=== PATIENT | female | born 1970 | race African-American/Black ===

== ENCOUNTER 2020-06-03 13:46 | Inpatient (IN) | payer OTHER, SELFPAY ==
[2020-06-03] VITALS (7 sets, daily range): BP systolic 132–179; BP diastolic 76–85; PULSE 86–100; RESP 18–24; TEMP 36.9–37.2; O2SAT 97–100; BMI 49.7
--- NOTE | 2020-06-03 14:51 | PC.NURSE ---
PT REPORTING 4 PISODES OF VOMITING JACINTO RED BLOOD YESTERDAY EVENING, WITH 1 EPISODE OF BLACK LOOSE STOOL THIS AM. EXPERIENCED BRIEF CHEST TIGHTNESS HEART WAS RACING WITH SOB AND DIZZINESS THIS AM. CURRENTLY DENIES CHEST PAIN, DIZZINESS, SOB, NAUSEA. DID EAT TOGURT AND CHEERIOS THIS AM WITH NO ISSUE. HX ACID REFLUX. DENIES ETOH, VARICES. HX HTN. 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 TO BE SEEN BY ED PROVIDER.
--- NOTE | 2020-06-03 15:25 | ED.NAVMDI ---
HPI - Nausea/Vomiting/Diarrhea General Chief complaint: Nausea/Vomiting/Diarrhea <Ian Ley MD - Last Filed: 06/03/20 16:17> Stated complaint: MULTIPLE COMPLAINTS <Ian Ley MD - Last Filed: 06/03/20 16:17> Time Seen by Provider: 06/03/20 15:15 <Ian Ley MD - Last Filed: 06/03/20 16:17> Source: patient <Ian Ley MD - Last Filed: 06/03/20 16:17> Mode of arrival: ambulatory <Ian Ley MD - Last Filed: 06/03/20 16:17> Limitations: no limitations <Ian Ley MD - Last Filed: 06/03/20 16:17> History of Present Illness HPI Narrative: 49 YEARS OLD FEMALE PRESENTED TO THE EMERGENCY DEPARTMENT WITH A CHIEF COMPLAINTS OF NAUSEA VOMITING AND DIARRHEA SINCE YESTERDAY. SHE STATES THAT SHE IS SAW BLOOD IN THE VOMITED YESTERDAY, SHE DENIES ANY FEVER WILLIAM <Ian Ley MD - Last Filed: 06/03/20 16:17> MD elicited complaint: nausea and vomiting <Ian Ley MD - Last Filed: 06/03/20 16:17> Onset (ago): day(s) (1) <Ian Ley MD - Last Filed: 06/03/20 16:17> Description of vomiting: blood-streaked <Ian Ley MD - Last Filed: 06/03/20 16:17> Description of diarrhea: watery <Ian Ley MD - Last Filed: 06/03/20 16:17> Associated nausea: Yes <Ian Ley MD - Last Filed: 06/03/20 16:17> Associated abdominal pain: No <Ian Ley MD - Last Filed: 06/03/20 16:17> Location of pain: none <Ian Ley MD - Last Filed: 06/03/20 16:17> Quality: cramping <Ian Ley MD - Last Filed: 06/03/20 16:17> Exacerbating factors: none <Ian Ley MD - Last Filed: 06/03/20 16:17> Relieving factors: none <Ian Ley MD - Last Filed: 06/03/20 16:17> Related Data Allergies/Adverse reactions: Allergies Allergy/AdvReac Type Severity Reaction Status Date / Time No Known Allergies Allergy Verified 06/03/20 13:49 <Ian Ley MD - Last Filed: 06/03/20 16:17> Review of Systems Review of Systems: Yes all other systems are reviewed and are negative <Ian Ley MD - Last Filed: 06/03/20 16:17> Respiratory: Respiratory: Reports no additional respiratory complaints <Ian Ley MD - Last Filed: 06/03/20 16:17> Gastrointestinal: Gastrointestinal: Reports nausea <Ian Ley MD - Last Filed: 06/03/20 16:17> Neurologic: Reports system reviewed and no additional complaints, except as documented <Ian Ley MD - Last Filed: 06/03/20 16:17> PMFSH Past Medical History Medical History: Medical History Cholecystectomy planned GERD (gastroesophageal reflux disease) HTN (hypertension) <Ian eLy MD - Last Filed: 06/03/20 16:17> Surgical History: Surgical History History of hysterectomy Hx of breast reduction, elective <Ian Ley MD - Last Filed: 06/03/20 16:17> Social History Social History: Social History Alcohol intake: never Smoking Status: Never smoker Use of substances other than those prescribed or required for medical reasons: No Advance Directives: No Advance Directives Information Provided: Yes <Ian Ley MD - Last Filed: 06/03/20 16:17> Physical Exam Vital Signs: Vital Signs: Vital Signs Temp Pulse Resp BP Pulse Ox 06/03/20 16:31 98.9 F 95 22 H 143/85 H 97 06/03/20 14:48 99 06/03/20 14:38 95 133/83 98 06/03/20 13:50 98.4 F 97 18 179/76 H 100 Body Mass Index 49.7 <Ian Ley MD - Last Filed: 06/03/20 16:17> Vital Signs: Vital Signs Temp Pulse Resp BP Pulse Ox 06/03/20 16:31 98.9 F 95 22 H 143/85 H 97 06/03/20 14:48 99 06/03/20 14:38 95 133/83 98 06/03/20 13:50 98.4 F 97 18 179/76 H 100 Body Mass Index 49.7 <Mecca Washington MD - Last Filed: 06/03/20 17:34> Const: Other: SHE APPEARED IN NOT ACUTE DISTRESS COMFORTABLE IN THE STRETCHER <Ian Ley MD - Last Filed: 06/03/20 16:17> Orientation/consciousness: oriented to person, oriented to place, oriented to time and patient oriented x3 <Ian Ley MD - Last Filed: 06/03/20 16:17> HENMT: Head: Yes normal to inspection <Ian Ley MD - Last Filed: 06/03/20 16:17> Ears: external ears normal <Ian Ley MD - Last Filed: 06/03/20 16:17> Mouth: Normal oral and palatal mucosa present <Ian Ley MD - Last Filed: 06/03/20 16:17> Eyes: General: appearance normal, both eyes and all related structures <Ian Ley MD - Last Filed: 06/03/20 16:17> Conjunctivae: conjunctivae normal <Ian Ley MD - Last Filed: 06/03/20 16:17> Neck: Neck: Yes normal visual inspection, Yes full ROM and Yes no lymphadenopathy <Ian Ley MD - Last Filed: 06/03/20 16:17> Chest: Chest palpation & inspection: normal inspection of the chest and normal palpation of entire chest wall <Ian Ley MD - Last Filed: 06/03/20 16:17> Resp: Effort & Inspection: normal respiratory effort and able to speak in complete sentences <Ian Ley MD - Last Filed: 06/03/20 16:17> Cardio: Jugular venous distension: no JVD <Ian Ley MD - Last Filed: 06/03/20 16:17> Palpation: normal PMI <Ian Ley MD - Last Filed: 06/03/20 16:17> Rate: regular rate <Ian Ley MD - Last Filed: 06/03/20 16:17> GI: Inspection: Yes normal to inspection <Ian Ley MD - Last Filed: 06/03/20 16:17> Percussion: Yes normal to percussion <Ian Ley MD - Last Filed: 06/03/20 16:17> Auscultation: normal bowel sounds <Ian Ley MD - Last Filed: 06/03/20 16:17> Rectal Exam - Female: Abnormal stool present (BROWN HEME POSITIVE STOOLS) and heme positive stool <Ian Ley MD - Last Filed: 06/03/20 16:17> Skin: General skin exam: no rashes or lesions noted, elasticity normal and no erythema <Ian Ley MD - Last Filed: 06/03/20 16:17> Neuro: General: oriented to person, oriented to place, oriented to time and patient oriented x3 <Ian Ley MD - Last Filed: 06/03/20 16:17> Course Course Course Narrative: PATIENT WILL BE SIGNED OUT TO THE INCOMING PROVIDER dR Hilton , LABS ARE PENDING AT THIS TIME <Ian Ley MD - Last Filed: 06/03/20 16:17> MDM - Nausea/Vomiting/Diarrhea MDM Narrative Medical decision making narrative: Patient's hemoglobin is 8.5. No old labs available. Patient's abdominal exam is soft nontender. heme-positive brown stool. Will admit patient for serial Hematocrit and monitoring. In no distress. Case discussed with hospitalist service for admission. <Mecca Washington MD - Last Filed: 06/03/20 17:34> Lab Data Result diagrams: : 06/03/20 15:58 06/03/20 15:58 <Ian Ley MD - Last Filed: 06/03/20 16:17> Labs: Lab Results 06/03/20 06/03/20 06/03/20 Range/Units 15:58 15:58 16:25 WBC 20.8 H (4.8-10.8) X10*3/uL RBC 4.37 (4.20-5.50) X10*6/uL Hgb 8.5 L (12.0-16.0) g/dl Hct 30.1 L (37-47) % MCV 68.9 L (80-98) fL MCH 19.5 L (27.0-33.0) pg MCHC 28.2 L (31.0-35.0) g/dl RDW 17.9 H (11.0-16.0) % Plt Count 415 H (160-400) X10*3/uL MPV 9.8 (9.4-12.3) fL Immature Gran % (Auto) 0.6 H (0.0-0.4) % Neut % (Auto) 85.3 H (45-73) % Lymph % (Auto) 8.6 L (20-40) % [place] % (Auto) 5.3 (2-11) % Eos % (Auto) 0.1 (0-4) % Baso % (Auto) 0.1 (0-2) % Lymph # (Auto) 1.8 (1.2-4.9) X10*3/uL [place] # (Auto) 1.1 (0.1-1.2) X10*3/uL Eos # (Auto) 0.0 (0.0-0.4) X10*3/uL Baso # (Auto) 0.0 (0.0-0.2) X10*3/uL Abs Immat Gran (auto) 0.13 H (0.00-0.03) X10*3/uL Absolute Neuts (auto) 17.7 H (2.0-8.3) X10*3/uL Absolute Nucleated RBC 0.000 (0.0-0.012) X10*3/uL Nucleated RBC % (auto) 0.0 (0.0-0.2) /100WBC Sodium 139 (135-145) mmol/L Potassium 3.7 (3.3-5.1) mmol/l Chloride 102 (96-108) mmol/L Carbon Dioxide 27 (22-29) mmol/L Anion Gap 14 (12-20) BUN 27 H (9-16) mg/dL Creatinine 0.78 (0.5-1.4) mg/dL Estim Creat Clear Calc 136.0 Estimated GFR > 60 Random Glucose 101 (60-115) mg/dL Calcium 8.8 (8.4-10.2) mg/dL Total Bilirubin 0.4 (0.0-1.0) mg/dL AST 15 (5-31) U/L ALT 19 (0-31) U/L Alkaline Phosphatase 122 H (39-117) U/L Total Protein 6.9 (6.5-8.0) g/dL Albumin 4.0 (3.5-5.0) g/dL Lipase 11 (8-78) U/L Beta HCG, Quant < 2 mIU/mL Urine Color Urine Appearance Urine pH (5.0-8.0) Ur Specific [place] (1.005-1.025) Urine Protein (NEG-TRACE) MG/DL Urine Glucose (UA) (NEG) MG/DL Urine Ketones (NEG) MG/DL Urine Blood (NEG) Urine Nitrite (NEG) Ur Leukocyte Esterase (NEG) Urine RBC (0) /HPF Urine WBC (0-4) /HPF Ur Squamous Epith Cells /LPF Urine Bacteria /LPF Stool Occult Blood POS (NEG) 06/03/20 Range/Units 16:25 WBC (4.8-10.8) X10*3/uL RBC (4.20-5.50) X10*6/uL Hgb (12.0-16.0) g/dl Hct (37-47) % MCV (80-98) fL MCH (27.0-33.0) pg MCHC (31.0-35.0) g/dl RDW (11.0-16.0) % Plt Count (160-400) X10*3/uL MPV (9.4-12.3) fL Immature Gran % (Auto) (0.0-0.4) % Neut % (Auto) (45-73) % Lymph % (Auto) (20-40) % [place] % (Auto) (2-11) % Eos % (Auto) (0-4) % Baso % (Auto) (0-2) % Lymph # (Auto) (1.2-4.9) X10*3/uL [place] # (Auto) (0.1-1.2) X10*3/uL Eos # (Auto) (0.0-0.4) X10*3/uL Baso # (Auto) (0.0-0.2) X10*3/uL Abs Immat Gran (auto) (0.00-0.03) X10*3/uL Absolute Neuts (auto) (2.0-8.3) X10*3/uL Absolute Nucleated RBC (0.0-0.012) X10*3/uL Nucleated RBC % (auto) (0.0-0.2) /100WBC Sodium (135-145) mmol/L Potassium (3.3-5.1) mmol/l Chloride (96-108) mmol/L Carbon Dioxide (22-29) mmol/L Anion Gap (12-20) BUN (9-16) mg/dL Creatinine (0.5-1.4) mg/dL Estim Creat Clear Calc Estimated GFR Random Glucose (60-115) mg/dL Calcium (8.4-10.2) mg/dL Total Bilirubin (0.0-1.0) mg/dL AST (5-31) U/L ALT (0-31) U/L Alkaline Phosphatase (39-117) U/L Total Protein (6.5-8.0) g/dL Albumin (3.5-5.0) g/dL Lipase (8-78) U/L Beta HCG, Quant mIU/mL Urine Color YELLOW Urine Appearance CLEAR Urine pH 6.0 (5.0-8.0) Ur Specific [place] 1.020 (1.005-1.025) Urine Protein NEG (NEG-TRACE) MG/DL Urine Glucose (UA) NEG (NEG) MG/DL Urine Ketones NEG (NEG) MG/DL Urine Blood 1+ H (NEG) Urine Nitrite NEG (NEG) Ur Leukocyte Esterase NEG (NEG) Urine RBC 0-2 (0) /HPF Urine WBC 0 (0-4) /HPF Ur Squamous Epith Cells TRACE /LPF Urine Bacteria TRACE /LPF Stool Occult Blood (NEG) <Ian Ley MD - Last Filed: 06/03/20 16:17> Lab Results 06/03/20 06/03/20 06/03/20 Range/Units 15:58 15:58 16:25 WBC 20.8 H (4.8-10.8) X10*3/uL RBC 4.37 (4.20-5.50) X10*6/uL Hgb 8.5 L (12.0-16.0) g/dl Hct 30.1 L (37-47) % MCV 68.9 L (80-98) fL MCH 19.5 L (27.0-33.0) pg MCHC 28.2 L (31.0-35.0) g/dl RDW 17.9 H (11.0-16.0) % Plt Count 415 H (160-400) X10*3/uL MPV 9.8 (9.4-12.3) fL Immature Gran % (Auto) 0.6 H (0.0-0.4) % Neut % (Auto) 85.3 H (45-73) % Lymph % (Auto) 8.6 L (20-40) % [place] % (Auto) 5.3 (2-11) % Eos % (Auto) 0.1 (0-4) % Baso % (Auto) 0.1 (0-2) % Lymph # (Auto) 1.8 (1.2-4.9) X10*3/uL [place] # (Auto) 1.1 (0.1-1.2) X10*3/uL Eos # (Auto) 0.0 (0.0-0.4) X10*3/uL Baso # (Auto) 0.0 (0.0-0.2) X10*3/uL Abs Immat Gran (auto) 0.13 H (0.00-0.03) X10*3/uL Absolute Neuts (auto) 17.7 H (2.0-8.3) X10*3/uL Absolute Nucleated RBC 0.000 (0.0-0.012) X10*3/uL Nucleated RBC % (auto) 0.0 (0.0-0.2) /100WBC Sodium 139 (135-145) mmol/L Potassium 3.7 (3.3-5.1) mmol/l Chloride 102 (96-108) mmol/L Carbon Dioxide 27 (22-29) mmol/L Anion Gap 14 (12-20) BUN 27 H (9-16) mg/dL Creatinine 0.78 (0.5-1.4) mg/dL Estim Creat Clear Calc 136.0 Estimated GFR > 60 Random Glucose 101 (60-115) mg/dL Calcium 8.8 (8.4-10.2) mg/dL Total Bilirubin 0.4 (0.0-1.0) mg/dL AST 15 (5-31) U/L ALT 19 (0-31) U/L Alkaline Phosphatase 122 H (39-117) U/L Total Protein 6.9 (6.5-8.0) g/dL Albumin 4.0 (3.5-5.0) g/dL Lipase 11 (8-78) U/L Beta HCG, Quant < 2 mIU/mL Urine Color Urine Appearance Urine pH (5.0-8.0) Ur Specific [place] (1.005-1.025) Urine Protein (NEG-TRACE) MG/DL Urine Glucose (UA) (NEG) MG/DL Urine Ketones (NEG) MG/DL Urine Blood (NEG) Urine Nitrite (NEG) Ur Leukocyte Esterase (NEG) Urine RBC (0) /HPF Urine WBC (0-4) /HPF Ur Squamous Epith Cells /LPF Urine Bacteria /LPF Stool Occult Blood POS (NEG) 06/03/20 Range/Units 16:25 WBC (4.8-10.8) X10*3/uL RBC (4.20-5.50) X10*6/uL Hgb (12.0-16.0) g/dl Hct (37-47) % MCV (80-98) fL MCH (27.0-33.0) pg MCHC (31.0-35.0) g/dl RDW (11.0-16.0) % Plt Count (160-400) X10*3/uL MPV (9.4-12.3) fL Immature Gran % (Auto) (0.0-0.4) % Neut % (Auto) (45-73) % Lymph % (Auto) (20-40) % [place] % (Auto) (2-11) % Eos % (Auto) (0-4) % Baso % (Auto) (0-2) % Lymph # (Auto) (1.2-4.9) X10*3/uL [place] # (Auto) (0.1-1.2) X10*3/uL Eos # (Auto) (0.0-0.4) X10*3/uL Baso # (Auto) (0.0-0.2) X10*3/uL Abs Immat Gran (auto) (0.00-0.03) X10*3/uL Absolute Neuts (auto) (2.0-8.3) X10*3/uL Absolute Nucleated RBC (0.0-0.012) X10*3/uL Nucleated RBC % (auto) (0.0-0.2) /100WBC Sodium (135-145) mmol/L Potassium (3.3-5.1) mmol/l Chloride (96-108) mmol/L Carbon Dioxide (22-29) mmol/L Anion Gap (12-20) BUN (9-16) mg/dL Creatinine (0.5-1.4) mg/dL Estim Creat Clear Calc Estimated GFR Random Glucose (60-115) mg/dL Calcium (8.4-10.2) mg/dL Total Bilirubin (0.0-1.0) mg/dL AST (5-31) U/L ALT (0-31) U/L Alkaline Phosphatase (39-117) U/L Total Protein (6.5-8.0) g/dL Albumin (3.5-5.0) g/dL Lipase (8-78) U/L Beta HCG, Quant mIU/mL Urine Color YELLOW Urine Appearance CLEAR Urine pH 6.0 (5.0-8.0) Ur Specific [place] 1.020 (1.005-1.025) Urine Protein NEG (NEG-TRACE) MG/DL Urine Glucose (UA) NEG (NEG) MG/DL Urine Ketones NEG (NEG) MG/DL Urine Blood 1+ H (NEG) Urine Nitrite NEG (NEG) Ur Leukocyte Esterase NEG (NEG) Urine RBC 0-2 (0) /HPF Urine WBC 0 (0-4) /HPF Ur Squamous Epith Cells TRACE /LPF Urine Bacteria TRACE /LPF Stool Occult Blood (NEG) <Mecca Washington MD - Last Filed: 06/03/20 17:34> Sign Out Sign Out Data: Patient Sign Out occurred on 06/03/20 at 17:02. After a detailed discussion of the patient's case, care was transferred from Ian Ley MD to Mecca Washington MD. Sign Out Comment: LABS PENDING/ GI CONSULT AFTER LABS RESULT Last updated by Ian Ley MD at 06/03/20 16:16 <Ian Ley MD - Last Filed: 06/03/20 16:17>
[2020-06-03 16:05] LABS: MANUAL DIFF FLAG NO
[2020-06-03 16:07] LABS: Basophils Percent Auto 0.1 % (0-2); Eosinophils Percent Auto 0.1 % (0-4); Hematocrit 30.1 % (37-47); Hemoglobin 8.5 g/dl (12.0-16.0); Imm Gran Abs Auto 0.13 X10*3/uL (0.00-0.03); Imm Gran Pct Auto 0.6 % (0.0-0.4); Lymphocytes Absolute Auto 1.8 X10*3/uL (1.2-4.9); Lymphocytes Percent Auto 8.6 % (20-40); Mean Corpuscular HGB Conc 28.2 g/dl (31.0-35.0); Mean Corpuscular Hemoglobin 19.5 pg (27.0-33.0); Mean Corpuscular Volume 68.9 fL (80-98); Mean Platelet Volume 9.8 fL (9.4-12.3); Monocytes Absolute Auto 1.1 X10*3/uL (0.1-1.2); Monocytes Percent Auto 5.3 % (2-11); Neutrophils Absolute Auto 17.7 X10*3/uL (2.0-8.3); Neutrophils Percent Auto 85.3 % (45-73); Platelet Count 415 X10*3/uL (160-400); Red Blood Count 4.37 X10*6/uL (4.20-5.50); Red Cell Distribution Width 17.9 % (11.0-16.0); White Blood Count 20.8 X10*3/uL (4.8-10.8)
--- NOTE | 2020-06-03 16:10 | PC.NURSE ---
RECTAL EXAM DONE WITH THIS RN PRESENT
[2020-06-03] MEDS: ondansetron HCL 4 MG/2 ML VIAL IVPUSH (16:20)
[2020-06-03] MEDS: Famotidine/PF 20 MG/2 ML VIAL IVPUSH (16:26)
[2020-06-03] MEDS: 0.9 % Sodium Chloride 1,000 ML 999 ML IVCONT (16:27)
[2020-06-03 16:35] LABS: Alanine Aminotransferase 19 U/L (0-31); Alkaline Phosphatase 122 U/L (39-117); Anion Gap 14 (12-20); Aspartate Amino Transferase 15 U/L (5-31); Bilirubin Total 0.4 mg/dL (0.0-1.0); Blood Urea Nitrogen 27 mg/dL (9-16); Calcium 8.8 mg/dL (8.4-10.2); Carbon Dioxide 27 mmol/L (22-29); Chloride 102 mmol/L (96-108); Estimated Glomerular Filt Rate > 60; Glucose Random 101 mg/dL (60-115); Lipase 11 U/L (8-78); Potassium 3.7 mmol/l (3.3-5.1); Sodium 139 mmol/L (135-145); Total Protein 6.9 g/dL (6.5-8.0)
[2020-06-03 16:36] LABS: Glucose Urine UA NEG (NEG); Leukocyte Esterase Urine NEG (NEG); Nitrite Urine NEG (NEG); Urine Blood 1+ (NEG); Urine Ketones NEG (NEG); Urine Protein NEG (NEG-TRACE)
[2020-06-03 16:38] LABS: OBS Int Ctl Valid YES; OBS1 POS (NEG)
[2020-06-03 16:40] LABS: Appearance Urine CLEAR; Color Urine YELLOW
[2020-06-03 16:41] LABS: HCG Quantitative < 2 mIU/mL
[2020-06-03 16:50] LABS: Bacteria Urine TRACE /LPF; RBC Urine 0-2 /HPF (0); Squamous Epithelial Cell Urine TRACE /LPF; WBC Urine 0 /HPF (0-4)
[2020-06-03] MEDS: Pantoprazole Sodium 40 MG/10 ML VIAL IVPUSH (17:57)
--- NOTE | 2020-06-03 19:14 | PC.NURSE ---
pt reports no pain. vs wnl. aware of plan for care. hospitalist currently at bedside.
--- NOTE | 2020-06-03 20:05 | P.HPIM_ITS ---
History of Present Illness Date of Service: 06/03/20 Chief Complaint: Hematemesis 49 year old women presenting after several episodes of bloody vomitus. She reported that yesterday she had four episodes of vomiting blood. She also had one episode of black stool. She has no history of alcohol abuse, regular NSAID u se and in fact reported that she used four baby aspirin for knee pain over the last 2 weeks. in the ER, vital signs stable, hemoglobin noted to be low at 8.5, hematocrit 30.1. She did not have any further vomiting since yesterday. She was given IV protonix and will be admitted for acute GI bleed. Review of Systems Review of Systems: Denies any recent fever chills or decrease in appetite respiratory denies any shortness of breath coverage production cardiovascular is adjustment of any PND or edema gastrointestinal denies any dysphagia abdominal pain nausea vomiting or diarrhea genitourinary denies any dysuria frequency or hematuria musculoskeletal denies any joint pain or swelling neuropsych denies any weakness or seizures all other systems reviewed are negative Neurologic: Reports system reviewed and no additional complaints, except as documented [facility] Medical History (Updated 06/04/20 @ 10:01 by Constance Roblero MD) Anemia Cholecystectomy planned GERD (gastroesophageal reflux disease) HTN (hypertension) Morbid obesity with BMI of 45.0-49.9, adult Family History (Updated 06/04/20 @ 09:51 by Constance Roblero MD) Father FH: colon polyps Pertinent family history: Diabetes Surgical History (Updated 06/04/20 @ 09:52 by Constance Roblero MD) History of cholecystectomy History of hysterectomy Hx of breast reduction, elective Social History (Updated 06/04/20 @ 09:54 by Constance Roblero MD) Household Members: Family and Children Household Members Other:: Legal guardian neice and nephew (ages18 & 16) Housing: Apartment Do you presently have visiting nurse or other home services: No Alcohol intake: never Smoking Status: Never smoker Use of substances other than those prescribed or required for medical reasons: No Currently Displaying Signs/Symptoms of Drug Intoxication Withdrawal: No Any prior treatment program specific to substance use: No Have you been hit, kicked, punched, or otherwise hurt by someone within the past year? If so, by whom?: No Do you feel safe in your current relationship?: No Current Relationship Is there a partner from a previous relationship who is making you feel unsafe now?: No Are you made to feel afraid or neglected: No Advance Directives: No Advance Directives Information Provided: Yes Do you have thoughts of harming others: None Do you have a plan to hurt others: No Plan Recently lost weight without trying: No Meds Allergies Allergy/AdvReac Type Severity Reaction Status Date / Time No Known Allergies Allergy Verified 06/03/20 13:49 Home Medications Medication Instructions Recorded Confirmed Type atenolol 25 mg PO QAM 06/03/20 06/03/20 History hydrochlorothiazide 25 mg PO QAM 06/03/20 06/03/20 History omeprazole 20 mg PO QAM 06/03/20 06/03/20 History Physical Exam Vital Signs and Narrative: Vital Signs: Last Vital Signs Temp 98.9 F 06/03/20 16:31 Pulse 86 06/03/20 19:14 Resp 21 H 06/03/20 19:14 BP 132/83 06/03/20 19:14 Pulse Ox 97 06/03/20 19:14 Body Mass Index 49.7 Appearing in no acute distress head is normocephalic atraumatic eyes pupils are PERRLA sclera is anicteric mouth throat mucous membranes are intact and moist neck is supple no lymphadenopathy, no JVD noted lung sounds are clear to auscultation heart regular rate rhythm, clear S1, S2 positive bowel sounds, abdomen is soft, nontender neuro patient is alert x3, no focal deficits Results Labs Labs: Laboratory Tests 06/03/20 06/03/20 06/03/20 15:58 15:58 16:25 WBC 20.8 H RBC 4.37 Hgb 8.5 L Hct 30.1 L MCV 68.9 L MCH 19.5 L MCHC 28.2 L RDW 17.9 H Plt Count 415 H MPV 9.8 Immature Gran % (Auto) 0.6 H Neut % (Auto) 85.3 H Lymph % (Auto) 8.6 L [place] % (Auto) 5.3 Eos % (Auto) 0.1 Baso % (Auto) 0.1 Lymph # (Auto) 1.8 [place] # (Auto) 1.1 Eos # (Auto) 0.0 Baso # (Auto) 0.0 Abs Immat Gran (auto) 0.13 H Absolute Neuts (auto) 17.7 H Absolute Nucleated RBC 0.000 Nucleated RBC % (auto) 0.0 Sodium 139 Potassium 3.7 Chloride 102 Carbon Dioxide 27 Anion Gap 14 BUN 27 H Creatinine 0.78 Estim Creat Clear Calc 136.0 Estimated GFR > 60 Random Glucose 101 Calcium 8.8 Total Bilirubin 0.4 AST 15 ALT 19 Alkaline Phosphatase 122 H Total Protein 6.9 Albumin 4.0 Lipase 11 Beta HCG, Quant < 2 Urine Color Urine Appearance Urine pH Ur Specific [place] Urine Protein Urine Glucose (UA) Urine Ketones Urine Blood Urine Nitrite Ur Leukocyte Esterase Urine RBC Urine WBC Ur Squamous Epith Cells Urine Bacteria Stool Occult Blood POS 06/03/20 16:25 WBC RBC Hgb Hct MCV MCH MCHC RDW Plt Count MPV Immature Gran % (Auto) Neut % (Auto) Lymph % (Auto) [place] % (Auto) Eos % (Auto) Baso % (Auto) Lymph # (Auto) [place] # (Auto) Eos # (Auto) Baso # (Auto) Abs Immat Gran (auto) Absolute Neuts (auto) Absolute Nucleated RBC Nucleated RBC % (auto) Sodium Potassium Chloride Carbon Dioxide Anion Gap BUN Creatinine Estim Creat Clear Calc Estimated GFR Random Glucose Calcium Total Bilirubin AST ALT Alkaline Phosphatase Total Protein Albumin Lipase Beta HCG, Quant Urine Color YELLOW Urine Appearance CLEAR Urine pH 6.0 Ur Specific [place] 1.020 Urine Protein NEG Urine Glucose (UA) NEG Urine Ketones NEG Urine Blood 1+ H Urine Nitrite NEG Ur Leukocyte Esterase NEG Urine RBC 0-2 Urine WBC 0 Ur Squamous Epith Cells TRACE Urine Bacteria TRACE Stool Occult Blood Assessment and Plan (1) Hematemesis: Problem details: Patient denies any previous hx of vomiting blood. Has had egd in the past with no specific findings. She has been chronically on PPI therapy which she takes in the morning. Status: Acute (2) Gastritis: Status: Acute (3) HTN (hypertension): Problem details: Patient has been on treatment for this Status: Acute 49 year old women admitted after several episodes of hematemesis. May be related to gastritis. Gastritis. May be cause of hematemesis. IV Protonix, likely will need EGD tomorrow, GI to follow. NPO after midnight. Hypertension. Hold antihypertensives due to anemia. Avoid hypotension. Anemia. Seems related to blood loss from hematemesis. Will recheck H&H this evening. If there seems to be a significant drop, consider blood transfusion. Type and screen. DVT prophylaxis with mechanical compression boots due to GI bleed. Discussed with Dr. Frazier.
--- NOTE | 2020-06-03 21:14 | PC.NURSE ---
CALL MADE UP TO [facility] [place] FOR REPORT
--- NOTE | 2020-06-03 22:46 | PC.NURSE ---
report given to avila meadows
[2020-06-03 23:53] LABS: Hematocrit 28.4 % (37-47); Hemoglobin 8.1 g/dl (12.0-16.0); Mean Corpuscular HGB Conc 28.5 g/dl (31.0-35.0); Mean Corpuscular Hemoglobin 19.6 pg (27.0-33.0); Mean Corpuscular Volume 68.8 fL (80-98); Mean Platelet Volume 9.8 fL (9.4-12.3); Platelet Count 381 X10*3/uL (160-400); Red Blood Count 4.13 X10*6/uL (4.20-5.50); Red Cell Distribution Width 18.1 % (11.0-16.0); White Blood Count 19.3 X10*3/uL (4.8-10.8)
[2020-06-04] VITALS (10 sets, daily range): BP systolic 111–166; BP diastolic 49–88; PULSE 68–98; RESP 16–19; TEMP 36.6–37.1; O2SAT 96–99
--- NOTE | 2020-06-04 | ECG_ITS ---
Test Reason : Preop, ANEMIA Blood Pressure : / mmHG Vent. Rate : 091 BPM Atrial Rate : 091 BPM P-R Int : 182 ms QRS Dur : 090 ms QT Int : 362 ms P-R-T Axes : 038 037 020 degrees QTc Int : 445 ms Normal sinus rhythm Nonspecific T wave abnormality Abnormal ECG No previous ECGs available Referred By: Constance Roblero Electronically Signed By:JACINTO PRESSLEY MD
[2020-06-04] MEDS: Pantoprazole Sodium 40 MG/10 ML VIAL IVPUSH ×2 (05:44→15:31)
--- NOTE | 2020-06-04 07:59 | P.CNGI_ITS ---
History of Present Illness Data of Consult Service Date: 06/04/20 Requesting physician: Delmy Phoenix Primary Care Provider: Sahil Mota MD HPI Reason for consult: Hematemesis, Anemia, Heme + stool 49 yo morbidly obese female who presented to the ER after 4 episodes of Vomiting blood and clots. She has never experienced this problem before. She does have hx of GERD. She is on Omeprazole once daily in the AM. She does not routinely use ASA or NSAIAs. She tells me that she had eaten Fried Fish and [place]. Shortly after going to be she vomited. (Denies any significant force to this. Subsequent episodes of vomiting were with blood as described.) She had had EGD in past and does not recall any hx ulcer disease, or esophagitis. She had not had any GI symptoms the days preceding. Moves bowels daily, Denies abdominal pain, fever, etc. Review of Systems Constitutional: Constitutional: Denies anorexia, Denies difficulty sleeping, Denies fatigue, Denies lethargy, Denies poor appetite and Denies stops breathing during sleep Comments: Has never been evaluated for JUAN Cardiovascular: Cardiovascular: Denies chest pain at rest, Denies Epigastric Pain, Denies palpitations, Denies dyspnea, Reports dyspnea on exertion (mild) and Reports other (History of Hypertension) Comments: known hx hypertension Respiratory: Respiratory: Denies cough, Denies dyspnea and Reports dyspnea on exertion (mild) Gastrointestinal: Gastrointestinal: Reports as per HPI, Denies abdominal pain, Denies change in bowel habits, Reports heartburn and Reports hematemesis (4 episodes prior to admission) Genitourinary: Comments: Had Hysterectomy for Fibroids and DUB Integumentary/Breasts: Comments: Breast reduction about 10 years ago Endocrine: Endocrine: Denies fatigue and Denies palpitations PMF Past Medical History Medical History (Updated 06/04/20 @ 18:21 by Constance Roblero MD) Anemia Cholecystectomy planned GERD (gastroesophageal reflux disease) HTN (hypertension) Morbid obesity with BMI of 45.0-49.9, adult Cognitive capacity: Normal Patient : No Family History Family History (Updated 06/04/20 @ 09:51 by Constance Roblero MD) Father FH: colon polyps Surgical History Surgical History (Updated 06/04/20 @ 09:52 by Constance Roblero MD) History of cholecystectomy History of hysterectomy Hx of breast reduction, elective Social History Social History (Updated 06/04/20 @ 09:54 by Constance Roblero MD) Household Members: Family and Children Household Members Other:: Legal guardian neice and nephew (ages18 & 16) Housing: Apartment Do you presently have visiting nurse or other home services: No Alcohol intake: never Smoking Status: Never smoker Use of substances other than those prescribed or required for medical reasons: No Currently Displaying Signs/Symptoms of Drug Intoxication Withdrawal: No Any prior treatment program specific to substance use: No Have you been hit, kicked, punched, or otherwise hurt by someone within the past year? If so, by whom?: No Do you feel safe in your current relationship?: No Current Relationship Is there a partner from a previous relationship who is making you feel unsafe now?: No Are you made to feel afraid or neglected: No Advance Directives: No Advance Directives Information Provided: Yes Do you have thoughts of harming others: None Do you have a plan to hurt others: No Plan Recently lost weight without trying: No Meds Allergies Allergy/AdvReac Type Severity Reaction Status Date / Time No Known Allergies Allergy Verified 06/03/20 13:49 Home Medications Medication Instructions Recorded Confirmed Type atenolol 25 mg PO QAM 06/03/20 06/03/20 History hydrochlorothiazide 25 mg PO QAM 06/03/20 06/03/20 History omeprazole 20 mg PO QAM 06/03/20 06/03/20 History Physical Exam Vital Signs: Vital Signs: Vital Signs Temp Pulse Resp BP Pulse Ox 06/04/20 07:36 98.6 F 89 18 111/64 97 06/04/20 06:00 98.7 F 68 18 127/72 98 06/04/20 03:44 98.6 F 96 18 127/82 99 06/03/20 23:41 98.4 F 100 18 164/84 H 99 06/03/20 22:49 94 24 H 155/83 H 99 06/03/20 19:14 86 21 H 132/83 97 06/03/20 16:31 98.9 F 95 22 H 143/85 H 97 06/03/20 14:48 99 06/03/20 14:38 95 133/83 98 06/03/20 13:50 98.4 F 97 18 179/76 H 100 Body Mass Index 49.7 Const: General: cooperative, comfortable and awake Nutritional Appearance: overweight (Morbid Obesity) Orientation/consciousness: patient oriented x3 Limitations: no limitations Neck: Neck: Yes normal visual inspection Thyroid: diffusely enlarged Lymphatic: no lymphadenopathy noted Resp: Effort & Inspection: normal respiratory effort, no cough, no pursed lip breathing and no respiratory distress Auscultation: clear to auscultation bilaterally and diminished lung sounds Percussion: percussion normal Cardio: Palpation: normal PMI Rate: regular rate Rhythm: regular rhythm Heart sounds: Murmur heart sound present (2/6 systolic murmur across precordium) GI: Inspection: Yes normal to inspection, Yes Abdominal panniculus present and Yes obesity Palpation (GI): Soft to palpation Percussion: Yes normal to percussion Rectal Exam - Female: deferred Skin: General skin exam: no rashes or lesions noted Neuro: General: patient oriented x3 Extrem: General: Yes normal to inspection, Yes no calf tenderness and No edema Results Labs CBC & Chem 7: 06/03/20 23:42 06/03/20 15:58 Labs: Short CBC 06/03/20 06/03/20 06/03/20 Range/Units 15:58 16:25 23:42 WBC 20.8 H 19.3 H (4.8-10.8) X10*3/uL Hgb 8.5 L 8.1 L (12.0-16.0) g/dl Hct 30.1 L 28.4 L (37-47) % Plt Count 415 H 381 (160-400) X10*3/uL Urine Color YELLOW Urine Appearance CLEAR Urine pH 6.0 (5.0-8.0) Ur Specific [place] 1.020 (1.005-1.025) Urine Protein NEG (NEG-TRACE) MG/DL Urine Glucose (UA) NEG (NEG) MG/DL Urine Ketones NEG (NEG) MG/DL Urine Blood 1+ H (NEG) Urine Nitrite NEG (NEG) Ur Leukocyte Esterase NEG (NEG) Urine RBC 0-2 (0) /HPF Urine WBC 0 (0-4) /HPF Ur Squamous Epith Cells TRACE /LPF Urine Bacteria TRACE /LPF BMP 06/03/20 15:58 Sodium 139 Potassium 3.7 Chloride 102 Carbon Dioxide 27 BUN 27 H Creatinine 0.78 Calcium 8.8 Liver Function 06/03/20 Range/Units 15:58 Total Bilirubin 0.4 (0.0-1.0) mg/dL AST 15 (5-31) U/L ALT 19 (0-31) U/L Alkaline Phosphatase 122 H (39-117) U/L Albumin 4.0 (3.5-5.0) g/dL Urine 06/03/20 Range/Units 16:25 Urine Color YELLOW Urine Appearance CLEAR Urine pH 6.0 (5.0-8.0) Ur Specific [place] 1.020 (1.005-1.025) Urine Protein NEG (NEG-TRACE) MG/DL Urine Glucose (UA) NEG (NEG) MG/DL Assessment and Plan (1) Hematemesis: Problem details: Patient denies any previous hx of vomiting blood. Has had egd in the past with no specific findings. She has been chronically on PPI therapy which she takes in the morning. Status: Acute Urgent EGD. (2) GERD (gastroesophageal reflux disease): Problem details: see HPI Status: Acute EGD to be done; Continue IV PPI q 12hr (3) Anemia: Problem details: Patient says she is aware of a borderline anemia. She was last seen by PCP in October. Not aware of sickle trait or Thalassemia Status: Acute Consider furth eval of her anemia--copy of other records. (4) Morbid obesity with BMI of 45.0-49.9, adult: Problem details: Present jail Status: Acute Further discussion may be warranted. (5) HTN (hypertension): Problem details: Patient has been on treatment for this Status: Acute PCP to manage this
--- NOTE | 2020-06-04 10:21 | MHC.CM.PN ---
Call placed to Yesenia Jewell, patient's daughter in attempt at interview. Message left requesting call in return. CM to follow.
--- NOTE | 2020-06-04 10:30 | P.CONAN_ITS ---
FORMERLY [facility], [facility] Past Medical History Medical History (Updated 06/04/20 @ 10:01 by Constance Roblero MD) Anemia Cholecystectomy planned GERD (gastroesophageal reflux disease) HTN (hypertension) Morbid obesity with BMI of 45.0-49.9, adult Family History Family History (Updated 06/04/20 @ 09:51 by Constance Roblero MD) Father FH: colon polyps Surgical History Surgical History (Updated 06/04/20 @ 09:52 by Constance Roblero MD) History of cholecystectomy History of hysterectomy Hx of breast reduction, elective Social History Social History (Updated 06/04/20 @ 09:54 by Constance Roblero MD) Household Members: Family and Children Household Members Other:: Legal guardian neice and nephew (ages18 & 16) Housing: Apartment Do you presently have visiting nurse or other home services: No Alcohol intake: never Smoking Status: Never smoker Use of substances other than those prescribed or required for medical reasons: No Currently Displaying Signs/Symptoms of Drug Intoxication Withdrawal: No Any prior treatment program specific to substance use: No Have you been hit, kicked, punched, or otherwise hurt by someone within the past year? If so, by whom?: No Do you feel safe in your current relationship?: No Current Relationship Is there a partner from a previous relationship who is making you feel unsafe now?: No Are you made to feel afraid or neglected: No Advance Directives: No Advance Directives Information Provided: Yes Do you have thoughts of harming others: None Recently lost weight without trying: No Meds Allergies Allergy/AdvReac Type Severity Reaction Status Date / Time No Known Allergies Allergy Verified 06/03/20 13:49 Home Medications Medication Instructions Recorded Confirmed Type atenolol 25 mg PO QAM 06/03/20 06/03/20 History hydrochlorothiazide 25 mg PO QAM 06/03/20 06/03/20 History omeprazole 20 mg PO QAM 06/03/20 06/03/20 History Exam Exam Date and Time: June 04, 2020 1030 Height,Weight and Vital Signs: Height 5 ft 8 in Weight 148.325 kg Last Vital Signs Temp 98.6 F 06/04/20 07:36 Pulse 89 06/04/20 07:36 Resp 18 06/04/20 07:36 BP 111/64 06/04/20 07:36 Pulse Ox 97 06/04/20 07:36 Pertinent Lab Results Pertinent Lab Results: Laboratory Tests 06/03/20 06/03/20 06/03/20 15:58 15:58 16:25 WBC 20.8 H RBC 4.37 Hgb 8.5 L Hct 30.1 L MCV 68.9 L MCH 19.5 L MCHC 28.2 L RDW 17.9 H Plt Count 415 H MPV 9.8 Immature Gran % (Auto) 0.6 H Neut % (Auto) 85.3 H Lymph % (Auto) 8.6 L [place] % (Auto) 5.3 Eos % (Auto) 0.1 Baso % (Auto) 0.1 Lymph # (Auto) 1.8 [place] # (Auto) 1.1 Eos # (Auto) 0.0 Baso # (Auto) 0.0 Abs Immat Gran (auto) 0.13 H Absolute Neuts (auto) 17.7 H Absolute Nucleated RBC 0.000 Nucleated RBC % (auto) 0.0 Sodium 139 Potassium 3.7 Chloride 102 Carbon Dioxide 27 Anion Gap 14 BUN 27 H Creatinine 0.78 Estim Creat Clear Calc 136.0 Estimated GFR > 60 Random Glucose 101 Calcium 8.8 Total Bilirubin 0.4 AST 15 ALT 19 Alkaline Phosphatase 122 H Total Protein 6.9 Albumin 4.0 Lipase 11 Beta HCG, Quant < 2 Urine Color Urine Appearance Urine pH Ur Specific [place] Urine Protein Urine Glucose (UA) Urine Ketones Urine Blood Urine Nitrite Ur Leukocyte Esterase Urine RBC Urine WBC Ur Squamous Epith Cells Urine Bacteria Stool Occult Blood POS Blood Type Antibody Screen 06/03/20 06/03/20 06/03/20 16:25 23:42 23:42 WBC 19.3 H RBC 4.13 L Hgb 8.1 L Hct 28.4 L MCV 68.8 L MCH 19.6 L MCHC 28.5 L RDW 18.1 H Plt Count 381 MPV 9.8 Immature Gran % (Auto) Neut % (Auto) Lymph % (Auto) [place] % (Auto) Eos % (Auto) Baso % (Auto) Lymph # (Auto) [place] # (Auto) Eos # (Auto) Baso # (Auto) Abs Immat Gran (auto) Absolute Neuts (auto) Absolute Nucleated RBC 0.000 Nucleated RBC % (auto) 0.0 Sodium Potassium Chloride Carbon Dioxide Anion Gap BUN Creatinine Estim Creat Clear Calc Estimated GFR Random Glucose Calcium Total Bilirubin AST ALT Alkaline Phosphatase Total Protein Albumin Lipase Beta HCG, Quant Urine Color YELLOW Urine Appearance CLEAR Urine pH 6.0 Ur Specific [place] 1.020 Urine Protein NEG Urine Glucose (UA) NEG Urine Ketones NEG Urine Blood 1+ H Urine Nitrite NEG Ur Leukocyte Esterase NEG Urine RBC 0-2 Urine WBC 0 Ur Squamous Epith Cells TRACE Urine Bacteria TRACE Stool Occult Blood Blood Type O Positive Antibody Screen NEGATIVE Airway Mallampati Class: II TM Dist: >3cm Neck ROM: Full Loose/Missing/Broken Teeth: No Heart: RRR Lungs: CTA Assessment and Plan Assessment Anesthesia Assessment: Anesthesia Plan Discussed and Chart Reviewed Final Anesthetic Review NPO: Yes ASA Class: II Final Preanesthetic Review: No Changes in Pt Med Stat, Meds/Allgs Chart Reviewed, Consent Obtained/Reviewed and Anes Risks/Benef Reviewed Patient Risk: Intermediate Procedure Risk: Low Anesthetic Plan Anesthetic Plan: MAC: Disposition: Standard PACU
--- NOTE | 2020-06-04 10:48 | P.HPSUR_ITS ---
Pre-Procedural Eval Section B Chief Complaint: MULTIPLE COMPLAINTS GI BLEED Allergies: Allergies Allergy/AdvReac Type Severity Reaction Status Date / Time No Known Allergies Allergy Verified 06/03/20 13:49 Plan Patient has been examined and remains a candidate for the planned procedure; see my consult for today.
--- NOTE | 2020-06-04 12:30 | P.PCN_ITS ---
Brief Operative Note Date of procedure: 06/04/20 Pre-op diagnosis: HEMATEMESIS Post-op diagnosis: other (LARGE FUNDIC GLAND POLYPS, 1 POLYP WITH EROSION OR FLAT VV EQUIVALENT; HIATAL HERNIA) Procedure: EGD WITH EPI INJECTION 6 CC; RESOLUTION CLIPPING X2 complex proc edure, change to double channel scope--start time: 10:59AM--end time:11:59 AM Anesthesia: MAC (MD LETICIA) Surgeon: Constance Roblero Estimated blood loss (mL): 10 Pathology: none sent Condition: stable Disposition: PACU (BACK TO THE FLOOR. TRIAL LIQUID DIET FIRST; AVOID VOMITING, CONTINUE PPI FOR 24 HOURS. MONITOR H&H. IF REBLEEDS MAY NEED CT ANGIO--WITH INTERVENTION.)
--- NOTE | 2020-06-04 17:21 | PC.NURSE ---
P-patient questioning BP meds not being reordered,outdated discharge order is in place for this patient I- notified of the above E-awaiting new orders
--- NOTE | 2020-06-04 18:25 | PC.NURSE ---
P-meds time due not showing uop on status board I-command center notified E-IT staff will look into this
--- NOTE | 2020-06-04 18:55 | P.PNIM_ITS ---
Subjective Subjective Date of Service: 06/04/20 Interval History: no new episode , going for egd Review of Systems denies any chest pain or sob. Physical Exam Vital Signs: Vital Signs: Vital Signs Temp Pulse Resp BP Pulse Ox 06/04/20 15:45 98.0 F 86 18 127/66 99 06/04/20 13:18 18 06/04/20 12:53 97.8 F 80 18 166/88 H 98 06/04/20 12:25 97.8 F 93 16 134/69 99 06/04/20 12:10 97.8 F 98 18 132/49 L 99 06/04/20 07:36 98.6 F 89 18 111/64 97 06/04/20 06:00 98.7 F 68 18 127/72 98 06/04/20 03:44 98.6 F 96 18 127/82 99 06/03/20 23:41 98.4 F 100 18 164/84 H 99 06/03/20 22:49 94 24 H 155/83 H 99 06/03/20 19:14 86 21 H 132/83 97 Body Mass Index 49.7 physical exam: eyes pupils are PERRLA, sclera anicteric neck is supple no lymphadenopathy, no JVD noted lung sounds are clear to auscultation heart regular rate rhythm, clear S1, S2 positive bowel sounds, abdomen is soft, nontender neuro patient is alert x3, no focal deficits Objective Data Current Medications Generic Name Dose Route Start Last Admin Trade Name Freq PRN Reason Stop Dose Admin Lactated Ringer's 1,000 mls @ 50 mls/hr 06/04/20 10:45 06/04/20 12:56 Lr IVCONT Not Given .Q20H [facility] Promethazine HCl 12.5 mg/ 50.5 mls @ 202 mls/hr 06/04/20 10:34 06/04/20 14:32 Sodium Chloride IV Infused ONCE PRN Infusion Nausea and Vomiting Pantoprazole Sodium 40 mg 06/04/20 16:30 06/04/20 15:31 Pantoprazole Sodium 40 Mg/10 Ml Vial IVPUSH 40 mg BID@0630,1630 [facility] Administration Pharmacy Consult 1 each 06/03/20 23:18 Consult Rx Perform Med Rec MISCELLANE ONCE PRN Consult order Labs CBC & Chem 7: 06/05/20 05:37 06/03/20 15:58 Assessment and Plan (1) Anemia: Problem details: Patient says she is aware of a borderline anemia. She was last seen by PCP in October. Not aware of sickle trait or Thalassemia Status: Acute (2) Gastritis: Status: Acute (3) Hematemesis: Problem details: Patient denies any previous hx of vomiting blood. Has had egd in the past with no specific findings. She has been chronically on PPI therapy which she takes in the morning. Status: Acute (4) HTN (hypertension): Problem details: Patient has been on treatment for this Status: Acute Assessment and Plan: 49 year old women admitted after several episodes of hematemesis. May be related to gastritis. please disregard the labs above because they are from Gastritis. May be cause of hematemesis. IV Protonix egd shows -?polyps moniter h/h Hypertension. Hold antihypertensives due to anemia. Avoid hypotension. Anemia. Seems related to blood loss from hematemesis. Will recheck H&H this evening. If there seems to be a significant drop, consider blood transfusion. Type and screen. DVT prophylaxis with mechanical compression boots due to GI bleed.
--- NOTE | 2020-06-04 21:55 | OP_ITS ---
SURGEON: Constance Roblero MD PROCEDURE PERFORMED: EGD with a change of scope to the double-channel scope for the last 3rd of the procedure, epinephrine injection total 6 mL, resolution clip being deployed in position, x two, 1 spent without apposition, one end of the clip was not deployed due to inability to maintain position. ESTIMATED BLOOD LOSS: Less than 10 mL. COMPLICATIONS: No complications. ANESTHESIA: Monitored. ANESTHESIOLOGIST: Dr. Anderson. ASSISTANTS: No anesthesiologist assistant certified. SPECIMENS: Specimens removed; none. PREOPERATIVE DIAGNOSES: 49-year-old female, who is morbidly obese, was admitted to the hospital earlier today due to significant hematemesis and anemia. POSTOPERATIVE DIAGNOSES: Multiple large fundic gland polyps, largest polyp just below GE junction appeared to have a visible vessel equivalent versus [place] type lesion, Moderate-sized hiatal hernia. COMPUTER AIDE: Dr. Roblero. COMMENT: Start time was 10:59 a.m., end time 11:59 a.m. FINDINGS: Video endoscope was introduced without difficulty, it was navigated through a lot of soft tissue in the posterior pharynx and easily into the esophagus. Esophageal mucosa itself was normal. GE junction was clear and distinct. There did appear to be a variable-sized hiatal hernia distal to the GE junction. On entering the stomach, there was no active GI bleeding at the time of scope insertion. Multiple Large Fundic gland polyps were noted, several of which were hyperemic. The scope was slowly passed through this area into what appeared to be normal body and normal antrum. Duodenal bulb and duodenum appeared endoscopically normal. Visualization of the periampullary area was normal as well. Scope was repositioned into the body and fundus of the stomach. There was 1 particular polyp that was 1 to 2 cm in size on a partial stalk that was high in the cardia and just below the GE junction. In the region of the stalk, there was a slightly eroded area with a dark spot central to this, which could be consistent with a visible vessel/Emiliano LaFoie type lesion. This particular region was injected with ultimately a total of 6 mL of epinephrine injection submucosally with good blanching. 2 clips were applied, although neither totally straddled the area of concern, there was no active bleeding from this region at the time of the procedure. Due to some altered visibility at this time, it was about the time that we changed from the slim adult scope to the double-channel scope for better visualization; however, due to respiratory excursions and the patient coughing, no additional positioning could be held. The area was injected with last of the 2 mL of epi that had previously been documented. There were several other 1 to 2 cm fundic gland polyps, one of which was significantly friable with just the usual amount of suctioning. There was a little bit of heme ooze. Scope was withdrawn. The patient tolerated the procedure well. PLAN: Findings were discussed with hospitalist service. Would maintain IV PPI for at least 24 hours. Monitor H and H closely. If the patient rebleeds, consider CT angiography with possibility of IR intervention if appropriate, these polyps are difficult to remove acutely. The attempts should be made to minimize any vomiting by this patient. Would try clear to full liquids for the rest of the day and try to advance if tolerated. She will need to be maintained on b.i.d. PPI therapy. Further discussion about evaluation and management of these fundic gland polyps can be discussed either as inpatient or outpatient depending on how stable the patient remains. Patient was counselled on the findings once she was fully awake. GRAFT OR IMPLANTS: No grafts or implants. All the resolution clips [address]. CONDITION: Postprocedure, stable. MD SHIRLEY Carrillo/ELODIA / [id number] MTDD
[2020-06-05] VITALS (15 sets, daily range): BP systolic 132–182; BP diastolic 62–94; PULSE 81–111; RESP 16–18; TEMP 36.1–37.1; O2SAT 94–99; BMI 49.7
[2020-06-05] MEDS: Pantoprazole Sodium 40 MG/10 ML VIAL IVPUSH ×2 (06:43→20:17)
[2020-06-05 07:08] LABS: Hematocrit 22.8 % (37-47); Mean Corpuscular HGB Conc 28.5 g/dl (31.0-35.0); Mean Corpuscular Hemoglobin 19.9 pg (27.0-33.0); Mean Corpuscular Volume 69.7 fL (80-98); Mean Platelet Volume 10.3 fL (9.4-12.3); Platelet Count 283 X10*3/uL (160-400); Red Blood Count 3.27 X10*6/uL (4.20-5.50); Red Cell Distribution Width 18.1 % (11.0-16.0); White Blood Count 12.8 X10*3/uL (4.8-10.8)
[2020-06-05 07:22] LABS: Hemoglobin 6.5 g/dl (12.0-16.0)
--- NOTE | 2020-06-05 07:43 | PC.NURSE ---
PT WITH CRITICAL HGB OF 6.5 DOWN FROM 8.1. PT REPORTED HAVING BLOODY STOOL ON DAY SHIFT 06/04. MD SAAVEDRA NOTIFIED. ORDER FOR TWO UNITS INITIATED. T&S COMPLETE. PT IS ASYMPTOMATIC. RESTING IN BED. SAFETY MEASURES IN PLACE.
--- NOTE | 2020-06-05 11:27 | HO.POSTANES ---
Post Anesthesia Evaluation Post Anesthesia Evaluation Vital Signs: Vital Signs Temp Pulse Resp BP Pulse Ox 06/05/20 11:17 88 18 140/75 H 06/05/20 11:02 98.1 F 88 18 132/71 06/05/20 07:33 98.5 F 97 18 160/84 H 96 06/05/20 03:43 98.7 F 96 18 133/62 95 Anesthesia: Monitored Mental Status: Awake Pain Control: Satisfactory Nausea/Vomiting: None Hydration: Adequate Anesthesia-Related Issues: No Anes. Related Issues
--- NOTE | 2020-06-05 11:28 | HO.POSTANES ---
Post Anesthesia Evaluation Post Anesthesia Evaluation Vital Signs: Vital Signs Temp Pulse Resp BP Pulse Ox 06/05/20 11:17 88 18 140/75 H 06/05/20 11:02 98.1 F 88 18 132/71 06/05/20 07:33 98.5 F 97 18 160/84 H 96 06/05/20 03:43 98.7 F 96 18 133/62 95 Anesthesia: Monitored and General Mental Status: Awake Pain Control: Satisfactory Nausea/Vomiting: None Hydration: Adequate Anesthesia-Related Issues: No Anes. Related Issues
--- NOTE | 2020-06-05 11:31 | MHC.CM.PN ---
[employer] completed with pt who reports she lives at home and is the legal guardian of her niece and nephew who are 16 and 18 years old. She reports the mother of the children also spends a significant amount of time at her home. Pt denies the use of any DME or community/home services and is independent with all care and mobility. Pt completed a HCP today naming Constance Soria ([phone]) as her agent. Current DC plan is home with no services pt will self arrange transport
[2020-06-05] MEDS: Acetaminophen 325 MG TABLET 650 MG PO ×2 (12:05→20:18)
--- NOTE | 2020-06-05 14:16 | PM.GIPN ---
Subjective Subjective Date of Service: 06/05/20 Interval History: Patient sitting up. She has had no vomiting. She is hungry. She denies any new symptoms. Physical Exam Vital Signs: Vital Signs: Vital Signs Temp Pulse Resp BP Pulse Ox 06/05/20 13:15 98.2 F 88 18 154/78 H 06/05/20 11:44 98.8 F 81 18 132/74 97 06/05/20 11:17 88 18 140/75 H 06/05/20 11:02 98.1 F 88 18 132/71 06/05/20 07:33 98.5 F 97 18 160/84 H 96 06/05/20 03:43 98.7 F 96 18 133/62 95 06/04/20 23:23 98.4 F 94 18 115/58 L 96 06/04/20 19:06 98.5 F 90 19 122/80 99 06/04/20 15:45 98.0 F 86 18 127/66 99 Body Mass Index 49.7 Const: General: cooperative Nutritional Appearance: obese Orientation/consciousness: patient oriented x3 Limitations: no limitations Resp: Effort & Inspection: normal respiratory effort, able to speak in complete sentences, no respiratory distress and no use of accessory muscles Auscultation: clear to auscultation bilaterally Cardio: Rate: regular rate Rhythm: regular rhythm GI: Palpation (GI): Soft to palpation and no masses Auscultation: normal bowel sounds Neuro: General: patient oriented x3 Psych: Mental Status: mental status grossly normal Speech and movement: Normal speech and movement present Attitude: cooperative Thought process: Normal thought process present Objective Data Labs CBC & Chem 7: 06/06/20 09:15 06/03/20 15:58 Labs: Laboratory Results - last 24 hr 06/03/20 06/05/20 23:42 05:37 WBC 12.8 H RBC 3.27 L D Hgb 6.5 L* Hct 22.8 L MCV 69.7 L MCH 19.9 L MCHC 28.5 L RDW 18.1 H Plt Count 283 D MPV 10.3 Absolute Nucleated RBC 0.000 Nucleated RBC % (auto) 0.0 Blood Type O Positive Antibody Screen NEGATIVE Crossmatch See Detail Progress Note: A&P Assessment and plan (1) Anemia: Problem details: Hgb low this AM--stool melanotic, Vitals Stable, first unit infused when I saw her. She is not vomiting, tolerated liquid to Full diet. No vomiting. (This may be reflection of her rehydration.) Patient counselled on labs, findings, etc. Status: Acute Assessment and Plan: Reevaluate H&H after 2nd unit in. Continue IV PPI for additional 24 hours. (2) Fundic gland polyps of stomach, benign: Problem details: Counselled patient on the presence of 4-5 larger polyps. These tend to be hypervascular and near fundus cardia of Stomach--There is tendency for them to bleed even chronically. Believe largest polyp as per note had a vis vessel equivalent. Endoscopic removal can be complex. Approach with Acid blockade and reevaluation of her [place] records when available. Patient's mother was present for the visit. Status: Acute Assessment and Plan: Continue PPI. Advance Diet to Low fat. If vomiting occurs stop. (3) GERD (gastroesophageal reflux disease): Problem details: see HPI Status: Acute Assessment and Plan: Continue IV PPI for 24 more hours. When patient discharged she will be followed up by our office: Labs to include CBC, iron studies, ferritin. Copy of records from [place] to include labs for last couple years and any procedure notes or CT studies done. Fall Risk Details Current Medications: Current Medications Generic Name Dose Route Start Last Admin Trade Name Freq PRN Reason Stop Dose Admin Lactated Ringer's 1,000 mls @ 50 mls/hr 06/04/20 10:45 06/05/20 06:43 Lr IVCONT Not Given .Q20H [facility] Promethazine HCl 12.5 mg/ 50.5 mls @ 202 mls/hr 06/04/20 10:34 06/04/20 14:32 Sodium Chloride IV Infused ONCE PRN Infusion Nausea and Vomiting Pantoprazole Sodium 40 mg 06/04/20 16:30 06/05/20 06:43 Pantoprazole Sodium 40 Mg/10 Ml Vial IVPUSH 40 mg BID@0630,1630 [facility] Administration Pharmacy Consult 1 each 06/03/20 23:18 Consult Rx Perform Med Rec MISCELLANE ONCE PRN Consult order Time Spent With Patient Time: Total time spent is greater than 50% in coordination of care (as documented) at patient's floor/unit and/or counseling patient: 30minutes Time with patient: 15 - 24 minutes
--- NOTE | 2020-06-05 15:36 | HO.PM.IMPN ---
Subjective Subjective Date of Service: 06/05/20 Interval History: GI bleed Review of Systems patient had mild blood in stool as per staff, did not vomit any blood today. Denies any chest pain or shortness breath. Physical Exam Vital Signs: Vital Signs: Vital Signs Temp Pulse Resp BP Pulse Ox 06/05/20 13:15 98.2 F 88 18 154/78 H 06/05/20 11:44 98.8 F 81 18 132/74 97 06/05/20 11:17 88 18 140/75 H 06/05/20 11:02 98.1 F 88 18 132/71 06/05/20 07:33 98.5 F 97 18 160/84 H 96 06/05/20 03:43 98.7 F 96 18 133/62 95 06/04/20 23:23 98.4 F 94 18 115/58 L 96 06/04/20 19:06 98.5 F 90 19 122/80 99 06/04/20 15:45 98.0 F 86 18 127/66 99 Body Mass Index 49.7 Physical exam: Cvs: rrr, [id number]. res: clear to auscultation ,no rhonchii or wheezing abd: no rebound or guarding ,nt, bs present. ext pulses present , no cyanosis neuro: axo3 , nonfocal. Objective Data Current Medications Generic Name Dose Route Start Last Admin Trade Name Freq PRN Reason Stop Dose Admin Lactated Ringer's 1,000 mls @ 50 mls/hr 06/04/20 10:45 06/05/20 06:43 Lr IVCONT Not Given .Q20H [facility] Promethazine HCl 12.5 mg/ 50.5 mls @ 202 mls/hr 06/04/20 10:34 06/04/20 14:32 Sodium Chloride IV Infused ONCE PRN Infusion Nausea and Vomiting Pantoprazole Sodium 40 mg 06/04/20 16:30 06/05/20 06:43 Pantoprazole Sodium 40 Mg/10 Ml Vial IVPUSH 40 mg BID@0630,1630 [facility] Administration Pharmacy Consult 1 each 06/03/20 23:18 Consult Rx Perform Med Rec MISCELLANE ONCE PRN Consult order Labs CBC & Chem 7: 06/05/20 05:37 06/03/20 15:58 Assessment and Plan (1) Anemia: Problem details: Hgb low this AM--stool melanotic, Vitals Stable, first unit infused when I saw her. She is not vomiting, tolerated liquid to Full diet. No vomiting. (This may be reflection of her rehydration.) Patient counselled on labs, findings, etc. Status: Acute (2) Gastritis: Status: Acute (3) Hematemesis: Problem details: Patient denies any previous hx of vomiting blood. Has had egd in the past with no specific findings. She has been chronically on PPI therapy which she takes in the morning. Status: Acute (4) HTN (hypertension): Problem details: Patient has been on treatment for this Status: Acute Assessment and Plan: 49 year old women admitted after several episodes of hematemesis. May be related to gastritis. 1.upper GI bleed: egd shows - As per GI:4-5 larger polyps. These tend to be hypervascular and near fundus cardia of Stomach--There is tendency for them to bleed even chronically. Believe largest polyp as per note had a vis vessel equivale. IV Protonix Will give 2 PRBC Monitor H&H post dialysis, otherwise vitals of patient is stable no episode of hematemesis for today. Even though patient is having melanotic stools. 2.Hypertension.Hold antihypertensives due to anemia. Avoid hypotension. we will hold hypertensives meds for now due to low hemoglobin question bleeding monitor blood pressure closely if we need to then will add her atenolol back. 3.Anemia. Seems related to blood loss from hematemesis. Will recheck H&H this evening. If there seems to be a significant drop, consider blood transfusion. Type and screen. DVT prophylaxis with mechanical compression boots due to GI bleed.
[2020-06-05 22:16] LABS: Hematocrit 27.7 % (37-47); Hemoglobin 8.1 g/dl (12.0-16.0)
[2020-06-05] MEDS: Lactated Ringers 1,000 ML 50 ML IVCONT (23:37)
[2020-06-06 03:44] VITALS: BP 160/80; PULSE 80; RESP 16; TEMP 36.9; O2SAT 96
[2020-06-06] MEDS: Pantoprazole Sodium 40 MG/10 ML VIAL IVPUSH (05:41)
[2020-06-06 07:55] VITALS: BP 162/90; PULSE 85; RESP 20; TEMP 36.6; O2SAT 98
[2020-06-06 09:19] VITALS: BP 162/90
[2020-06-06] MEDS: atenoloL 50 MG TABLET PO (09:19)
[2020-06-06 09:45] LABS: Hematocrit 31.3 % (37-47); Hemoglobin 9.1 g/dl (12.0-16.0)
[2020-06-06 12:00] VITALS: BP 147/79; PULSE 78; RESP 20; TEMP 36.1; O2SAT 98
--- NOTE | 2020-06-06 13:06 | MHC.CM.PN ---
pt dcd home no sercv eis
--- NOTE | 2020-06-26 15:51 | P.DS_ITS ---
DS: Providers Provider Date of admission: 06/03/20 20:27 Primary care physician: Sahil Mota MD Consults: 06/03/20 23:18 Consult to Gastroenterology Routine Consulting Provider: [facility] [place] [facility] Reason for consultation: GI BLEED, 4 EPISODES OF HEMATEMESIS, BLACK STOOL Has provider been notified: No DS: Diagnosis Discharge Diagnosis (1) Anemia: Status: Acute (2) Fundic gland polyps of stomach, benign: Status: Acute (3) GERD (gastroesophageal reflux disease): Status: Inactive Problem details: see HPI DS: Summary Hospital Course Hospital Course: date of discharge 06/06/20: 49 year old women presenting after several episodes of bloody vomitus. She reported that yesterday she had four episodes of vomiting blood. She also had one episode of black stool. She has no history of alcohol abuse, regular NSAID use and in fact reported that she used four baby aspirin for knee pain over the last 2 weeks. in the ER, vital signs stable, hemoglobin noted to be low at 8.5, hematocrit 30.1. She did not have any further vomiting since yesterday. She was given IV protonix and will be admitted for acute GI bleed. Pmhx: Anemia Cholecystectomy planned GERD (gastroesophageal reflux disease) HTN (hypertension) Morbid obesity with BMI of 45.0-49.9, adult Hospital Course problem [place] [facility] : 49 year old women admitted after several episodes of hematemesis. May be related to gastritis. 1.upper GI bleed: Patient came with GI bleed - initially started on IV PPI, H&H monitored, and subsequently seen by GI: H&H was monitored and patient has EGD(please see below): found to have gastric polyps question of bleed, received 2 PRBC subsequently H&H seems to improved to 9, discussed with GI and patient is going home with PPI, patient is to follow up with GI and need to get CBC , ferritin repeated in 1 week. Avoid aspirin or NSAIDs. egd shows - As per GI:4-5 larger polyps. These tend to be hypervascular and near fundus cardia of Stomach--There is tendency for them to bleed even chronically. Believe largest polyp as per note had a vis vessel equivale. Patient is to follow up with GI doctor Osbaldo outpatient. Above management discussed with the patient in detail length she understand and in agreement with the above plan, time spent 50 minutes and 50% time spent on counseling. Significant findings: As above. Procedures performed: None. Treatment and response: As above. Complications: None. Time Spent with Patient Time attestation: Total time spent providing and/or coordinating discharge services: Physical Exam Vital Signs: Vital Signs: Body Mass Index 49.7 DS: Data Data Completed and Pending Completed studies during hospitalization [Text1]: Procedures Introduction of Other Therapeutic Substance into Upper GI, Via Natural or Artificial Opening Endoscopic (06/03/20) Discharge Plan Discharge Patient Disposition: Home, Self-Care Referrals: Sahil Mota MD [Primary Care Provider] - Discharge Medications: New omeprazole 40 mg capsule,delayed release(DR/EC) 40 mg PO BID Qty: 60 RF: 0 Continued atenolol 25 mg PO QAM RF: 0 hydrochlorothiazide 25 mg PO QAM RF: 0 Discontinued omeprazole 20 mg 20 mg PO QAM RF: 0 Discharge Orders: Discharge Order (Routine); Ordered 06/06/20 Ordered By: James Paez Diet: advance to your usual diet Activity on Discharge: As tolerated Discharge Date/Time: 06/06/20 14:44 Visit Report Forms: Patient Portal Discharge page Care Plan Goals: Patient came with GI bleed - seen by GI: H&H was monitored and patient has EGD: found to have gastric polyps question of bleed, received 2 PRBC subsequently H&H seems to improved to 9, discussed with GI and patient is going home with PPI, patient is to follow up with GI and need to get CBC , ferritin r epeated in 1 week. Avoid aspirin or NSAIDs. Health Concerns: as above. Plan of Treatment: As above.
== END 2020-06-06 14:44 | disposition home or self-care (01) | DRG 378 ==
LOC: HO.ED 17:17 → HO.IMC 20:55
PROVIDERS: Emergency Medicine; Internal Medicine Gastroenterology; Nurse Practitioner Acute Care; Admitting Provider Internal Medicine; Emergency Provider Emergency Medicine Emergency Medical Services; PCP Internal Medicine; Visit Provider Internal Medicine
PROC: 0DJ08ZZ Inspection of Upper Intestinal Tract, Via Natural or Artificial Opening Endoscopic (ICD-10-PCS; CPT 43235; principal; 2020-06-04 10:30)
DX: K92.2 Gastrointestinal hemorrhage, unspecified (principal); Z68.42 Body mass index [BMI] 45.0-49.9, adult; K31.7 Polyp of stomach and duodenum; E66.01 Morbid (severe) obesity due to excess calories; K21.9 Gastro-esophageal reflux disease without esophagitis; I10 Essential (primary) hypertension; D64.9 Anemia, unspecified; Z79.899 Other long term (current) drug therapy
CPT/HCPCS: 36415; 80053; 81001; 82272; 83690; 84702; 85014; 85018; 85025; 85027; 85060; 86850; 86900; 86901; 86920; 86923; 93005; 96361; 96374; 96375; 99284; 99285; J0171; J2405; J3010; P9016

== ENCOUNTER 2020-06-08 06:44 | Outpatient (REF) | payer OTHER, SELFPAY ==
[2020-06-08 07:53] LABS: Hemoglobin 9.2 g/dl (12.0-16.0); Mean Corpuscular HGB Conc 28.8 g/dl (31.0-35.0); Mean Corpuscular Hemoglobin 20.8 pg (27.0-33.0); Mean Corpuscular Volume 72.4 fL (80-98); Platelet Count 350 X10*3/uL (160-400); Red Blood Count 4.42 X10*6/uL (4.20-5.50); Red Cell Distribution Width 20.3 % (11.0-16.0); White Blood Count 12.8 X10*3/uL (4.8-10.8)
[2020-06-08 10:22] LABS: Ferritin 7 ng/mL (10-250)
== END 2020-06-08 06:45 | disposition home or self-care (01) ==
LOC: HO.LAB 06:44
PROVIDERS: PCP Internal Medicine; Visit Provider Internal Medicine
DX: D64.9 Anemia, unspecified (principal); D63.8 Anemia in other chronic diseases classified elsewhere
CPT/HCPCS: 36415; 82728; 85027

== ENCOUNTER 2020-06-12 06:17 | Outpatient (REF) | payer OTHER, SELFPAY ==
[2020-06-12 07:40] LABS: Hematocrit 33.2 % (37-47); Hemoglobin 9.4 g/dl (12.0-16.0); Mean Corpuscular HGB Conc 28.3 g/dl (31.0-35.0); Mean Corpuscular Hemoglobin 20.8 pg (27.0-33.0); Mean Corpuscular Volume 73.3 fL (80-98); Platelet Count 392 X10*3/uL (160-400); Red Blood Count 4.53 X10*6/uL (4.20-5.50); Red Cell Distribution Width 20.5 % (11.0-16.0)
== END 2020-06-12 06:18 | disposition home or self-care (01) ==
LOC: HO.LAB 06:17
PROVIDERS: PCP Internal Medicine; Visit Provider Internal Medicine
DX: D64.9 Anemia, unspecified (principal)
CPT/HCPCS: 36415; 85027

== ENCOUNTER → 2020-06-26 14:55 | Outpatient (BNVA) | payer OTHER, SELFPAY | PROVIDERS: PCP Internal Medicine; Referring Provider Internal Medicine; Visit Provider Internal Medicine Gastroenterology | DX: Z76.89 Persons encountering health services in other specified circumstances (principal) ==

== ENCOUNTER 2020-07-06 06:12 | Outpatient (REF) | payer OTHER, SELFPAY ==
[2020-07-06 07:55] LABS: MANUAL DIFF FLAG NO
[2020-07-06 07:58] LABS: Basophils Percent Auto 0.2 % (0-2); Eosinophils Absolute Auto 0.1 X10*3/uL (0.0-0.4); Eosinophils Percent Auto 0.5 % (0-4); Hematocrit 33.8 % (37-47); Hemoglobin 9.4 g/dl (12.0-16.0); Imm Gran Abs Auto 0.06 X10*3/uL (0.00-0.03); Imm Gran Pct Auto 0.5 % (0.0-0.4); Lymphocytes Absolute Auto 1.8 X10*3/uL (1.2-4.9); Lymphocytes Percent Auto 14.1 % (20-40); Mean Corpuscular HGB Conc 27.8 g/dl (31.0-35.0); Mean Corpuscular Hemoglobin 19.4 pg (27.0-33.0); Mean Corpuscular Volume 69.8 fL (80-98); Mean Platelet Volume 10.2 fL (9.4-12.3); Monocytes Absolute Auto 0.8 X10*3/uL (0.1-1.2); Monocytes Percent Auto 6.4 % (2-11); Neutrophils Absolute Auto 9.8 X10*3/uL (2.0-8.3); Neutrophils Percent Auto 78.3 % (45-73); Platelet Count 440 X10*3/uL (160-400); Red Blood Count 4.84 X10*6/uL (4.20-5.50); Red Cell Distribution Width 19.7 % (11.0-16.0); White Blood Count 12.5 X10*3/uL (4.8-10.8)
[2020-07-06 08:32] LABS: Alanine Aminotransferase 19 U/L (0-31); Albumin Level 4.3 g/dL (3.5-5.0); Alkaline Phosphatase 139 U/L (39-117); Anion Gap 12 (12-20); Aspartate Amino Transferase 15 U/L (5-31); Bilirubin Total 0.5 mg/dL (0.0-1.0); Blood Urea Nitrogen 15 mg/dL (9-16); Carbon Dioxide 29 mmol/L (22-29); Chloride 104 mmol/L (96-108); Estimated Glomerular Filt Rate > 60; Glucose Random 112 mg/dL (60-115); Potassium 4.3 mmol/l (3.3-5.1); Sodium 141 mmol/L (135-145); Total Protein 7.5 g/dL (6.5-8.0)
[2020-07-06 08:41] LABS: Ferritin 11 ng/mL (10-250)
== END 2020-07-06 06:13 | disposition home or self-care (01) ==
LOC: HO.LAB 06:12
PROVIDERS: PCP Internal Medicine; Visit Provider Internal Medicine Gastroenterology
DX: D64.9 Anemia, unspecified (principal)
CPT/HCPCS: 36415; 80053; 82728; 85025

== ENCOUNTER 2020-08-11 12:36 | Outpatient (REF) | payer OTHER, SELFPAY ==
[2020-08-11 14:15] LABS: MANUAL DIFF FLAG NO
[2020-08-11 14:24] LABS: Basophils Percent Auto 0.3 % (0-2); Eosinophils Absolute Auto 0.1 X10*3/uL (0.0-0.4); Eosinophils Percent Auto 0.5 % (0-4); Hematocrit 34.6 % (37-47); Hemoglobin 9.7 g/dl (12.0-16.0); Imm Gran Abs Auto 0.05 X10*3/uL (0.00-0.03); Imm Gran Pct Auto 0.5 % (0.0-0.4); Lymphocytes Absolute Auto 1.8 X10*3/uL (1.2-4.9); Lymphocytes Percent Auto 16.9 % (20-40); Mean Corpuscular Hemoglobin 18.6 pg (27.0-33.0); Mean Corpuscular Volume 66.3 fL (80-98); Mean Platelet Volume 9.8 fL (9.4-12.3); Monocytes Absolute Auto 0.9 X10*3/uL (0.1-1.2); Neutrophils Percent Auto 73.8 % (45-73); Platelet Count 424 X10*3/uL (160-400); Red Blood Count 5.22 X10*6/uL (4.20-5.50); Red Cell Distribution Width 19.5 % (11.0-16.0); White Blood Count 10.8 X10*3/uL (4.8-10.8)
[2020-08-11 14:43] LABS: Alanine Aminotransferase 19 U/L (0-31); Albumin Level 4.2 g/dL (3.5-5.0); Alkaline Phosphatase 138 U/L (39-117); Anion Gap 13 (12-20); Aspartate Amino Transferase 18 U/L (5-31); Bilirubin Total 0.6 mg/dL (0.0-1.0); Blood Urea Nitrogen 14 mg/dL (9-16); Calcium 9.3 mg/dL (8.4-10.2); Carbon Dioxide 30 mmol/L (22-29); Chloride 103 mmol/L (96-108); Cholesterol 144 mg/dL; Estimated Glomerular Filt Rate > 60; Glucose Fasting 91 mg/dL (60-99); HDL Cholesterol 48 mg/dL; Iron 19 mcg/dL (30-160); LDL Cholesterol Calculated 79 mg/dl; Percent Iron Saturation 4 % (15-50); Potassium 4.1 mmol/l (3.3-5.1); Sodium 142 mmol/L (135-145); Total Iron Binding Capacity 443 mcg/dL (228-428); Total Protein 7.6 g/dL (6.5-8.0); Triglycerides 89 mg/dL; Unsaturated Iron Binding 424 ug/dL
[2020-08-11 15:05] LABS: Free T4 (Free Thyroxine) 1.08 ng/dL (0.71-1.85); Thyroid Stimulating Hormone 0.59 uIU/mL (0.32-4.0)
== END 2020-08-11 12:37 | disposition home or self-care (01) ==
LOC: HO.LAB 12:36
PROVIDERS: PCP Internal Medicine; Visit Provider Internal Medicine
DX: D64.9 Anemia, unspecified (principal); Z00.00 Encounter for general adult medical examination without abnormal findings; K29.71 Gastritis, unspecified, with bleeding; I10 Essential (primary) hypertension; E04.9 Nontoxic goiter, unspecified; E66.01 Morbid (severe) obesity due to excess calories; Z68.42 Body mass index [BMI] 45.0-49.9, adult
CPT/HCPCS: 36415; 80053; 80061; 83540; 84439; 84443; 85025

== ENCOUNTER 2020-08-30 16:15 | Outpatient (REF) | payer OTHER, SELFPAY ==
--- NOTE | 2020-08-30 16:18 | US_ITS ---
EXAMINATION: US THYROID CLINICAL INFORMATION: Nontoxic goiter, unspecified. COMPARISON: None TECHNIQUE: Linear transducer staley-scale and color Doppler examination with attention to the region of the thyroid. FINDINGS: SIZE: Measurements of the thyroid lobes and nodules are given in sagittal, anteroposterior and transverse dimensions respectively. Right Thyroid Lobe: 5.8 x 2.5 x 2.7 cm, volume 20.3 mL. Parenchyma: The gland echotexture is heterogeneous. Thyroid vascularity is normal. Left Thyroid Lobe: 6.5 x 2.4 x 2.5 cm, volume 20.0 mL. Parenchyma: The gland echotexture is heterogeneous. Thyroid vascularity is normal. Isthmus: 2.9 cm in maximum AP dimension. RIGHT THYROID LOBE: There is 1 nodule seen. 1. Location: Mid pole. Size: 3.2 x 2.1 x 1.7 cm. Nodule characteristics: Heterogeneous, hypoechoic rind with intranodular flow. ISTHMUS: There is 1 nodule seen. 1. Location: Mid. Size: 4.5 x 2.6 x 3.9 cm. Nodule characteristics: Heterogeneous, hypoechoic rind with intranodular flow. LEFT THYROID LOBE: There is 1 nodule seen. 1. Location: Mid pole. Size: 4.7 x 2.4 x 2.2 cm. Nodule characteristics: Heterogeneous, irregular with echogenic calcifications and intranodular flow. NODES: No lymphadenopathy is seen in the tissue surrounding the thyroid gland. US/US thyroid IMPRESSION: Enlarged thyroid gland, heterogenous with large bilateral thyroid nodules. By ACR TI-RADS, these nodules are all very suspicious.
== END 2020-08-30 16:16 | disposition home or self-care (01) ==
LOC: HO.US 16:15
PROVIDERS: PCP Internal Medicine; Visit Provider Internal Medicine
DX: E04.9 Nontoxic goiter, unspecified (principal)
CPT/HCPCS: 76536

== ENCOUNTER → 2020-09-25 10:15 | Outpatient (BNVA) | payer OTHER, SELFPAY | PROVIDERS: PCP Internal Medicine; Visit Provider Internal Medicine Gastroenterology ==

== ENCOUNTER 2020-11-23 15:20 | Outpatient (REF) | payer OTHER, SELFPAY ==
[2020-11-23 16:30] LABS: Estimated Average Glucose 108 mg/dL; Hemoglobin A1c % 5.4 %
[2020-11-23 16:55] LABS: Alanine Aminotransferase 26 U/L (0-31); Albumin Level 4.2 g/dL (3.5-5.0); Alkaline Phosphatase 152 U/L (39-117); Anion Gap 11 (12-20); Aspartate Amino Transferase 20 U/L (5-31); Bilirubin Total 0.4 mg/dL (0.0-1.0); Blood Urea Nitrogen 17 mg/dL (9-16); Calcium 9.2 mg/dL (8.4-10.2); Carbon Dioxide 32 mmol/L (22-29); Chloride 103 mmol/L (96-108); Estimated Glomerular Filt Rate > 60; Glucose Random 93 mg/dL (60-115); Phosphorus 3.8 mg/dL (2.7-4.5); Potassium 3.9 mmol/L (3.3-5.1); Sodium 142 mmol/L (135-145); Total Protein 7.6 g/dL (6.5-8.0)
[2020-11-23 17:17] LABS: Free T4 (Free Thyroxine) 1.08 ng/dL (0.71-1.85); Thyroid Stimulating Hormone 0.96 uIU/mL (0.32-4.0); Vitamin D 25-OH Total 10.7 ng/mL (>30)
[2020-11-24 07:02] LABS: Triiodothyronine T3 Total 87 ng/dL (76-181)
[2020-11-24 18:21] LABS: Calcium (PTHI) 9.3 mg/dL (8.6-10.2); PTHI 92 pg/mL (14-64)
== END 2020-11-23 15:21 | disposition home or self-care (01) ==
LOC: HO.LAB 15:20
PROVIDERS: PCP Internal Medicine; Referring Provider Internal Medicine; Visit Provider Internal Medicine
DX: E04.2 Nontoxic multinodular goiter (principal); E55.9 Vitamin D deficiency, unspecified
CPT/HCPCS: 36415; 80053; 82306; 83036; 83970; 84100; 84439; 84443; 84480

== ENCOUNTER 2020-12-07 16:07 | Outpatient (REF) | payer OTHER, SELFPAY ==
--- NOTE | ~2020-12-07 | CT_ITS ---
EXAMINATION: CT SOFT TISSUE NECK WITHOUT CONTRAST CLINICAL INFORMATION: Nontoxic multinodular goiter. COMPARISON: Thyroid ultrasound 08/30/2020. TECHNIQUE: Noncontrast helical imaging was performed in the axial plane with generation of coronal and sagittal reformatted images. This CT examination was performed using dose optimization techniques as appropriate, variously including the following: *Automated exposure control *Adjustment of mA and/or kV according to patient size (this includes techniques or standardized protocols for targeted exams where dose is matched to indication/reason for exam; i.e. extremities or head) *Use of iterative reconstruction technique DLP: 490 mGy-cm FINDINGS: Imaging of the lower cervical and upper mediastinal regions is suboptimal due to beam hardening artifact from the patient's body habitus. There is no cervical lymphadenopathy. There are small lymph nodes at multiple levels in the neck bilaterally. The parotid glands are homogeneous in attenuation. The submandibular glands are normal. No contour abnormality or pathologic enhancement is seen within the oral cavity or pharyngeal mucosal space. The laryngeal structures are normal. The parapharyngeal fat is preserved. There is no significant atheromatous calcification of the great vessels of the neck or cervical vascular structures. No extra mucosal soft tissue mass or fluid collection is seen. No retropharyngeal fluid collection is seen. The thyroid gland is enlarged, particularly on the left, with a prominent isthmus. It has heterogenous attenuation multiple areas There are a few foci of calcification toward the lower pole in the left lobe. Overall, the thyroid gland is better evaluated on the prior thyroid ultrasound. The superior mediastinum is unremarkable. The lung apices are clear. The mastoid air cells are well-aerated. There are retention cysts in the maxillary sinuses bilaterally. The temporomandibular joints are normal. No periapical disease is identified. There are mild degenerative changes in the cervical spine. The imaged portions of the brain parenchyma are unremarkable. CT/CT soft tissue neck wo con IMPRESSION: 1. The thyroid gland is enlarged with heterogenous attenuation; the nodules are better evaluated on the prior ultrasound. 2. There is no cervical lymphadenopathy. No other masses are demonstrated in the neck.
== END 2020-12-07 16:08 | disposition home or self-care (01) ==
LOC: HO.CT 16:07
PROVIDERS: Visit Provider Internal Medicine
DX: E04.2 Nontoxic multinodular goiter (principal)
CPT/HCPCS: 70490

== ENCOUNTER 2021-01-04 07:54 | Outpatient (REF) | payer OTHER, SELFPAY ==
--- NOTE | 2021-01-04 08:56 | P.BOP_ITS ---
Brief Operative Note Date of Service: 01/04/21 Surgeon: Li Hartley, DO This is doctor Li Hartley. This is an ultrasound-guided fine-needle aspiration report. Date of Examination: 01/04/2021 Indication: Multinodular Thyroid Porcedure: Procedure was explained to the patient. Alternatives, the risk and benefits were discussed. Written consent was obtained. A time-out was also obtained. After sterile preparation, fine-needle aspiration of a left mid pole 4.7 cm thyroid nodule was performed using direct ultrasound guidance to confirm accurate needle placement. Five aspirations were made using 27 gauge needles. Samples were submitted for cytology. One pass was dedicated for [employer] sequencing shortage worker testing. Our attention was then turned to the isthmus. After sterile preparation, fine- needle aspiration of a 4.5 cm isthmus nodule was performed using direct ultraso und guidance to confirm accurate needle placement. Four aspirations were made using 27 gauge needles. Samples were submitted for cytology. One pass was dedicated for [employer] sequencing shortage worker testing. Our attention was then turned to the right mid pole. After sterile preparation, fine-needle aspiration of a right mid pole 3.2 cm thyroid nodule was performed using direct ultrasound guidance to confirm accurate needle placement. Four aspirations were made using 27 gauge needles. Samples were submitted for cytology. One pass was dedicated for [employer] sequencing shortage worker testing. The patient tolerated the procedure well. Aftercare instructions were provided. Impression: Uncomplicated fine needle aspiration biopsy of a left mid pole 4.7 cm, isthmus 4.5 cm and right mid pole 3.2 cm thyroid nodule under ultrasound guidance. Was an Slackline Operator used for this Procedure?: No Estimated blood loss (mL): 0
[2021-01-04] MEDS: Lidocaine HCl 1 % MPF 5 ML VIAL SUBCUT (09:42)
== END 2021-01-04 07:55 | disposition home or self-care (01) ==
LOC: HO.US 07:54
PROVIDERS: Visit Provider Internal Medicine
DX: E04.2 Nontoxic multinodular goiter (principal)
CPT/HCPCS: 10005; 10006; 88172; 88173; 88177; 88305

== ENCOUNTER 2021-01-18 14:14 | Outpatient (REF) | payer OTHER, SELFPAY ==
[2021-01-18 15:09] LABS: MANUAL DIFF FLAG NO
[2021-01-18 15:15] LABS: Basophils Percent Auto 0.2 % (0-2); Eosinophils Absolute Auto 0.1 X10*3/uL (0.0-0.4); Eosinophils Percent Auto 0.7 % (0-4); Hematocrit 38.4 % (37-47); Imm Gran Abs Auto 0.09 X10*3/uL (0.00-0.03); Imm Gran Pct Auto 0.7 % (0.0-0.4); Lymphocytes Absolute Auto 2.3 X10*3/uL (1.2-4.9); Lymphocytes Percent Auto 17.6 % (20-40); Mean Corpuscular HGB Conc 28.6 g/dl (31.0-35.0); Mean Corpuscular Hemoglobin 20.6 pg (27.0-33.0); Mean Corpuscular Volume 71.8 fL (80-98); Monocytes Absolute Auto 0.8 X10*3/uL (0.1-1.2); Monocytes Percent Auto 6.4 % (2-11); Neutrophils Absolute Auto 9.8 X10*3/uL (2.0-8.3); Neutrophils Percent Auto 74.4 % (45-73); Platelet Count 354 X10*3/uL (160-400); Red Blood Count 5.35 X10*6/uL (4.20-5.50); Red Cell Distribution Width 18.7 % (11.0-16.0); White Blood Count 13.1 X10*3/uL (4.8-10.8)
[2021-01-18 15:36] LABS: Albumin Level 4.2 g/dL (3.5-5.0); Calcium 9.6 mg/dL (8.4-10.2)
[2021-01-18 15:44] LABS: Iron 27 mcg/dL (30-160); Percent Iron Saturation 7 % (15-50); Phosphorus 3.5 mg/dL (2.7-4.5); Total Iron Binding Capacity 389 mcg/dL (228-428); Unsaturated Iron Binding 362 ug/dL
[2021-01-18 16:05] LABS: Free T4 (Free Thyroxine) 1.04 ng/dL (0.71-1.85); Thyroid Stimulating Hormone 0.46 uIU/mL (0.32-4.0); Vitamin D 25-OH Total 44.4 ng/mL (>30)
[2021-01-20 10:11] LABS: Calcium (PTHI) 9.5 mg/dL (8.6-10.2); PTHI 59 pg/mL (14-64)
== END 2021-01-18 14:15 | disposition home or self-care (01) ==
LOC: HO.LAB 14:14
PROVIDERS: Absent Provider Internal Medicine; PCP Internal Medicine; Visit Provider Internal Medicine
DX: E04.2 Nontoxic multinodular goiter (principal); E55.9 Vitamin D deficiency, unspecified; E21.3 Hyperparathyroidism, unspecified
CPT/HCPCS: 36415; 82040; 82306; 82310; 83540; 83970; 84100; 84439; 84443; 85025

== ENCOUNTER 2021-04-05 16:08 | Outpatient (REF) | payer OTHER, SELFPAY ==
--- NOTE | ~2021-04-05 | US_ITS ---
EXAMINATION: US EXTREMITY NONVASCULAR CLINICAL INFORMATION: Localized swelling, mass, lump right posterior lower back. COMPARISON: None. TECHNIQUE: Grayscale, Doppler, and cine images were obtained in the region of the patient's palpable findings. FINDINGS: Within the region of the patient's palpable findings, there is a subcutaneous, somewhat ovoid lesion measuring 1.7 x 0.9 x 1.7 cm with internal Doppler detectable vascular flow. Mild adjacent increased echogenicity of the subcutaneous fat. US/US extremity nonvascular IMPRESSION: Heterogeneous soft tissue focus within the subcutaneous tissues of the right lower back measuring up to 1.7 cm. Findings are nonspecific. Possible infectious or inflammatory change in the adjacent subcutaneous fat. Dedicated cross-sectional imaging without and with contrast is recommended to help further evaluate.
== END 2021-04-05 16:09 | disposition home or self-care (01) ==
LOC: HO.US 16:08
PROVIDERS: Visit Provider Nurse Practitioner Family
DX: R22.2 Localized swelling, mass and lump, trunk (principal)
CPT/HCPCS: 76882

== ENCOUNTER → 2021-04-09 09:37 | Outpatient (BNVA) | payer OTHER, SELFPAY | PROVIDERS: PCP Internal Medicine; Referring Provider Internal Medicine; Visit Provider Internal Medicine Gastroenterology ==

== ENCOUNTER 2021-04-14 07:30 | Outpatient (REF) | payer OTHER, SELFPAY ==
[2021-04-14 08:52] LABS: Anion Gap 13 (12-20); Blood Urea Nitrogen 16 mg/dL (9-16); Calcium 9.7 mg/dL (8.4-10.2); Carbon Dioxide 30 mmol/L (22-29); Chloride 103 mmol/L (96-108); Estimated Glomerular Filt Rate > 60; Glucose Random 115 mg/dL (60-115); Potassium 3.7 mmol/L (3.3-5.1); Sodium 142 mmol/L (135-145)
== END 2021-04-14 07:31 | disposition home or self-care (01) ==
LOC: HO.LAB 07:30
PROVIDERS: PCP Internal Medicine; Visit Provider Nurse Practitioner Family
DX: R22.2 Localized swelling, mass and lump, trunk (principal)
CPT/HCPCS: 36415; 80048

== ENCOUNTER 2021-05-07 15:23 | Outpatient (REF) | payer OTHER, SELFPAY ==
--- NOTE | ~2021-05-07 | CT_ITS ---
EXAMINATION: CT LUMBAR SPINE CLINICAL INFORMATION: Localized swelling, mass and lump. COMPARISON: None TECHNIQUE: 2 mm thin axial and reformatted 2 mm thin sagittal and coronal images of the lumbar spine were obtained without contrast. This CT examination was performed using dose optimization techniques as appropriate, variously including the following: *Automated exposure control *Adjustment of mA and/or kV according to patient size (this includes techniques or standardized protocols for targeted exams where dose is matched to indication/reason for exam; i.e. extremities or head) *Use of iterative reconstruction technique DLP: 1428 mGy-cm FINDINGS: On sagittal reconstructed images, there is normal lumbar lordosis. The vertebral heights and alignment are normal. There is loss of L5-S1 disc height with moderate ventral and mild posterior spondylosis. The rest of the disc heights are normal. There is no evidence of disc bulge, herniation or spinal stenosis at any of the disc levels. The neural foramina are patent at all disc levels. There is a moderate bridging osteophyte extending from the left posterior endplate to the left facet joint on axial image 91/4 causing no spinal canal compromise on axial image 90/4. No lytic or sclerotic process is seen. The prevertebral soft tissues are normal. The visualized retroperitoneum, bilateral kidneys and bilateral perinephric spaces are normal. There is a 1.7 cm left adrenal nodule measuring 25 HU. There is no abnormal posterior abdominal wall soft tissue mass or mass effect. CT/CT lumbar spine w con IMPRESSION: Severe degenerative changes at the L5-S1 disc level with moderate ventral and moderate posterior spondylosis. No soft tissue mass seen along the posterior abdomen/back. There is a moderate osteophyte extending from the left posterior margin to the facet joint at the L5-S1 disc level.
[2021-05-07] MEDS: iohexoL 350 MG/ML 100 ML INFUS..BTL IV (16:55)
== END 2021-05-07 15:24 | disposition home or self-care (01) ==
LOC: HO.CT 15:23
PROVIDERS: PCP Internal Medicine; Visit Provider Nurse Practitioner Family
DX: R22.2 Localized swelling, mass and lump, trunk (principal)
CPT/HCPCS: 72132; Q9967

== ENCOUNTER → 2021-05-21 11:20 | Day surgery (SDC) | payer OTHER, SELFPAY ==
--- NOTE | 2021-05-18 12:09 | P.CONAN_ITS ---
Documented by User: Sada Hernandez NP 05/18/21 12:11 HPI - Anesthesia Eval Consult details Narrative: 50yo F for Upper Endoscopy and Colonoscopy last EGD 05/2020 with MAC [facility] Active Problems Active Problems: All Active Problems (Updated 05/10/21 @ 17:10 by MITUL Vizcaino) Adrenal nodule (Acute) Colon cancer screening (Acute) Lump of skin of back (Acute) Hyperparathyroidism (Acute) History of hysterectomy (Acute) Hx of breast reduction, elective (Acute) Hematemesis (Acute) Gastritis (Acute) Anemia (Acute) Morbid obesity with BMI of 45.0-49.9, adult (Acute) History of cholecystectomy (Acute) Fundic gland polyps of stomach, benign (Acute) Goiter (Acute) Benign essential hypertension (Acute) Multinodular thyroid (Acute) Vitamin D deficiency (Acute) Iron deficiency anemia (Acute) Past Medical History Medical History (Updated 05/10/21 @ 17:10 by MITUL Vizcaino) Anemia Benign essential hypertension Fundic gland polyps of stomach, benign GERD (gastroesophageal reflux disease) Goiter HTN (hypertension) Hyperparathyroidism Iron deficiency anemia Lump of skin of back Morbid obesity with BMI of 45.0-49.9, adult Multinodular thyroid Vitamin D deficiency Family History Family History Father FH: colon polyps Family hx of prostate cancer Mother Hx of diabetes insipidus Family history of high blood pressure Surgical History Surgical History History of cholecystectomy History of colonoscopy History of hysterectomy Hx of breast reduction, elective Hx of endoscopy Social History Social History Household Members: Family and Children Household Members Other:: Legal guardian neice and nephew (ages18 & 16) Housing: Apartment Do you presently have visiting nurse or other home services: No Alcohol intake: never Patient Tobacco Use Status: Never used Tobacco e-Cigarette/Vaping Use: Never Used Second Hand Smoke Exposure: No Use of substances other than those prescribed or required for medical reasons: No Have you been hit, kicked, punched, or otherwise hurt by someone within the past year? 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 Rate : 091 BPM ? ? Atrial Rate : 091 BPM ?? P-R Int : 182 ms? QRS Dur : 090 ms ? ? QT Int : 362 ms ? ? ? P-R-T Axes : 038 037 020 degrees ?? QTc Int : 445 ms ? Normal sinus rhythm Nonspecific T wave abnormality Abnormal ECG No previous ECGs available ? Narrative Narrative: Laboratory Tests 01/18/21 04/14/21 15:01 07:36 WBC 13.1 H Hgb 11.0 L Hct 38.4 Plt Count 354 Sodium 142 Potassium 3.7 Chloride 103 Carbon Dioxide 30 H BUN 16 Creatinine 0.83 Assessment and Plan Assessment Anesthesia Assessment: Chart Reviewed Documented by User: Luna Cabezas MD 05/21/21 15:10 [facility] Active Problems Active Problems: All Active Problems (Updated 05/10/21 @ 17:10 by MITUL Vizcaino) Adrenal nodule (Acute) Colon cancer screening (Acute) Lump of skin of back (Acute) Hyperparathyroidism (Acute) History of hysterectomy (Acute) Hx of breast reduction, elective (Acute) Hematemesis (Acute) Gastritis (Acute) Anemia (Acute) Morbid obesity with BMI of 52. Denies h/o JUAN History of cholecystectomy (Acute) Fundic gland polyps of stomach, benign (Acute) Goiter (Acute) Benign essential hypertension (Acute) Multinodular thyroid (Acute) Vitamin D deficiency (Acute) Iron deficiency anemia (Acute) Past Medical History Medical History (Updated 05/10/21 @ 17:10 by MITUL Vizcaino) Anemia Benign essential hypertension Fundic gland polyps of stomach, benign GERD (gastroesophageal reflux disease) Goiter HTN (hypertension) Hyperparathyroidism Iron deficiency anemia Lump of skin of back Morbid obesity with BMI of 45.0-49.9, adult Multinodular thyroid Vitamin D deficiency Family History Family History Father FH: colon polyps Family hx of prostate cancer Mother Hx of diabetes insipidus Family history of high blood pressure Family history of problems with anesthesia: No Surgical History Surgical History History of cholecystectomy History of colonoscopy History of hysterectomy Hx of breast reduction, elective Hx of endoscopy History of Problems with Anesthesia: No Social History Social History Household Members: Family and Children Household Members Other:: Legal guardian neice and nephew (ages18 & 16) Housing: Apartment Do you presently have visiting nurse or other home services: No Alcohol intake: never Patient Tobacco Use Status: Never used Tobacco e-Cigarette/Vaping Use: Never Used Second Hand Smoke Exposure: No Use of substances other than those prescribed or required for medical reasons: No Have you been hit, kicked, punched, or otherwise hurt by someone within the past year? 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 Rate : 091 BPM ? ? Atrial Rate : 091 BPM ?? P-R Int : 182 ms? QRS Dur : 090 ms ? ? QT Int : 362 ms ? ? ? P-R-T Axes : 038 037 020 degrees ?? QTc Int : 445 ms ? Normal sinus rhythm Nonspecific T wave abnormality Abnormal ECG No previous ECGs available ? Airway Mallampati Class: II TM Dist: >3cm Neck ROM: Full Loose/Missing/Broken Teeth: No Heart: RRR Lungs: CTAB Assessment and Plan Assessment Anesthesia Assessment: Anesthesia Plan Discussed Final Anesthetic Review Family History of Problems with Anesthesia: No History of Problems with Anesthesia: No NPO: Yes ASA Class: III Final Preanesthetic Review: No Changes in Pt Med Stat, Meds/Allgs Chart Reviewed, Consent Obtained/Reviewed and Anes Risks/Benef Reviewed Patient Risk: Intermediate Procedure Risk: Low Assessment/Block/Sedation in SS: Assess/Block/Sedation-SS Anesthetic Plan Anesthetic Plan: GA and MAC: Disposition: Standard PACU
[2021-05-21] VITALS (7 sets, daily range): BP systolic 123–187; BP diastolic 58–84; PULSE 67–86; RESP 18; TEMP 36.3–36.4; O2SAT 95–99; BMI 64.8
[2021-05-21] MEDS: Lactated Ringers 1,000 ML 100 ML IVCONT (12:08)
--- NOTE | 2021-05-21 12:16 | MHC.SHP ---
Pre-Procedural Eval Section A Date of Service: 05/21/21 The patient is an INPATIENT: No The History & Physical has been completed within 30 days and I have reviewed it.: No Section B Chief Complaint: Screening, Iron Deficiency Anemia, Details of Present Illness: Colon cancer screening, EMILIA, FU of gastric polyps Relevant Family History (Specify if Yes): Yes Relevant Social History: None Present Medications: see Short Stay Collaborative assessment Medical History: Significant History (Anemia Benign essential hypertension Fundic gland polyps of stomach, benign GERD (gastroesophageal reflux disease) Goiter HTN (hypertension) Hyperparathyroidism Iron deficiency anemia Lump of skin of back Morbid obesity with BMI of 45.0-49.9, adult Multinodular thyroid Vitamin D deficiency) History of Previous Operations: Relevant previous surgery/procedure and date(s) (History of cholecystectomy History of colonoscopy History of hysterectomy Hx of breast reduction, elective Hx of endoscopy) Allergies: Allergies Allergy/AdvReac Type Severity Reaction Status Date / Time No Known Allergies Allergy Verified 05/16/21 11:55 Review of Systems Sugical H&P ROS: Negative: Constitution, Cardiovascular, Respiratory and Gastrointestinal Exam Surgical H&P Exam: Normal: Heart, Normal: Lungs, Normal: Extremities and Normal: Abdomen Plan Diagnosis/Plan: Unchanged I have reviewed the history and physical and performed a pertinent physical examination on my patient. No changes have occurred unless specified.
--- NOTE | 2021-05-21 12:30 | P.BOP_ITS ---
Brief Operative Note Date of Service: 05/21/21 Pre-op diagnosis: Colon cancer screening, iron deficiency anemia, follow-up of gastric polyps Post-op diagnosis: other (multiple gastric polyps,) Procedure: FLEXIBLE TRANSORAL UPPER GASTROINTESTINAL ENDOSCOPY WITH SNARE POLYPECTOMY OF GASTRIC POLYPS AND COLONOSCOPY TILL CECUM WITH SNARE POLYPECTOMY AND CONTROL OF BLEEDING WITH A HEMOCLIP UPPER ENDOSCOPY Consent: Indications for the procedure and potential complications of bleeding, perforation, reaction to medications and missed diagnosis were discussed with the patient and informed consent was obtained. Instrument: Olympus GIF H 190 mid size upper endoscope Monitoring: Vital signs and clinical assessment, continuous EKG monitoring, Pulse oximetry, Carbon Dioxide monitoring and blood pressure monitoring were done throughout the procedure. Procedure: The patient was placed in the left lateral decubitis position and pre-procedure medications were administered and a bite block was placed. The endoscope was inserted into the mouth and advanced under direct vision to the third part of duodenum. A careful inspection was made as the upper endoscope was withdrawn including a retroflexed examination of the proximal stomach; Unable to perform polypectomy since patient was coughing repeatedly. Endoscope was removed. Pt was intubated by anesthesia and procedure was perfomed under GA. Findings and interventions are described below. Findings: Larynx: Normal Esophagus: GE junction at 33 cms. No esophagitis or Garcia's. Stomach: Multiple 1 to 3 cms gastric polyps. Larger polyps with ulcerations. Six large polyps were removed with a hot snare and retrieved with a Jamison net. Some bleeding noted from polypectomy site - treated with cautery using the snare tip. Grade 2 flap valve on retroflexed examination of the cardia. Duodenum: Normal bulb and descending duodenum Intervention: Biopsies as noted above COLONOSCOPY PROCEDURE NOTE Consent: Indications for the procedure and potential complications of bleeding, perforation, reaction to medications and missed diagnosis were discussed with the patient and informed consent was obtained. Instrument: Olympus PCF H 190 L variable stiffness pediatric colonoscope Monitoring: Vital signs and clinical assessment, intermittent blood pressure monitoring, continuous EKG monitoring, Pulse oximetry and Carbon Dioxide monitoring were done throughout the procedure. Colon withdrawl time was 20 minutes. Procedure: The patient was placed in the left lateral decubitis position and pre-procedure medications were administered. After a digital rectal examination of the ano-rectum, the video colonoscope was inserted into the rectum and advanced through the colon to the cecum. The colonoscope was slowly withdrawn in a retrograde panoramic fashion and the colon mucosa was carefully examined including a retroflexed view of the rectum. Findings and interventions are described below. Procedure Difficulty: : Without difficulty Findings: Terminal Ileum: Not evaluated Cecum: Normal Ascending Colon: A 12-15 mm sessile polyp in the proximal AC inadvertantly removed with a cold snare. There was some bleeding from the polypectomy site which was treated with cautery using the snare tip followed by a hemoclip. A 2nd 10 -12 mm sessile polyp in the distal AC removed with a hot snare. Transverse Colon: Normal Descending Colon: Moderate diverticulosis. Sigmoid Colon: Severe diverticulosis Rectum: Normal Ano-rectum: Small internal hemorrhoids Colon preparation: Good Impression and Post Procedure Diagnosis: Endoscopy Findings: STOMACH: Multiple 1 to 3 cms gastric polyps. Larger polyps with ulcerations. Six large polyps were removed with a hot snare and retrieved with a Jamison net. Some bleeding noted from polypectomy site - treated with cautery using the snare tip. Colonoscopy Findings: Two medium sized polyps removed Moderate diverticulosis seen in the left colon Small hemorrhoids on retroflexed exam. Plan: Await pathology results Patient has an appointment on 06/28/21 in the GI Clinic with Aaron Flowers M.D.. Repeat Colonoscopy interval based on path results - in 3 years if polyps are adenomatous and 10 years if polyps are hyperplastic. Above findings were reviewed with the patient and Gastric polyps, colon polyps and diverticulosis handouts were given in the discharge area Surgeon: Aaron Flowers MD Anesthesia: MAC (Dr Cabezas & Jacinda Lunsford, DIRECTOR TITLE) Was an Catering Attendant used for this Procedure?: Yes Catering Attendant: Sherly Curz Estimated blood loss (mL): 3 Pathology: other (gastric polyps, colon polyps, diverticulosis, hemorrhoids) Condition: stable Disposition: PACU
--- NOTE | 2021-05-21 12:31 | P.OP_ITS ---
Operative Note Operative Note Date of Service: 05/21/21 Narrative: Pre-op diagnosis:?Colon cancer screening, iron deficiency anemia, follow-up of gastric polyps Post-op diagnosis:?other (multiple gastric polyps,) Procedure:? FLEXIBLE TRANSORAL UPPER GASTROINTESTINAL ENDOSCOPY WITH SNARE POLYPECTOMY OF GASTRIC POLYPS AND COLONOSCOPY TILL CECUM WITH SNARE POLYPECTOMY AND CONTROL OF BLEEDING WITH A HEMOCLIP UPPER ENDOSCOPY Consent:?Indications for the procedure and potential complications of bleeding, perforation, reaction to medications and missed diagnosis were discussed with the patient and informed consent was obtained. Instrument:?Olympus GIF H 190 mid size upper endoscope Monitoring: Vital signs and clinical assessment, continuous EKG monitoring, Pulse oximetry, Carbon Dioxide monitoring and blood pressure monitoring were done throughout the procedure. Procedure:?The patient was placed in the left lateral decubitis position and pre-procedure medications were administered and a bite block was placed. The endoscope was inserted into the mouth and advanced under direct vision to the third part of duodenum. A careful inspection was made as the upper endoscope was withdrawn including a retroflexed examination of the proximal stomach; Unable to perform polypectomy since patient was coughing repeatedly.? Endoscope was removed.? Pt was intubated by anesthesia and procedure was perfomed under GA. Findings and interventions are described below. Findings: Larynx:??Normal Esophagus:?GE junction at 33 cms. ? No esophagitis or Garcia's. Stomach:?Multiple 1 to 3 cms gastric polyps.? Larger polyps with ulcerations. Six large polyps were removed with a hot snare and retrieved with a Jamison net. Some bleeding noted from polypectomy site - treated with cautery using the snare tip. ?Grade 2 flap valve on retroflexed examination of the cardia. Duodenum:?Normal bulb and descending duodenum Intervention:?Biopsies as noted above COLONOSCOPY PROCEDURE NOTE Consent:?Indications for the procedure and potential complications of bleeding, perforation, reaction to medications and missed diagnosis were discussed with the patient and informed consent was obtained. Instrument:?Olympus PCF H 190 L variable stiffness pediatric colonoscope Monitoring:?Vital signs and clinical assessment, intermittent blood pressure monitoring, continuous EKG monitoring, Pulse oximetry and Carbon Dioxide monitoring were done throughout the procedure. Colon withdrawl time was 20? minutes. Procedure:?The patient was placed in the left lateral decubitis position and pre-procedure medications were administered. After a digital rectal examination of the ano-rectum, the video colonoscope was inserted into the rectum and advanced through the colon to the cecum. The colonoscope was slowly withdrawn in a retrograde panoramic fashion and the colon mucosa was carefully examined including a retroflexed view of the rectum. Findings and interventions are described below. Procedure Difficulty:?: Without difficulty Findings: Terminal Ileum: Not evaluated Cecum:? Normal Ascending Colon:??A 12-15 mm sessile polyp in the proximal AC inadvertantly removed with a cold snare.? There was some bleeding from the polypectomy site which was treated with cautery using the snare tip followed by a hemoclip.? A 2nd 10 -12 mm sessile polyp in the distal AC removed with a hot snare. Transverse Colon:??Normal Descending Colon:? Moderate diverticulosis. Sigmoid Colon:??Severe diverticulosis Rectum:??Normal Ano-rectum:??Small internal hemorrhoids Colon preparation:? Good? Impression and Post Procedure Diagnosis: Endoscopy Findings: STOMACH: Multiple 1 to 3 cms gastric polyps.? Larger polyps with ulcerations. Six large polyps were removed with a hot snare and retrieved with a Jamison net. Some bleeding noted from polypectomy site - treated with cautery using the snare tip. Colonoscopy Findings: Two medium sized polyps removed Moderate diverticulosis seen in the left colon Small hemorrhoids on retroflexed exam. Plan: Await pathology results Patient has an appointment on 06/28/21 in the GI Clinic with Aaron Flowers M.D. Repeat EGD in 6 months. Repeat Colonoscopy interval based on path results - in 3 years if polyps are adenomatous and 10 years if polyps are hyperplastic. Above findings were reviewed with the patient and Gastric polyps, colon polyps and diverticulosis handouts were given in the discharge area Surgeon:?Aaron Flowers MD Anesthesia:?MAC (Dr Cabezas & Jacinda Lunsford, KELLY) Was an Corporate Legal Assistant used for this Procedure?:?Yes Corporate Legal Assistant:?Sherly Cruz Estimated blood loss (mL):?3 Pathology:?other (gastric polyps, colon polyps, diverticulosis, hemorrhoids) Condition:?stable Disposition:?PACU
[2021-05-21] MEDS: Scopolamine 1.5 MG PATCH.TD.3 TRANSDERMA (12:45)
== END ==
PROVIDERS: PCP Internal Medicine; Visit Provider Internal Medicine Gastroenterology
PROC: (CPT 45385; principal; 2021-05-21 12:40)
DX: Z12.11 Encounter for screening for malignant neoplasm of colon (principal); D50.9 Iron deficiency anemia, unspecified; D12.2 Benign neoplasm of ascending colon; K57.30 Diverticulosis of large intestine without perforation or abscess without bleeding; K64.8 Other hemorrhoids; K21.9 Gastro-esophageal reflux disease without esophagitis; K31.7 Polyp of stomach and duodenum; I10 Essential (primary) hypertension; Z79.899 Other long term (current) drug therapy
CPT/HCPCS: 45385; 43251; 88305; 88342; J2370; J2405; J2765; J3010

== ENCOUNTER → 2021-05-23 08:57 | Outpatient (BNVA) | payer OTHER, SELFPAY | PROVIDERS: PCP Internal Medicine; Visit Provider Internal Medicine ==

== ENCOUNTER 2021-05-24 06:32 | Outpatient (REF) | payer OTHER, SELFPAY ==
[2021-05-24 07:34] LABS: Alanine Aminotransferase 22 U/L (0-31); Alkaline Phosphatase 122 U/L (39-117); Anion Gap 14 (12-20); Aspartate Amino Transferase 21 U/L (5-31); Bilirubin Total 0.7 mg/dL (0.0-1.0); Blood Urea Nitrogen 13 mg/dL (9-16); Carbon Dioxide 29 mmol/L (22-29); Chloride 103 mmol/L (96-108); Estimated Glomerular Filt Rate > 60; Glucose Random 123 mg/dL (60-115); Potassium 3.5 mmol/L (3.3-5.1); Sodium 142 mmol/L (135-145); Total Protein 7.2 g/dL (6.5-8.0)
[2021-05-25 22:47] LABS: Adrenocorticotropic Hormone 41 pg/mL (6-50)
[2021-05-26 05:11] LABS: DHEA Sulfate 39 mcg/dL (19-231)
[2021-05-30 10:02] LABS: Dexamethasone <20 ng/dL
[2021-05-30 13:50] LABS: Renin 0.16 ng/mL/h (0.25-5.82)
[2021-06-01 13:27] LABS: Metanephrine, Free <25 pg/mL (<=57); Normetanephrines, Free 108 pg/mL (<=148); Total Metanephrine, Free 108 pg/mL (<=205)
[2021-06-01 16:17] LABS: Cortisol, Free 0.81 mcg/dL
[2021-06-01 23:12] LABS: 11-Deoxycortisol, LC/MS 24 ng/dL
[2021-06-04 16:51] LABS: Catecholamine Frac, Total 558 pg/mL
== END 2021-05-24 06:33 | disposition home or self-care (01) ==
LOC: HO.LAB 06:32
PROVIDERS: PCP Internal Medicine; Visit Provider Internal Medicine
DX: D35.02 Benign neoplasm of left adrenal gland (principal)
CPT/HCPCS: 36415; 80053; 80299; 82024; 82088; 82384; 82530; 82627; 82634; 83835; 84244

== ENCOUNTER 2021-05-26 11:26 | Outpatient (REF) | payer OTHER, SELFPAY ==
[2021-05-26 12:01] LABS: Creatinine, mg/dL 71.58
[2021-05-26 13:04] LABS: Creatinine, 24Hr Urine 1.8 G/Day (1.0-2.0); Total Volume 24 Hour Urine 2500 mL
[2021-05-31 15:53] LABS: Metanephrine, Free 24U 139 mcg/24 h (58-203); Normetanephrine, Free 24U 660 mcg/24 h (88-649); Total Metanephrine, Free 24U 799 mcg/24 h (182-739); Total Volume 24U 2500 mL
[2021-05-31 16:01] LABS: Cortisol Free, 24 Hr Urine 24.1 mcg/24 h (4.0-50.0); Creatinine, 24 Hr Urine 1.77 g/24 h (0.50-2.15); Total Volume, 24 Hr Urine 2500 mL
[2021-06-01 06:21] LABS: CATF, 24 Ur Volume 2500 mL; CATF-24Ur Creatinine 1.79 g/24 h (0.50-2.15); Catecholamines,Tot. (E+NE) 24U 76 mcg/24 h (26-121); Dopamine, 24 Ur 643 mcg/24 h (52-480); Epinephrine, 24 Ur 11 mcg/24 h (2-24); Norepinephrine, 24 Ur 65 mcg/24 h (15-100)
[2021-06-02 01:41] LABS: Aldosterone, 24Hr Urine 8.2 mcg/24 h; Creatinine 24Hr Urine 1.79 g/24 h (0.50-2.15); Total Volume 2500 mL
== END 2021-05-26 11:27 | disposition home or self-care (01) ==
LOC: HO.LNP 11:26
PROVIDERS: Visit Provider Internal Medicine
DX: D35.02 Benign neoplasm of left adrenal gland (principal)
CPT/HCPCS: 82088; 82384; 82530; 82570; 83835

== ENCOUNTER 2021-05-28 06:51 | Outpatient (REF) | payer OTHER, SELFPAY ==
[2021-05-29 21:06] LABS: Adrenocorticotropic Hormone 29 pg/mL (6-50)
[2021-06-04 11:57] LABS: Cortisol, Free <0.03 mcg/dL
== END 2021-05-28 06:52 | disposition home or self-care (01) ==
LOC: HO.LAB 06:51
PROVIDERS: PCP Internal Medicine; Visit Provider Internal Medicine
DX: D35.02 Benign neoplasm of left adrenal gland (principal)
CPT/HCPCS: 36415; 82024; 82530

== ENCOUNTER 2021-06-11 14:56 | Outpatient (REF) | payer OTHER, SELFPAY ==
--- NOTE | ~2021-06-11 | CT_ITS ---
EXAMINATION: CT ABDOMEN WITHOUT AND WITH CONTRAST CLINICAL INFORMATION: Benign neoplasm of left adrenal gland. COMPARISON: None TECHNIQUE: Contiguous axial thin section helical images of the abdomen were performed before and after the administration of oral contrast and 85 mL of Omnipaque 350 intravenous contrast. The data set was reformatted in the coronal and sagittal planes and reviewed on an independent workstation. This CT examination was performed using dose optimization techniques as appropriate, variously including the following: *Automated exposure control *Adjustment of mA and/or kV according to patient size (this includes techniques or standardized protocols for targeted exams where dose is matched to indication/reason for exam; i.e. extremities or head) *Use of iterative reconstruction technique DLP: 1890 mGy-cm FINDINGS: LUNG BASES: There is left basilar atelectasis. There is a small hiatal hernia. Heart size is normal. LIVER, GALLBLADDER, AND BILIARY TREE: The liver is homogeneous in density, enlarged size measuring 22 cm, normal shape and position. There is no intrahepatic ductal dilatation. PANCREAS: The pancreas is homogeneous in density and normal size. No focal lesion or intrahepatic ductal dilatation seen. SPLEEN: The spleen is normal. ADRENAL GLANDS AND KIDNEYS: The right adrenal gland is normal. There is a left adrenal nodule measuring 1.6 x 1.6 cm. On precontrast exam -10.71 HU. Postcontrast it measures 23 Hounsfield units and on delayed 10-minute images it measures 11 Hounsfield units. Slow washout less than 60%. Relative washout of 40% or higher. The relative washout scan and the precontrast attenuation values are most suggestive of a benign adenoma. BOWEL LOOPS: There is scattered stool and gas seen throughout the colon without significant distention. The small bowel loops are normal caliber. LYMPH NODES: Normal. VASCULAR: Unremarkable. BONES: No lytic or sclerotic process seen. There are mild degenerative changes L5-S1 disc level. CT/CT abdomen wo/w con IMPRESSION: Left adrenal 1.6 cm adenoma. Mild degenerative disc changes L5-S1 disc level. Mild constipation. Moderate-sized hiatal hernia.
[2021-06-11] MEDS: iohexoL 350 MG/ML 100 ML INFUS..BTL 85 ML IV (15:59)
== END 2021-06-11 14:57 | disposition home or self-care (01) ==
LOC: HO.CT 14:56
PROVIDERS: PCP Internal Medicine; Visit Provider Internal Medicine
DX: D35.02 Benign neoplasm of left adrenal gland (principal)
CPT/HCPCS: 74170; Q9967

== ENCOUNTER → 2021-06-28 14:17 | Outpatient (BNVA) | payer OTHER, SELFPAY | PROVIDERS: PCP Internal Medicine; Referring Provider Internal Medicine; Visit Provider Internal Medicine Gastroenterology ==

== ENCOUNTER → 2021-07-02 07:23 | Outpatient (BNVA) | payer OTHER, SELFPAY | PROVIDERS: PCP Internal Medicine; Visit Provider Internal Medicine ==

== ENCOUNTER 2021-07-04 08:26 | Outpatient (REF) | payer OTHER, SELFPAY ==
[2021-07-04 09:04] LABS: Total Volume 24 Hour Urine 2150 mL
[2021-07-04 09:18] LABS: Creatinine, 24Hr Urine 2.2 G/Day (1.0-2.0); Creatinine, mg/dL 102.48
[2021-07-04 12:20] LABS: Anion Gap 12 (12-20); Blood Urea Nitrogen 13 mg/dL (9-16); Calcium 9.5 mg/dL (8.4-10.2); Carbon Dioxide 29 mmol/L (22-29); Chloride 103 mmol/L (96-108); Estimated Glomerular Filt Rate > 60; Glucose Random 116 mg/dL (60-115); Potassium 4.1 mmol/L (3.3-5.1); Sodium 140 mmol/L (135-145)
[2021-07-09 01:26] LABS: Metanephrine, Free 24U 148 mcg/24 h (58-203); Normetanephrine, Free 24U 656 mcg/24 h (88-649); Total Metanephrine, Free 24U 804 mcg/24 h (182-739); Total Volume 24U 2150 mL
[2021-07-09 10:37] LABS: CATF, 24 Ur Volume 2150 mL; CATF-24Ur Creatinine 2.15 g/24 h (0.50-2.15); Catecholamines,Tot. (E+NE) 24U 70 mcg/24 h (26-121); Dopamine, 24 Ur 536 mcg/24 h (52-480); Epinephrine, 24 Ur 5 mcg/24 h (2-24); Norepinephrine, 24 Ur 65 mcg/24 h (15-100)
[2021-07-11 05:35] LABS: Renin 0.45 ng/mL/h (0.25-5.82)
== END 2021-07-04 08:27 | disposition home or self-care (01) ==
LOC: HO.LNP 08:26
PROVIDERS: PCP Internal Medicine; Visit Provider Internal Medicine
DX: D35.02 Benign neoplasm of left adrenal gland (principal)
CPT/HCPCS: 80048; 82088; 82384; 82570; 83835; 84244

== ENCOUNTER 2021-07-05 07:47 | Outpatient (REF) | payer OTHER, SELFPAY ==
[2021-07-05 09:40] LABS: Cortisol Random 12.7 ug/dL
[2021-07-06 17:26] LABS: Adrenocorticotropic Hormone 31 pg/mL (6-50)
[2021-07-13 10:21] LABS: Corticosteroid Bind Globulin 3.6 mg/dL (1.9-4.5)
== END 2021-07-05 07:48 | disposition home or self-care (01) ==
LOC: HO.10HDL 07:47
PROVIDERS: Visit Provider Internal Medicine
DX: D35.02 Benign neoplasm of left adrenal gland (principal)
CPT/HCPCS: 36415; 82024; 82533; 84449

== ENCOUNTER 2021-08-23 07:19 | Outpatient (REF) | payer OTHER, SELFPAY ==
[2021-08-23 07:44] LABS: MANUAL DIFF FLAG NO
[2021-08-23 07:47] LABS: Basophils Percent Auto 0.2 % (0-2); Eosinophils Absolute Auto 0.1 X10*3/uL (0.0-0.4); Hematocrit 41.5 % (37.0-47.0); Hemoglobin 12.1 g/dl (12.0-16.0); Imm Gran Abs Auto 0.07 X10*3/uL (0.00-0.03); Imm Gran Pct Auto 0.6 % (0.0-0.4); Lymphocytes Absolute Auto 1.8 X10*3/uL (1.2-4.9); Lymphocytes Percent Auto 16.5 % (20-40); Mean Corpuscular HGB Conc 29.2 g/dl (31.0-35.0); Mean Corpuscular Hemoglobin 22.1 pg (27.0-33.0); Mean Corpuscular Volume 75.9 fL (80.0-98.0); Mean Platelet Volume 10.3 fL (9.4-12.3); Monocytes Absolute Auto 0.7 X10*3/uL (0.1-1.2); Monocytes Percent Auto 6.9 % (2-11); Neutrophils Absolute Auto 8.1 x10*3/uL (2.0-8.3); Neutrophils Percent Auto 74.8 % (45-73); Platelet Count 350 X10*3/uL (160-400); Red Blood Count 5.47 X10*6/uL (4.20-5.50); Red Cell Distribution Width 16.5 % (11.0-16.0); White Blood Count 10.8 X10*3/uL (4.8-10.8)
[2021-08-23 08:23] LABS: Alanine Aminotransferase 24 U/L (0-31); Albumin Level 4.2 g/dL (3.5-5.0); Alkaline Phosphatase 134 U/L (39-117); Anion Gap 13 (12-20); Aspartate Amino Transferase 16 U/L (5-31); Bilirubin Total 0.6 mg/dL (0.0-1.0); Blood Urea Nitrogen 13 mg/dL (9-16); Calcium 9.5 mg/dL (8.4-10.2); Carbon Dioxide 29 mmol/L (22-29); Chloride 104 mmol/L (96-108); Cholesterol 167 mg/dL; Estimated Glomerular Filt Rate > 60; Glucose Fasting 117 mg/dL (60-99); HDL Cholesterol 50 mg/dL; Iron 33 mcg/dL (30-160); LDL Cholesterol Calculated 96 mg/dl; Percent Iron Saturation 9 % (15-50); Phosphorus 2.9 mg/dL (2.7-4.5); Potassium 3.7 mmol/L (3.3-5.1); Sodium 142 mmol/L (135-145); Total Iron Binding Capacity 349 mcg/dL (228-428); Total Protein 7.4 g/dL (6.5-8.0); Triglycerides 107 mg/dL; Unsaturated Iron Binding 316 ug/dL
[2021-08-23 08:34] LABS: Appearance Urine CLEAR; Color Urine YELLOW; Glucose Urine UA NEG (NEG); Leukocyte Esterase Urine NEG (NEG); Nitrite Urine NEG (NEG); PH 6.5 (5.0-8.0); Specific Gravity - Urine 1.015 (1.005-1.025); UACC Culture Trigger NO; Urine Blood 2+ (NEG); Urine Ketones NEG (NEG); Urine Protein NEG (NEG-TRACE)
[2021-08-23 08:43] LABS: Free T4 (Free Thyroxine) 1.41 ng/dL (0.71-1.85); Vitamin D 25-OH Total 26.1 ng/mL (>30)
[2021-08-23 08:48] LABS: Squamous Epithelial Cell Urine 1+ /LPF
[2021-08-23 08:51] LABS: WBC Urine 0-2 /HPF (0-4)
[2021-08-23 09:32] LABS: Cortisol Random 14.6 ug/dL
[2021-08-27 13:31] LABS: Calcium (PTHI) 9.7 mg/dL (8.6-10.2); PTHI 61 pg/mL (14-64)
[2021-08-27 22:16] LABS: Adrenocorticotropic Hormone 31 pg/mL (6-50)
[2021-08-29 09:46] LABS: Renin 0.29 ng/mL/h (0.25-5.82)
== END 2021-08-23 07:20 | disposition home or self-care (01) ==
LOC: HO.LAB 07:19
PROVIDERS: PCP Internal Medicine; Visit Provider Internal Medicine
DX: Z00.00 Encounter for general adult medical examination without abnormal findings (principal); E04.2 Nontoxic multinodular goiter; D35.02 Benign neoplasm of left adrenal gland; E55.9 Vitamin D deficiency, unspecified; D50.9 Iron deficiency anemia, unspecified; E78.00 Pure hypercholesterolemia, unspecified
CPT/HCPCS: 36415; 80048; 80053; 80061; 81001; 82024; 82088; 82306; 82533; 83540; 83970; 84100; 84244; 84439; 84443; 85025

== ENCOUNTER → 2021-09-10 08:32 | Outpatient (BNVA) | payer OTHER, SELFPAY | PROVIDERS: PCP Internal Medicine; Visit Provider Internal Medicine ==

== ENCOUNTER 2021-12-11 12:21 | Outpatient (REF) | payer OTHER, SELFPAY ==
[2021-12-11 13:49] LABS: Anion Gap 11 (12-20); Blood Urea Nitrogen 12 mg/dL (9-16); Calcium 9.8 mg/dL (8.4-10.2); Carbon Dioxide 31 mmol/L (22-29); Chloride 104 mmol/L (96-108); Estimated Glomerular Filt Rate > 60; Glucose Random 117 mg/dL (60-115); Potassium 4.4 mmol/L (3.3-5.1); Sodium 142 mmol/L (135-145)
[2021-12-11 13:59] LABS: Free T4 (Free Thyroxine) 1.39 ng/dL (0.71-1.85); Thyroid Stimulating Hormone 1.04 uIU/mL (0.32-4.0)
[2021-12-18 06:06] LABS: Renin 0.11 ng/mL/h (0.25-5.82)
== END 2021-12-11 12:22 | disposition home or self-care (01) ==
LOC: HO.LAB 12:21
PROVIDERS: PCP Internal Medicine; Visit Provider Internal Medicine
DX: D35.02 Benign neoplasm of left adrenal gland (principal); E89.0 Postprocedural hypothyroidism; E04.2 Nontoxic multinodular goiter
CPT/HCPCS: 36415; 80048; 82040; 82088; 84244; 84439; 84443

== ENCOUNTER → 2021-12-27 13:21 | Outpatient (BNVA) | payer OTHER, SELFPAY | PROVIDERS: PCP Internal Medicine; Referring Provider Internal Medicine; Visit Provider Internal Medicine Gastroenterology | DX: Z13.89 Encounter for screening for other disorder (principal) ==

== ENCOUNTER → 2022-01-07 08:19 | Outpatient (BNVA) | payer OTHER, SELFPAY | PROVIDERS: PCP Internal Medicine; Visit Provider Internal Medicine | DX: E89.0 Postprocedural hypothyroidism (principal) ==

== ENCOUNTER 2022-03-02 10:32 | Outpatient (REF) | payer OTHER, SELFPAY ==
[2022-03-02 11:43] LABS: Free T4 (Free Thyroxine) 1.24 ng/dL (0.71-1.85); Thyroid Stimulating Hormone 2.64 uIU/mL (0.32-4.0)
[2022-03-02 12:19] LABS: Vitamin D 25-OH Total 29.5 ng/mL (>30)
== END 2022-03-02 10:33 | disposition home or self-care (01) ==
LOC: HO.LAB 10:32
PROVIDERS: PCP Internal Medicine; Visit Provider Internal Medicine
DX: E89.0 Postprocedural hypothyroidism (principal); E55.9 Vitamin D deficiency, unspecified
CPT/HCPCS: 36415; 82306; 84439; 84443

== ENCOUNTER 2022-03-25 13:19 | Day surgery (SDC) | payer OTHER, SELFPAY ==
[2022-03-19 13:28] VITALS: BMI 51.2
--- NOTE | 2022-03-22 09:10 | P.CONAN_ITS ---
Documented by User: Sada Hernandez NP 03/22/22 09:11 HPI - Anesthesia Eval Consult details Narrative: 51yo F for Upper Endoscopy s/p EGD and [place] 04/2021 with [facility] PMFSH Active Problems Active Problems: All Active Problems (Updated 02/11/22 @ 17:07 by Dae Simpson MD) Morbid obesity with BMI of 50.0-59.9, adult (Acute) Stasis edema of both lower extremities (Acute) GERD (gastroesophageal reflux disease) (Acute) Postsurgical hypothyroidism (Acute) Annual physical exam (Acute) History of colon polyps (Acute) Adrenal cortical adenoma of left adrenal gland (Acute) Adrenal nodule (Acute) Colon cancer screening (Acute) Lump of skin of back (Acute) Hyperparathyroidism (Acute) History of hysterectomy (Acute ~2008) Hx of breast reduction, elective (Acute) Hematemesis (Acute) Gastritis (Acute) Anemia (Acute) Morbid obesity with BMI of 45.0-49.9, adult (Acute) History of cholecystectomy (Acute) Fundic gland polyps of stomach, benign (Acute) Goiter (Acute) Benign essential hypertension (Acute) Multinodular thyroid (Acute) Vitamin D deficiency (Acute) Iron deficiency anemia (Acute) Past Medical History Medical History Adrenal cortical adenoma of left adrenal gland Anemia Benign essential hypertension Fundic gland polyps of stomach, benign GERD (gastroesophageal reflux disease) Goiter HTN (hypertension) Hyperparathyroidism Iron deficiency anemia Lump of skin of back Morbid obesity with BMI of 45.0-49.9, adult Multinodular thyroid Postsurgical hypothyroidism Vitamin D deficiency Family History Family History Father FH: colon polyps Family hx of prostate cancer Mother Hx of diabetes insipidus Family history of high blood pressure Family history of problems with anesthesia: No Surgical History Surgical History History of cholecystectomy History of colonoscopy History of hysterectomy (~2008) History of thyroidectomy (~07/11/21) Hx of breast reduction, elective Hx of endoscopy History of Problems with Anesthesia: No Social History Social History (Updated 03/19/22 @ 13:28 by Marlyn Lira RN) Household Members: Family and Children Household Members Other:: Legal guardian niece and nephew (ages18 & 16) Housing: Apartment Do you presently have visiting nurse or other home services: No Alcohol intake: never Patient Tobacco Use Status: Never used Tobacco e-Cigarette/Vaping Use: Never Used Second Hand Smoke Exposure: No Use of substances other than those prescribed or required for medical reasons: No Are you DNR?: No Advance Directives: No Advance Directives Information Provided: Yes Recently lost weight without trying: No Nutrition Risks: No Nutritional Risk service: No Current occupational status: employed Current occupation: [employer] Cognitive needs: No Hearing needs: No Vision needs: Yes Meds Allergies Allergy/AdvReac Type Severity Reaction Status Date / Time No Known Allergies Allergy Verified 03/08/22 09:00 Exam Exam Date and Time: March 22, 2022 0910 Height,Weight and Vital Signs: Height 5 ft 7 in Weight 148.325 kg Pertinent Lab Results Pertinent Lab Results: Laboratory Tests 08/23/21 12/11/21 07:43 12:40 WBC 10.8 Hgb 12.1 Hct 41.5 Plt Count 350 Sodium 142 Potassium 4.4 Chloride 104 Carbon Dioxide 31 H BUN 12 Creatinine 0.79 Assessment and Plan Assessment Anesthesia Assessment: Chart Reviewed Final Anesthetic Review Family History of Problems with Anesthesia: No History of Problems with Anesthesia: No Documented by User: Laya Pastor MD 03/25/22 13:54 [facility] Past Medical History Medical History Adrenal cortical adenoma of left adrenal gland Anemia Benign essential hypertension Fundic gland polyps of stomach, benign GERD (gastroesophageal reflux disease) Goiter HTN (hypertension) Hyperparathyroidism Iron deficiency anemia Lump of skin of back Morbid obesity with BMI of 45.0-49.9, adult Multinodular thyroid Postsurgical hypothyroidism Vitamin D deficiency Family History Family History Father FH: colon polyps Family hx of prostate cancer Mother Hx of diabetes insipidus Family history of high blood pressure Surgical History Surgical History History of cholecystectomy History of colonoscopy History of hysterectomy (~2008) History of thyroidectomy (~07/11/21) Hx of breast reduction, elective Hx of endoscopy Social History Social History (Updated 03/19/22 @ 13:28 by Marlyn Lira RN) Household Members: Family and Children Household Members Other:: Legal guardian niece and nephew (ages18 & 16) Housing: Apartment Do you presently have visiting nurse or other home services: No Alcohol intake: never Patient Tobacco Use Status: Never used Tobacco e-Cigarette/Vaping Use: Never Used Second Hand Smoke Exposure: No Use of substances other than those prescribed or required for medical reasons: No Are you DNR?: No Advance Directives: No Advance Directives Information Provided: Yes Recently lost weight without trying: No Nutrition Risks: No Nutritional Risk service: No Current occupational status: employed Current occupation: [employer] Cognitive needs: No Hearing needs: No Vision needs: Yes Meds Allergies Allergy/AdvReac Type Severity Reaction Status Date / Time No Known Allergies Allergy Verified 03/08/22 09:00 Exam Airway Mallampati Class: II TM Dist: >3cm Neck ROM: Full Heart: rrr Lungs: cta Assessment and Plan Assessment Anesthesia Assessment: Anesthesia Plan Discussed and Chart Reviewed Final Anesthetic Review NPO: Yes ASA Class: III Final Preanesthetic Review: No Changes in Pt Med Stat, Meds/Allgs Chart Reviewed and Consent Obtained/Reviewed Patient Risk: Intermediate Procedure Risk: Intermediate Anesthetic Plan Anesthetic Plan: MAC: Disposition: Standard PACU
[2022-03-25 13:39] VITALS: BMI 35.6
[2022-03-25 13:53] VITALS: BP 155/87; PULSE 82; RESP 16; TEMP 36.8; O2SAT 98
[2022-03-25] MEDS: Lactated Ringers 1,000 ML 100 ML IVCONT (14:07)
--- NOTE | 2022-03-25 14:35 | MHC.SHP ---
Pre-Procedural Eval Section A Date of Service: 03/25/22 The patient is an INPATIENT: No The History & Physical has been completed within 30 days and I have reviewed it.: No Section B Chief Complaint: reflux,anemia,neoplasm of stomach Details of Present Illness: Fu of gastric polyps Relevant Family History (Specify if Yes): Yes Relevant Social History: None Present Medications: see Short Stay Collaborative assessment Medical History: Significant History (Adrenal cortical adenoma of left adrenal gland Anemia Benign essential hypertension Fundic gland polyps of stomach, benign GERD (gastroesophageal reflux disease) Goiter HTN (hypertension) Hyperparathyroidism Iron deficiency anemia Lump of skin of back Morbid obesity with BMI of 45.0-49.9, adult Mult) History of Previous Operations: Relevant previous surgery/procedure and date(s) (History of cholecystectomy History of colonoscopy History of hysterectomy (~2008) History of thyroidectomy (~07/11/21) Hx of breast reduction, elective Hx of endoscopy) Allergies: Allergies Allergy/AdvReac Type Severity Reaction Status Date / Time No Known Allergies Allergy Verified 03/08/22 09:00 Review of Systems Sugical H&P ROS: Negative: Constitution, Cardiovascular, Respiratory and Gastrointestinal Exam Surgical H&P Exam: Normal: Heart, Normal: Lungs, Normal: Extremities and Normal: Abdomen Plan Diagnosis/Plan: Unchanged I have reviewed the history and physical and performed a pertinent physical examination on my patient. No changes have occurred unless specified.
--- NOTE | 2022-03-25 15:12 | PM.OP ---
Brief Operative Note Date of Service: 03/25/22 Pre-op diagnosis: Follow-up of multiple gastric polyps Post-op diagnosis: other (Esophagitis, gastritis, multiple gastric polyps) Procedure: FLEXIBLE TRANSORAL UPPER GASTROINTESTINAL ENDOSCOPY WITH BIOPSIES Consent: Indications for the procedure and potential complications of bleeding, perforation, reaction to medications and missed diagnosis were discussed with the patient and informed consent was obtained. Instrument: Olympus GIF H 190 mid size upper endoscope Monitoring: Vital signs and clinical assessment, continuous EKG monitoring, Pulse oximetry, Carbon Dioxide monitoring and blood pressure monitoring were done throughout the procedure. Procedure: The patient was placed in the left lateral decubitis position and pre-procedure medications were administered and a bite block was placed. The endoscope was inserted into the mouth and advanced under direct vision to the third part of duodenum. A careful inspection was made as the upper endoscope was withdrawn including a retroflexed examination of the proximal stomach; Findings and interventions are described below. Findings: Larynx: Normal Esophagus: GE junction at 33 cms. ? Esophagitis with multiple 2-3 cms long linear erosions from 30 to 33 cms. Stomach:?Multiple 1 to 3 cms gastric polyps.? Two larger polyps were removed with a hot snare and retrieved with a Jamison net. ?Grade 2 flap valve on retroflexed examination of the cardia. Duodenum: Normal bulb and descending duodenum Intervention: Biopsies as noted above Impression and Post Procedure Diagnosis: Endoscopy Findings: ESOPHAGUS: GE junction at 33 cms. ? Esophagitis with multiple 2-3 cms long linear erosions from 30 to 33 cms. STOMACH: Multiple 1 to 3 cms gastric polyps.? Two larger polyps were removed with a hot snare and retrieved with a Jamison net. Plan: Await pathology results Patient has an appointment on 08/01/22 in the GI Clinic with Aaron Flowers M.D. Repeat EGD in 6 months with [place] Above findings were reviewed with the patient and Gastric Polyps handout was given in the discharge area Surgeon: Aaron Flowers MD Anesthesia: MAC (Dr Hernandez) Was an Emergency Detail Driver used for this Procedure?: Yes Emergency Detail Driver: Bobby Walters Estimated blood loss (mL): 0 Pathology: other (A. Gastric antrum, B. Gastric polyps) Condition: stable Disposition: PACU
[2022-03-25 15:18] VITALS: BP 114/72; PULSE 84; RESP 16; TEMP 36.1; O2SAT 90
[2022-03-25 15:33] VITALS: BP 111/59; PULSE 82; RESP 18; O2SAT 98
[2022-03-25 15:48] VITALS: BP 109/64; PULSE 78; RESP 18; O2SAT 95
[2022-03-25 16:03] VITALS: BP 122/64; PULSE 69; RESP 18; O2SAT 96
[2022-03-25 16:33] VITALS: BP 134/64; PULSE 75; RESP 18; TEMP 36.2; O2SAT 96
--- NOTE | 2022-03-25 17:40 | W.PM.OPN ---
Operative Note Operative Note Date of Service: 03/25/22 Narrative: Pre-op diagnosis: Follow-up of multiple gastric polyps Post-op diagnosis:?other (Esophagitis, gastritis, multiple gastric polyps) Procedure: FLEXIBLE TRANSORAL UPPER GASTROINTESTINAL ENDOSCOPY WITH BIOPSIES Consent:?Indications for the procedure and potential complications of bleeding, perforation, reaction to medications and missed diagnosis were discussed with the patient and informed consent was obtained. Instrument:?Olympus GIF H 190 mid size upper endoscope Monitoring: Vital signs and clinical assessment, continuous EKG monitoring, Pulse oximetry, Carbon Dioxide monitoring and blood pressure monitoring were done throughout the procedure. Procedure:?The patient was placed in the left lateral decubitis position and pre-procedure medications were administered and a bite block was placed. The endoscope was inserted into the mouth and advanced under direct vision to the third part of duodenum. A careful inspection was made as the upper endoscope was withdrawn including a retroflexed examination of the proximal stomach; Findings and interventions are described below. Findings: Larynx:? Normal Esophagus: GE junction at 33 cms. ? Esophagitis with multiple 2-3 cms long linear erosions from 30 to 33 cms. Stomach:?Multiple 1 to 3 cms gastric polyps.? Two larger polyps were removed with a hot snare and retrieved with a Jamison net. ?Grade 2 flap valve on retroflexed examination of the cardia. Duodenum: Normal bulb and descending duodenum Intervention: Biopsies as noted above Impression and Post Procedure Diagnosis: Endoscopy Findings: ESOPHAGUS: GE junction at 33 cms. ? Esophagitis with multiple 2-3 cms long linear erosions from 30 to 33 cms. STOMACH: Multiple 1 to 3 cms gastric polyps.? Two larger polyps were removed with a hot snare and retrieved with a Jamison net. Plan: Await pathology results Patient has an appointment on 08/01/22 in the GI Clinic with Aaron Flowers M.D. Repeat EGD in 6 months with [place] Above findings were reviewed with the patient and Gastric Polyps handout was given in the discharge area Surgeon: Aaron Flowers MD Anesthesia:?MAC (Dr Hernandez) Was an Job Putter Up And Ticket Preparer used for this Procedure?:?Yes Job Putter Up And Ticket Preparer:?Bobby Walters Estimated blood loss (mL):?0 Pathology:?other (A.? Gastric antrum, B.? Gastric polyps) Condition:?stable Disposition:?PACU
== END 2022-03-25 16:43 | disposition home or self-care (01) ==
PROVIDERS: PCP Internal Medicine; Visit Provider Internal Medicine Gastroenterology
PROC: 0DJ08ZZ Inspection of Upper Intestinal Tract, Via Natural or Artificial Opening Endoscopic (ICD-10-PCS; CPT 43235; principal; 2022-03-25 14:20)
DX: K31.7 Polyp of stomach and duodenum (principal); D35.02 Benign neoplasm of left adrenal gland; K29.50 Unspecified chronic gastritis without bleeding; K21.9 Gastro-esophageal reflux disease without esophagitis; K20.80 Other esophagitis without bleeding; K44.9 Diaphragmatic hernia without obstruction or gangrene; D50.9 Iron deficiency anemia, unspecified; I10 Essential (primary) hypertension; E89.0 Postprocedural hypothyroidism; E21.3 Hyperparathyroidism, unspecified; E66.01 Morbid (severe) obesity due to excess calories; Z68.42 Body mass index [BMI] 45.0-49.9, adult; Z90.49 Acquired absence of other specified parts of digestive tract
CPT/HCPCS: 43239; 88305; 88342; J2405; J2550

== ENCOUNTER 2022-06-11 10:40 | Outpatient (REF) | payer OTHER, SELFPAY ==
--- NOTE | ~2022-06-11 | XR_ITS ---
EXAMINATION: XR CHEST CLINICAL INFORMATION: Cough COMPARISON: None TECHNIQUE: 2 views of the chest were obtained. FINDINGS: No significant abnormality is noted involving the heart, lungs, mediastinum, bony thorax or soft tissues. XR/XR chest 2V IMPRESSION: No acute disease.
== END 2022-06-11 10:41 | disposition home or self-care (01) ==
LOC: HO.XRAY 10:40
PROVIDERS: PCP Internal Medicine; Visit Provider Internal Medicine
DX: R05.9 Cough, unspecified (principal); U07.1 COVID-19
CPT/HCPCS: 71046

== ENCOUNTER 2022-06-20 15:46 | Outpatient (REF) | payer OTHER, SELFPAY | END 2022-06-20 15:47 | disposition home or self-care (01) | LOC: HO.LAB 15:46 | PROVIDERS: PCP Internal Medicine; Visit Provider Internal Medicine | DX: Z13.89 Encounter for screening for other disorder (principal) ==

== ENCOUNTER 2022-06-22 09:30 | Outpatient (REF) | payer OTHER, SELFPAY ==
[2022-06-22 11:27] LABS: Thyroid Stimulating Hormone 1.47 uIU/mL (0.32-4.0)
[2022-06-24 13:37] LABS: DHEA Sulfate 52 mcg/dL (15-205)
[2022-06-25 20:06] LABS: Adrenocorticotropic Hormone 47 pg/mL (6-50)
[2022-06-28 13:22] LABS: Metanephrine, Free 28 pg/mL (<=57); Normetanephrines, Free 126 pg/mL (<=148); Total Metanephrine, Free 154 pg/mL (<=205)
[2022-06-29 05:17] LABS: Renin 0.13 ng/mL/h (0.25-5.82)
[2022-07-03 15:56] LABS: Catecholamine Frac, Total 399 pg/mL
== END 2022-06-22 09:31 | disposition home or self-care (01) ==
LOC: HO.LAB 09:30
PROVIDERS: PCP Internal Medicine; Visit Provider Internal Medicine
DX: D35.02 Benign neoplasm of left adrenal gland (principal); E55.9 Vitamin D deficiency, unspecified; E89.0 Postprocedural hypothyroidism
CPT/HCPCS: 36415; 82024; 82088; 82306; 82384; 82627; 83498; 83835; 84244; 84439; 84443

== ENCOUNTER 2022-06-25 07:49 | Outpatient (REF) | payer OTHER, SELFPAY ==
[2022-06-25 09:18] LABS: Creatinine, mg/dL 92.52
[2022-06-25 09:51] LABS: Creatinine, 24Hr Urine 1.8 G/Day (1.0-2.0); Total Volume 24 Hour Urine 1925 mL
[2022-06-29 15:02] LABS: CATF, 24 Ur Volume 1925 mL; CATF-24Ur Creatinine 1.64 g/24 h (0.50-2.15); Catecholamines,Tot. (E+NE) 24U 59 mcg/24 h (26-121); Dopamine, 24 Ur 898 mcg/24 h (52-480); Norepinephrine, 24 Ur 59 mcg/24 h (15-100)
[2022-06-30 12:51] LABS: Metanephrine, Free 24U 129 mcg/24 h (90-315); Normetanephrine, Free 24U 716 mcg/24 h (122-676); Total Metanephrine, Free 24U 845 mcg/24 h (224-832); Total Volume 24U 1925 mL
[2022-07-03 14:06] LABS: Cortisol Free, 24 Hr Urine 12.4 mcg/24 h (4.0-50.0); Total Volume, 24 Hr Urine 1925 mL
[2022-07-07 02:17] LABS: Aldosterone, 24Hr Urine 4.7 mcg/24 h; Creatinine 24Hr Urine 1.66 g/24 h (0.50-2.15); Total Volume 1925 mL
== END 2022-06-25 07:50 | disposition home or self-care (01) ==
LOC: HO.LNP 07:49
PROVIDERS: Visit Provider Internal Medicine
DX: D35.02 Benign neoplasm of left adrenal gland (principal)
CPT/HCPCS: 82088; 82384; 82530; 82570; 83835

== ENCOUNTER 2022-07-01 15:45 | Outpatient (REF) | payer OTHER, SELFPAY ==
--- NOTE | ~2022-07-01 | CT_ITS ---
EXAMINATION: CT ABDOMEN WITHOUT AND WITH CONTRAST CLINICAL INFORMATION: Benign neoplasm of left adrenal gland. COMPARISON: CT abdomen without and with contrast 06/11/2021 TECHNIQUE: Contiguous axial thin section helical images of the abdomen were performed before and after the administration of oral contrast and 85 mL of Omnipaque 350 intravenous contrast. The data set was reformatted in the coronal and sagittal planes and reviewed on an independent workstation. This CT examination was performed using dose optimization techniques as appropriate, variously including the following: *Automated exposure control *Adjustment of mA and/or kV according to patient size (this includes techniques or standardized protocols for targeted exams where dose is matched to indication/reason for exam; i.e. extremities or head) *Use of iterative reconstruction technique DLP: 1129 mGy-cm FINDINGS: LUNG BASES: The lung bases are clear. Heart size is normal. There is a [id number] size hiatal hernia with perihernial fat herniation. LIVER, GALLBLADDER, AND BILIARY TREE: The liver is diffusely attenuated but normal size and contour. No focal lesion or intrahepatic ductal dilatation is seen. The gallbladder has been removed. PANCREAS: The pancreas appears unremarkable. SPLEEN: The spleen is unremarkable. There is a small accessory splenule. ADRENAL GLANDS AND KIDNEYS: The right adrenal gland is normal. There is a left adrenal lesion measuring 1.5 x 1.3 cm. On precontrast exam it measures 3.3 Hounsfield units. Postcontrast it measures 39 Hounsfield units. Delayed imaging measures 23 Hounsfield units. Absolute washout measures 44.8 percent and the relative washout is 41 percent, consistent with an adenoma. Both kidneys are normal size, shape and position. There is contrast opacifying bilateral kidney pelvises without distention. BOWEL LOOPS: Bowel gas pattern is nonspecific. LYMPH NODES: Normal. VASCULAR: Unremarkable. CT/CT abdomen wo/w IV con IMPRESSION: Left adrenal benign adenoma. It measures 1.6 cm approximately same size as seen on previous study 06/14/2021. The rest of the abdominal ultrasound is unremarkable. Fleischner guidelines were followed.
[2022-07-01] MEDS: iohexoL 350 MG/ML 100 ML INFUS..BTL IV (16:29)
[2022-07-02 09:31] LABS: Creatinine POC 0.7 mg/dL (0.5-1.4); GFR POC > 60
== END 2022-07-01 15:46 | disposition home or self-care (01) ==
LOC: HO.CT 15:45
PROVIDERS: PCP Internal Medicine; Visit Provider Internal Medicine
DX: D35.02 Benign neoplasm of left adrenal gland (principal)
CPT/HCPCS: 74170; 82565; Q9967

== ENCOUNTER 2022-07-06 08:42 | Outpatient (REF) | payer OTHER, SELFPAY ==
[2022-07-06 09:37] LABS: Alanine Aminotransferase 17 U/L (0-31); Albumin Level 4.3 g/dL (3.5-5.0); Alkaline Phosphatase 134 U/L (39-117); Anion Gap 15 (12-20); Aspartate Amino Transferase 16 U/L (5-31); Bilirubin Total 0.7 mg/dL (0.0-1.0); Blood Urea Nitrogen 11 mg/dL (9-16); Calcium 9.4 mg/dL (8.4-10.2); Carbon Dioxide 29 mmol/L (22-29); Chloride 102 mmol/L (96-108); Estimated Glomerular Filt Rate > 60; Glucose Random 111 mg/dL (60-115); Potassium 3.7 mmol/L (3.3-5.1); Sodium 142 mmol/L (135-145); Total Protein 7.7 g/dL (6.5-8.0)
== END 2022-07-06 08:43 | disposition home or self-care (01) ==
LOC: HO.LAB 08:42
PROVIDERS: PCP Internal Medicine; Visit Provider Internal Medicine
DX: E27.8 Other specified disorders of adrenal gland (principal); D35.02 Benign neoplasm of left adrenal gland
CPT/HCPCS: 36415; 80053; 82533

== ENCOUNTER 2022-08-08 13:32 | Outpatient (REF) | payer OTHER, SELFPAY ==
[2022-08-08 13:58] LABS: MANUAL DIFF FLAG NO
[2022-08-08 14:32] LABS: Basophils Percent Auto 0.4 % (0-2); Eosinophils Absolute Auto 0.1 X10*3/uL (0.0-0.4); Eosinophils Percent Auto 0.9 % (0-4); Hemoglobin 11.9 g/dl (12.0-16.0); Imm Gran Abs Auto 0.08 X10*3/uL (0.00-0.03); Imm Gran Pct Auto 0.7 % (0.0-0.4); Lymphocytes Percent Auto 17.3 % (20-40); Mean Corpuscular Hemoglobin 22.5 pg (27.0-33.0); Mean Corpuscular Volume 77.7 fL (80.0-98.0); Monocytes Absolute Auto 0.8 X10*3/uL (0.1-1.2); Monocytes Percent Auto 7.3 % (2-11); Neutrophils Absolute Auto 8.3 x10*3/uL (2.0-8.3); Neutrophils Percent Auto 73.4 % (45-73); Platelet Count 312 X10*3/uL (160-400); Red Blood Count 5.28 X10*6/uL (4.20-5.50); Red Cell Distribution Width 16.4 % (11.0-16.0); White Blood Count 11.3 X10*3/uL (4.8-10.8)
[2022-08-08 15:19] LABS: B Type Natriuretic Peptide 47 pg/mL (<100)
[2022-08-08 15:22] LABS: Appearance Urine Clear; Color Urine Yellow; Glucose Urine UA Negative (Negative); Leukocyte Esterase Urine Negative (Negative); Nitrite Urine Negative (Negative); UMIC TRIGGER UACC YES; Urine Blood Moderate (2+) (Negative); Urine Ketones Negative (Negative); Urine Protein Negative (Neg-Trace)
[2022-08-08 15:39] LABS: Bacteria Urine None Seen (None Seen); Hyaline Casts Urine 0-2 /LPF (0-2); WBC Urine 0-5 /HPF (0-5)
[2022-08-08 15:43] LABS: Ferritin 78 ng/mL (10-250)
[2022-08-08 15:47] LABS: Alanine Aminotransferase 29 U/L (0-31); Albumin Level 4.1 g/dL (3.5-5.0); Alkaline Phosphatase 135 U/L (39-117); Anion Gap 13 (12-20); Aspartate Amino Transferase 25 U/L (5-31); Bilirubin Total 0.5 mg/dL (0.0-1.0); Blood Urea Nitrogen 12 mg/dL (9-16); Calcium 9.5 mg/dL (8.4-10.2); Carbon Dioxide 30 mmol/L (22-29); Chloride 101 mmol/L (96-108); Cholesterol 167 mg/dL; Estimated Glomerular Filt Rate > 60; Free T4 (Free Thyroxine) 1.22 ng/dL (0.71-1.85); Glucose Fasting 108 mg/dL (60-99); HDL Cholesterol 48 mg/dL; LDL Cholesterol Calculated 92 mg/dl; Potassium 3.5 mmol/L (3.3-5.1); Sodium 140 mmol/L (135-145); Thyroid Stimulating Hormone 2.35 uIU/mL (0.32-4.0); Total Protein 7.3 g/dL (6.5-8.0); Triglycerides 138 mg/dL; Vitamin D 25-OH Total 29.9 ng/mL (>30)
[2022-08-08 15:57] LABS: Folate 9.5 ng/mL (> or = 4.0); Vitamin B12 513 pg/mL (200-900)
== END 2022-08-08 13:33 | disposition home or self-care (01) ==
LOC: HO.LAB 13:32
PROVIDERS: Absent Provider Internal Medicine Gastroenterology; PCP Internal Medicine; Visit Provider Internal Medicine
DX: Z00.00 Encounter for general adult medical examination without abnormal findings (principal); E03.9 Hypothyroidism, unspecified; I87.303 Chronic venous hypertension (idiopathic) without complications of bilateral lower extremity; R60.9 Edema, unspecified; E78.00 Pure hypercholesterolemia, unspecified; E55.9 Vitamin D deficiency, unspecified; D50.9 Iron deficiency anemia, unspecified
CPT/HCPCS: 36415; 80053; 80061; 81001; 82306; 82607; 82728; 82746; 83880; 84439; 84443; 85025

== ENCOUNTER → 2022-08-28 14:38 | Outpatient (BNVA) | payer OTHER, SELFPAY | PROVIDERS: Visit Provider Advanced Practice Midwife | DX: Z13.89 Encounter for screening for other disorder (principal) ==

== ENCOUNTER 2022-09-03 15:45 | Outpatient (REF) | payer OTHER, SELFPAY ==
--- NOTE | ~2022-09-03 | MM_ITS ---
EXAMINATION: MM SCREENING DIGITAL BREAST TOMOSYNTHESIS, BILATERAL CLINICAL INFORMATION: Screening. Asymptomatic. Prior history reduction mammoplasty. The lifetime risk of breast cancer based on the Tyrer-Cuzick Model is 18%. COMPARISON: None. TECHNIQUE: Digital breast tomosynthesis is performed in both the craniocaudal and mediolateral oblique views along with computer-aided detection (CAD). Synthesized 2D images are generated from the tomosynthesis. Additional left CC view is provided. FINDINGS: The breasts are almost entirely fatty (ACR BI-RADS breast composition Category a). Background stromal markings are normal. There is no architectural abnormality. No abnormal calcifications. There are scattered small benign-appearing smooth circumscribed nodularity. Probable intramammary node mid central left breast. The axilla and skin contours are unremarkable. Radiology department search for local outside mammography reveals no available outside exams at this time. If previous outside mammography is made available, we will be able to make comparison in an addendum report. MM/MM tomosynthesis screening BI IMPRESSION: No mammographic evidence of malignancy. ASSESSMENT: BI-RADS 2: Benign RECOMMENDATION: Routine annual mammography screening. This patient's information was entered into a reminder system with a target due date for their next mammogram.
== END 2022-09-03 15:46 | disposition home or self-care (01) ==
LOC: HO.MAMMO 15:45
PROVIDERS: PCP Internal Medicine; Visit Provider Internal Medicine
DX: Z12.31 Encounter for screening mammogram for malignant neoplasm of breast (principal)
CPT/HCPCS: 77063; 77067

== ENCOUNTER → 2022-09-04 08:05 | Outpatient (BNVA) | payer OTHER, SELFPAY | PROVIDERS: PCP Internal Medicine; Visit Provider Internal Medicine | DX: Z13.89 Encounter for screening for other disorder (principal) ==

== ENCOUNTER 2022-09-14 10:10 | Outpatient (REF) | payer OTHER, SELFPAY ==
[2022-09-14 11:46] LABS: Anion Gap 15 (12-20); Blood Urea Nitrogen 11 mg/dL (9-16); Calcium 9.4 mg/dL (8.4-10.2); Carbon Dioxide 27 mmol/L (22-29); Chloride 105 mmol/L (96-108); Estimated Glomerular Filt Rate > 60; Glucose Random 106 mg/dL (60-115); Potassium 4.4 mmol/L (3.3-5.1); Sodium 143 mmol/L (135-145)
[2022-09-20 18:54] LABS: Renin 0.28 ng/mL/h (0.25-5.82)
== END 2022-09-14 10:11 | disposition home or self-care (01) ==
LOC: HO.LAB 10:10
PROVIDERS: PCP Internal Medicine; Visit Provider Internal Medicine
DX: D35.02 Benign neoplasm of left adrenal gland (principal)
CPT/HCPCS: 36415; 80048; 82088; 84244

== ENCOUNTER → 2022-10-16 07:23 | Outpatient (BNVA) | payer OTHER, SELFPAY | PROVIDERS: PCP Internal Medicine; Visit Provider Internal Medicine | DX: Z13.89 Encounter for screening for other disorder (principal) ==

== ENCOUNTER 2022-10-26 08:14 | Outpatient (REF) | payer OTHER, SELFPAY ==
[2022-10-26 09:04] LABS: Anion Gap 13 (12-20); Blood Urea Nitrogen 10 mg/dL (9-16); Calcium 9.1 mg/dL (8.4-10.2); Carbon Dioxide 27 mmol/L (22-29); Chloride 107 mmol/L (96-108); Estimated Glomerular Filt Rate > 60; Glucose Random 130 mg/dL (60-115); Potassium 4.4 mmol/L (3.3-5.1); Sodium 143 mmol/L (135-145)
[2022-10-26 09:20] LABS: Cortisol Random 14.9 ug/dL; Free T4 (Free Thyroxine) 2.21 ng/dL (0.71-1.85); Vitamin D 25-OH Total 27.5 ng/mL (>30)
[2022-10-26 10:22] LABS: Creatinine, mg/dL 50.52
[2022-10-26 12:10] LABS: Creatinine, mg/dL 50.88
[2022-10-26 12:11] LABS: Creatinine, 24Hr Urine 1.5 G/Day (1.0-2.0); Total Volume 24 Hour Urine 3000 mL
[2022-10-29 01:44] LABS: DHEA Sulfate 48 mcg/dL (5-167)
[2022-11-01 12:19] LABS: Renin 0.14 ng/mL/h (0.25-5.82)
[2022-11-01 19:33] LABS: CATF, 24 Ur Volume 3000 mL; CATF-24Ur Creatinine 1.51 g/24 h (0.50-2.15); Catecholamines,Tot. (E+NE) 24U 61 mcg/24 h (26-121); Dopamine, 24 Ur 556 mcg/24 h (52-480); Norepinephrine, 24 Ur 61 mcg/24 h (15-100)
[2022-11-05 06:18] LABS: Metanephrine, Free 24U 67 mcg/24 h (90-315); Normetanephrine, Free 24U 727 mcg/24 h (122-676); Total Metanephrine, Free 24U 794 mcg/24 h (224-832); Total Volume 24U 3000 mL
[2022-11-06 08:49] LABS: Cortisol Free, 24 Hr Urine 22.4 mcg/24 h (4.0-50.0); Creatinine, 24 Hr Urine 1.55 g/24 h (0.50-2.15); Total Volume, 24 Hr Urine 3000 mL
[2022-11-08 23:59] LABS: Aldosterone, 24Hr Urine 5.1 mcg/24 h; Creatinine 24Hr Urine 1.54 g/24 h (0.50-2.15); Total Volume 3000 mL
== END 2022-10-26 08:15 | disposition home or self-care (01) ==
LOC: HO.LAB 08:14
PROVIDERS: PCP Internal Medicine; Visit Provider Internal Medicine
DX: D35.02 Benign neoplasm of left adrenal gland (principal); E89.0 Postprocedural hypothyroidism; E55.9 Vitamin D deficiency, unspecified
CPT/HCPCS: 36415; 80048; 82024; 82088; 82306; 82384; 82530; 82533; 82570; 82627; 83835; 84244; 84300; 84439; 84443

== ENCOUNTER 2022-11-02 07:44 | Outpatient (REF) | payer OTHER, SELFPAY ==
[2022-11-02 09:43] LABS: Cortisol Random < 1.0 ug/dL
[2022-11-08 05:13] LABS: Adrenocorticotropic Hormone <5 pg/mL (6-50)
[2022-11-13 15:33] LABS: Dexamethasone 476 ng/dL
== END 2022-11-02 07:45 | disposition home or self-care (01) ==
LOC: HO.LAB 07:44
PROVIDERS: PCP Internal Medicine; Visit Provider Internal Medicine
DX: E27.8 Other specified disorders of adrenal gland (principal)
CPT/HCPCS: 36415; 80299; 82024; 82533

== ENCOUNTER → 2023-02-06 07:51 | Outpatient (BNVA) | payer OTHER, SELFPAY | PROVIDERS: Visit Provider Internal Medicine Gastroenterology ==

== ENCOUNTER 2023-02-08 10:40 | Outpatient (REF) | payer OTHER, SELFPAY ==
[2023-02-08 10:59] LABS: MANUAL DIFF FLAG NO
[2023-02-08 11:10] LABS: Basophils Percent Auto 0.3 % (0-2); Eosinophils Absolute Auto 0.1 X10*3/uL (0.0-0.4); Eosinophils Percent Auto 0.7 % (0-4); Hematocrit 42.6 % (37.0-47.0); Hemoglobin 12.9 g/dl (12.0-16.0); Imm Gran Abs Auto 0.06 X10*3/uL (0.00-0.03); Imm Gran Pct Auto 0.6 % (0.0-0.4); Lymphocytes Percent Auto 18.7 % (20-40); Mean Corpuscular HGB Conc 30.3 g/dl (31.0-35.0); Mean Corpuscular Hemoglobin 23.4 pg (27.0-33.0); Mean Corpuscular Volume 77.2 fL (80.0-98.0); Mean Platelet Volume 10.5 fL (9.4-12.3); Monocytes Absolute Auto 0.8 X10*3/uL (0.1-1.2); Monocytes Percent Auto 7.3 % (2-11); Neutrophils Absolute Auto 7.7 x10*3/uL (2.0-8.3); Neutrophils Percent Auto 72.4 % (45-73); Platelet Count 317 X10*3/uL (160-400); Red Blood Count 5.52 X10*6/uL (4.20-5.50); Red Cell Distribution Width 15.3 % (11.0-16.0); White Blood Count 10.6 X10*3/uL (4.8-10.8)
[2023-02-08 11:17] LABS: Estimated Average Glucose 114 mg/dL; Hemoglobin A1c % 5.6 %
[2023-02-08 11:47] LABS: Alanine Aminotransferase 17 U/L (0-31); Albumin Level 4.2 g/dL (3.5-5.0); Alkaline Phosphatase 122 U/L (39-117); Anion Gap 14 (12-20); Aspartate Amino Transferase 17 U/L (5-31); Bilirubin Total 0.8 mg/dL (0.0-1.0); Blood Urea Nitrogen 11 mg/dL (9-16); Calcium 9.6 mg/dL (8.4-10.2); Carbon Dioxide 26 mmol/L (22-29); Chloride 106 mmol/L (96-108); Cholesterol 158 mg/dL; Estimated Glomerular Filt Rate > 60; Glucose Fasting 101 mg/dL (60-99); HDL Cholesterol 51 mg/dL; LDL Cholesterol Calculated 89 mg/dl; Potassium 3.8 mmol/L (3.3-5.1); Sodium 142 mmol/L (135-145); Triglycerides 91 mg/dL
[2023-02-08 12:09] LABS: Free T4 (Free Thyroxine) 1.14 ng/dL (0.71-1.85); Thyroid Stimulating Hormone 1.82 uIU/mL (0.32-4.0)
== END 2023-02-08 10:41 | disposition home or self-care (01) ==
LOC: HO.LAB 10:40
PROVIDERS: PCP Internal Medicine; Visit Provider Internal Medicine
DX: E78.00 Pure hypercholesterolemia, unspecified (principal); E03.9 Hypothyroidism, unspecified; R73.01 Impaired fasting glucose
CPT/HCPCS: 36415; 80053; 80061; 83036; 84439; 84443; 85025

== ENCOUNTER 2023-02-22 09:59 | Outpatient (REF) | payer OTHER, SELFPAY ==
[2023-03-04 17:03] LABS: Renin 0.08 ng/mL/h (0.25-5.82)
[2023-03-16 18:43] LABS: Catecholamine Frac, Total 482 pg/mL
== END 2023-02-22 10:00 | disposition home or self-care (01) ==
LOC: HO.LAB 09:59
PROVIDERS: PCP Internal Medicine; Visit Provider Internal Medicine
DX: D35.02 Benign neoplasm of left adrenal gland (principal)
CPT/HCPCS: 36415; 80048; 82088; 82384; 84244

== ENCOUNTER 2023-02-22 11:26 | Outpatient (REF) | payer OTHER, SELFPAY | END 2023-02-22 11:27 | disposition home or self-care (01) | LOC: HO.LNP 11:26 | PROVIDERS: Visit Provider Internal Medicine | DX: D35.02 Benign neoplasm of left adrenal gland (principal) | CPT/HCPCS: 84300 ==

== ENCOUNTER 2023-02-22 11:36 | Outpatient (REF) | payer OTHER, SELFPAY | END 2023-02-22 11:37 | disposition home or self-care (01) | LOC: HO.LNP 11:36 | PROVIDERS: Visit Provider Internal Medicine | DX: D35.02 Benign neoplasm of left adrenal gland (principal) | CPT/HCPCS: 82570 ==

== ENCOUNTER → 2023-03-03 07:59 | Outpatient (BNVA) | payer OTHER, SELFPAY | PROVIDERS: PCP Internal Medicine; Visit Provider Internal Medicine ==

== ENCOUNTER → 2023-03-07 08:38 | Outpatient (BNVA) | payer OTHER, SELFPAY | PROVIDERS: PCP Internal Medicine; Visit Provider Internal Medicine ==

== ENCOUNTER 2023-03-22 08:37 | Outpatient (REF) | payer OTHER, SELFPAY ==
[2023-03-22 08:49] LABS: MANUAL DIFF FLAG NO
[2023-03-22 09:40] LABS: Estimated Average Glucose 114 mg/dL; Hemoglobin A1c % 5.6 %
[2023-03-22 09:48] LABS: Basophils Percent Auto 0.3 % (0-2); Eosinophils Absolute Auto 0.1 X10*3/uL (0.0-0.4); Hematocrit 42.2 % (37.0-47.0); Hemoglobin 12.6 g/dl (12.0-16.0); Imm Gran Abs Auto 0.05 X10*3/uL (0.00-0.03); Imm Gran Pct Auto 0.5 % (0.0-0.4); Lymphocytes Absolute Auto 1.6 X10*3/uL (1.2-4.9); Mean Corpuscular HGB Conc 29.9 g/dl (31.0-35.0); Mean Corpuscular Hemoglobin 23.8 pg (27.0-33.0); Mean Corpuscular Volume 79.8 fL (80.0-98.0); Monocytes Absolute Auto 0.9 X10*3/uL (0.1-1.2); Monocytes Percent Auto 8.3 % (2-11); Neutrophils Absolute Auto 7.5 x10*3/uL (2.0-8.3); Neutrophils Percent Auto 73.9 % (45-73); Platelet Count 276 X10*3/uL (160-400); Red Blood Count 5.29 X10*6/uL (4.20-5.50); Red Cell Distribution Width 15.3 % (11.0-16.0); White Blood Count 10.2 X10*3/uL (4.8-10.8)
[2023-03-22 10:31] LABS: Alanine Aminotransferase 14 U/L (0-31); Albumin Level 4.1 g/dL (3.5-5.0); Alkaline Phosphatase 129 U/L (39-117); Anion Gap 18 (12-20); Aspartate Amino Transferase 14 U/L (5-31); Bilirubin Total 0.6 mg/dL (0.0-1.0); Blood Urea Nitrogen 15 mg/dL (9-16); Calcium 9.7 mg/dL (8.4-10.2); Carbon Dioxide 23 mmol/L (22-29); Chloride 105 mmol/L (96-108); Cholesterol 148 mg/dL; Estimated Glomerular Filt Rate > 60; Glucose Fasting 102 mg/dL (60-99); Glucose Random 101 mg/dL (60-115); HDL Cholesterol 46 mg/dL; Iron 35 mcg/dL (30-160); LDL Cholesterol Calculated 83 mg/dl; Percent Iron Saturation 12 % (15-50); Potassium 4.1 mmol/L (3.3-5.1); Sodium 142 mmol/L (135-145); Total Iron Binding Capacity 291 mcg/dL (228-428); Total Protein 7.9 g/dL (6.5-8.0); Triglycerides 95 mg/dL; Unsaturated Iron Binding 256 ug/dL
[2023-03-22 10:36] LABS: Appearance Urine Clear; Color Urine Yellow; Glucose Urine UA Negative (Negative); Leukocyte Esterase Urine Small (1+) (Negative); Nitrite Urine Negative (Negative); Specific Gravity - Urine 1.025 (1.005-1.025); UMIC TRIGGER UACC YES; Urine Blood Moderate (2+) (Negative); Urine Ketones Trace mg/dL (Negative); Urine Protein Negative (Neg-Trace)
[2023-03-22 10:48] LABS: Free T4 (Free Thyroxine) 1.06 ng/dL (0.71-1.85); Vitamin D 25-OH Total 32.6 ng/mL (>30)
[2023-03-22 10:57] LABS: Bacteria Urine Trace (None Seen); Hyaline Casts Urine 0-2 /LPF (0-2); UACC Culture Trigger YES; WBC Urine 0-5 /HPF (0-5)
== END 2023-03-22 08:38 | disposition home or self-care (01) ==
LOC: HO.LAB 08:37
PROVIDERS: PCP Internal Medicine; Visit Provider Internal Medicine
DX: Z00.00 Encounter for general adult medical examination without abnormal findings (principal); R30.0 Dysuria; D35.02 Benign neoplasm of left adrenal gland; E55.9 Vitamin D deficiency, unspecified; E03.9 Hypothyroidism, unspecified; E78.00 Pure hypercholesterolemia, unspecified; D50.9 Iron deficiency anemia, unspecified; R73.9 Hyperglycemia, unspecified; I10 Essential (primary) hypertension
CPT/HCPCS: 36415; 80048; 80053; 80061; 81001; 82306; 83036; 83540; 84439; 84443; 85025; 87086

== ENCOUNTER 2023-04-18 09:41 | Day surgery (SDC) | payer OTHER, SELFPAY ==
[2023-04-16 11:55] VITALS: BMI 49.5
--- NOTE | 2023-04-17 09:18 | P.CONAN_ITS ---
Documented by User: Sada Hernandez NP 04/17/23 09:18 HPI - Anesthesia Eval Consult details Narrative: 52yo F for Upper Endoscopy PMFSH Active Problems Active Problems: All Active Problems (Updated 08/14/22 @ 17:59 by Dae Simpson MD) Breast cancer screening by mammogram (Acute) Impaired fasting glucose (Acute) Cutaneous abscess of left axilla (Acute) Bronchitis (Acute) COVID-19 (Acute) Cough (Acute) Morbid obesity with BMI of 50.0-59.9, adult (Acute) Stasis edema of both lower extremities (Acute) GERD (gastroesophageal reflux disease) (Acute) Postsurgical hypothyroidism (Acute) Annual physical exam (Acute) History of colon polyps (Acute) Adrenal cortical adenoma of left adrenal gland (Acute) Adrenal nodule (Acute) Colon cancer screening (Acute) Lump of skin of back (Acute) Hyperparathyroidism (Acute) History of hysterectomy (Acute ~2008) Hx of breast reduction, elective (Acute) Hematemesis (Acute) Gastritis (Acute) Anemia (Acute) Morbid obesity with BMI of 45.0-49.9, adult (Acute) History of cholecystectomy (Acute) Fundic gland polyps of stomach, benign (Acute) Goiter (Acute) Benign essential hypertension (Acute) Multinodular thyroid (Acute) Vitamin D deficiency (Acute) Iron deficiency anemia (Acute) Past Medical History Medical History Adrenal cortical adenoma of left adrenal gland Anemia Benign essential hypertension Fundic gland polyps of stomach, benign GERD (gastroesophageal reflux disease) Goiter HTN (hypertension) Hyperparathyroidism Iron deficiency anemia Lump of skin of back Morbid obesity with BMI of 45.0-49.9, adult Multinodular thyroid Postsurgical hypothyroidism Vitamin D deficiency Family History Family History Father FH: colon polyps Family hx of prostate cancer Mother Hx of diabetes insipidus Family history of high blood pressure Maternal Grandmother Breast cancer Family/Other Breast cancer Family history of problems with anesthesia: No Surgical History Surgical History History of cholecystectomy History of colonoscopy History of hysterectomy (~2008) History of thyroidectomy (~07/11/21) Hx of breast reduction, elective Hx of endoscopy History of Problems with Anesthesia: No Social History Social History Household Members: Family and Children Household Members Other:: Legal guardian niece and nephew (ages18 & 16) Housing: Apartment Do you presently have visiting nurse or other home services: No Alcohol intake: never Patient Tobacco Use Status: Never used Tobacco e-Cigarette/Vaping Use: Never Used Second Hand Smoke Exposure: No Are you DNR?: No Advance Directives: No Advance Directives Information Provided: Yes service: No Current occupational status: employed Current occupation: [employer] Cognitive needs: No Hearing needs: No Vision needs: Yes Meds Allergies Allergy/AdvReac Type Severity Reaction Status Date / Time potassium Allergy Severe Anaphylaxis Verified 03/03/23 08:13 Home Medications Medication Instructions Recorded Confirmed Last Taken Type ferrous sulfate 325 mg (65 mg 325 mg PO DAILY 08/01/22 04/16/23 Unknown History iron) tablet (FeroSul) Exam Exam Date and Time: April 17, 2023 0918 Height,Weight and Vital Signs: Height 5 ft 7 in Weight 143.335 kg Assessment and Plan Assessment Anesthesia Assessment: Chart Reviewed Final Anesthetic Review Family History of Problems with Anesthesia: No History of Problems with Anesthesia: No Documented by User: Laya Pastor MD 04/18/23 11:15 [facility] Past Medical History Medical History Adrenal cortical adenoma of left adrenal gland Anemia Benign essential hypertension Fundic gland polyps of stomach, benign GERD (gastroesophageal reflux disease) Goiter HTN (hypertension) Hyperparathyroidism Iron deficiency anemia Lump of skin of back Morbid obesity with BMI of 45.0-49.9, adult Multinodular thyroid Postsurgical hypothyroidism Vitamin D deficiency Family History Family History Father FH: colon polyps Family hx of prostate cancer Mother Hx of diabetes insipidus Family history of high blood pressure Maternal Grandmother Breast cancer Family/Other Breast cancer Surgical History Surgical History History of cholecystectomy History of colonoscopy History of hysterectomy (~2008) History of thyroidectomy (~07/11/21) Hx of breast reduction, elective Hx of endoscopy Social History Social History Household Members: Family and Children Household Members Other:: Legal guardian niece and nephew (ages18 & 16) Housing: Apartment Do you presently have visiting nurse or other home services: No Alcohol intake: never Patient Tobacco Use Status: Never used Tobacco e-Cigarette/Vaping Use: Never Used Second Hand Smoke Exposure: No Are you DNR?: No Advance Directives: No Advance Directives Information Provided: Yes service: No Current occupational status: employed 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 Cognitive needs: No Hearing needs: No Vision needs: Yes Meds Allergies Allergy/AdvReac Type Severity Reaction Status Date / Time potassium Allergy Severe Anaphylaxis Verified 03/03/23 08:13 Home Medications Medication Instructions Recorded Confirmed Last Taken Type ferrous sulfate 325 mg (65 mg 325 mg PO DAILY 08/01/22 04/16/23 Unknown History iron) tablet (FeroSul) Exam Airway Mallampati Class: III TM Dist: >3cm Neck ROM: Full Heart: rrr Lungs: cta Assessment and Plan Assessment Anesthesia Assessment: Anesthesia Plan Discussed Final Anesthetic Review NPO: Yes ASA Class: III Final Preanesthetic Review: No Changes in Pt Med Stat, Meds/Allgs Chart Reviewed and Consent Obtained/Reviewed Patient Risk: Intermediate Procedure Risk: Intermediate Anesthetic Plan Anesthetic Plan: GA Disposition: Standard PACU
[2023-04-18 10:30] VITALS: BMI 49.5
--- NOTE | 2023-04-18 10:33 | P.HPSUR_ITS ---
Pre-Procedural Eval Section A Date of Service: 04/18/23 The patient is an INPATIENT: No The History & Physical has been completed within 30 days and I have reviewed it.: No Section B Chief Complaint: Follow-up of multiple large gastric polyps, GERD Relevant Family History (Specify if Yes): No Relevant Social History: None Present Medications: see Short Stay Collaborative assessment Medical History: Significant History (Adrenal cortical adenoma of left adrenal gland Anemia Benign essential hypertension Fundic gland polyps of stomach, benign GERD (gastroesophageal reflux disease) Goiter HTN (hypertension) Hyperparathyroidism Iron deficiency anemia Lump of skin of back Morbid obesity with BMI of 45.0-49.9, adult Mult) History of Previous Operations: Relevant previous surgery/procedure and date(s) (History of cholecystectomy History of colonoscopy History of hysterectomy (~2008) History of thyroidectomy (~07/11/21) Hx of breast reduction, elective Hx of endoscopy) Allergies: Allergies Allergy/AdvReac Type Severity Reaction Status Date / Time potassium Allergy Severe Anaphylaxis Verified 03/03/23 08:13 Review of Systems Sugical H&P ROS: Negative: Constitution, Cardiovascular, Respiratory and Gastroi ntestinal Exam Surgical H&P Exam: Normal: Heart, Normal: Lungs, Normal: Extremities and Normal: Abdomen Plan Diagnosis/Plan: Unchanged I have reviewed the history and physical and performed a pertinent physical examination on my patient. No changes have occurred unless specified. Time Spent With Patient Time: Total time managing care of this patient today ____ minutes.
[2023-04-18] MEDS: Lactated Ringers 1,000 ML 100 ML IVCONT (11:15)
--- NOTE | 2023-04-18 11:25 | W.PM.OPN ---
Operative Note Operative Note Date of Service: 04/18/23 Narrative: FLEXIBLE TRANSORAL UPPER GASTROINTESTINAL ENDOSCOPY WITH SNARE POLYPECTOMY Pre-op diagnosis: FU of multiple gastric polyps associated with iron deficiency anemia Post-op diagnosis: Multiple gastric polyps Endoscopist:? Aaron Flowers MD Anesthesia:?MAC Consent: Indications for the procedure and potential complications of bleeding, perforation, reaction to medications and missed diagnosis were discussed with the patient and informed consent was obtained. Instrument: Olympus GIF H 190 mid size upper endoscope Monitoring: Vital signs and clinical assessment, continuous EKG monitoring, Pulse oximetry, Carbon Dioxide monitoring and blood pressure monitoring were done throughout the procedure. Procedure: The patient was placed in the left lateral decubitis position and pre-procedure medications were administered and a bite block was placed. The endoscope was inserted into the mouth and advanced under direct vision to the third part of duodenum. A careful inspection was made as the upper endoscope was withdrawn including a retroflexed examination of the proximal stomach; Findings and interventions are described below. Findings: Larynx: Normal Esophagus: GE junction at 35 cms. ? Hiatal hernia from 35 to 38 cms. Esophagitis seen on past EGD appears to have healed completely. Stomach:?Multiple 8 to 15 mm gastric polyps seen in the gastric body.? Four larger (10 to 15 mm) polyps were removed with a hot snare - 1 polyp was not retrieved.. Grade 3 flap valve on retroflexed examination of the cardia. Duodenum: Normal bulb and descending duodenum Intervention: Biopsies as noted above Impression and Post Procedure Diagnosis: Endoscopy Findings: STOMACH: Multiple gastric polyps - 4 larger polyps removed with a hot snare Plan: Await pathology results Patient has an appointment on 05/22/23 in the GI Clinic with Aaron Flowers M.D. Above findings were reviewed with the patient and gastric polyps handouts were given in the discharge area
[2023-04-18 12:35] VITALS: BP 147/77; PULSE 83; RESP 17; TEMP 36.6; O2SAT 98
[2023-04-18 12:40] VITALS: BP 118/58; PULSE 79; RESP 16; O2SAT 96
[2023-04-18 12:45] VITALS: BP 117/52; PULSE 72; RESP 16; O2SAT 97
[2023-04-18 12:50] VITALS: BP 145/79; PULSE 74; RESP 16; O2SAT 98
[2023-04-18 13:05] VITALS: BP 119/60; PULSE 75; RESP 16; TEMP 36.6; O2SAT 98
== END 2023-04-18 13:40 | disposition home or self-care (01) ==
PROVIDERS: PCP Internal Medicine; Visit Provider Internal Medicine Gastroenterology
PROC: 0DJ08ZZ Inspection of Upper Intestinal Tract, Via Natural or Artificial Opening Endoscopic (ICD-10-PCS; CPT 43235; principal; 2023-04-18 11:10)
DX: K31.7 Polyp of stomach and duodenum (principal); D50.9 Iron deficiency anemia, unspecified; K21.9 Gastro-esophageal reflux disease without esophagitis; D35.02 Benign neoplasm of left adrenal gland; I10 Essential (primary) hypertension; E89.0 Postprocedural hypothyroidism; K44.9 Diaphragmatic hernia without obstruction or gangrene; E55.9 Vitamin D deficiency, unspecified; E66.01 Morbid (severe) obesity due to excess calories; Z68.42 Body mass index [BMI] 45.0-49.9, adult; Z79.899 Other long term (current) drug therapy; Z88.9 Allergy status to unspecified drugs, medicaments and biological substances; Z90.49 Acquired absence of other specified parts of digestive tract
CPT/HCPCS: 43251; 43239; 88305; 88342; J0330; J1100; J2250; J2405; J3010

== ENCOUNTER → 2023-04-18 09:41 | Outpatient (BNV) | payer OTHER, SELFPAY | PROVIDERS: PCP Internal Medicine; Visit Provider Internal Medicine Gastroenterology | DX: D50.9 Iron deficiency anemia, unspecified (principal); K31.7 Polyp of stomach and duodenum | CPT/HCPCS: 43239 ==

== ENCOUNTER 2023-05-22 08:13 | Outpatient (AMB) | payer OTHER, SELFPAY ==
--- NOTE | 2023-05-22 08:34 | MHC.OFFVIS ---
Intake Vital Signs 05/22/23 08:37 Height 5 ft 7 in Weight 314 lb 6 oz BMI 49.2 BP 131/68 Blood Pressure Location Lt brachial Position Sitting Pulse 67 Intake Visit Reasons: S/P EGD; Dr. Flowers Intake Note: Patient follow up for EGD results. 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 Flowers HPI Details GI clinic visit for this 52-year-old female for fu of multiple gastric polyps. Pt was seen by Dr Roblero in 05/2020 during hospitalization at [facility] [place]. ENDOSCOPIC STUDIES:?04/18/23 EGD SHOWED: Endoscopy Findings: STOMACH: Multiple gastric polyps - 4 larger polyps removed with a hot snare Plan: Patient has an appointment on 05/22/23 in the GI Clinic with Aaron Flowers M.D. BIOPSIES SHOWED: Stomach, polyps: Fundic gland and hyperplastic mucosal polyps with background mild chronic inactive inflammation; no Helicobacter organisms seen 03/25/22 EGD SHOWED: ESOPHAGUS: GE junction at 33 cms. ? Esophagitis with multiple 2-3 cms long linear erosions from 30 to 33 cms. STOMACH: Multiple 1 to 3 cms gastric polyps.? Two larger polyps were removed with a hot snare and retrieved with a Jamison net. Plan:? Repeat EGD in 6 months with [facility] BIOPSIES SHOWED: A.? Gastric antrum, biopsy:? Gastric antral mucosa with mild reactive changes and minimal chronic inactive gastritis; negative for H pylori, intestinal metaplasia and dysplasia.? B.? Gastric polyps:? Fundic gland polyps with focal reactive changes, and active inflammation with erosion; negative for H pylori, intestinal metaplasia and dysplasia. 05/21/21 EGD AND COLON SHOWED: STOMACH: Multiple 1 to 3 cms gastric polyps.? Larger polyps with ulcerations. Six large polyps were removed with a hot snare and retrieved with a Jamison net. Some bleeding noted from polypectomy site - treated with cautery using the snare tip. Colonoscopy Findings:? Two medium sized polyps removed Moderate diverticulosis seen in the left colon Small hemorrhoids on retroflexed exam. Plan:? Repeat Colonoscopy interval based on path results - in 3 years if polyps are adenomatous and 10 years if polyps are hyperplastic. TODAY'S VISIT: EGD results reviewed with the patient. Taking Omeprazole 20 mg once daily and denies GERD symptoms Taking chewable iron with Vitamin C. Started on spironolactone and notes some fatigue. Has been doing intermittent fasting and has lost 20 lbs. Start eating at 11 am and stop eating at 7 pm. Patient denies symptoms of heartburn, dysphagia, nausea, vomiting, change in appetite or weight.? Denies recent change in bowel habits, constipation, diarrhea, black stools or rectal bleeding. PAST VISITS: EGD findngs and bx results reviewed with the patient She lost 10 lbs on higher dose of thyroid medications, regained 10 lbs when thyroid medication dose was reduced. Patient denies major cardiac or pulmonary problems, loud snoring or sleep apnea Has motion sickness and gets a lot of vomiting after anesthesia - Denies problems after EGD with propofol anesthesia at [facility] [place]. Denies being on chronic anticoagulation. Has been taking chewable iron once daily since 10/2020 Patient denies known family history of colon cancer or other GI malignancies. Dad has had colon polyps in his 50's. PAST EGD/COLONOSCOPY:? Last EGD and colonoscopy in 2011 at [facility] - normal per patient [facility] Medical History Postsurgical hypothyroidism Adrenal cortical adenoma of left adrenal gland Lump of skin of back Hyperparathyroidism Iron deficiency anemia Vitamin D deficiency Multinodular thyroid Benign essential hypertension Goiter Fundic gland polyps of stomach, benign Morbid obesity with BMI of 45.0-49.9, adult Anemia GERD (gastroesophageal reflux disease) HTN (hypertension) Surgical History History of esophagogastroduodenoscopy (EGD) History of thyroidectomy (~07/11/21) Hx of endoscopy History of colonoscopy History of cholecystectomy Hx of breast reduction, elective History of hysterectomy (~2008) Family History Father FH: colon polyps Family hx of prostate cancer Mother Hx of diabetes insipidus Family history of high blood pressure Maternal Grandmother Breast cancer Family/Other Breast cancer Social History Household Members: Family and Children Household Members Other:: Legal guardian niece and nephew (ages18 & 16) Housing: Apartment Do you presently have visiting nurse or other home services: No Alcohol intake: never Patient Tobacco Use Status: Never used Tobacco e-Cigarette/Vaping Use: Never Used Second Hand Smoke Exposure: No service: No Current occupational status: employed Current occupation: [employer] Cognitive needs: No Hearing needs: No Vision needs: Yes Female Reproductive History Menstrual Age of Menarche: 14 Review of Systems Const All systems reviewed & are unremarkable except as noted in HPI and below Physical Exam Const General: healthy appearing and no acute distress Nutritional Appearance: obese Orientation/consciousness: patient oriented x3 Limitations: no limitations HEENT Head: Yes normal to inspection Ears: hearing grossly normal bilaterally Eyes Sclerae: sclerae normal Pupils: Equal, round and reactive pupils present Neck Neck: Yes normal visual inspection Chest Chest palpation & inspection: normal inspection of the chest Resp Effort & Inspection: normal respiratory effort Auscultation: clear to auscultation bilaterally Cardio Palpation: normal PMI Rate: regular rate Rhythm: regular rhythm Heart sounds: S1 normal heart sound present, S2 normal heart sound present and no murmurs GI Palpation (GI): Soft to palpation, nontender and No hepatosplenomegaly present Auscultation: normal bowel sounds Rectal Exam - Female: deferred Skin General skin exam: no rashes or lesions noted Neuro General: patient oriented x3, gait normal and moves all extremities Cranial nerves: Yes Equal, round and reactive pupils present Psych Appearance: grossly normal Mental Status: mental status grossly normal Assessment & Plan Assessment & Plan (1) GERD (gastroesophageal reflux disease): Code(s): K21.9 - Gastro-esophageal reflux disease without esophagitis (2) History of colon polyps: Code(s): Z86.010 - Personal history of colonic polyps (3) Colon cancer screening: Comment: 04/2021 Two medium sized polyps removed during colonoscopy Moderate diverticulosis seen in the left colon Small hemorrhoids on retroflexed exam. Plan:? Repeat Colonoscopy interval based on path results - in 3 years (due 04/2024) Code(s): Z12.11 - Encounter for screening for malignant neoplasm of colon (4) Fundic gland polyps of stomach, benign: Comment: Polyps were Hyperplastic by histology. Code(s): D13.1 - Benign neoplasm of stomach (5) Iron deficiency anemia: Code(s): D50.9 - Iron deficiency anemia, unspecified Qualifiers: Iron deficiency anemia type: unspecified iron deficiency Qualified Code(s): D50.9 - Iron deficiency anemia, unspecified Plan 52 year old female with hypertension, thyroid disease (MNG) followed in GI for multiple large hyperplastic gastric polyps. Pt is status post cholecystectomy and thyroid surgery for enlarged thyroid with nodules. She was seen in the ED on 06/03/2020 for upper GI bleed. EGD by DR Roblero showed several large polyps and some were actively bleeding. She had a repeat endoscopy on 08/15/[address] Jarquin and 6 large gastric polyps were removed with no complications. 05/21/21 Repeat EGD was performed and?multiple 1 to 3 cms gastric polyps.? Larger polyps with ulcerations. Six large polyps were removed with a hot snare and retrieved with a Jamison net. Pt will be scheduled for a FU EGD with [facility] in spring/summer of 2022 for removal of additional gastric polyps. Pt was advised to decrease Omeprazole to 20 mg at bedtime and to take a 2nd dose prn during the day. If GERD symptoms remain well controlled, can consider switching to famotidine twice daily in the future 03/2023 repeat EGD was performed and results as noted above EMILIA has resolved. FU in 8 months - due for repeat colon in 04/2024 due to hx of adenomatous colon polyps Coding Level of Care Code Est Pt Level 4 (37597) Diagnoses GERD (gastroesophageal reflux disease) K21.9 History of colon polyps Z86.010 Colon cancer screening Z12.11 Fundic gland polyps of stomach, benign D13.1 Iron deficiency anemia, unspecified iron deficiency anemia type D50.9 Iron deficiency anemia type: unspecified iron deficiency Time Spent (min) 19
[2023-05-22 08:37] VITALS: BP 131/68; PULSE 67; BMI 49.2
== END 2023-05-22 09:01 | disposition home or self-care (01) ==
PROVIDERS: PCP Internal Medicine; Visit Provider Internal Medicine Gastroenterology
DX: K21.9 Gastro-esophageal reflux disease without esophagitis (principal); Z86.010 Personal history of colon polyps; Z12.11 Encounter for screening for malignant neoplasm of colon; D13.1 Benign neoplasm of stomach; D50.9 Iron deficiency anemia, unspecified
CPT/HCPCS: 99214

== ENCOUNTER → 2023-05-22 08:13 | Outpatient (BNVA) | payer OTHER, SELFPAY | PROVIDERS: PCP Internal Medicine; Visit Provider Internal Medicine Gastroenterology ==

== ENCOUNTER 2023-08-09 09:39 | Outpatient (REF) | payer OTHER, SELFPAY ==
[2023-08-09 11:20] LABS: Anion Gap 15 (12-20); Blood Urea Nitrogen 14 mg/dL (9-16); Calcium 9.4 mg/dL (8.4-10.2); Carbon Dioxide 29 mmol/L (22-29); Chloride 104 mmol/L (96-108); Estimated Glomerular Filt Rate > 60; Glucose Random 104 mg/dL (60-115); Potassium 3.4 mmol/L (3.3-5.1); Sodium 145 mmol/L (135-145)
[2023-08-09 11:45] LABS: Appearance Urine Clear; Color Urine Yellow; Glucose Urine UA Negative (Negative); Leukocyte Esterase Urine Small (1+) (Negative); Nitrite Urine Negative (Negative); Specific Gravity - Urine 1.025 (1.005-1.025); UMIC TRIGGER UACC YES; Urine Blood Moderate (2+) (Negative); Urine Ketones Negative (Negative); Urine Protein Negative (Neg-Trace)
[2023-08-09 11:58] LABS: Bacteria Urine None Seen (None Seen); Hyaline Casts Urine 0-2 /LPF (0-2); RBC Urine >20 /HPF (0-2); Squamous Epithelial Cell Urine 0-2 /HPF (0-2); UACC Culture Trigger YES; WBC Urine 0-5 /HPF (0-5)
== END 2023-08-09 09:40 | disposition home or self-care (01) ==
LOC: HO.LAB 09:39
PROVIDERS: Internal Medicine; PCP Internal Medicine; Visit Provider Internal Medicine
DX: Z00.00 Encounter for general adult medical examination without abnormal findings (principal); D35.02 Benign neoplasm of left adrenal gland; R30.0 Dysuria
CPT/HCPCS: 36415; 80048; 81001; 87086

== ENCOUNTER 2023-08-19 14:42 | Outpatient (AMB) | payer OTHER, SELFPAY ==
[2023-08-19 14:47] VITALS: BP 124/82; PULSE 78; O2SAT 96; BMI 51.8
--- NOTE | 2023-08-19 14:47 | A.OFFPC_ITS ---
Vital Signs 08/19/23 14:47 Height 5 ft 7 in Weight 331 lb BMI 51.8 BP 124/82 Blood Pressure Location Lt brachial Position Sitting Pulse 78 Pulse Source Pulse Oximeter Pulse Oximetry (%) 96 Oxygen Delivery Method Room Air Intake Visit Reasons: PE/ f/u Virtualization Consultant Required: No Accompanied by: Self / Same As Patient Allergies potassium Allergy (Severe, Verified 09/30/23 15:34) Anaphylaxis Medication List - Last Reconciled 08/19/23 by Dae Simpson MD atenolol 25 mg PO DAILY cholecalciferol (vitamin D3) (Vitamin D3) 25 mcg PO DAILY ferrous sulfate (FeroSul) 325 mg PO DAILY hydrochlorothiazide 25 mg PO QAM levothyroxine 175 mcg PO DAILY omeprazole 20 mg PO DAILY 90 days spironolactone 50 mg PO DAILY Tobacco use date assessed: 08/19/23 Dental Screening Dental Screen Date: 08/19/23 Did you have a dental visit in the last 12 months?: Yes Did you have a dental problem in the last 6 months where you did not have access to dental care?: No Was dental information given to patient?: Patient has dentist HPI PE/ f/u HPI Details Patient comes in today for her annual physical examination States that she feels well She denies any headaches or dizziness Denies any chest pains, no SOB No nausea/vomiting, no abdominal pain No change in bowel habits noted Denies any acute urinary symptoms She has not had any follow up labs done recently She had her screening colonoscopy last done a couple of years ago on 05/21/2021 - was recommended to get a repeat colonoscopy in 3 years (2023) due to (+) tubular adenoma [facility] Medical History Postsurgical hypothyroidism Adrenal cortical adenoma of left adrenal gland Lump of skin of back Hyperparathyroidism Iron deficiency anemia Vitamin D deficiency Multinodular thyroid Benign essential hypertension Goiter Fundic gland polyps of stomach, benign Morbid obesity with BMI of 45.0-49.9, adult Anemia GERD (gastroesophageal reflux disease) HTN (hypertension) Surgical History History of esophagogastroduodenoscopy (EGD) History of thyroidectomy (~07/11/21) Hx of endoscopy History of colonoscopy History of cholecystectomy Hx of breast reduction, elective History of hysterectomy (~2008) Family History Father FH: colon polyps Family hx of prostate cancer Mother Hx of diabetes insipidus Family history of high blood pressure Maternal Grandmother Breast cancer Family/Other Breast cancer Social History Household Members: Family and Children Household Members Other:: Legal guardian niece and nephew (ages18 & 16) Housing: Apartment Do you presently have visiting nurse or other home services: No Alcohol intake: never Patient Tobacco Use Status: Never used Tobacco e-Cigarette/Vaping Use: Never Used Second Hand Smoke Exposure: No service: No Current occupational status: employed Current occupation: [employer] Cognitive needs: No Hearing needs: No Vision needs: Yes Female Reproductive History Menstrual Age of Menarche: 14 Questionnaire PHQ-9 Over the last 2 weeks, how often have you been bothered by any of the following problems? 1. Little interest or pleasure in doing things: not at all 2. Feeling down, depressed, or hopeless: not at all 3. Trouble falling or staying asleep, or sleeping too much: not at all 4. Feeling tired or having little energy: not at all 5. Poor appetite or overeating: not at all 6. Feeling bad about yourself - or that you are a failure or have let yourself or your family down: not at all 7. Trouble concentrating on things, such as reading the newspaper or watching television: not at all 8. Moving or speaking so slowly that other people could have noticed. Or the opposite - being so fidgety or restless that you have been moving around a lot more than usual: not at all 9. Thoughts that you would be better off or of hurting yourself in some way: not at all Total score: 0 Depression Screening Interpretation: Negative Depression Screening Done: Yes 05852 - PHQ-9 Billing: Yes Source: Developed by Drs. Bobby Barahona, Roxann Boyle, Tyler Romero and colleagues, with an educational terrell from [employer]. Thrive Questionnaire Date Thrive assessed: 08/19/23 I am a: Patient What is your living situation today?: I have a steady place to live Within the past 12 months, did the food you bought not last and you didn't have the money to get more?: Never true Within the past 12 months, did you worry whether your food would run out before you got money to buy more?: Never true Do you have trouble paying for medicines?: No Do you have trouble getting transportation to medical appointments?: No Do you have trouble paying your heating and electricity bill?: No Do you have trouble taking care of your child, family member or friend?: No Do you have trouble with day-to-day activities such as bathing, preparing meals, shopping, managing finances, etc.?: No Are you currently unemployed and looking for a job?: No Are you interested in more education?: No Please select the resources that you would like help with: None Currently or been in a relationship where the following occur: no concerns reported AUDIT C Alcohol Use Questionnaire (AUDIT-C) 1. How often do you have a drink containing alcohol?: Never 3. How often do you have six or more drinks on one occasion?: Never Total Score: 0 Score Reviewed/Action Taken: Yes JUDAH-7 AMB Questionnaire JUDAH-7 Date JUDAH - 7 assessed: 08/19/23 Feeling nervous, anxious, or on edge: 0 = Not at all Not being able to stop or control worryin = Not at all Worrying too much about different things: 0 = Not at all Trouble relaxin = Not at all Being so restless that it is hard to sit still: 0 = Not at all Becoming easily annoyed or irritable: 0 = Not at all Feeling afraid as if something awful might happen: 0 = Not at all Total JUDAH-7 score (0-4 normal; 5-9 mild; 10-14 moderate; 15-21 severe): 0 Source: Developed by Drs. Bobby Barahona, Roxann Boyle, Tyler Romero and colleagues, with an educational terrell from [employer]. Review of Systems Const Denies chills, Denies fatigue, Denies fever(s), Denies headache(s) and Denies malaise Eyes Denies blurry vision, Denies change in vision, Denies irritation and Denies itchy eyes ENT Denies dysphagia, Denies dizziness, Denies otalgia, Denies headache(s), Denies nasal congestion, Denies neck pain, Denies odynophagia, Denies sinus pain and Denies sore throat Card Denies chest pain, Denies rapid heart rate, Denies irregular heart rhythm, Denies palpitations and Denies dyspnea Resp Denies chest congestion, Denies cough, Denies dyspnea and Denies wheezing GI Denies abdominal pain, Denies bloating, Denies constipation, Denies dysphagia, Denies heartburn, Denies diarrhea, Denies nausea, Denies odynophagia and Denies vomiting Denies hematuria, Denies urinary frequency, Denies dysuria, Denies urinary incontinence and Denies urinary urgency Musc Denies back pain, Denies arthralgias, Denies joint swelling, Denies muscle weakness and Denies neck pain Skin/Breast Denies breast pain, Denies breast mass, Denies change in pigmentation, Denies lesions, Denies rash and Denies unusual bruising Neuro Denies dizziness, Denies headache(s) and Denies paresthesias Psych Denies anxiety and Denies depression Endo Denies fatigue and Denies palpitations Joao/Lymph Denies easy bruising Aller/Immun Denies itchy eyes and Denies wheezing Physical exam (Primary Care) Vital Signs: Last Vital Signs Pulse 78 08/19/23 14:47 BP 124/82 08/19/23 14:47 Pulse Ox 96 08/19/23 14:47 Oxygen Delivery Method Room Air 08/19/23 14:47 BMI result Body Mass Index 51.8 Tobacco/Smoking Status: Tobacco use Status Tobacco use date assessed 08/19/23 08/19/23 14:48 Patient Tobacco Use Status Never used Tobacco 08/19/23 14:48 e-Cigarette/Vaping Use Never Used 08/19/23 14:48 PHQ-9: PHQ-9 Score PHQ-9: Total score 0 08/19/23 17:13 Depression Screening Interpretation: Negative Thrive Assessment: Date of Thrive Assessment Date Thrive assessed 08/19/23 08/19/23 14:48 Currently or been in a relationship where the following occur: no concerns reported Const General: no acute distress, alert and awake Orientation/consciousness: patient oriented x3 HENMT Head: Yes normocephalic and Yes atraumatic Ears: external ears normal, TM's normal bilaterally and EAC's normal General nose exam: No nasal discharge present Face and sinus: Yes normal facial exam and Yes sinuses nontender Teeth and gingiva: dentition normal Throat: Yes posterior oropharynx normal and Yes tonsils normal (no TP congestion) Eyes Eyelids: Yes eyelids normal Conjunctivae: conjunctivae normal Pupils: Equal, round and reactive pupils present EOM: EOMs intact bilaterally Neck Neck: Yes no lymphadenopathy and Yes supple Thyroid: Thyroid normal Resp Auscultation: clear to auscultation bilaterally, no rales and no wheezes Cardio Rate: regular rate Rhythm: regular rhythm Heart sounds: no murmurs GI Palpation (GI): Soft to palpation, nontender and No hepatosplenomegaly present Auscultation: normal bowel sounds General: Yes no CVA tenderness Back/Spine/Pelvis Back: no CVA tenderness Thoracic/Lumbar Spine: thoracic and lumbar spine normal to inspection Skin Lesions: no lesions Rashes: no rashes Neuro General: patient oriented x3, moves all extremities, no focal motor deficits and CN's II-XI intact bilaterally Cranial nerves: Yes Equal, round and reactive pupils present Cognition (Neuro): normal cognition Gait exam (Neuro): Normal gait present Extrem General: Yes no clubbing, cyanosis or edema Assessment and Plan Assessment & Plan (1) Annual physical exam: Code(s): Z00.00 - Encounter for general adult medical examination without abnormal findings Plan: Check labs She is up-to-date with her colon cancer screen - will be due for repeat colonoscopy late next year (2023) She is scheduled for her annual mammogram in September 2023 and will be seeing gynecology for her annual pap smear and gynecology exam in January 2024 (2) Benign essential hypertension: Code(s): I10 - Essential (primary) hypertension Plan: Reinforced low sodium diet - goal is systolic BP of at least 120 to 130 mm or less Continue Atenolol 25 mg QD and HCTZ 25 mg Q AM Patient is reminded to continue monitoring her blood pressure regularly (3) Multinodular thyroid: Comment: S/P total thyroidectomy by Dr. Dukes on 07/11/2021 due to compressive neck symptoms Code(s): E04.2 - Nontoxic multinodular goiter Plan: S/P total thyroidectomy in 06/2021; pathology came out benign Will require lifelong thyroid hormone replacement therapy (4) Postsurgical hypothyroidism: Code(s): E89.0 - Postprocedural hypothyroidism Plan: Continue Levothyroxine 175 mcg QD Will recheck her TFTs for follow up Follow up with endocrinology as scheduled (5) Impaired fasting glucose: Code(s): R73.01 - Impaired fasting glucose Plan: Her HgbA1c was normal at 5.6% when last checked a few months ago Reinforced low calorie/low carb diet/exercise as tolerated Will recheck her FBS and HgbA1c for follow up (6) Vitamin D deficiency: Code(s): E55.9 - Vitamin D deficiency, unspecified Plan: Continue Vitamin D3 1000 units QD (7) Iron deficiency anemia: Code(s): D50.9 - Iron deficiency anemia, unspecified Qualifiers: Iron deficiency anemia type: unspecified iron deficiency Qualified Code(s): D50.9 - Iron deficiency anemia, unspecified Plan: Her H/H were normal at 12.6/42.2 when last checked in February 2023 Continue Ferrous Sulfate 325 mg QD Will continue to monitor her CBC regularly (8) Gastritis: Code(s): K29.70 - Gastritis, unspecified, without bleeding Qualifiers: Gastritis type: unspecified gastritis Chronicity: unspecified Gastritis bleeding: with bleeding Qualified Code(s): K29.71 - Gastritis, unspecified, with bleeding Plan: S/P EGD with Dr. Flowers last year on 03/25/2022 - (+) multiple gastric polyps (benign on pathology) with findings consistent with esophagitis and gastritis Dietary restrictions reinforced Continue Omeprazole 40 mg QD Follow-up with GI as scheduled (9) Adrenal cortical adenoma of left adrenal gland: Comment: 1.6 cm left adrenal nodule Code(s): D35.02 - Benign neoplasm of left adrenal gland Plan: Repeat abdominal CT done in June 2022 revealed (+) left adrenal benign adenoma, measuring 1.6 cm, which is approximately the same size as seen on previous study on 06/14/2021. The rest of the abdominal findings are unremarkab le Patient has been worked up and evaluated by endocrinology and was advised that her adrenal adenoma is most likely benign although she is currently still undergoing continuing evaluation for possible hyperaldosteronism Follow up with endocrinology as scheduled (10) Hyperparathyroidism: Code(s): E21.3 - Hyperparathyroidism, unspecified Plan: Resolved - was most likely secondary hyperparathyroidism brought about by Vitamin D deficiency and this has resolved with correction of her Vitamin D level (11) Stasis edema of both lower extremities: Code(s): I87.303 - Chronic venous hypertension (idiopathic) without complications of bila teral lower extremity Plan: Is most likely due to venous stasis Patient is reminded again to keep her legs elevated as often as she can througho ut the day to help minimize her swelling and that wearing compressions stockings and losing weight can also help (12) Morbid obesity with BMI of 50.0-59.9, adult: Code(s): E66.01 - Morbid (severe) obesity due to excess calories; Z68.43 - Body mass index [BMI] 50.0-59.9, adult Plan: Reinforced diet/exercise as tolerated/lose weight - patient has gained some weight since her last visit Plan Follow up in 6 months Orders: Orders Complete Blood Count Auto Diff 08/19/23 I10 - Essential (primary) hypertension, Z00.00 - Encounter for general adult medical examination without abnormal findings UA CC w/rflx Micro + Cult 08/19/23 R30.0 - Dysuria, Z00.00 - Encounter for general adult medical examination without abnormal findings MM tomosynthesis screening BI 08/19/23 Z12.31 - Encounter for screening mammogram for malignant neoplasm of breast Lipid Panel 08/19/23 E78.00 - Pure hypercholesterolemia, unspecified, Z00.00 - Encounter for general adult medical examination without abnormal findings Comprehensive [place]. Panel Fast 08/19/23 E78.00 - Pure hypercholesterolemia, unspecified, Z00.00 - Encounter for general adult medical examination without abnormal findings Thyroid Stimulating Hormone 08/19/23 E03.9 - Hypothyroidism, unspecified, Z00.00 - Encounter for general adult medical examination without abnormal findings Free T4 (Free Thyroxine) 08/19/23 E03.9 - Hypothyroidism, unspecified, Z00.00 - Encounter for general adult medical examination without abnormal findings Vitamin D 25-OH Total 08/19/23 E55.9 - Vitamin D deficiency, unspecified, Z00.00 - Encounter for general adult medical examination without abnormal findings Vitamin B12 and Folate 08/19/23 E53.8 - Deficiency of other specified B group vitamins, Z00.00 - Encounter for general adult medical examination without abnormal findings Hemoglobin A1c 08/19/23 Z00.00 - Encounter for general adult medical examination without abnormal findings, R73.01 - Impaired fasting glucose Coding Level of Care Code Est Pt Prev Care 40-64y(88186) Diagnoses Annual physical exam Z00.00 Benign essential hypertension I10 Multinodular thyroid E04.2 Postsurgical hypothyroidism E89.0 Impaired fasting glucose R73.01 Vitamin D deficiency E55.9 Iron deficiency anemia, unspecified iron deficiency anemia type D50.9 Iron deficiency anemia type: unspecified iron deficiency Gastritis with hemorrhage, unspecified chronicity, unspecified gastritis type K29.71 Gastritis type: unspecified gastritis Chronicity: unspecified Gastritis bleeding: with bleeding Adrenal cortical adenoma of left adrenal gland D35.02 Hyperparathyroidism E21.3 Stasis edema of both lower extremities I87.303 Morbid obesity with BMI of 50.0-59.9, adult E66.01; Z68.43
== END 2023-08-19 16:05 | disposition home or self-care (01) ==
PROVIDERS: PCP Internal Medicine; Visit Provider Internal Medicine
DX: Z00.00 Encounter for general adult medical examination without abnormal findings (principal); E21.3 Hyperparathyroidism, unspecified; E66.01 Morbid (severe) obesity due to excess calories; Z68.43 Body mass index [BMI] 50.0-59.9, adult; I10 Essential (primary) hypertension; E04.2 Nontoxic multinodular goiter; E89.0 Postprocedural hypothyroidism; E55.9 Vitamin D deficiency, unspecified; R73.01 Impaired fasting glucose; D50.9 Iron deficiency anemia, unspecified; K29.71 Gastritis, unspecified, with bleeding; D35.02 Benign neoplasm of left adrenal gland
CPT/HCPCS: 99396

== ENCOUNTER 2023-09-25 15:02 | Outpatient (REF) | payer OTHER, SELFPAY ==
--- NOTE | ~2023-09-25 | MM_ITS ---
EXAMINATION: MM SCREENING DIGITAL BREAST TOMOSYNTHESIS, BILATERAL CLINICAL INFORMATION: Screening. Asymptomatic. The patient is status post breast reduction. COMPARISON: Mammography: This study is compared with prior exams dating back to TECHNIQUE: Digital breast tomosynthesis is performed in both the craniocaudal and mediolateral oblique views along with computer-aided detection (CAD). Synthesized 2D images are generated from the tomosynthesis. FINDINGS: The breasts are almost entirely fatty (ACR BI-RADS breast composition Category a). There are no significant masses, abnormal calcifications, or other abnormalities. MM/MM tomosynthesis screening BI IMPRESSION: No mammographic evidence of malignancy. ASSESSMENT: BI-RADS BI-RADS 1 - Negative RECOMMENDATION: Routine annual mammography screening. 1 year F/U This examination should not preclude the clinical evaluation of a suspicious palpable abnormality. This patient's information was entered into a reminder system with a target due date for their next mammogram.
== END 2023-09-25 15:03 | disposition home or self-care (01) ==
LOC: HO.MAMMO 15:02
PROVIDERS: PCP Internal Medicine; Visit Provider Internal Medicine
DX: Z12.31 Encounter for screening mammogram for malignant neoplasm of breast (principal)
CPT/HCPCS: 77063; 77067

== ENCOUNTER → 2023-09-25 15:15 | Outpatient (BNV) | payer OTHER, SELFPAY | PROVIDERS: PCP Internal Medicine; Visit Provider Radiology Diagnostic Radiology | DX: Z12.31 Encounter for screening mammogram for malignant neoplasm of breast (principal) | CPT/HCPCS: 77063; 77067 ==

== ENCOUNTER 2023-09-27 10:14 | Outpatient (REF) | payer OTHER, SELFPAY ==
[2023-09-27 12:15] LABS: Anion Gap 14 (12-20); Blood Urea Nitrogen 10 mg/dL (9-16); Calcium 9.4 mg/dL (8.4-10.2); Carbon Dioxide 29 mmol/L (22-29); Chloride 102 mmol/L (96-108); Estimated Glomerular Filt Rate > 60; Glucose Random 101 mg/dL (60-115); Potassium 3.8 mmol/L (3.3-5.1); Sodium 141 mmol/L (135-145)
[2023-09-27 12:23] LABS: Free T4 (Free Thyroxine) 1.22 ng/dL (0.71-1.85); Thyroid Stimulating Hormone 2.32 uIU/mL (0.32-4.0)
== END 2023-09-27 10:15 | disposition home or self-care (01) ==
LOC: HO.LAB 10:14
PROVIDERS: PCP Internal Medicine; Referring Provider Internal Medicine Endocrinology, Diabetes & Metabolism; Visit Provider Internal Medicine
DX: E04.2 Nontoxic multinodular goiter (principal); E27.8 Other specified disorders of adrenal gland
CPT/HCPCS: 36415; 80048; 84439; 84443

== ENCOUNTER 2023-09-30 15:27 | Outpatient (AMB) | payer OTHER, SELFPAY ==
[2023-09-30 15:29] VITALS: BP 140/80; PULSE 79; BMI 53.3
--- NOTE | 2023-09-30 15:29 | MHC.OFFVIS ---
Intake Vital Signs 09/30/23 15:29 Height 5 ft 7 in Weight 340 lb 9.827 oz BMI 53.3 BP 140/80 H Blood Pressure Location Lt brachial Position Sitting Pulse 79 Pulse Source Pulse Oximeter Intake Visit Reasons: F/U Hyperaldosteronsim adrenal adenoma-lvm Intake Note: Patient presents today for Hyperaldosteronism Adrenal Adenoma follow up visit, last seen by Dr. Salazar on 03/03/23. 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 Accompanied by: Self / Same As Patient Allergies potassium Allergy (Severe, Verified 09/30/23 15:34) Anaphylaxis Medication List - Last Reconciled 09/30/23 by Bobby Hoover MD atenolol 25 mg PO DAILY cholecalciferol (vitamin D3) (Vitamin D3) 25 mcg PO DAILY ferrous sulfate (FeroSul) 325 mg PO DAILY hydrochlorothiazide 25 mg PO QAM levothyroxine 175 mcg PO DAILY omeprazole 20 mg PO DAILY 90 days HPI HPI Comments History of Present Illness Details 52 YO F with PMHx NTMNG now S/P a total thyroidectomy who is seen in F/U for a postoperative hypothyroidism as well as an incidentally noted 1.7 cm L adrenal nodule with hyperaldosteronism.. The patient last saw Dr. Salazar on 03/03/2023 1. NTMNG: Was initially diagnosed with a multinodular thyroid in 2014 with thyroid US revealing multiple bilateral large thyroid nodules. On 01/04/2021 she underwent FNA biopsy of her LMP 4.7 cm, Isthmus 4.5 and RMP 3.2 cm thyroid nodules. All with benign cytology. She was referred to Dr. Dukes and underwent a total thyroidectomy 07/01/2021 with official surgical path benign. Currently she remains on levothyroxine 175 mcg PO daily, and TSH is at goal. She was also noted to have elevated PTH, with normal calcium and very low Vitamin D. She was started on high dose Vitamin D supplementation, and completed an 8 week course. She remains on Vitamin D 2000 IU daily at this time. PTH is now WNL. She reports feeling well today. 2. Adrenal Nodule: She had a CT of the lumbar spine which incidentally noted a 1.7 cm L adrenal nodule measuring 25 HU post-contrast. She underwent an adrenal protocol CT of the abdomen 06/11/2021. This revealed a 1.6 cm L adrenal nodule, measuring -10.7 HU precontrast. Washout characteristics were <60% absolue, and 40% relative. She denies any episodes of spells with flushing, diaphoresis and headache. She does report hypertension that is suboptimally controlled on 2 agents (atenolol and HCTZ). She underwent a full biochemical evaluation which revealed mild elevation of 24 hour urine normetanephrine and catecholamines. She also was found to have a suppressed renin with an armando of 5, but her potassium was only 3.5 at the time. She underwent a 1 mg overnight DSST which was WNL, and ruled out audelia's disease. Potassium was repleted and repeat workup with Potassium >4 revealed no evidence of hyperaldosteronism. Renin was low, but armando was only 2. She had an adverse reaction to the potassium supplements with flushing, severe hypertension and headaches. This was attempted with potassium supplementation on 2 occasions with similar results. We then discontinued potassium supplements and advised she get potassium to goal through diet with bananas instead. She continued with poor control of HTN on 3 agents, with high suspicion for hyperaldosteronism given suppressed PRA so workup was repeated after eating 4 bananas per day. Repeat labs 09/14/2022 with Potassium 4.4, PRA 0.28 and Aldosterone 7. She then underwent an oral sodium loading test. Results confirmed adequate sodium intake with her 24 hour urine sodium >200. Aldosterone did not suppress and remained at 6, which confirms hyperaldosteronism. She also underwent a 1 mg overnight DSST which was WNL ruling out hypercortisolism. She presents today to review these results. Of note, she had a anaphylactic type reaction to oral potassium replacement on [address] Abdomen and Pelvis: 07/01/2022 FINDINGS: LUNG BASES: The lung bases are clear. Heart size is normal. There is a sblvv-ve-adbjlpfy size hiatal hernia with perihernial fat herniation.? LIVER, GALLBLADDER, AND BILIARY TREE: The liver is diffusely attenuated but normal size and contour. No focal lesion or intrahepatic ductal dilatation is seen. The gallbladder has been removed. PANCREAS: The pancreas appears unremarkable.? SPLEEN: The spleen is unremarkable. There is a small accessory splenule.? ADRENAL GLANDS AND KIDNEYS: The right adrenal gland is normal. There is a left adrenal lesion measuring 1.5 x 1.3 cm. On precontrast exam it measures 3.3 Hounsfield units. Postcontrast it measures 39 Hounsfield units. Delayed imaging measures 23 Hounsfield units. Absolute washout measures 44.8 percent and the relative washout is 41 percent, consistent with an adenoma. Both kidneys are normal size, shape and position. There is contrast opacifying bilateral kidney pelvises without distention. BOWEL LOOPS: Bowel gas pattern is nonspecific.? LYMPH NODES: Normal. VASCULAR: Unremarkable. Labs: Laboratory Tests 02/22/23 02/22/23 02/22/23 07:15 10:13 10:13 Sodium 142 Potassium 3.9 Creatinine 0.77 Estimated GFR > 60 Aldosterone 6 Ur 24 Hour Volume 2700 Ur Creatinine 24 H our 1.8 Ur Sodium 24 Hour 351.0 H Stopped sprinolacone cecause of side effects of fatigue and muscle aches PFSH Medical History Postsurgical hypothyroidism Adrenal cortical adenoma of left adrenal gland Lump of skin of back Hyperparathyroidism Iron deficiency anemia Vitamin D deficiency Multinodular thyroid Benign essential hypertension Goiter Fundic gland polyps of stomach, benign Morbid obesity with BMI of 45.0-49.9, adult Anemia GERD (gastroesophageal reflux disease) HTN (hypertension) Surgical History History of esophagogastroduodenoscopy (EGD) History of thyroidectomy (~07/11/21) Hx of endoscopy History of colonoscopy History of cholecystectomy Hx of breast reduction, elective History of hysterectomy (~2008) Family History Father FH: colon polyps Family hx of prostate cancer Mother Hx of diabetes insipidus Family history of high blood pressure Maternal Grandmother Breast cancer Family/Other Breast cancer Social History Household Members: Family and Children Household Members Other:: Legal guardian niece and nephew (ages18 & 16) Housing: Apartment Do you presently have visiting nurse or other home services: No Alcohol intake: never Patient Tobacco Use Status: Never used Tobacco e-Cigarette/Vaping Use: Never Used Second Hand Smoke Exposure: No service: No Current occupational status: employed Current occupation: [employer] Cognitive needs: No Hearing needs: No Vision needs: Yes Female Reproductive History Menstrual Age of Menarche: 14 Physical Exam Vital Signs: Last Vital Signs Pulse 79 09/30/23 15:29 BP 140/80 H 09/30/23 15:29 BMI result Body Mass Index 53.3 Const Other: Healed scar status post thyroidectomy Assessment & Plan Assessment & Plan (1) Multinodular thyroid: Comment: S/P total thyroidectomy by Dr. Dukes on 07/11/2021 due to compressive neck symptoms Code(s): E04.2 - Nontoxic multinodular goiter Plan: Clinically and biochemically euthyroid on 175 mcg levothyroxine. Plan is to continue the current management. Terms of the thyroid and hypothyroidism patient referred back to her primary care provider for management of this and returned back to endocrinology as needed (2) Adrenal nodule: Code(s): E27.8 - Other specified disorders of adrenal gland Plan: This is a 52-year-old female with a history of left adrenal adenoma with benign characteristics found to be aldosterone producing. Patient was treated with spironolactone. Plan is to discuss potential treatments including medical treatment with spironolactone or eplerenone versus further workup for localization which would be performed at adrenal Center at [facility] After long conversation with the patient she did request to be sent for a 2nd opinion to Dr. Orozco and I will make that referral Orders: Referrals Endocrinology Referral E27.8 - Other specified disorders of adrenal gland Coding Level of Care Code Est Pt Level 3 (61677) Diagnoses Multinodular thyroid E04.2 Adrenal nodule E27.8
== END 2023-09-30 16:19 | disposition home or self-care (01) ==
PROVIDERS: PCP Internal Medicine; Visit Provider Internal Medicine Endocrinology, Diabetes & Metabolism
DX: E04.2 Nontoxic multinodular goiter (principal); E27.8 Other specified disorders of adrenal gland
CPT/HCPCS: 99213

== ENCOUNTER → 2023-09-30 15:27 | Outpatient (BNVA) | payer OTHER, SELFPAY | PROVIDERS: PCP Internal Medicine; Visit Provider Internal Medicine Endocrinology, Diabetes & Metabolism ==

== ENCOUNTER 2023-12-11 07:22 | Outpatient (AMB) | payer OTHER, SELFPAY ==
--- NOTE | 2023-12-11 07:31 | MHC.OFFVIS ---
Intake Vital Signs 12/11/23 07:44 Height 5 ft 7 in Weight 326 lb 7 oz BMI 51.1 BP 130/74 Blood Pressure Location Lt brachial Position Sitting Intake Visit Reasons: 10 month fu Intake Note: Patient follow up for colonoscopy screening. 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 Pt was seen by Dr Roblero in 05/2020 during [place] [facility] [place] ENDOSCOPIC STUDIES:?04/18/23 EGD SHOWED: Endoscopy Findings: STOMACH: Multiple gastric polyps - 4 larger polyps removed with a hot snare Plan: Patient has an appointment on 05/22/23 in the GI Clinic with Aaron Flowers M.D. BIOPSIES SHOWED: Stomach, polyps: Fundic gland and hyperplastic mucosal polyps with background mild chronic inactive inflammation; no Helicobacter organisms seen 03/25/22 EGD SHOWED: ESOPHAGUS: GE junction at 33 cms. ? Esophagitis with multiple 2-3 cms long linear erosions from 30 to 33 cms. STOMACH: Multiple 1 to 3 cms gastric polyps.? Two larger polyps were removed with a hot snare and retrieved with a Jamison net. Plan:? Repeat EGD in 6 months with [facility] BIOPSIES SHOWED: A.? Gastric antrum, biopsy:? Gastric antral mucosa with mild reactive changes and minimal chronic inactive gastritis; negative for H pylori, intestinal metaplasia and dysplasia.? B.? Gastric polyps:? Fundic gland polyps with focal reactive changes, and active inflammation with erosion; negative for H pylori, intestinal metaplasia and dysplasia. 05/21/21 EGD AND COLON SHOWED: STOMACH: Multiple 1 to 3 cms gastric polyps.? Larger polyps with ulcerations. Six large polyps were removed with a hot snare and retrieved with a Jamison net. Some bleeding noted from polypectomy site - treated with cautery using the snare tip. Colonoscopy Findings:? Two medium sized polyps removed Moderate diverticulosis seen in the left colon Small hemorrhoids on retroflexed exam. Plan:? Repeat Colonoscopy interval based on path results - in 3 years if polyps are adenomatous and 10 years if polyps are hyperplastic. TODAY'S VISIT: Patient denies any GI issues. Trying to loose weight PAST VISITS: EGD results reviewed with the patient. Taking Omeprazole 20 mg once daily and denies GERD symptoms Taking chewable iron with Vitamin C. Started on spironolactone and notes some fatigue. Has been doing intermittent fasting and has lost 20 lbs. Start eating at 11 am and stop eating at 7 pm. Patient denies symptoms of heartburn, dysphagia, nausea, vomiting, change in appetite or weight.? Denies recent change in bowel habits, constipation, diarrhea, black stools or rectal bleeding. EGD findngs and bx results reviewed with the patient She lost 10 lbs on higher dose of thyroid medications, regained 10 lbs when thyroid medication dose was reduced. Patient denies major cardiac or pulmonary problems, loud snoring or sleep apnea Has motion sickness and gets a lot of vomiting after anesthesia - Denies problems after EGD with propofol [place] [facility] [place] Denies being on chronic anticoagulation. Has been taking chewable iron once daily since 10/2020 Patient denies known family history of colon cancer or other GI malignancies. Dad has had colon polyps in his 50's. PAST EGD/COLONOSCOPY:? Last EGD and colonoscopy in 2011 at [facility] - normal per patient [facility] Medical History Postsurgical hypothyroidism Adrenal cortical adenoma of left adrenal gland Lump of skin of back Hyperparathyroidism Iron deficiency anemia Vitamin D deficiency Multinodular thyroid Benign essential hypertension Goiter Fundic gland polyps of stomach, benign Morbid obesity with BMI of 45.0-49.9, adult Anemia GERD (gastroesophageal reflux disease) HTN (hypertension) Surgical History History of esophagogastroduodenoscopy (EGD) History of thyroidectomy (~07/11/21) Hx of endoscopy History of colonoscopy History of cholecystectomy Hx of breast reduction, elective History of hysterectomy (~2008) Family History Father FH: colon polyps Family hx of prostate cancer Mother Hx of diabetes insipidus Family history of high blood pressure Maternal Grandmother Breast cancer Family/Other Breast cancer Social History Household Members: Family and Children Household Members Other:: Legal guardian niece and nephew (ages18 & 16) Housing: Apartment Do you presently have visiting nurse or other home services: No Alcohol intake: never Patient Tobacco Use Status: Never used Tobacco e-Cigarette/Vaping Use: Never Used Second Hand Smoke Exposure: No service: No Current occupational status: employed Current occupation: [employer] Cognitive needs: No Hearing needs: No Vision needs: Yes Female Reproductive History Menstrual Age of Menarche: 14 Review of Systems Const All systems reviewed & are unremarkable except as noted in HPI and below Physical Exam Vital Signs: Last Vital Signs BP 130/74 12/11/23 07:44 BMI result Body Mass Index 51.1 Const General: healthy appearing and no acute distress Nutritional Appearance: obese Orientation/consciousness: patient oriented x3 Limitations: no limitations HEENT Head: Yes normal to inspection Ears: hearing grossly normal bilaterally Mouth: Normal oral and palatal mucosa present Eyes Sclerae: sclerae normal Pupils: Equal, round and reactive pupils present Neck Neck: Yes normal visual inspection Chest Chest palpation & inspection: normal inspection of the chest Resp Effort & Inspection: normal respiratory effort Auscultation: clear to auscultation bilaterally Cardio Palpation: normal PMI Rate: regular rate Rhythm: regular rhythm Heart sounds: S1 normal heart sound present, S2 normal heart sound present and no murmurs GI Inspection: Yes obesity Palpation (GI): Soft to palpation, nontender and No hepatosplenomegaly present Auscultation: normal bowel sounds Rectal Exam - Female: deferred Skin General skin exam: no rashes or lesions noted Neuro General: patient oriented x3, gait normal and moves all extremities Cranial nerves: Yes Equal, round and reactive pupils present Psych Appearance: grossly normal Mental Status: mental status grossly normal Assessment & Plan Assessment & Plan (1) Fundic gland polyps of stomach, benign: Comment: Polyps were Hyperplastic by histology. Code(s): D13.1 - Benign neoplasm of stomach (2) Iron deficiency anemia: Code(s): D50.9 - Iron deficiency anemia, unspecified Qualifiers: Iron deficiency anemia type: unspecified iron deficiency Qualified Code(s): D50.9 - Iron deficiency anemia, unspecified (3) Colon cancer screening: Comment: 04/2021 Two medium sized polyps removed during colonoscopy Moderate diverticulosis seen in the left colon Small hemorrhoids on retroflexed exam. Plan:? Repeat Colonoscopy interval based on path results - in 3 years (due 04/2024) Code(s): Z12.11 - Encounter for screening for malignant neoplasm of colon (4) History of colon polyps: Code(s): Z86.010 - Personal history of colonic polyps (5) GERD (gastroesophageal reflux disease): Code(s): K21.9 - Gastro-esophageal reflux disease without esophagitis Plan 53 year old female with hypertension, thyroid disease (MNG) followed in GI for multiple large hyperplastic gastric polyps. Pt is status post cholecystectomy and thyroid surgery for enlarged thyroid with nodules. She was seen in the ED on 06/03/2020 for upper GI bleed. EGD by DR Roblero showed several large polyps and some were actively bleeding. She had a repeat endoscopy on 08/15/[address] Jarquin and 6 large gastric polyps were removed with no complications. 05/21/21 Repeat EGD was performed and?multiple 1 to 3 cms gastric polyps.? Larger polyps with ulcerations. Six large polyps were removed with a hot snare and retrieved with a Jamison net. Pt will be scheduled for a FU EGD with [facility] in spring/summer of 2022 for removal of additional gastric polyps. Pt was advised to decrease Omeprazole to 20 mg at bedtime and to take a 2nd dose prn during the day. If GERD symptoms remain well controlled, can consider switching to famotidine twice daily in the future 03/2023 repeat EGD was performed and results as noted above EMILIA has resolved. 12/11/23 Pt advised to schedule an EGD (FU of gastric polyps) and repeat colon (FU of adenomatous colon polyps) in Apr, 2024 Medications: New bisacodyl (Dulcolax (bisacodyl)) Take 2 tablets at 12 pm daily starting 2 days before colonoscopy appointment 10 mg (2 x 5 mg) PO ONCE 2 days 4 tabs 0RF colon prep polyethylene glycol 3350 (Miralax) Mix Miralax with 64 oz(8 cups) of Crystal light. Take 2 tablets of Dulcolax qt 12 pm. Wait to have your 1st bowel movement, then begin drinking Miralax. Drink a glass of Miralax every 10-15 minutes until you are finished. You will drink at least another 4 cups of clear liquid of your choice over the next 2 hours. Please drink as many clear liquids as possible You may have clear liquids up to four hours before your procedure 17 grams PO DAILY 1 day PRN 238 grams 0RF colon prep Coding Level of Care Code Est Pt Level 3 (31874) Diagnoses Fundic gland polyps of stomach, benign D13.1 Iron deficiency anemia, unspecified iron deficiency anemia type D50.9 Iron deficiency anemia type: unspecified iron deficiency Colon cancer screening Z12.11 History of colon polyps Z86.010 GERD (gastroesophageal reflux disease) K21.9 Time Spent (min) 18
[2023-12-11 07:44] VITALS: BP 130/74; BMI 51.1
== END 2023-12-11 07:59 | disposition home or self-care (01) ==
PROVIDERS: PCP Internal Medicine; Visit Provider Internal Medicine Gastroenterology
DX: D13.1 Benign neoplasm of stomach (principal); D50.9 Iron deficiency anemia, unspecified; Z12.11 Encounter for screening for malignant neoplasm of colon; Z86.010 Personal history of colon polyps; K21.9 Gastro-esophageal reflux disease without esophagitis
CPT/HCPCS: 99213

== ENCOUNTER → 2023-12-11 07:22 | Outpatient (BNVA) | payer OTHER, SELFPAY | PROVIDERS: PCP Internal Medicine; Visit Provider Internal Medicine Gastroenterology ==

== ENCOUNTER 2024-01-14 15:07 | Outpatient (AMB) | payer OTHER, SELFPAY ==
--- NOTE | 2024-01-14 15:11 | MHC.OFFVIS ---
Vital Signs 01/14/24 15:12 Height 5 ft 7 in Weight 338 lb 13.608 oz BMI 53.1 BP 130/72 Blood Pressure Location Lt brachial Position Sitting Pulse 75 Pulse Source Pulse Oximeter Intake Visit Reasons: Other specified disorders of adrenal gland Intake Note: Patient is present today for adrenal gland disorder follow up visit. Case Resolution Specialist Required: No Accompanied by: Self / Same As Patient Allergies potassium Allergy (Severe, Verified 01/14/24 15:16) Anaphylaxis HPI Comments Details: 53 YO F with PMHx NTMNG now S/P a total thyroidectomy who is seen in F/U for a postoperative hypothyroidism as well as an incidentally noted 1.7 cm L adrenal nodule with hyperaldosteronism.. The patient last saw Dr. Salazar on 03/03/2023 1. NTMNG: Was initially diagnosed with a multinodular thyroid in 2014 with thyroid US revealing multiple bilateral large thyroid nodules. On 01/04/2021 she underwent FNA biopsy of her LMP 4.7 cm, Isthmus 4.5 and RMP 3.2 cm thyroid nodules. All with benign cytology. She was referred to Dr. Dukes and underwent a total thyroidectomy 07/01/2021 with official surgical path benign. Currently she remains on levothyroxine 175 mcg PO daily, and TSH is at goal. She was also noted to have elevated PTH, with normal calcium and very low Vitamin D. She was started on high dose Vitamin D supplementation, and completed an 8 week course. She remains on Vitamin D 2000 IU daily at this time. PTH is now WNL. She reports feeling well today. 2. Adrenal Nodule: She had a CT of the lumbar spine which incidentally noted a 1.7 cm L adrenal nodule measuring 25 HU post-contrast. She underwent an adrenal protocol CT of the abdomen 06/11/2021. This revealed a 1.6 cm L adrenal nodule, measuring -10.7 HU precontrast. Washout characteristics were <60% absolue, and 40% relative. She denies any episodes of spells with flushing, diaphoresis and headache. She does report hypertension that is suboptimally controlled on 2 agents (atenolol and HCTZ). She underwent a full biochemical evaluation which revealed mild elevation of 24 hour urine normetanephrine and catecholamines. She also was found to have a suppressed renin with an armando of 5, but her potassium was only 3.5 at the time. She underwent a 1 mg overnight DSST which was WNL, and ruled out audelia's disease. Potassium was repleted and repeat workup with Potassium >4 revealed no evidence of hyperaldosteronism. Renin was low, but armando was only 2. She had an adverse reaction to the potassium supplements with flushing, severe hypertension and headaches. This was attempted with potassium supplementation on 2 occasions with similar results. We then discontinued potassium supplements and advised she get potassium to goal through diet with bananas instead. She continued with poor control of HTN on 3 agents, with high suspicion for hyperaldosteronism given suppressed PRA so workup was repeated after eating 4 bananas per day. Repeat labs 09/14/2022 with Potassium 4.4, PRA 0.28 and Aldosterone 7. She then underwent an oral sodium loading test. Results confirmed adequate sodium intake with her 24 hour urine sodium >200. Aldosterone did not suppress and remained at 6, which confirms hyperaldosteronism. She also underwent a 1 mg overnight DSST which was WNL ruling out hypercortisolism. She presents today to review these results. Of note, she had a anaphylactic type reaction to oral potassium replacement on [address] Abdomen and Pelvis: 07/01/2022 FINDINGS: LUNG BASES: The lung bases are clear. Heart size is normal. There is a [id number] size hiatal hernia with perihernial fat herniation.? LIVER, GALLBLADDER, AND BILIARY TREE: The liver is diffusely attenuated but normal size and contour. No focal lesion or intrahepatic ductal dilatation is seen. The gallbladder has been removed. PANCREAS: The pancreas appears unremarkable.? SPLEEN: The spleen is unremarkable. There is a small accessory splenule.? ADRENAL GLANDS AND KIDNEYS: The right adrenal gland is normal. There is a left adrenal lesion measuring 1.5 x 1.3 cm. On precontrast exam it measures 3.3 Hounsfield units. Postcontrast it measures 39 Hounsfield units. Delayed imaging measures 23 Hounsfield units. Absolute washout measures 44.8 percent and the relative washout is 41 percent, consistent with an adenoma. Both kidneys are normal size, shape and position. There is contrast opacifying bilateral kidney pelvises without distention. BOWEL LOOPS: Bowel gas pattern is nonspecific.? LYMPH NODES: Normal. VASCULAR: Unremarkable. Labs: Laboratory Tests 02/22/23 02/22/23 02/22/23 07:15 10:13 10:13 Sodium 142 Potassium 3.9 Creatinine 0.77 Estimated GFR > 60 Aldosterone 6 Ur 24 Hour Volume 2700 Ur Creatinine 24 Hour 1.8 Ur Sodium 24 Hour 351.0 H Stopped sprinolacone cecause of side effects of fatigue and muscle aches PFSH Medical History Postsurgical hypothyroidism Adrenal cortical adenoma of left adrenal gland Lump of skin of back Hyperparathyroidism Iron deficiency anemia Vitamin D deficiency Multinodular thyroid Benign essential hypertension Goiter Fundic gland polyps of stomach, benign Morbid obesity with BMI of 45.0-49.9, adult Anemia GERD (gastroesophageal reflux disease) HTN (hypertension) Surgical History History of esophagogastroduodenoscopy (EGD) History of thyroidectomy (~07/11/21) Hx of endoscopy History of colonoscopy History of cholecystectomy Hx of breast reduction, elective History of hysterectomy (~2008) Family History Father FH: colon polyps Family hx of prostate cancer Mother Hx of diabetes insipidus Family history of high blood pressure Maternal Grandmother Breast cancer Family/Other Breast cancer Social History Household Members: Family and Children Household Members Other:: Legal guardian niece and nephew (ages18 & 16) Housing: Apartment Do you presently have visiting nurse or other home services: No Alcohol intake: never Patient Tobacco Use Status: Never used Tobacco e-Cigarette/Vaping Use: Never Used Second Hand Smoke Exposure: No service: No Current occupational status: employed Current occupation: [employer] Cognitive needs: No Hearing needs: No Vision needs: Yes Female Reproductive History Menstrual Age of Menarche: 14 Physical Exam Vital Signs: Last Vital Signs Pulse 75 01/14/24 15:12 BP 130/72 01/14/24 15:12 BMI result Body Mass Index 53.1 Assessment & Plan Assessment & Plan (1) Adrenal nodule: Code(s): E27.8 - Other specified disorders of adrenal gland Category: Medical Plan: This is a 53-year-old female with a history of left adrenal adenoma with benign characteristics found to be aldosterone producing. Patient was treated with spironolactone. Now off spironolactone Plan is to discuss potential treatments including medical treatment with spironolactone or eplerenone versus further workup for localization which would be performed at adrenal Center at [facility]. However, after conversation with the patient she tells me that blood pressure is very well controlled on 2 agents at home and she really does not want to go to [place] for further workup. I will see her back in a year but told her to notify me if her pressure becomes out of control and we can make the referral again Coding Level of Care Code Est Pt Level 3 (82667) Diagnoses Adrenal nodule E27.8
[2024-01-14 15:12] VITALS: BP 130/72; PULSE 75; BMI 53.1
== END 2024-01-14 15:35 | disposition home or self-care (01) ==
LOC: HO.ENCR 15:08
PROVIDERS: PCP Internal Medicine; Visit Provider Internal Medicine Endocrinology, Diabetes & Metabolism
DX: E27.8 Other specified disorders of adrenal gland (principal)
CPT/HCPCS: 99213

== ENCOUNTER → 2024-01-14 15:08 | Outpatient (BNVA) | payer OTHER, SELFPAY | PROVIDERS: PCP Internal Medicine; Visit Provider Internal Medicine Endocrinology, Diabetes & Metabolism ==

== ENCOUNTER 2024-02-16 15:19 | Outpatient (AMB) | payer OTHER, SELFPAY ==
[2024-02-16 15:21] VITALS: BP 146/92; PULSE 76; O2SAT 98; BMI 52.6
--- NOTE | 2024-02-16 15:21 | A.OFFPC_ITS ---
Vital Signs 02/16/24 15:21 Height 5 ft 7 in Weight 336 lb BMI 52.6 BP 146/92 H Blood Pressure Location Lt brachial Position Sitting Pulse 76 Pulse Source Pulse Oximeter Pulse Oximetry (%) 98 Oxygen Delivery Method Room Air Intake Visit Reasons: 6 Month F/U Intake Note: Patient is here to follow up Developmental Therapist Required: No Allergies potassium Allergy (Severe, Verified 02/16/24 15:53) Anaphylaxis Medication List - Last Reconciled 02/16/24 by Dae Simpson MD atenolol 25 mg PO DAILY bisacodyl (Dulcolax (bisacodyl)) 10 mg (2 x 5 mg) PO ONCE 2 days cholecalciferol (vitamin D3) (Vitamin D3) 25 mcg PO DAILY ferrous sulfate (FeroSul) 325 mg PO DAILY hydrochlorothiazide 25 mg PO QAM levothyroxine 175 mcg PO DAILY omeprazole 20 mg PO DAILY polyethylene glycol 3350 (Miralax) 17 grams PO DAILY PRN 1 day Tobacco use date assessed: 02/16/24 Dental Screening Dental Screen Date: 02/16/24 HPI 6 Month F/U HPI Details Patient comes in today for her follow up visit States that she feels okay except for a persistent pain over her left heel area that has been bothering her for a few months now Relates that the pain came on a few weeks after she went bowling earlier this year but as she does not recall any injury or trauma to her foot or heel then, is not even sure if her going bowling had anything to do with her foot pain She denies any headaches or dizziness Denies any chest pains, no SOB No nausea/vomiting, no abdominal pain No change in bowel habits noted She was also seen by Dr. Hoover last month for her adrenal nodule with hyperaldosteronism Was advised on potential medical Tx with Spironolactone or Eplerenone versus referral to the adrenal center at [facility] for further work up but patient declined as she feels that her blood pressure has been well-controlled so far She will see Dr. Hoover again in 1 year for reasssessment She also was not able to get her previously ordered labs in July 2023 done - states that she just completely forgot about them PFSH Medical History Postsurgical hypothyroidism Adrenal cortical adenoma of left adrenal gland Lump of skin of back Hyperparathyroidism Iron deficiency anemia Vitamin D deficiency Multinodular thyroid Benign essential hypertension Goiter Fundic gland polyps of stomach, benign Morbid obesity with BMI of 45.0-49.9, adult Anemia GERD (gastroesophageal reflux disease) HTN (hypertension) Surgical History History of esophagogastroduodenoscopy (EGD) History of thyroidectomy (~07/11/21) Hx of endoscopy History of colonoscopy History of cholecystectomy Hx of breast reduction, elective History of hysterectomy (~2008) Family History Father FH: colon polyps Family hx of prostate cancer Mother Hx of diabetes insipidus Family history of high blood pressure Maternal Grandmother Breast cancer Family/Other Breast cancer Social History Household Members: Family and Children Household Members Other:: Legal guardian niece and nephew (ages18 & 16) Housing: Apartment Do you presently have visiting nurse or other home services: No Alcohol intake: never Patient Tobacco Use Status: Never used Tobacco e-Cigarette/Vaping Use: Never Used Second Hand Smoke Exposure: No service: No Current occupational status: employed Current occupation: [employer] Cognitive needs: No Hearing needs: No Vision needs: Yes Female Reproductive History Menstrual Age of Menarche: 14 Questionnaire PHQ-9 Over the last 2 weeks, how often have you been bothered by any of the following problems? 1. Little interest or pleasure in doing things: not at all 2. Feeling down, depressed, or hopeless: not at all 3. Trouble falling or staying asleep, or sleeping too much: not at all 4. Feeling tired or having little energy: not at all 5. Poor appetite or overeating: not at all 6. Feeling bad about yourself - or that you are a failure or have let yourself or your family down: not at all 7. Trouble concentrating on things, such as reading the newspaper or watching television: not at all 8. Moving or speaking so slowly that other people could have noticed. Or the opposite - being so fidgety or restless that you have been moving around a lot more than usual: not at all 9. Thoughts that you would be better off or of hurting yourself in some way: not at all Total score: 0 Depression Screening Interpretation: Negative Depression Screening Done: Yes 19291 - PHQ-9 Billing: Yes Source: Developed by Drs. Bobby Barahona, Roxann Boyle, Tyler Romero and colleagues, with an educational terrell from [employer]. Thrive Questionnaire Date Thrive assessed: 02/16/24 I am a: Patient What is your living situation today?: I have a steady place to live Within the past 12 months, did the food you bought not last and you didn't have the money to get more?: Never true Within the past 12 months, did you worry whether your food would run out before you got money to buy more?: Never true Do you have trouble paying for medicines?: No Do you have trouble getting transportation to medical appointments?: No Do you have trouble paying your heating and electricity bill?: No Do you have trouble taking care of your child, family member or friend?: No Do you have trouble with day-to-day activities such as bathing, preparing meals, shopping, managing finances, etc.?: No Are you currently unemployed and looking for a job?: No Are you interested in more education?: No Please select the resources that you would like help with: None Currently or been in a relationship where the following occur: no concerns reported THRIVE Score: 0 AUDIT C Alcohol Use Questionnaire (AUDIT-C) 1. How often do you have a drink containing alcohol?: Never 3. How often do you have six or more drinks on one occasion?: Never Total Score: 0 Score Reviewed/Action Taken: Yes JUDAH-7 AMB Questionnaire JUDAH-7 Date JUDAH - 7 assessed: 02/16/24 Feeling nervous, anxious, or on edge: 0 = Not at all Not being able to stop or control worryin = Not at all Worrying too much about different things: 0 = Not at all Trouble relaxin = Not at all Being so restless that it is hard to sit still: 0 = Not at all Becoming easily annoyed or irritable: 0 = Not at all Feeling afraid as if something awful might happen: 0 = Not at all Total JUDAH-7 score (0-4 normal; 5-9 mild; 10-14 moderate; 15-21 severe): 0 Source: Developed by Drs. Bobby Barahona, Roxann Boyle, Tyler Romero and colleagues, with an educational terrell from [employer]. JUDAH-7 Assessment Billing JUDAH-7 Assessment Tool: JUDAH-7 Assessment 73122 Review of Systems Const Denies chills, Denies fatigue, Denies fever(s) and Denies headache(s) ENT Denies dysphagia, Denies dizziness, Denies otalgia, Denies headache(s), Denies neck pain, Denies odynophagia and Denies sore throat Card Denies chest pain, Denies palpitations and Denies dyspnea Resp Denies cough and Denies dyspnea GI Denies abdominal pain, Denies constipation, Denies dysphagia, Denies heartburn, Denies diarrhea, Denies nausea, Denies odynophagia and Denies vomiting Denies difficulty voiding, Denies nocturia, Denies dysuria and Denies urinary urgency Musc Details: (+) left heel pain - see HPI Denies back pain and Denies neck pain Skin/Breast Denies rash Neuro Denies dizziness and Denies headache(s) Endo Denies fatigue and Denies palpitations Physical exam (Primary Care) Vital Signs: Last Vital Signs Pulse 76 02/16/24 15:21 BP 146/92 H 02/16/24 15:21 Pulse Ox 98 02/16/24 15:21 Oxygen Delivery Method Room Air 02/16/24 15:21 BMI result Body Mass Index 52.6 Tobacco/Smoking Status: Tobacco use Status Tobacco use date assessed 02/16/24 02/16/24 15:22 Patient Tobacco Use Status Never used Tobacco 02/16/24 15:22 e-Cigarette/Vaping Use Never Used 02/16/24 15:22 Depression Screening Interpretation: Negative Thrive Assessment: Date of Thrive Assessment Date Thrive assessed 02/16/24 02/16/24 15:22 Currently or been in a relationship where the following occur: no concerns reported Const General: no acute distress and alert HENMT Ears: TM's normal bilaterally and EAC's normal Throat: Yes posterior oropharynx normal and Yes tonsils normal (no TP congestion) Neck Neck: Yes no lymphadenopathy and Yes supple Resp Auscultation: clear to auscultation bilaterally, no rales and no wheezes Cardio Rate: regular rate Rhythm: regular rhythm Heart sounds: no murmurs GI Palpation (GI): Soft to palpation and nontender Auscultation: normal bowel sounds General: Yes no CVA tenderness Back/Spine/Pelvis Back: no CVA tenderness Thoracic/Lumbar Spine: thoracic and lumbar spine normal to inspection Skin Rashes: no rashes Extrem General: Yes no clubbing, cyanosis or edema Left lower extremity: foot Details: tenderness Location: of the calcaneus and no edema Assessment and Plan Assessment & Plan (1) Benign essential hypertension: Code(s): I10 - Essential (primary) hypertension Plan: Reinforced low sodium diet - goal is systolic BP of at least 120 to 130 mm or less Continue Atenolol 25 mg QD and HCTZ 25 mg Q AM Patient is reminded to continue monitoring her blood pressure regularly (2) Multinodular thyroid: Comment: S/P total thyroidectomy by Dr. Dukes on 07/11/2021 due to compressive neck symptoms Code(s): E04.2 - Nontoxic multinodular goiter Plan: S/P total thyroidectomy in 06/2021; pathology came out benign She will require lifelong thyroid hormone replacement therapy (3) Postsurgical hypothyroidism: Code(s): E89.0 - Postprocedural hypothyroidism Plan: Continue Levothyroxine 175 mcg QD Will recheck her TFTs in 6 months for follow up Follow up with endocrinology as scheduled (4) Impaired fasting glucose: Code(s): R73.01 - Impaired fasting glucose Plan: Her HgbA1c was normal at 5.6% when last checked in February 2023 Reinforced low calorie/low carb diet/exercise as tolerated Will recheck her FBS and HgbA1c in 6 months for follow up (5) Vitamin D deficiency: Code(s): E55.9 - Vitamin D deficiency, unspecified Plan: Continue Vitamin D3 1000 units QD (6) Iron deficiency anemia: Code(s): D50.9 - Iron deficiency anemia, unspecified Qualifiers: Iron deficiency anemia type: unspecified iron deficiency Qualified Code(s): D50.9 - Iron deficiency anemia, unspecified Plan: Her H/H were normal at 12.6/42.2 when last checked in February 2023 Continue Ferrous Sulfate 325 mg QD Will continue to monitor her CBC regularly (7) Gastritis: Code(s): K29.70 - Gastritis, unspecified, without bleeding Qualifiers: Gastritis type: unspecified gastritis Chronicity: unspecified Gastritis bleeding: with bleeding Qualified Code(s): K29.71 - Gastritis, unspecified, with bleeding Plan: S/P EGD with Dr. Flowers on 03/25/2022 - (+) multiple gastric polyps (benign on pathology) with findings consistent with esophagitis and gastritis Dietary restrictions reinforced Continue Omeprazole 40 mg QD Follow-up with GI as scheduled (8) Adrenal cortical adenoma of left adrenal gland: Comment: 1.6 cm left adrenal nodule Code(s): D35.02 - Benign neoplasm of left adrenal gland Plan: Repeat abdominal CT done in June 2022 revealed (+) left adrenal benign adenoma, measuring 1.6 cm, which is approximately the same size as seen on previous study on 06/14/2021. The rest of the abdominal findings are unremarkable Patient has been worked up and evaluated by endocrinology and was advised that her adrenal adenoma is most likely benign although she was also evaluated for possible hyperaldosteronism She was advised on potential medical Tx with Spironolactone or Eplerenone versus referral to the adrenal center at [facility] for further work up but patient declined as she feels that her blood pressure has been well-controlled so far Follow up with endocrinology as scheduled (9) Hyperparathyroidism: Code(s): E21.3 - Hyperparathyroidism, unspecified Plan: Resolved - was most likely secondary hyperparathyroidism brought about by Vitamin D deficiency and this has resolved with correction of her Vitamin D level (10) Pain of left heel: Code(s): M79.672 - Pain in left foot Plan: Will send her for x-rays of the left foot/heel TRAN for further evaluation Suspect either plantar fasciitis or calcaneal spur - is advised that if her foot/heel pain persists, may need to see podiatry for further evaluation and management (11) Stasis edema of both lower extremities: Code(s): I87.303 - Chronic venous hypertension (idiopathic) without complications of bilateral lower extremity Plan: This is most likely due to venous stasis Patient is reminded again to keep her legs elevated as often as she can throughout the day to help minimize her swelling and that wearing compressions stockings and losing weight can also help (12) Morbid obesity with BMI of 50.0-59.9, adult: Code(s): E66.01 - Morbid (severe) obesity due to excess calories; Z68.43 - Body mass index [BMI] 50.0-59.9, adult Plan: Reinforced diet/exercise as tolerated/lose weight Plan To return in 6 months for her next annual physical examination Patient is again reminded to try getting her labs done BEFORE she comes in for her annual physical exam in 6 months Orders: Orders XR foot LT min 3V Today M79.672 - Pain in left foot UA CC w/rflx Micro + Cult 6 Months R30.0 - Dysuria, Z00.00 - Encounter for general adult medical examination without abnormal findings Vitamin B12 and Folate 6 Months E53.8 - Deficiency of other specified B group vitamins, Z00.00 - Encounter for general adult medical examination without abnormal findings Complete Blood Count Auto Diff 6 Months D64.9 - Anemia, unspecified, Z00.00 - Encounter for general adult medical examination without abnormal findings Comprehensive [place]. Panel Fast 6 Months E78.00 - Pure hypercholesterolemia, unspecified, Z00.00 - Encounter for general adult medical examination without abnormal findings Lipid Panel 6 Months E78.00 - Pure hypercholesterolemia, unspecified, Z00.00 - Encounter for general adult medical examination without abnormal findings Vitamin D 25-OH Total 6 Months E55.9 - Vitamin D deficiency, unspecified, Z00.00 - Encounter for general adult medical examination without abnormal findin gs Hemoglobin A1c 6 Months E11.9 - Type 2 diabetes mellitus without complications, Z00.00 - Encounter for general adult medical examination without abnormal findings Free T4 (Free Thyroxine) 6 Months E03.9 - Hypothyroidism, unspecified, Z00.00 - Encounter for general adult medical examination without abnormal findings Thyroid Stimulating Hormone 6 Months E03.9 - Hypothyroidism, unspecified, Z00.00 - Encounter for general adult medical examination without abnormal findings IRON PROFILE 6 Months D50.9 - Iron deficiency anemia, unspecified, Z00.00 - Encounter for general adult medical examination without abnormal findings Coding Level of Care Code Est Pt Level 4 (92499) Diagnoses Benign essential hypertension I10 Multinodular thyroid E04.2 Postsurgical hypothyroidism E89.0 Impaired fasting glucose R73.01 Vitamin D deficiency E55.9 Iron deficiency anemia, unspecified iron deficiency anemia type D50.9 Iron deficiency anemia type: unspecified iron deficiency Gastritis with hemorrhage, unspecified chronicity, unspecified gastritis type K29.71 Gastritis type: unspecified gastritis Chronicity: unspecified Gastritis bleeding: with bleeding Adrenal cortical adenoma of left adrenal gland D35.02 Hyperparathyroidism E21.3 Pain of left heel M79.672 Stasis edema of both lower extremities I87.303 Morbid obesity with BMI of 50.0-59.9, adult E66.01; Z68.43 Additional Codes JUDAH-7 Assessment Billing - JUDAH-7 Assessment Tool: JUDAH-7 Assessment 55955 ([id number])
== END 2024-02-16 16:16 | disposition home or self-care (01) ==
PROVIDERS: PCP Internal Medicine; Visit Provider Internal Medicine
DX: I10 Essential (primary) hypertension (principal); E21.3 Hyperparathyroidism, unspecified; E66.01 Morbid (severe) obesity due to excess calories; Z68.43 Body mass index [BMI] 50.0-59.9, adult; E04.2 Nontoxic multinodular goiter; E89.0 Postprocedural hypothyroidism; R73.01 Impaired fasting glucose; E55.9 Vitamin D deficiency, unspecified; D50.9 Iron deficiency anemia, unspecified; K29.71 Gastritis, unspecified, with bleeding; D35.02 Benign neoplasm of left adrenal gland; M79.672 Pain in left foot
CPT/HCPCS: 99214

== ENCOUNTER 2024-02-19 15:11 | Outpatient (AMB) | payer OTHER, SELFPAY ==
[2024-02-19 15:13] VITALS: BP 142/70; BMI 52.6
--- NOTE | 2024-02-19 15:13 | A.OFFVIS_ITS ---
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 She is doing well with no concerns. Attempting to eat a healthy diet with calcium and vitamin D and stays active with exercise-she walks. Currently not sexually active. Denies any vaginal dryness or irritation. History of hysterectomy due to fibroids and heavy menstrual bleeding. Last mammogram; 2023. Colonoscopy is UTD. Denies any family history of breast, ovarian or colon cancer. [facility] Medical History Postsurgical hypothyroidism Adrenal cortical adenoma of left adrenal gland Lump of skin of back Hyperparathyroidism Iron deficiency anemia Vitamin D deficiency Multinodular thyroid Benign essential hypertension Goiter Fundic gland polyps of stomach, benign Morbid obesity with BMI of 45.0-49.9, adult Anemia GERD (gastroesophageal reflux disease) HTN (hypertension) Surgical History History of esophagogastroduodenoscopy (EGD) History of thyroidectomy (~07/11/21) Hx of endoscopy History of colonoscopy History of cholecystectomy Hx of breast reduction, elective History of hysterectomy (~2008) Family History Father FH: colon polyps Family hx of prostate cancer Mother Hx of diabetes insipidus Family history of high blood pressure Maternal Grandmother Breast cancer Family/Other Breast cancer Social History Household Members: Family and Children Household Members Other:: Legal guardian niece and nephew (ages18 & 16) Housing: Apartment Do you presently have visiting nurse or other home services: No Alcohol intake: never Patient Tobacco Use Status: Never used Tobacco e-Cigarette/Vaping Use: Never Used Second Hand Smoke Exposure: No service: No Current occupational status: employed 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 Cognitive needs: No Hearing needs: No Vision needs: Yes Female Reproductive History Menstrual Age of Menarche: 14 control method: none Total pregnancies: 0 History of STI: No Date of Mammogram: 09/25/23 History of abnormal mammogram: No Review of Systems Const All systems reviewed & are unremarkable except as noted in HPI and below Reports as per HPI Eyes Reports no additional complaints ENT Reports no additional complaints Card Reports no additional complaints Resp Reports no additional complaints GI Reports as per HPI and Reports no additional complaints Reports as per HPI Musc Reports no additional complaints Skin/Breast Reports as per HPI Neuro Reports no additional complaints Psych Reports no additional complaints Endo Reports no additional complaints Joao/Lymph Reports no additional complaints Aller/Immun Reports no additional complaints Physical Exam Vital Signs: Last Vital Signs BP 142/70 H 02/19/24 15:13 BMI result Body Mass Index 52.6 Const General: cooperative, healthy appearing, no acute distress, well developed and alert Orientation/consciousness: patient oriented x3 HEENT Head: Yes normal to inspection Eyes General: appearance normal, both eyes and all related structures Neck Neck: Yes normal visual inspection Thyroid: Thyroid normal Chest Other: Large pendulous Chest palpation & inspection: normal inspection of the chest and other (no puckering, dimpling, peau de orange, retraction, discharge, masses) Breast/axilla inspection: normal inspection of the breasts Breast/axilla palpation: normal palpation of the breasts Resp Effort & Inspection: normal respiratory effort GI Inspection: Yes obesity Palpation (GI): Soft to palpation Rectal Exam - Female: deferred Other: Admits to shaving, several razor abrasions external labia General: Yes bladder normal to palpation External Female Exam: normal external appearance and normal appearance of the urethra Speculum Exam - Vagina: normal appearance of the vagina, normal palpation, normal vaginal discharge and vagina atrophic Speculum Exam - Cervix: Cervix absent (Vaginal cuff no lesions or nodules) Bimanual exam- vagina & uterus: normal bimanual exam, normal palpation, bladder normal to palpation and uterus absent Bimanual Exam- Adnexa, other: no masses Skin General skin exam: no rashes or lesions noted Rashes: no rashes Neuro General: patient oriented x3 Cognition (Neuro): normal cognition Extrem General: Yes normal to inspection Psych Attitude: cooperative Thought process: Normal thought process present Assessment & Plan Assessment & Plan (1) Encounter for well woman exam with routine gynecological exam: Code(s): Z01.419 - Encounter for gynecological examination (general) (routine) without abnormal findings Category: Medical Plan Discussed: Current recommendations for pap smears per ASCCP guidelines. Breast awareness, periodic self breast exams and yearly mammogram. Maintain a healthy lifestyle, well balanced diet including Calcium 1,200 mg and Vitamin D 600 IU daily, and routine exercise. Weight loss management speak with her primary care if wants to pursue medications or other avenues. Advised no shaving for the sole purpose upcoming in for an exam, and no indicati on for routine care and is a personal preference. Patient verbalizes understanding and agrees to the plan of care. She was given opportunity to ask questions and all questions were answered to the best of my ability. 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 This note is constructed using voice recognition software. While every effort has been made to ensure accuracy, spoilage worker errors may have been included. Coding Level of Care Code Est Pt Prev Care 40-64y(08010) Diagnoses Encounter for well woman exam with routine gynecological exam Z01.419
== END 2024-02-19 15:41 | disposition home or self-care (01) ==
LOC: HO.HWS 15:11
PROVIDERS: PCP Internal Medicine; Visit Provider Advanced Practice Midwife
DX: Z01.419 Encounter for gynecological examination (general) (routine) without abnormal findings (principal)
CPT/HCPCS: 99396

== ENCOUNTER → 2024-02-19 15:11 | Outpatient (BNVA) | payer OTHER, SELFPAY | PROVIDERS: PCP Internal Medicine; Visit Provider Advanced Practice Midwife ==

== ENCOUNTER 2024-02-19 15:45 | Outpatient (REF) | payer OTHER, SELFPAY ==
--- NOTE | ~2024-02-19 | XR_ITS ---
EXAMINATION: XR FOOT, LEFT CLINICAL INFORMATION: Pain in left foot, no injury. COMPARISON: None available. TECHNIQUE: AP, lateral, and oblique views of the left foot. FINDINGS: Radiopaque marker placed by technologist to indicate the area of concern as indicated by the patient along the posterior aspect of the heel. Moderate posterior and plantar calcaneal spurring. Mild degenerative changes at the dorsal aspect of the midfoot. Toes are flexed, limiting evaluation. Mild degenerative changes first metatarsophalangeal joint. XR/XR foot LT min 3V IMPRESSION: 1. Moderate posterior and plantar calcaneal spurring. 2. Mild degenerative changes at the dorsal aspect of the midfoot. 3. Mild degenerative changes first metatarsophalangeal joint.
== END 2024-02-19 15:46 | disposition home or self-care (01) ==
LOC: HO.XRAY 15:45
PROVIDERS: PCP Internal Medicine; Visit Provider Internal Medicine
DX: M79.672 Pain in left foot (principal)
CPT/HCPCS: 73630

== ENCOUNTER 2024-05-21 10:51 | Day surgery (SDC) | payer OTHER, SELFPAY ==
--- NOTE | 2024-05-20 11:51 | HO.ANESPROP2 ---
Documented by User: Sada Hernandez NP 05/20/24 11:52 HPI - Anesthesia Eval Consult details Narrative: 53yo F for Upper Endoscopy and Colonoscopy PMFSH Active Problems Active Problems: All Active Problems Encounter for well woman exam with routine gynecological exam (Acute) Pain of left heel (Acute) Breast cancer screening by mammogram (Acute) Impaired fasting glucose (Acute) Cutaneous abscess of left axilla (Acute) Bronchitis (Acute) COVID-19 (Acute) Cough (Acute) Morbid obesity with BMI of 50.0-59.9, adult (Acute) Stasis edema of both lower extremities (Acute) GERD (gastroesophageal reflux disease) (Acute) Postsurgical hypothyroidism (Acute) Annual physical exam (Acute) History of colon polyps (Acute) Adrenal cortical adenoma of left adrenal gland (Acute) Adrenal nodule (Acute) Colon cancer screening (Acute) Lump of skin of back (Acute) Hyperparathyroidism (Acute) History of hysterectomy (Acute ~2008) Hx of breast reduction, elective (Acute) Hematemesis (Acute) Gastritis (Acute) Anemia (Acute) Morbid obesity with BMI of 45.0-49.9, adult (Acute) History of cholecystectomy (Acute) Fundic gland polyps of stomach, benign (Acute) Goiter (Acute) Benign essential hypertension (Acute) Multinodular thyroid (Acute) Vitamin D deficiency (Acute) Iron deficiency anemia (Acute) Past Medical History Medical History Menopause Postsurgical hypothyroidism Adrenal cortical adenoma of left adrenal gland Lump of skin of back Hyperparathyroidism Iron deficiency anemia Vitamin D deficiency Multinodular thyroid Benign essential hypertension Goiter Fundic gland polyps of stomach, benign Morbid obesity with BMI of 45.0-49.9, adult Anemia GERD (gastroesophageal reflux disease) HTN (hypertension) Family History Family History Father FH: colon polyps Family hx of prostate cancer Mother Hx of diabetes insipidus Family history of high blood pressure Maternal Grandmother Breast cancer Family/Other Breast cancer Family history of problems with anesthesia: No Surgical History Surgical History History of esophagogastroduodenoscopy (EGD) History of thyroidectomy (~07/11/21) Hx of endoscopy History of colonoscopy History of cholecystectomy Hx of breast reduction, elective History of hysterectomy (~2008) History of Problems with Anesthesia: No Social History Social History Household Members: Family and Children Household Members Other:: lives with mom and nephew Housing: Apartment Are you a primary complex care nurse practitioner to a significant other at home: No Do you presently have visiting nurse or other home services: No Alcohol intake: never Patient Tobacco Use Status: Never used Tobacco e-Cigarette/Vaping Use: Never Used Second Hand Smoke Exposure: No service: No Current occupational status: employed Current occupation: [employer] Cognitive needs: No Hearing needs: No Vision needs: Yes Meds Allergies Allergy/AdvReac Type Severity Reaction Status Date / Time potassium Allergy Intermediate Palpitation Verified 05/21/24 12:54 s Home Medications ?Medication ?Instructions ?Recorded ?Confirmed ?Last Taken ?Type ferrous sulfate 325 mg (65 mg 325 mg PO DAILY 08/01/22 05/21/24 Unknown History iron) tablet (FeroSul) Assessment and Plan Assessment Anesthesia Assessment: Chart Reviewed Final Anesthetic Review Family History of Problems with Anesthesia: No History of Problems with Anesthesia: No Documented by User: Luna Cabezas MD 05/21/24 16:45 PMFSH Active Problems Active Problems: All Active Problems Encounter for well woman exam with routine gynecological exam (Acute) Pain of left heel (Acute) Breast cancer screening by mammogram (Acute) Impaired fasting glucose (Acute) Cutaneous abscess of left axilla (Acute) Bronchitis (Acute) COVID-19 (Acute) Cough (Acute) Morbid obesity with BMI of 53.3 Stasis edema of both lower extremities (Acute) GERD (gastroesophageal reflux disease) (Acute) Postsurgical hypothyroidism (Acute) Annual physical exam (Acute) History of colon polyps (Acute) Adrenal cortical adenoma of left adrenal gland (Acute) Adrenal nodule (Acute) Colon cancer screening (Acute) Lump of skin of back (Acute) Hyperparathyroidism (Acute) History of hysterectomy (Acute ~2008) Hx of breast reduction, elective (Acute) Hematemesis (Acute) Gastritis (Acute) Anemia (Acute) Morbid obesity with BMI of 45.0-49.9, adult (Acute) History of cholecystectomy (Acute) Fundic gland polyps of stomach, benign (Acute) Goiter (Acute) Benign essential hypertension (Acute) Multinodular thyroid (Acute) Vitamin D deficiency (Acute) Iron deficiency anemia (Acute) Past Medical History Medical History Menopause Postsurgical hypothyroidism Adrenal cortical adenoma of left adrenal gland Lump of skin of back Hyperparathyroidism Iron deficiency anemia Vitamin D deficiency Multinodular thyroid Benign essential hypertension Goiter Fundic gland polyps of stomach, benign Morbid obesity with BMI of 45.0-49.9, adult Anemia GERD (gastroesophageal reflux disease) HTN (hypertension) Family History Family History Father FH: colon polyps Family hx of prostate cancer Mother Hx of diabetes insipidus Family history of high blood pressure Maternal Grandmother Breast cancer Family/Other Breast cancer Family history of problems with anesthesia: No Surgical History Surgical History History of esophagogastroduodenoscopy (EGD) History of thyroidectomy (~07/11/21) Hx of endoscopy History of colonoscopy History of cholecystectomy Hx of breast reduction, elective History of hysterectomy (~2008) History of Problems with Anesthesia: No Social History Social History Household Members: Family and Children Household Members Other:: lives with mom and nephew Housing: Apartment Are you a primary complex care nurse practitioner to a significant other at home: No Do you presently have visiting nurse or other home services: No Alcohol intake: never Patient Tobacco Use Status: Never used Tobacco e-Cigarette/Vaping Use: Never Used Second Hand Smoke Exposure: No service: No Current occupational status: employed Current occupation: [employer] Cognitive needs: No Hearing needs: No Vision needs: Yes Meds Allergies Allergy/AdvReac Type Severity Reaction Status Date / Time potassium Allergy Intermediate Palpitation Verified 05/21/24 12:54 s Home Medications ?Medication ?Instructions ?Recorded ?Confirmed ?Last Taken ?Type ferrous sulfate 325 mg (65 mg 325 mg PO DAILY 08/01/22 05/21/24 Unknown History iron) tablet (FeroSul) Exam Height,Weight and Vital Signs: Height 5 ft 6 in Weight 149.685 kg Vital Signs Temp Pulse Resp BP Pulse Ox O2 Del Method 98.1 F 70 18 144/84 H 98 Room Air 05/21/24 12:05/21/24 12:05/21/24 12:05/21/24 12:05/21/24 12:05/21/24 12:26 Airway Mallampati Class: III TM Dist: >3cm Neck ROM: Full Loose/Missing/Broken Teeth: No Heart: RRR Lungs: CTAB Assessment and Plan Assessment Anesthesia Assessment: Anesthesia Plan Discussed and Chart Reviewed Final Anesthetic Review Family History of Problems with Anesthesia: No History of Problems with Anesthesia: No NPO: Yes ASA Class: III Final Preanesthetic Review: No Changes in Pt Med Stat, Meds/Allgs Chart Reviewed, Consent Obtained/Reviewed and Anes Risks/Benef Reviewed Patient Risk: Intermediate Procedure Risk: Low Assessment/Block/Sedation in SS: Assess/Block/Sedation-SS Anesthetic Plan Anesthetic Plan: GA Disposition: Standard PACU
[2024-05-21] VITALS (8 sets, daily range): BP systolic 134–154; BP diastolic 71–84; PULSE 70–86; RESP 12–18; TEMP 36.2–36.7; O2SAT 93–99; BMI 53.3
[2024-05-21] MEDS: Lactated Ringers 1,000 ML 100 ML IVCONT (12:10)
--- NOTE | 2024-05-21 12:34 | MHC.SHP ---
Pre-Procedural Eval Section A - 24 Hr Update-Section A only Date of Service: 05/21/24 The patient is an INPATIENT: No The patient has been examined within 24 hours of the surgical procedure. The History & Physical has been completed within 30 days and I have reviewed it.: No Section B - Complete if H&P > 30 days Chief Complaint: Surveillance for colon polyps, FU of gastric polyp Relevant Family History (Specify if Yes): No Relevant Social History: None Present Medications: see Short Stay Collaborative assessment Medical History: Significant History (Adrenal cortical adenoma of left adrenal gland Anemia Benign essential hypertension Fundic gland polyps of stomach, benign GERD (gastroesophageal reflux disease) Goiter HTN (hypertension) Hyperparathyroidism Iron deficiency anemia Lump of skin of back Morbid obesity with BMI of 45.0-49.9, adult Mult) History of Previous Operations: Relevant previous surgery/procedure and date(s) (History of cholecystectomy History of colonoscopy History of hysterectomy (~2008) History of thyroidectomy (~07/11/21) Hx of breast reduction, elective Hx of endoscopy) Allergies: Allergies Allergy/AdvReac Type Severity Reaction Status Date / Time potassium Allergy Severe Anaphylaxis Verified 05/21/24 12:02 Review of Systems Sugical H&P ROS: Negative: Constitution, Cardiovascular, Respiratory and Gastrointestinal Exam Surgical H&P Exam: Normal: Heart, Normal: Lungs, Normal: Extremities and Normal: Abdomen Plan Diagnosis/Plan: Unchanged I have reviewed the history and physical and performed a pertinent physical examination on my patient. No changes have occurred unless specified. Time Spent With Patient Time: Total time managing care of this patient today ____ minutes.
--- NOTE | 2024-05-21 12:53 | PC.NURSE ---
one IV attempt by author. attempt and insertion by taye san rn.
[2024-05-21] MEDS: Scopolamine 1.5 MG PATCH.TD.3 TRANSDERMA (13:06)
--- NOTE | 2024-05-21 14:36 | HO.OPN-COLON ---
Colonoscopy Operative Note Operative Note Date of Service: 05/21/24 Narrative: FLEXIBLE TRANSORAL UPPER GASTROINTESTINAL ENDOSCOPY WITH SNARE POLYPECTOMY OF MULTIPLE GASTRIC POLYPSAND COLONOSCOPY TILL CECUM WITH SNARE POLYPECTOMY Pre-op diagnosis: Surveillance for colon polyps, follow-up multiple hyperplastic gastric polyps Post-op diagnosis: Hiatal hernia, gastric polyps, Colon Polyps, Diverticulosis, hemorrhoids Endoscopist:? Aaron Flowers MD Anesthesia:?GA with ET tube COLONOSCOPY PROCEDURE NOTE Instrument: Olympus PCF H 190 L variable stiffness pediatric colonoscope Monitoring: Vital signs and clinical assessment, intermittent blood pressure monitoring, continuous EKG monitoring, Pulse oximetry and Carbon Dioxide monitoring were done throughout the procedure. Please see anesthesia flowsheet. Colon withdrawl time was 18 minutes. Procedure: The patient was placed in the left lateral decubitis position and pre-procedure medications were administered. After a digital rectal examination of the ano-rectum, the video colonoscope was inserted into the rectum and advanced through the colon to the cecum. The colonoscope was slowly withdrawn in a retrograde panoramic fashion and the colon mucosa was carefully examined including a retroflexed view of the rectum. Findings and interventions are described below. Procedure Difficulty: without difficulty Findings: Terminal Ileum: Not evaluated Cecum: Normal Ascending Colon: A 6-7 mm sessile polyp in the distal AC - removed with a cold snare and polyp was not retrieved Transverse Colon: Normal Descending Colon: Moderate diverticulosis Sigmoid Colon: Severe diverticulosis with luminal narrowing Rectum: Normal Ano-rectum: Small +- internal hemorrhoids Colon preparation: Goodafter some irrigation. Frostproof Bowel Preparation Scale Right colon; 2 Transverse colon: 2 Left colon; 2 (0 = Unprepared colon segment with mucosa not seen due to solid stool that cannot be cleared. 1 = Portion of mucosa of the colon segment seen, but other areas of the colon segment not well seen due to staining, residual stool and/or opaque liquid. 2 = Minor amount of residual staining, small fragments of stool and/or opaque liquid, but mucosa of colon segment seen well. 3 = Entire mucosa of colon segment seen well with no residual staining, small fragments of stool or opaque liquid) UPPER ENDOSCOPY Consent: Indications for the procedure and potential complications of bleeding, perforation, reaction to medications and missed diagnosis were discussed with the patient and informed consent was obtained. Instrument: Olympus GIF H 190 mid size upper endoscope Monitoring: Vital signs and clinical assessment, continuous EKG monitoring, Pulse oximetry, Carbon Dioxide monitoring and blood pressure monitoring were done throughout the procedure. Procedure: The patient was placed in the left lateral decubitis position and pre-procedure medications were administered and a bite block was placed. The endoscope was inserted into the mouth and advanced under direct vision to the third part of duodenum. A careful inspection was made as the upper endoscope was withdrawn including a retroflexed examination of the proximal stomach; Findings and interventions are described below. Findings: Larynx: Normal Esophagus: GE junction at 35 cms, hiatal hernia 35 to 38 cms. Mildly tortuous esophagus without stricture or ring. No esophagitis or Garcia's. Stomach: Three 8 to 10 mm benign appearing polyps in the gastric body - removed with a cold snare. Four 10 - 15mm benign appearing polyps in the gastric fundus and hiatal hernia sac - removed with a hot snare. Larger polyps were retrieved with a Jamison net. Grade 3 flap valve on retroflexed examination of the cardia. Duodenum: Normal bulb and descending duodenum Intervention: Biopsies as noted above Impression and Post Procedure Diagnosis: Colonoscopy Findings: One small polyp was removed Moderate to severe diverticulosis seen in the left colon Small hemorrhoids on retroflexed exam. Endoscopy Findings: ESOPHAGUS: Medium sized hiatal hernia. STOMACH: Seven polyps were removed from the stomach Plan: Pt has a FU appointment on 06/03/[address] Flowers Repeat EGD (FU of gastric polyps) in 3 years and Colonoscopy in 5 years due to a history of adenomatous colon polyps (Pt needs GA due to morbid obesity with obstructive sleep apnea) Above findings were reviewed with the patient and relevant handouts were given and the discharge area. BIOPSIES SHOWED: A. Stomach, body, polyps: Hyperplastic mucosal polyps with background moderate chronic inactive inflammation; no Helicobacter organisms seen. B. Stomach, fundus, polyps: Hyperplastic and fundic gland polyps with background moderate chronic active erosive inflammation; no Helicobacter organisms seen Letter sent to the patient with biopsy results and pt placed on EGD and colon recall list
[2024-05-21] MEDS: Haloperidol Lactate 5 MG/ML VIAL 1 MG IVPUSH (15:59)
== END 2024-05-21 16:21 | disposition home or self-care (01) ==
PROVIDERS: PCP Internal Medicine; Visit Provider Internal Medicine Gastroenterology
PROC: (CPT 43251; principal; 2024-05-21 12:40)
DX: K31.7 Polyp of stomach and duodenum (principal); K44.9 Diaphragmatic hernia without obstruction or gangrene; K22.2 Esophageal obstruction; K29.70 Gastritis, unspecified, without bleeding; K21.9 Gastro-esophageal reflux disease without esophagitis; D50.9 Iron deficiency anemia, unspecified; Z12.11 Encounter for screening for malignant neoplasm of colon; K57.30 Diverticulosis of large intestine without perforation or abscess without bleeding; K56.699 Other intestinal obstruction unspecified as to partial versus complete obstruction; K64.8 Other hemorrhoids; Z86.010 Personal history of colon polyps; I10 Essential (primary) hypertension; E21.3 Hyperparathyroidism, unspecified; E55.9 Vitamin D deficiency, unspecified; E66.01 Morbid (severe) obesity due to excess calories; Z68.43 Body mass index [BMI] 50.0-59.9, adult; Z90.710 Acquired absence of both cervix and uterus; Z90.49 Acquired absence of other specified parts of digestive tract; Z79.899 Other long term (current) drug therapy
CPT/HCPCS: 43251; 43239; 45385; 88305; 88313; 88342; J0330; J1100; J1630; J2405; J2704; J3010

== ENCOUNTER → 2024-05-21 10:51 | Outpatient (BNV) | payer OTHER, SELFPAY | PROVIDERS: PCP Internal Medicine; Visit Provider Internal Medicine Gastroenterology | DX: Z12.11 Encounter for screening for malignant neoplasm of colon (principal); Z86.010 Personal history of colon polyps; K63.5 Polyp of colon; K57.90 Diverticulosis of intestine, part unspecified, without perforation or abscess without bleeding; K64.8 Other hemorrhoids; K31.7 Polyp of stomach and duodenum | CPT/HCPCS: 43251; 45385 ==

== ENCOUNTER 2024-06-15 08:17 | Outpatient (AMB) | payer OTHER, SELFPAY ==
--- NOTE | 2024-06-15 08:20 | MHC.OFFVIS ---
Vital Signs 06/15/24 08:22 Height 5 ft 7 in Weight 332 lb BMI 52.0 BP 145/72 H Blood Pressure Location Lt brachial Position Sitting Pulse 68 Intake Visit Reasons: s/p egd/colon Intake Note: Patient follow up for EGD/Colonoscopy results. 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 Shingle Inspector Required: No Accompanied by: Self / Same As Patient Allergies potassium Allergy (Intermediate, Verified 06/15/24 08:20) Palpitations Medication List - Last Reconciled 06/15/24 by Aaron Flowers MD atenolol 25 mg PO DAILY cholecalciferol (vitamin D3) (Vitamin D3) 25 mcg PO DAILY ferrous sulfate (FeroSul) 325 mg PO DAILY hydrochlorothiazide 25 mg PO QAM levothyroxine 175 mcg PO DAILY omeprazole 20 mg PO DAILY HPI HPI s/p egd/colon : Details: GI clinic visit for this 53-year-old female for fu of multiple gastric polyps. Pt was seen by Dr Roblero in 05/2020 during hospitalization at [facility]. TODAY'S VISIT: Patient denies any GI issues. Trying to loose weight - plans to discuss medical wt loss with PCP on her next visit PAST VISITS: EGD results reviewed with the patient. Taking Omeprazole 20 mg once daily and denies GERD symptoms Taking chewable iron with Vitamin C. Started on spironolactone and notes some fatigue. Has been doing intermittent fasting and has lost 20 lbs. Start eating at 11 am and stop eating at 7 pm. Patient denies symptoms of heartburn, dysphagia, nausea, vomiting, change in appetite or weight.? Denies recent change in bowel habits, constipation, diarrhea, black stools or rectal bleeding. EGD findngs and bx results reviewed with the patient She lost 10 lbs on higher dose of thyroid medications, regained 10 lbs when thyroid medication dose was reduced. Patient denies major cardiac or pulmonary problems, loud snoring or sleep apnea Has motion sickness and gets a lot of vomiting after anesthesia - Denies problems after EGD with propofol anesthesia at [facility] [place]. Denies being on chronic anticoagulation. Has been taking chewable iron once daily since 10/2020 Patient denies known family history of colon cancer or other GI malignancies. Dad has had colon polyps in his 50's. PAST EGD/COLONOSCOPY:? Last EGD and colonoscopy in 2011 at [place] - normal per patient ENDOSCOPIC STUDIES:?04/18/23 EGD SHOWED: Endoscopy Findings: STOMACH: Multiple gastric polyps - 4 larger polyps removed with a hot snare Plan: Patient has an appointment on 05/22/23 in the GI Clinic with Aaron Flowers M.D. BIOPSIES SHOWED: Stomach, polyps: Fundic gland and hyperplastic mucosal polyps with background mild chronic inactive inflammation; no Helicobacter organisms seen 03/25/22 EGD SHOWED:ESOPHAGUS: GE junction at 33 cms. ? Esophagitis with multiple 2-3 cms long linear erosions from 30 to 33 cms. STOMACH: Multiple 1 to 3 cms gastric polyps.? Two larger polyps were removed with a hot snare and retrieved with a Jamison net. Plan:? Repeat EGD in 6 months with [facility] BIOPSIES SHOWED: A.? Gastric antrum, biopsy:? Gastric antral mucosa with mild reactive changes and minimal chronic inactive gastritis; negative for H pylori, intestinal metaplasia and dysplasia.? B.? Gastric polyps:? Fundic gland polyps with focal reactive changes, and active inflammation with erosion; negative for H pylori, intestinal metaplasia and dysplasia. 05/21/21 EGD AND COLON SHOWED:STOMACH: Multiple 1 to 3 cms gastric polyps.? Larger polyps with ulcerations. Six large polyps were removed with a hot snare and retrieved with a Jamison net. Some bleeding noted from polypectomy site - treated with cautery using the snare tip. Colonoscopy Findings:? Two medium sized polyps removed Moderate diverticulosis seen in the left colon Small hemorrhoids on retroflexed exam. Plan:? Repeat Colonoscopy interval based on path results - in 3 years if polyps are adenomatous and 10 years if polyps are hyperplastic. [facility] Medical History Menopause Postsurgical hypothyroidism Adrenal cortical adenoma of left adrenal gland Lump of skin of back Hyperparathyroidism Iron deficiency anemia Vitamin D deficiency Multinodular thyroid Benign essential hypertension Goiter Fundic gland polyps of stomach, benign Morbid obesity with BMI of 45.0-49.9, adult Anemia GERD (gastroesophageal reflux disease) HTN (hypertension) Surgical History (Updated 06/11/24 @ 13:47 by Cait Hawkins) History of esophagogastroduodenoscopy (EGD) History of thyroidectomy (~07/11/21) Hx of endoscopy History of colonoscopy History of cholecystectomy Hx of breast reduction, elective History of hysterectomy (~2008) Family History Father FH: colon polyps Family hx of prostate cancer Mother Hx of diabetes insipidus Family history of high blood pressure Maternal Grandmother Breast cancer Family/Other Breast cancer Social History Household Members: Family and Children Household Members Other:: lives with mom and nephew Housing: Apartment Are you a primary home care music therapist to a significant other at home: No Do you presently have visiting nurse or other home services: No Alcohol intake: never Patient Tobacco Use Status: Never used Tobacco e-Cigarette/Vaping Use: Never Used Second Hand Smoke Exposure: No service: No Current occupational status: employed Current occupation: [employer] Cognitive needs: No Hearing needs: No Vision needs: Yes Female Reproductive History Menstrual Age of Menarche: 14 Review of Systems Const All systems reviewed & are unremarkable except as noted in HPI and below Physical Exam Vital Signs: Last Vital Signs Pulse 68 06/15/24 08:22 BP 145/72 H 06/15/24 08:22 BMI result Body Mass Index 52.0 Const General: healthy appearing and no acute distress Nutritional Appearance: obese Orientation/consciousness: patient oriented x3 Limitations: no limitations HEENT Head: Yes normal to inspection Ears: hearing grossly normal bilaterally Eyes Sclerae: sclerae normal Pupils: Equal, round and reactive pupils present Neck Neck: Yes normal visual inspection Chest Chest palpation & inspection: normal inspection of the chest Resp Effort & Inspection: normal respiratory effort Auscultation: clear to auscultation bilaterally Cardio Palpation: normal PMI Rate: regular rate Rhythm: regular rhythm Heart sounds: S1 normal heart sound present, S2 normal heart sound present and no murmurs GI Palpation (GI): Soft to palpation, nontender and No hepatosplenomegaly present Auscultation: normal bowel sounds Rectal Exam - Female: deferred Skin General skin exam: no rashes or lesions noted Neuro General: patient oriented x3, gait normal and moves all extremities Cranial nerves: Yes Equal, round and reactive pupils present Psych Appearance: grossly normal Mental Status: mental status grossly normal Assessment & Plan Assessment & Plan (1) Gastritis: Code(s): K29.70 - Gastritis, unspecified, without bleeding Category: Medical Qualifiers: Gastritis type: unspecified gastritis Chronicity: unspecified Gastritis bleeding: with bleeding Qualified Code(s): K29.71 - Gastritis, unspecified, with bleeding (2) Fundic gland polyps of stomach, benign: Comment: Polyps were Hyperplastic by histology. Code(s): D13.1 - Benign neoplasm of stomach Category: Medical (3) Vitamin D deficiency: Code(s): E55.9 - Vitamin D deficiency, unspecified Category: Medical (4) Iron deficiency anemia: Code(s): D50.9 - Iron deficiency anemia, unspecified Category: Medical Qualifiers: Iron deficiency anemia type: unspecified iron deficiency Qualified Code(s): D50.9 - Iron deficiency anemia, unspecified (5) Colon cancer screening: Comment: 04/2021 Two medium sized polyps removed during colonoscopy Moderate diverticulosis seen in the left colon Small hemorrhoids on retroflexed exam. Plan:? Repeat Colonoscopy interval based on path results - in 3 years (due 04/2024) Code(s): Z12.11 - Encounter for screening for malignant neoplasm of colon Category: Medical (6) History of colon polyps: Code(s): Z86.010 - Personal history of colon polyps Category: Medical (7) GERD (gastroesophageal reflux disease): Code(s): K21.9 - Gastro-esophageal reflux disease without esophagitis Category: Medical Plan 53 year old female with hypertension, thyroid disease (MNG) followed in GI for multiple large hyperplastic gastric polyps. Pt is status post cholecystectomy and thyroid surgery for enlarged thyroid with nodules. She was seen in the ED on 06/03/2020 for upper GI bleed. EGD by DR Roblero showed several large polyps and some were actively bleeding. She had a repeat endoscopy on 08/15/[address] Jarquin and 6 large gastric polyps were removed with no complications. 05/21/21 Repeat EGD was performed and?multiple 1 to 3 cms gastric polyps.? Larger polyps with ulcerations. Six large polyps were removed with a hot snare and retrieved with a Jamison net. Pt will be scheduled for a FU EGD with GA in spring/summer of 2022 for removal of additional gastric polyps. Pt was advised to decrease Omeprazole to 20 mg at bedtime and to take a 2nd dose prn during the day. If GERD symptoms remain well controlled, can consider switching to famotidine twice daily in the future 03/2023 repeat EGD was performed and results as noted above EMILIA has resolved. 05/21/24 EGD (FU of gastric polyps) and colon (FU of adenomatous colon polyps) showed: Colonoscopy Findings: One small polyp was removed Moderate to severe diverticulosis seen in the left colon Small hemorrhoids on retroflexed exam. Endoscopy Findings: ESOPHAGUS: Medium sized hiatal hernia. STOMACH: Seven polyps were removed from the stomach Plan: Repeat EGD (FU of gastric polyps) in 3 years and Colonoscopy in 5 years due to a history of adenomatous colon polyps (Pt needs GA due to morbid obesity with obstructive sleep apnea) BIOPSIES SHOWED: A. Stomach, body, polyps: Hyperplastic mucosal polyps with background moderate chronic inactive inflammation; no Helicobacter organisms seen. B. Stomach, fundus, polyps: Hyperplastic and fundic gland polyps with background moderate chronic active erosive inflammation; no Helicobacter organisms seen Letter sent to the patient with biopsy results and pt placed on EGD and colon recall list FU in 6 months Coding Level of Care Code Est Pt Level 4 (03387) Diagnoses Gastritis with hemorrhage, unspecified chronicity, unspecified gastritis type K29.71 Gastritis type: unspecified gastritis Chronicity: unspecified Gastritis bleeding: with bleeding Fundic gland polyps of stomach, benign D13.1 Vitamin D deficiency E55.9 Iron deficiency anemia, unspecified iron deficiency anemia type D50.9 Iron deficiency anemia type: unspecified iron deficiency Colon cancer screening Z12.11 History of colon polyps Z86.010 GERD (gastroesophageal reflux disease) K21.9 Time Spent (min) 21
[2024-06-15 08:22] VITALS: BP 145/72; PULSE 68; BMI 52.0
== END 2024-06-15 08:47 | disposition home or self-care (01) ==
PROVIDERS: PCP Internal Medicine; Visit Provider Internal Medicine Gastroenterology
DX: K29.71 Gastritis, unspecified, with bleeding (principal); D13.1 Benign neoplasm of stomach; E55.9 Vitamin D deficiency, unspecified; D50.9 Iron deficiency anemia, unspecified; Z12.11 Encounter for screening for malignant neoplasm of colon; Z86.010 Personal history of colon polyps; K21.9 Gastro-esophageal reflux disease without esophagitis
CPT/HCPCS: 99214

== ENCOUNTER → 2024-06-15 08:17 | Outpatient (BNVA) | payer OTHER, SELFPAY | PROVIDERS: PCP Internal Medicine; Visit Provider Internal Medicine Gastroenterology ==

== ENCOUNTER 2024-08-14 10:40 | Outpatient (REF) | payer OTHER, SELFPAY ==
[2024-08-14 10:53] LABS: MANUAL DIFF FLAG NO
[2024-08-14 11:15] LABS: Basophils Percent Auto 0.4 % (0-2); Eosinophils Absolute Auto 0.1 X10*3/uL (0.0-0.4); Hematocrit 42.2 % (37.0-47.0); Hemoglobin 12.6 g/dl (12.0-16.0); Imm Gran Abs Auto 0.07 X10*3/uL (0.00-0.03); Imm Gran Pct Auto 0.7 % (0.0-0.4); Lymphocytes Absolute Auto 1.7 X10*3/uL (1.2-4.9); Lymphocytes Percent Auto 15.5 % (20-40); Mean Corpuscular HGB Conc 29.9 g/dl (31.0-35.0); Mean Corpuscular Hemoglobin 23.6 pg (27.0-33.0); Mean Corpuscular Volume 78.9 fL (80.0-98.0); Mean Platelet Volume 10.4 fL (9.4-12.3); Monocytes Absolute Auto 0.8 X10*3/uL (0.1-1.2); Neutrophils Absolute Auto 8.1 x10*3/uL (2.0-8.3); Neutrophils Percent Auto 75.4 % (45-73); Platelet Count 318 X10*3/uL (160-400); Red Blood Count 5.35 X10*6/uL (4.20-5.50); Red Cell Distribution Width 15.4 % (11.0-16.0); White Blood Count 10.7 X10*3/uL (4.8-10.8)
[2024-08-14 11:20] LABS: Appearance Urine Cloudy; Color Urine Yellow; Glucose Urine UA Negative (Negative); Leukocyte Esterase Urine Small (1+) (Negative); Nitrite Urine Negative (Negative); Specific Gravity - Urine 1.015 (1.005-1.025); UMIC TRIGGER UACC YES; Urine Blood Small (1+) (Negative); Urine Ketones Negative (Negative); Urine Protein Negative (Neg-Trace)
[2024-08-14 11:25] LABS: Bacteria Urine 1+ (None Seen); Hyaline Casts Urine 0-2 /LPF (0-2); UACC Culture Trigger YES
[2024-08-14 11:29] LABS: Estimated Average Glucose 123 mg/dL; Hemoglobin A1C 131.6772 umol/L; Hemoglobin A1c % 5.9 % (<6.0); Total Hemoglobin (HGBA1C) 3247.5081 umol/L
[2024-08-14 12:04] LABS: Alanine Aminotransferase 23 U/L (0-31); Albumin Level 4.2 g/dL (3.5-5.0); Alkaline Phosphatase 130 U/L (39-117); Anion Gap 12 (12-20); Aspartate Amino Transferase 22 U/L (5-31); Bilirubin Total 0.7 mg/dL (0.0-1.0); Blood Urea Nitrogen 9 mg/dL (9-16); Carbon Dioxide 30 mmol/L (22-29); Chloride 105 mmol/L (96-108); Cholesterol 153 mg/dL (<200); Estimated Glomerular Filt Rate > 60; Glucose Fasting 99 mg/dL (60-99); HDL Cholesterol 47 mg/dL (>40); Iron 36 mcg/dL (30-160); LDL Cholesterol Calculated 85 mg/dL (<100); Percent Iron Saturation 13 % (15-50); Potassium 3.8 mmol/L (3.3-5.1); Sodium 143 mmol/L (135-145); Total Iron Binding Capacity 270 mcg/dL (228-428); Total Protein 8.1 g/dL (6.5-8.0); Triglycerides 107 mg/dL (<150); Unsaturated Iron Binding 234 ug/dL
[2024-08-14 12:23] LABS: Free T4 (Free Thyroxine) 1.33 ng/dL (0.71-1.85); Thyroid Stimulating Hormone 1.51 uIU/mL (0.32-4.0); Vitamin D 25-OH Total 32.9 ng/mL (>30)
[2024-08-14 12:33] LABS: Folate 9.9 ng/mL (> or = 4.0); Vitamin B12 570 pg/mL (200-900)
== END 2024-08-14 10:41 | disposition home or self-care (01) ==
LOC: HO.LAB 10:40
PROVIDERS: PCP Internal Medicine; Visit Provider Internal Medicine
DX: Z00.00 Encounter for general adult medical examination without abnormal findings (principal); E78.00 Pure hypercholesterolemia, unspecified; E55.9 Vitamin D deficiency, unspecified; E03.9 Hypothyroidism, unspecified; D50.9 Iron deficiency anemia, unspecified; E53.8 Deficiency of other specified B group vitamins; D64.9 Anemia, unspecified; E11.9 Type 2 diabetes mellitus without complications; R30.0 Dysuria
CPT/HCPCS: 36415; 80053; 80061; 81001; 82306; 82607; 82746; 83036; 83540; 84439; 84443; 85025; 87086

== ENCOUNTER 2024-08-19 11:24 | Outpatient (AMB) | payer OTHER, SELFPAY ==
[2024-08-19 11:28] VITALS: BP 130/82; PULSE 71; BMI 52.5
--- NOTE | 2024-08-19 11:28 | A.OFFPC_ITS ---
Vital Signs 08/19/24 11:28 Height 5 ft 7 in Weight 335 lb 6 oz BMI 52.5 BP 130/82 Blood Pressure Location Lt brachial Position Sitting Pulse 71 Pulse Source Pulse Oximeter Oxygen Delivery Method Room Air Intake Visit Reasons: PE Tooling Specialist Required: No Accompanied by: Self / Same As Patient Allergies potassium Allergy (Intermediate, Verified 08/19/24 11:56) Palpitations Medication List - Last Reconciled 08/19/24 by Dae Simpson MD atenolol 25 mg PO DAILY cholecalciferol (vitamin D3) (Vitamin D3) 25 mcg PO DAILY ferrous sulfate (FeroSul) 325 mg PO DAILY hydrochlorothiazide 25 mg PO QAM levothyroxine 175 mcg PO DAILY omeprazole 20 mg PO DAILY Tobacco use date assessed: 08/19/24 Dental Screening Dental Screen Date: 08/19/24 Did you have a dental visit in the last 12 months?: Yes Did you have a dental problem in the last 6 months where you did not have access to dental care?: No Was dental information given to patient?: Patient has dentist HPI PE HPI Details Patient comes in today for her annual physical examination States that she feels okay She denies any headaches or dizziness Denies any chest pains, no shortness of breath No nausea/vomiting, no abdominal pain No change in bowel habits noted She denies any acute urinary symptoms Needs several of her Rx refilled She had her follow-up labs done a few days ago - to discuss her results Would also like to see if she can try some of the GLP-1s available to help her lose weight She is up-to-date with her annual gynecologic exam and Pap smear - was last seen in January 2024 and her next appointment is already scheduled for February in 2024 Patient is also up-to-date with her annual mammogram - she is scheduled for her next mammogram in September 2024 She had her repeat colonoscopy last done a few months ago in April 2024 and because of her history of tubular adenoma, was recommended to have a repeat colonoscopy in 5 years (2028) [facility] Medical History Menopause Postsurgical hypothyroidism Adrenal cortical adenoma of left adrenal gland Lump of skin of back Hyperparathyroidism Iron deficiency anemia Vitamin D deficiency Multinodular thyroid Benign essential hypertension Goiter Fundic gland polyps of stomach, benign Morbid obesity with BMI of 45.0-49.9, adult Anemia GERD (gastroesophageal reflux disease) HTN (hypertension) Surgical History History of esophagogastroduodenoscopy (EGD) History of thyroidectomy (~07/11/21) Hx of endoscopy History of colonoscopy History of cholecystectomy Hx of breast reduction, elective History of hysterectomy (~2008) Family History Father FH: colon polyps Family hx of prostate cancer Mother Hx of diabetes insipidus Family history of high blood pressure Maternal Grandmother Breast cancer Family/Other Breast cancer Social History Household Members: Family and Children Household Members Other:: lives with mom and nephew Housing: Apartment Are you a primary md do resident urgent care to a significant other at home: No Do you presently have visiting nurse or other home services: No Alcohol intake: never Patient Tobacco Use Status: Never used Tobacco e-Cigarette/Vaping Use: Never Used Second Hand Smoke Exposure: No service: No Current occupational status: employed Current occupation: [employer] Cognitive needs: No Hearing needs: No Vision needs: Yes Female Reproductive History Menstrual Age of Menarche: 14 Questionnaire PHQ-9 Over the last 2 weeks, how often have you been bothered by any of the following problems? 1. Little interest or pleasure in doing things: not at all 2. Feeling down, depressed, or hopeless: not at all 3. Trouble falling or staying asleep, or sleeping too much: not at all 4. Feeling tired or having little energy: not at all 5. Poor appetite or overeating: several days 6. Feeling bad about yourself - or that you are a failure or have let yourself or your family down: not at all 7. Trouble concentrating on things, such as reading the newspaper or watching television: not at all 8. Moving or speaking so slowly that other people could have noticed. Or the opposite - being so fidgety or restless that you have been moving around a lot more than usual: not at all 9. Thoughts that you would be better off or of hurting yourself in some way: not at all Total score: 1 Depression Screening Interpretation: Negative Depression Screening Done: Yes 24083 - PHQ-9 Billing: Yes Source: Developed by Drs. Bobby Barahona, Roxann Boyle, Tyler Romero and colleagues, with an educational terrell from [employer]. Thrive Questionnaire Date Thrive assessed: 08/19/24 I am a: Patient What is your living situation today?: I have a steady place to live Within the past 12 months, did the food you bought not last and you didn't have the money to get more?: Never true Within the past 12 months, did you worry whether your food would run out before you got money to buy more?: Never true Do you have trouble paying for medicines?: No Do you have trouble getting transportation to medical appointments?: No Do you have trouble paying your heating and electricity bill?: No Do you have trouble taking care of your child, family member or friend?: No Do you have trouble with day-to-day activities such as bathing, preparing meals, shopping, managing finances, etc.?: No Are you currently unemployed and looking for a job?: No Are you interested in more education?: No Please select the resources that you would like help with: None Currently or been in a relationship where the following occur: No concerns reported THRIVE Score: 0 AUDIT C Alcohol Use Questionnaire (AUDIT-C) 1. How often do you have a drink containing alcohol?: Monthly or less 2. How many drinks containing alcohol do you have on a typical day when you are drinking?: 1 or 2 3. How often do you have six or more drinks on one occasion?: Never Total Score: 1 Score Reviewed/Action Taken: Yes JUDAH-7 AMB Questionnaire JUDAH-7 Date JUDAH - 7 assessed: 08/19/24 Feeling nervous, anxious, or on edge: 0 = Not at all Not being able to stop or control worryin = Not at all Worrying too much about different things: 0 = Not at all Trouble relaxin = Not at all Being so restless that it is hard to sit still: 0 = Not at all Becoming easily annoyed or irritable: 0 = Not at all Feeling afraid as if something awful might happen: 0 = Not at all Total JUDAH-7 score (0-4 normal; 5-9 mild; 10-14 moderate; 15-21 severe): 0 Source: Developed by Drs. Bobby Barahona, Roxann Boyle, Tyler Romero and colleagues, with an educational terrell from [employer]. Review of Systems Const Denies chills, Denies fatigue, Denies fever(s), Denies headache(s) and Denies malaise Eyes Denies blurry vision, Denies change in vision, Denies irritation and Denies itchy eyes ENT Denies dysphagia, Denies dizziness, Denies otalgia, Denies headache(s), Denies nasal congestion, Denies neck pain, Denies odynophagia, Denies sinus pain and Denies sore throat Card Denies chest pain, Denies rapid heart rate, Denies irregular heart rhythm, Denies palpitations and Denies dyspnea Resp Denies chest congestion, Denies cough, Denies dyspnea and Denies wheezing GI Denies abdominal pain, Denies bloating, Denies constipation, Denies dysphagia, Denies heartburn, Denies diarrhea, Denies nausea, Denies odynophagia and Denies vomiting Denies hematuria, Denies urinary frequency, Denies dysuria, Denies urinary incontinence and Denies urinary urgency Musc Denies back pain, Denies arthralgias, Denies joint swelling, Denies muscle weakness and Denies neck pain Skin/Breast Denies breast pain, Denies breast mass, Denies change in pigmentation, Denies lesions, Denies rash and Denies unusual bruising Neuro Denies dizziness, Denies headache(s) and Denies paresthesias Psych Denies anxiety and Denies depression Endo Denies fatigue and Denies palpitations Joao/Lymph Denies easy bruising Aller/Immun Denies itchy eyes and Denies wheezing Physical exam (Primary Care) Vital Signs: Last Vital Signs Pulse 71 08/19/24 11:28 BP 130/82 08/19/24 11:28 Oxygen Delivery Method Room Air 08/19/24 11:28 BMI result Body Mass Index 52.5 Tobacco/Smoking Status: Tobacco use Status Tobacco use date assessed 08/19/24 08/19/24 11:33 Patient Tobacco Use Status Never used Tobacco 08/19/24 11:33 e-Cigarette/Vaping Use Never Used 08/19/24 11:33 PHQ-9: PHQ-9 Score PHQ-9: Total score 1 08/19/24 12:06 Depression Screening Interpretation: Negative Thrive Assessment: Date of Thrive Assessment Date Thrive assessed 08/19/24 08/19/24 11:33 Currently or been in a relationship where the following occur: No concerns reported Const General: no acute distress, alert and awake Orientation/consciousness: patient oriented x3 [facility] Head: Yes normocephalic and Yes atraumatic Ears: external ears normal, TM's normal bilaterally and EAC's normal General nose exam: No nasal discharge present Face and sinus: Yes normal facial exam and Yes sinuses nontender Teeth and gingiva: dentition normal Throat: Yes posterior oropharynx normal and Yes tonsils normal (no TP congestion) Eyes Eyelids: Yes eyelids normal Conjunctivae: conjunctivae normal Pupils: Equal, round and reactive pupils present EOM: EOMs intact bilaterally Neck Neck: Yes supple and No lymphadenopathy Thyroid: Thyroid normal Resp Auscultation: clear to auscultation bilaterally, no rales and no wheezes Cardio Rate: regular rate Rhythm: regular rhythm Heart sounds: no murmurs GI Palpation (GI): Soft to palpation, nontender and No hepatosplenomegaly present Auscultation: normal bowel sounds General: Yes no CVA tenderness Back/Spine/Pelvis Back: no CVA tenderness Thoracic/Lumbar Spine: thoracic and lumbar spine normal to inspection Skin Lesions: no lesions Rashes: no rashes Neuro General: patient oriented x3, moves all extremities, no focal motor deficits and CN's II-XI intact bilaterally Cranial nerves: Yes Equal, round and reactive pupils present Cognition (Neuro): normal cognition Gait exam (Neuro): Normal gait present Extrem General: Yes no clubbing, cyanosis or edema Results Reviewed Results Reviewed: Laboratory Tests 08/09/23 08/09/23 08/14/24 09:55 09:56 10:50 WBC Hgb Hct Plt Count Sodium 145 Potassium 3.4 Creatinine 0.83 Estimated GFR > 60 Random Glucose 104 Fasting Glucose Hemoglobin A1c % Calcium 9.4 Iron TIBC % Saturation AST ALT Triglycerides Cholesterol LDL Cholesterol, Calc HDL Cholesterol Vitamin B12 25-OH Vitamin D Total TSH Free T4 Ur Specific [place] 1.025 1.015 Urine Protein Negative Negative Urine Glucose (UA) Negative Negative Urine Blood Moderate (2+) H Small (1+) H Urine Nitrite Negative Negative Ur Leukocyte Esterase Small (1+) H Small (1+) H 08/14/24 10:52 WBC 10.7 Hgb 12.6 Hct 42.2 Plt Count 318 Sodium 143 Potassium 3.8 Creatinine 0.75 Estimated GFR > 60 Random Glucose Fasting Glucose 99 Hemoglobin A1c % 5.9 Calcium 9.0 Iron 36 TIBC 270 % Saturation 13 L AST 22 ALT 23 Triglycerides 107 Cholesterol 153 LDL Cholesterol, Calc 85 HDL Cholesterol 47 Vitamin B12 570 25-OH Vitamin D Total 32.9 TSH 1.51 Free T4 1.33 Ur Specific [place] Urine Protein Urine Glucose (UA) Urine Blood Urine Nitrite Ur Leukocyte Esterase Coding Level of Care Code Est Pt Prev Care 40-64y([id number]) Diagnoses Annual physical exam Z00.00 Benign essential hypertension I10 Multinodular thyroid E04.2 Postsurgical hypothyroidism E89.0 Iron deficiency anemia, unspecified iron deficiency anemia type D50.9 Iron deficiency anemia type: unspecified iron deficiency Vitamin D deficiency E55.9 Impaired fasting glucose R73.01 Gastritis with hemorrhage, unspecified chronicity, unspecified gastritis type K29.71 Gastritis type: unspecified gastritis Chronicity: unspecified Gastritis bleeding: with bleeding Adrenal cortical adenoma of left adrenal gland D35.02 Stasis edema of both lower extremities I87.303 Left foot pain M79.672 Morbid obesity with BMI of 50.0-59.9, adult E66.01; Z68.43 Osteoporosis screening Z13.820 Additional Codes PHQ-9 - 31965 - PHQ-9 Billing: Yes ([id number]) Assessment & Plan Assessment & Plan (1) Annual physical exam: Code(s): Z00.00 - Encounter for general adult medical examination without abnormal findings Category: Medical Plan: Results of her labs done a few days ago reviewed and discussed with patient Patient is up-to-date with all of her cancer screenings She was last seen by gynecology in January 2024 and her next appointment is already scheduled for February in 2024 Patient is also up-to-date with her annual mammogram - she is scheduled for her next mammogram in September 2024 She had her repeat colonoscopy last done a few months ago in April 2024 and because of her history of tubular adenoma, was recommended to have a repeat colonoscopy in 5 years (2028) She had hysterectomy done back in 2008 for her uterine fibroids so it is difficult to determine when she started menopause Due to her current age, we will go ahead and send her for her index bone density scan to screen for osteoporosis (2) Benign essential hypertension: Code(s): I10 - Essential (primary) hypertension Category: Medical Plan: Reinforced low sodium diet - goal is systolic BP of at least 120 to 130 mm or less Continue Atenolol 25 mg QD and HCTZ 25 mg Q AM Patient is reminded to continue monitoring her blood pressure regularly (3) Multinodular thyroid: Comment: S/P total thyroidectomy by Dr. Dukes on 07/11/2021 due to compressive neck symptoms Code(s): E04.2 - Nontoxic multinodular goiter Category: Medical Plan: S/P total thyroidectomy in 06/2021; pathology came out benign She will require lifelong thyroid hormone replacement therapy (4) Postsurgical hypothyroidism: Code(s): E89.0 - Postprocedural hypothyroidism Category: Medical Plan: Her TFTs were normal on her recent labs Continue Levothyroxine 175 mcg QD Will recheck her TFTs in 3 months for follow up Follow up with endocrinology as scheduled (5) Iron deficiency anemia: Code(s): D50.9 - Iron deficiency anemia, unspecified Category: Medical Qualifiers: Iron deficiency anemia type: unspecified iron deficiency Qualified Code(s): D50.9 - Iron deficiency anemia, unspecified Plan: Her H/H were normal/unchanged at 12.6/42.2 on her recent labs done a few days ago Continue Ferrous Sulfate 325 mg QD Will continue to monitor her CBC regularly (6) Vitamin D deficiency: Code(s): E55.9 - Vitamin D deficiency, unspecified Category: Medical Plan: Continue Vitamin D3 1000 units QD (7) Impaired fasting glucose: Code(s): R73.01 - Impaired fasting glucose Category: Medical Plan: Her HgbA1c was at 5.9% on her recent labs (was previously normal at 5.6% back in February 2023) Reinforced low calorie/low carb diet/exercise as tolerated Will recheck her FBS and HgbA1c in 3 months for follow up (8) Gastritis: Code(s): K29.70 - Gastritis, unspecified, without bleeding Category: Medical Qualifiers: Gastritis type: unspecified gastritis Chronicity: unspecified Gastritis bleeding: with bleeding Qualified Code(s): K29.71 - Gastritis, unspecified, with bleeding Plan: S/P EGD with Dr. Flowers in 04/2024 and she was recommended again for repeat EGD in 3 years Dietary restrictions reinforced Continue Omeprazole 40 mg QD Follow-up with GI as scheduled (9) Adrenal cortical adenoma of left adrenal gland: Comment: 1.6 cm left adrenal nodule Code(s): D35.02 - Benign neoplasm of left adrenal gland Category: Medical Plan: Repeat abdominal CT done in June 2022 revealed (+) left adrenal benign adenoma, measuring 1.6 cm, which is approximately the same size as seen on previous study on 06/14/2021. The rest of the abdominal findings are unremarkable Patient has been worked up and evaluated by endocrinology and was advised that her adrenal adenoma is most likely benign although she was also evaluated for possible hyperaldosteronism She was advised on potential medical Tx with Spironolactone or Eplerenone versus referral to the adrenal center at [facility] for further work up but patient declined as she feels that her blood pressure has been well-controlled so far Follow up with endocrinology as scheduled (10) Stasis edema of both lower extremities: Code(s): I87.303 - Chronic venous hypertension (idiopathic) without complications of bilateral lower extremity Category: Medical Plan: This is most likely due to venous stasis Patient is reminded again to keep her legs elevated as often as she can throughout the day to help minimize her swelling and that wearing compressions stockings and losing weight can also help (11) Left foot pain: Code(s): M79.672 - Pain in left foot Category: Medical Plan: X-rays of the left foot done back in January 2024 revealed (+) moderate posterior and plantar calcaneal spurring, mild degenerative changes at the dorsal aspect of the midfoot and mild degenerative changes at the first metatarsophalangeal joint Follow up with podiatry as scheduled (12) Morbid obesity with BMI of 50.0-59.9, adult: Code(s): E66.01 - Morbid (severe) obesity due to excess calories; Z68.43 - Body mass index [BMI] 50.0-59.9, adult Category: Medical Plan: Reinforce diet/exercise as tolerated/lose weight Per request, will try starting her on semaglutide (Wegovy) 0.25 mg SQ once a week to help her lose weight but cautioned that her insurance may not agree to cover the Rx (13) Osteoporosis screening: Code(s): Z13.820 - Encounter for screening for osteoporosis Category: Medical Plan: Will send patient for her index bone density scan for osteoporosis screening Plan Follow up in 3 months Orders: Orders Thyroid Stimulating Hormone 11/07/24 E03.9 - Hypothyroidism, unspecified XR DEXA axial skeleton 08/19/24 Z78.0 - Asymptomatic menopausal state Complete Blood Count Auto Diff 11/07/24 D64.9 - Anemia, unspecified Comprehensive [place]. Panel Fast 11/07/24 E78.00 - Pure hypercholesterolemia, unspecified Lipid Panel 11/07/24 E78.00 - Pure hypercholesterolemia, unspecified Free T4 (Free Thyroxine) 11/07/24 E03.9 - Hypothyroidism, unspecified Hemoglobin A1c 11/07/24 E11.9 - Type 2 diabetes mellitus without complications UA CC w/rflx Micro + Cult 11/07/24 R30.0 - Dysuria Vitamin D 25-OH Total 11/07/24 E55.9 - Vitamin D deficiency, unspecified Medications: New semaglutide (weight loss) (Sunny) administer weeks 1 through 4 of therapy 0.25 mg (0.5 mL) subcut QWEEK 4 weeks 2 mL 0RF Changed From atenolol 25 mg PO DAILY 90 tabs 1RF I10 - Essential (primary) hypertension To atenolol 25 mg PO DAILY 90 days 90 tabs 1RF I10 - Essential (primary) hypertension From levothyroxine 175 mcg PO DAILY 90 tabs 3RF To levothyroxine 175 mcg PO DAILY 90 days 90 tabs 3RF From omeprazole 20 mg PO DAILY 90 caps 1RF K21.9 - Gastro-esophageal reflux disease without esophagitis To omeprazole 20 mg PO DAILY 90 days 90 caps 1RF K21.9 - Gastro-esophageal reflux disease without esophagitis From hydrochlorothiazide 25 mg PO QAM 90 tabs 1RF I10 - Essential (primary) hypertension To hydrochlorothiazide 25 mg PO QAM 90 days 90 tabs 1RF I10 - Essential (primary) hypertension
== END 2024-08-19 12:32 | disposition home or self-care (01) ==
PROVIDERS: PCP Internal Medicine; Visit Provider Internal Medicine
DX: Z00.00 Encounter for general adult medical examination without abnormal findings (principal); I10 Essential (primary) hypertension; E66.01 Morbid (severe) obesity due to excess calories; Z68.43 Body mass index [BMI] 50.0-59.9, adult; E04.2 Nontoxic multinodular goiter; E89.0 Postprocedural hypothyroidism; D50.9 Iron deficiency anemia, unspecified; E55.9 Vitamin D deficiency, unspecified; R73.01 Impaired fasting glucose; K29.71 Gastritis, unspecified, with bleeding; D35.02 Benign neoplasm of left adrenal gland; I87.303 Chronic venous hypertension (idiopathic) without complications of bilateral lower extremity

== ENCOUNTER → 2024-08-19 11:24 | Outpatient (BNVA) | payer OTHER, SELFPAY | PROVIDERS: PCP Internal Medicine; Visit Provider Internal Medicine | DX: Z00.00 Encounter for general adult medical examination without abnormal findings (principal); I10 Essential (primary) hypertension; E04.2 Nontoxic multinodular goiter; E89.0 Postprocedural hypothyroidism; D50.9 Iron deficiency anemia, unspecified; E55.9 Vitamin D deficiency, unspecified; R73.01 Impaired fasting glucose; K29.71 Gastritis, unspecified, with bleeding; D35.02 Benign neoplasm of left adrenal gland; I87.303 Chronic venous hypertension (idiopathic) without complications of bilateral lower extremity; M79.672 Pain in left foot; E66.01 Morbid (severe) obesity due to excess calories; Z68.43 Body mass index [BMI] 50.0-59.9, adult; Z79.899 Other long term (current) drug therapy | CPT/HCPCS: 96127 ==

== ENCOUNTER 2024-10-01 14:21 | Outpatient (REF) | payer OTHER, SELFPAY ==
--- NOTE | ~2024-10-01 | MM_ITS ---
EXAMINATION: DXA BONE DENSITY AXIAL HISTORY: Estrogen deficiency TECHNIQUE: Novalere FP Dual energy absorptiometry (DEXA) of the lumbar spine, total left hip, and femoral neck was performed. COMPARISON: There are no prior studies for comparison. FINDINGS: The bone mineral density of the lumbar spine is 1.243 with a T-score of 0.5, and a Z-score of -0.7. The bone mineral density of the left total hip is 1.020 with a T-score of 0.1, and a Z-score of -1.1. The bone mineral density of the left femoral neck is 0.968 with a T-score of -0.5, and a Z-score of -1.3. FRACTURE RISK: The FRAX index suggests a risk of major osteoporotic fracture of 1.7%, and of hip fracture 0.0%. MM/XR DEXA axial skeleton IMPRESSION: Based on bone mineral density, and according to World Health Organization (WHO) criteria, the diagnosis is consistent with normal bone mineral density. All bone density values are in grams per centimeter squared (g/cm2). Statistically, 68% of repeat scans fall within 1 SD (+/- 0.010 g/cm2 for AP spine L1-L4) and 1 SD (+/- 0.012 g/cm2 for femur total) FRAX is a trademark of the [employer] Met[employer], a World Health Organization (WHO) Collaborating Center. Electronically signed by: Bobby Burns MD 10/05/2024 03:34 PM [email or web address]
== END 2024-10-01 14:22 | disposition home or self-care (01) ==
LOC: HO.MAMMO 14:21
PROVIDERS: PCP Internal Medicine; Visit Provider Internal Medicine
DX: Z12.31 Encounter for screening mammogram for malignant neoplasm of breast (principal); Z13.820 Encounter for screening for osteoporosis; Z78.0 Asymptomatic menopausal state
CPT/HCPCS: 77063; 77067; 77080

== ENCOUNTER → 2024-10-01 14:30 | Outpatient (BNV) | payer OTHER, SELFPAY | PROVIDERS: PCP Internal Medicine; Visit Provider Radiology Diagnostic Radiology | DX: Z12.31 Encounter for screening mammogram for malignant neoplasm of breast (principal) | CPT/HCPCS: 77063; 77067 ==

== ENCOUNTER 2024-11-19 15:46 | Outpatient (AMB) | payer OTHER, SELFPAY ==
[2024-11-19 15:48] VITALS: BP 120/82; PULSE 95; O2SAT 97; BMI 49.8
--- NOTE | 2024-11-19 15:48 | MHC.PC.OV ---
Vital Signs 11/19/24 15:48 Height 5 ft 7 in Weight 318 lb BMI 49.8 BP 120/82 Blood Pressure Location Lt brachial Position Sitting Pulse 95 Pulse Source Pulse Oximeter Pulse Oximetry (%) 97 Oxygen Delivery Method Room Air Intake Visit Reasons: 3 Month F/U [employer] T[employer] Required: No Accompanied by: Self / Same As Patient Allergies potassium Allergy (Intermediate, Verified 11/19/24 16:27) Palpitations Medication List - Last Reconciled 11/19/24 by Dae Simspon MD atenolol 25 mg PO DAILY 90 days cholecalciferol (vitamin D3) (Vitamin D3) 25 mcg PO DAILY ferrous sulfate (FeroSul) 325 mg PO DAILY hydrochlorothiazide 25 mg PO QAM 90 days levothyroxine 175 mcg PO DAILY 90 days omeprazole 20 mg PO DAILY 90 days semaglutide (weight loss) 1.7 mg (0.75 mL) subcut QWEEK 4 weeks Tobacco use date assessed: 11/19/24 Dental Screening Dental Screen Date: 11/19/24 Did you have a dental visit in the last 12 months?: Yes Did you have a dental problem in the last 6 months where you did not have access to dental care?: No Was dental information given to patient?: Patient has dentist HPI 3 Month F/U HPI Details Patient comes in today for her follow-up visit States that she feels okay and she has been tolerating her Semaglutide injections so far over the past few months without any problems She has already been able to lose almost 18 lbs since her last visit here in late July 2024 She denies any headaches or dizziness Denies any chest pains, no increased shortness of breath No nausea/vomiting, no abdominal pain No change in bowel habits noted She was not able to get her follow-up labs done prior to her visit today Patient had her bone density scan done last month and she would like to know how her bone density came out [facility] Medical History Menopause Postsurgical hypothyroidism Adrenal cortical adenoma of left adrenal gland Lump of skin of back Hyperparathyroidism Iron deficiency anemia Vitamin D deficiency Multinodular thyroid Benign essential hypertension Goiter Fundic gland polyps of stomach, benign Morbid obesity with BMI of 45.0-49.9, adult Anemia GERD (gastroesophageal reflux disease) HTN (hypertension) Surgical History History of esophagogastroduodenoscopy (EGD) History of thyroidectomy (~07/11/21) Hx of endoscopy History of colonoscopy History of cholecystectomy Hx of breast reduction, elective History of hysterectomy (~2008) Family History Father FH: colon polyps Family hx of prostate cancer Mother Hx of diabetes insipidus Family history of high blood pressure Maternal Grandmother Breast cancer Family/Other Breast cancer Social History Household Members: Family and Children Household Members Other:: lives with mom and nephew Housing: Apartment Are you a primary acute care surgeon to a significant other at home: No Do you presently have visiting nurse or other home services: No Alcohol intake: never Patient Tobacco Use Status: Never used Tobacco e-Cigarette/Vaping Use: Never Used Second Hand Smoke Exposure: No service: No Current occupational status: employed Current occupation: [employer] Cognitive needs: No Hearing needs: No Vision needs: Yes Female Reproductive History Menstrual Age of Menarche: 14 Questionnaire PHQ-9 Over the last 2 weeks, how often have you been bothered by any of the following problems? 1. Little interest or pleasure in doing things: not at all 2. Feeling down, depressed, or hopeless: not at all 3. Trouble falling or staying asleep, or sleeping too much: not at all 4. Feeling tired or having little energy: not at all 5. Poor appetite or overeating: several days 6. Feeling bad about yourself - or that you are a failure or have let yourself or your family down: not at all 7. Trouble concentrating on things, such as reading the newspaper or watching television: not at all 8. Moving or speaking so slowly that other people could have noticed. Or the opposite - being so fidgety or restless that you have been moving around a lot more than usual: not at all 9. Thoughts that you would be better off or of hurting yourself in some way: not at all Total score: 1 Depression Screening Interpretation: Negative Depression Screening Done: Yes 02556 - PHQ-9 Billing: Yes Source: Developed by Drs. Bobby Barahona, Roxann Boyle, Tyler Romero and colleagues, with an educational terrell from [employer]. Thrive Questionnaire Date Thrive assessed: 11/19/24 I am a: Patient What is your living situation today?: I have a steady place to live Within the past 12 months, did the food you bought not last and you didn't have the money to get more?: Never true Within the past 12 months, did you worry whether your food would run out before you got money to buy more?: Never true Do you have trouble paying for medicines?: No Do you have trouble getting transportation to medical appointments?: No Do you have trouble paying your heating and electricity bill?: No Do you have trouble taking care of your child, family member or friend?: No Do you have trouble with day-to-day activities such as bathing, preparing meals, shopping, managing finances, etc.?: No Are you currently unemployed and looking for a job?: No Are you interested in more education?: No Please select the resources that you would like help with: None Currently or been in a relationship where the following occur: No concerns reported THRIVE Score: 0 AUDIT C Alcohol Use Questionnaire (AUDIT-C) 1. How often do you have a drink containing alcohol?: Monthly or less 2. How many drinks containing alcohol do you have on a typical day when you are drinking?: 1 or 2 3. How often do you have six or more drinks on one occasion?: Never Total Score: 1 Score Reviewed/Action Taken: Yes JUDAH-7 AMB Questionnaire JUDAH-7 Date JUDAH - 7 assessed: 11/19/24 Feeling nervous, anxious, or on edge: 0 = Not at all Not being able to stop or control worryin = Not at all Worrying too much about different things: 0 = Not at all Trouble relaxin = Not at all Being so restless that it is hard to sit still: 0 = Not at all Becoming easily annoyed or irritable: 0 = Not at all Feeling afraid as if something awful might happen: 0 = Not at all Total JUDAH-7 score (0-4 normal; 5-9 mild; 10-14 moderate; 15-21 severe): 0 Source: Developed by Roxann GomezW. [place], Tyler Romero and colleagues, with an educational terrell from [employer]. Review of Systems Const Denies chills, Denies fatigue, Denies fever(s) and Denies headache(s) ENT Denies dysphagia, Denies dizziness, Denies otalgia, Denies headache(s), Denies neck pain, Denies odynophagia and Denies sore throat Card Denies chest pain, Denies irregular heart rhythm, Denies palpitations and Denies dyspnea Resp Denies chest congestion, Denies cough, Denies dyspnea and Denies wheezing GI Denies abdominal pain, Denies constipation, Denies dysphagia, Denies heartburn, Denies diarrhea, Denies nausea, Denies odynophagia and Denies vomiting Denies urinary frequency, Denies dysuria and Denies urinary urgency Musc Denies back pain, Denies arthralgias and Denies neck pain Skin/Breast Denies rash Neuro Denies dizziness, Denies headache(s) and Denies paresthesias Psych Denies anxiety and Denies depression Endo Denies fatigue and Denies palpitations Joao/Lymph Denies easy bruising Aller/Immun Denies wheezing Physical exam (Primary Care) Vital Signs: Last Vital Signs Pulse 95 11/19/24 15:48 BP 120/82 11/19/24 15:48 Pulse Ox 97 11/19/24 15:48 Oxygen Delivery Method Room Air 11/19/24 15:48 BMI result Body Mass Index 49.8 Tobacco/Smoking Status: Tobacco use Status Tobacco use date assessed 11/19/24 11/19/24 15:51 Patient Tobacco Use Status Never used Tobacco 11/19/24 15:51 e-Cigarette/Vaping Use Never Used 11/19/24 15:51 PHQ-9: PHQ-9 Score PHQ-9: Total score 1 11/19/24 16:33 Depression Screening Interpretation: Negative Thrive Assessment: Date of Thrive Assessment Date Thrive assessed 11/19/24 11/19/24 15:51 Currently or been in a relationship where the following occur: No concerns reported Const General: no acute distress and alert HENMT Ears: TM's normal bilaterally and EAC's normal Throat: Yes posterior oropharynx normal and Yes tonsils normal (no TP congestion) Neck Neck: Yes supple and No lymphadenopathy Thyroid: Thyroid normal Resp Auscultation: clear to auscultation bilaterally, no rales and no wheezes Cardio Rate: regular rate Rhythm: regular rhythm Heart sounds: no murmurs GI Palpation (GI): Soft to palpation and nontender Auscultation: normal bowel sounds General: Yes no CVA tenderness Back/Spine/Pelvis Back: no CVA tenderness Thoracic/Lumbar Spine: No lumbar spinal tenderness Skin Rashes: no rashes Extrem General: Yes no clubbing, cyanosis or edema Coding Level of Care Code Est Pt Level 4 (76430) Complex EM visit Add On G2211 Diagnoses Benign essential hypertension I10 Multinodular thyroid E04.2 Postsurgical hypothyroidism E89.0 Iron deficiency anemia, unspecified iron deficiency anemia type D50.9 Iron deficiency anemia type: unspecified iron deficiency Vitamin D deficiency E55.9 Impaired fasting glucose R73.01 Gastritis with hemorrhage, unspecified chronicity, unspecified gastritis type K29.71 Gastritis type: unspecified gastritis Chronicity: unspecified Gastritis bleeding: with bleeding Adrenal cortical adenoma of left adrenal gland D35.02 Stasis edema of both lower extremities I87.303 Morbid obesity with BMI of 45.0-49.9, adult E66.01; Z68.42 Additional Codes PHQ-9 - 10791 - PHQ-9 Billing: Yes ([id number]) Assessment & Plan Assessment & Plan (1) Benign essential hypertension: Code(s): I10 - Essential (primary) hypertension Category: Medical Plan: Reinforced low sodium diet - goal is systolic BP of at least 120 to 130 mm or less Continue Atenolol 25 mg QD and HCTZ 25 mg Q AM Patient is reminded to continue monitoring her blood pressure regularly (2) Multinodular thyroid: Comment: S/P total thyroidectomy by Dr. Dukes on 07/11/2021 due to compressive neck symptoms Code(s): E04.2 - Nontoxic multinodular goiter Category: Medical Plan: S/P total thyroidectomy in 06/2021; pathology came out benign She will require lifelong thyroid hormone replacement therapy (3) Postsurgical hypothyroidism: Code(s): E89.0 - Postprocedural hypothyroidism Category: Medical Plan: Especially since she has lost a significant amount of weight over the past few months, she is instructed to go and get her previously ordered follow-up labs done TRAN Continue Levothyroxine 175 mcg QD Will recheck her TFTs in 4 months for follow up (4) Iron deficiency anemia: Code(s): D50.9 - Iron deficiency anemia, unspecified Category: Medical Qualifiers: Iron deficiency anemia type: unspecified iron deficiency Qualified Code(s): D50.9 - Iron deficiency anemia, unspecified Plan: Her H/H were normal/unchanged at 12.6/42.2 when last checked a few months ago Continue Ferrous Sulfate 325 mg QD Will continue to monitor her CBC regularly (5) Vitamin D deficiency: Code(s): E55.9 - Vitamin D deficiency, unspecified Category: Medical Plan: Continue Vitamin D3 1000 units QD (6) Impaired fasting glucose: Code(s): R73.01 - Impaired fasting glucose Category: Medical Plan: Her HgbA1c was at 5.9% a few months ago (was previously normal at 5.6% back in February 2023) Reinforced low calorie/low carb diet/exercise as tolerated Will recheck her FBS and HgbA1c in 4 months for follow up (7) Gastritis: Code(s): K29.70 - Gastritis, unspecified, without bleeding Category: Medical Qualifiers: Gastritis type: unspecified gastritis Chronicity: unspecified Gastritis bleeding: with bleeding Qualified Code(s): K29.71 - Gastritis, unspecified, with bleeding Plan: S/P EGD with Dr. Flowesr in 04/2024 and she was recommended again for repeat EGD in 3 years (2026) Dietary restrictions reinforced Continue Omeprazole 40 mg QD Follow-up with GI as scheduled (8) Adrenal cortical adenoma of left adrenal gland: Comment: 1.6 cm left adrenal nodule Code(s): D35.02 - Benign neoplasm of left adrenal gland Category: Medical Plan: Repeat abdominal CT done in June 2022 revealed (+) left adrenal benign adenoma, measuring 1.6 cm, which is approximately the same size as seen on previous study on 06/14/2021. The rest of the abdominal findings are unremarkable Patient has been worked up and evaluated by endocrinology and was advised that her adrenal adenoma is most likely benign although she was also evaluated for possible hyperaldosteronism She was advised on potential medical Tx with Spironolactone or Eplerenone versus referral to the adrenal center at [facility] for further work up but patient declined as she feels that her blood pressure has been well-controlled so far Follow up with endocrinology as scheduled (9) Stasis edema of both lower extremities: Code(s): I87.303 - Chronic venous hypertension (idiopathic) without complications of bilateral lower extremity Category: Medical Plan: This is most likely due to venous stasis Patient is reminded again to keep her legs elevated as often as she can throughout the day to help minimize her swelling and that wearing compressions stockings and losing weight can also help (10) Morbid obesity with BMI of 45.0-49.9, adult: 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 Panel Fast 4 Months E78.00 - Pure hypercholesterolemia, unspecified Lipid Panel 4 Months E78.00 - Pure hypercholesterolemia, unspecified Hemoglobin A1c 4 Months R73.01 - Impaired fasting glucose Free T4 (Free Thyroxine) 4 Months E03.9 - Hypothyroidism, unspecified Thyroid Stimulating Hormone 4 Months E03.9 - Hypothyroidism, unspecified
== END 2024-11-19 16:35 | disposition home or self-care (01) ==
LOC: HO.HMCH 15:47
PROVIDERS: PCP Internal Medicine; Visit Provider Internal Medicine
DX: I10 Essential (primary) hypertension (principal); E04.2 Nontoxic multinodular goiter; E66.01 Morbid (severe) obesity due to excess calories; Z68.42 Body mass index [BMI] 45.0-49.9, adult; E89.0 Postprocedural hypothyroidism; D50.9 Iron deficiency anemia, unspecified; E55.9 Vitamin D deficiency, unspecified; R73.01 Impaired fasting glucose; K29.71 Gastritis, unspecified, with bleeding; D35.02 Benign neoplasm of left adrenal gland; I87.303 Chronic venous hypertension (idiopathic) without complications of bilateral lower extremity

== ENCOUNTER → 2024-11-19 15:46 | Outpatient (BNVA) | payer OTHER, SELFPAY | PROVIDERS: PCP Internal Medicine; Visit Provider Internal Medicine | DX: I10 Essential (primary) hypertension (principal); E04.2 Nontoxic multinodular goiter; E89.0 Postprocedural hypothyroidism; D50.9 Iron deficiency anemia, unspecified; E55.9 Vitamin D deficiency, unspecified; R73.01 Impaired fasting glucose; K29.71 Gastritis, unspecified, with bleeding; D35.02 Benign neoplasm of left adrenal gland; I87.303 Chronic venous hypertension (idiopathic) without complications of bilateral lower extremity; E66.01 Morbid (severe) obesity due to excess calories; Z68.42 Body mass index [BMI] 45.0-49.9, adult; Z79.899 Other long term (current) drug therapy | CPT/HCPCS: 96127 ==

== ENCOUNTER 2024-11-22 06:16 | Outpatient (REF) | payer OTHER, SELFPAY ==
[2024-11-22 06:28] LABS: MANUAL DIFF FLAG NO
[2024-11-22 07:08] LABS: Basophils Percent Auto 0.3 % (0-2); Eosinophils Absolute Auto 0.1 X10*3/uL (0.0-0.4); Eosinophils Percent Auto 1.2 % (0-4); Hematocrit 39.5 % (37.0-47.0); Imm Gran Abs Auto 0.04 X10*3/uL (0.00-0.03); Imm Gran Pct Auto 0.4 % (0.0-0.4); Lymphocytes Absolute Auto 1.7 X10*3/uL (1.2-4.9); Lymphocytes Percent Auto 16.5 % (20-40); Mean Corpuscular HGB Conc 30.4 g/dl (31.0-35.0); Mean Corpuscular Hemoglobin 23.9 pg (27.0-33.0); Mean Corpuscular Volume 78.7 fL (80.0-98.0); Mean Platelet Volume 10.5 fL (9.4-12.3); Monocytes Absolute Auto 0.8 X10*3/uL (0.1-1.2); Monocytes Percent Auto 8.1 % (2-11); Neutrophils Absolute Auto 7.7 x10*3/uL (2.0-8.3); Neutrophils Percent Auto 73.5 % (45-73); Platelet Count 316 X10*3/uL (160-400); Red Blood Count 5.02 X10*6/uL (4.20-5.50); Red Cell Distribution Width 15.3 % (11.0-16.0); White Blood Count 10.4 X10*3/uL (4.8-10.8)
[2024-11-22 07:31] LABS: Alanine Aminotransferase 20 U/L (0-31); Albumin Level 4.1 g/dL (3.5-5.0); Alkaline Phosphatase 122 U/L (39-117); Anion Gap 12 (12-20); Aspartate Amino Transferase 23 U/L (5-31); Bilirubin Total 0.7 mg/dL (0.0-1.0); Blood Urea Nitrogen 13 mg/dL (9-16); Calcium 9.3 mg/dL (8.4-10.2); Carbon Dioxide 28 mmol/L (22-29); Chloride 105 mmol/L (96-108); Cholesterol 148 mg/dL (<200); Estimated Glomerular Filt Rate > 60; Glucose Fasting 98 mg/dL (60-99); HDL Cholesterol 43 mg/dL (>40); LDL Cholesterol Calculated 88 mg/dL (<100); Potassium 3.7 mmol/L (3.3-5.1); Sodium 141 mmol/L (135-145); Total Protein 7.6 g/dL (6.5-8.0); Triglycerides 85 mg/dL (<150)
[2024-11-22 07:42] LABS: Estimated Average Glucose 117 mg/dL; Hemoglobin A1c % 5.7 % (<6.0)
[2024-11-22 07:48] LABS: Free T4 (Free Thyroxine) 1.32 ng/dL (0.71-1.85); Thyroid Stimulating Hormone 0.67 uIU/mL (0.32-4.0); Vitamin D 25-OH Total 38.8 ng/mL (>30)
[2024-11-22 15:48] LABS: Appearance Urine Clear; Color Urine Yellow; Glucose Urine UA Negative (Negative); Leukocyte Esterase Urine Small (1+) (Negative); Nitrite Urine Negative (Negative); Specific Gravity - Urine 1.015 (1.005-1.025); UMIC TRIGGER UACC YES; Urine Blood Small (1+) (Negative); Urine Ketones Negative (Negative); Urine Protein Negative (Neg-Trace)
[2024-11-22 15:58] LABS: Bacteria Urine None Seen (None Seen); Hyaline Casts Urine 0-2 /LPF (0-2); UACC Culture Trigger YES; WBC Urine 0-5 /HPF (0-5)
== END 2024-11-22 06:17 | disposition home or self-care (01) ==
LOC: HO.LAB 06:16
PROVIDERS: PCP Internal Medicine; Visit Provider Internal Medicine
DX: E03.9 Hypothyroidism, unspecified (principal); D64.9 Anemia, unspecified; E78.00 Pure hypercholesterolemia, unspecified; E11.9 Type 2 diabetes mellitus without complications; E55.9 Vitamin D deficiency, unspecified; R30.0 Dysuria
CPT/HCPCS: 36415; 80053; 80061; 81001; 82306; 83036; 84439; 84443; 85025; 87086

== ENCOUNTER 2024-12-02 08:19 | Outpatient (AMB) | payer OTHER, SELFPAY ==
--- NOTE | 2024-12-02 08:26 | A.OFFVIS_ITS ---
Vital Signs 12/02/24 08:33 Height 5 ft 7 in Weight 314 lb BMI 49.2 BP 138/78 Blood Pressure Location Lt brachial Position Sitting Pulse 90 Pulse Oximetry (%) 96 Oxygen Delivery Method Room Air Intake Visit Reasons: 6 month follow up Intake Note: Patient 6 month follow up for Gastritis. 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 Accompanied by: Self / Same As Patient Allergies potassium Allergy (Intermediate, Verified 12/02/24 08:26) Palpitations Medication List - Last Reconciled 12/02/24 by Aaron Flowers MD atenolol 25 mg PO DAILY 90 days cholecalciferol (vitamin D3) (Vitamin D3) 25 mcg PO DAILY ferrous sulfate (FeroSul) 325 mg PO DAILY hydrochlorothiazide 25 mg PO QAM 90 days levothyroxine 175 mcg PO DAILY 90 days omeprazole 20 mg PO DAILY 90 days semaglutide (weight loss) 1.7 mg (0.75 mL) subcut QWEEK 4 weeks HPI HPI 6 month follow up: Details: GI clinic visit for this 54-year-old female for fu of multiple gastric polyps. Pt was seen by Dr Roblero in 05/2020 during hospitalization at [facility] [place]. TODAY'S VISIT: Patient denies any GI issues. Wt loss of 20 lbs over the past 4 months Denies heartburn, abd pain or recent change in bowel habits. Trying to loose weight - plans to discuss medical wt loss with PCP on her next visit Taking Semaglutide since Aug, 2024 (Dose to be increased next week) and slowly working on excercise Noted some nausea after starting Semaglutide which has resolved. Planning to join the gym. PAST VISITS: EGD results reviewed with the patient. Taking Omeprazole 20 mg once daily and denies GERD symptoms Taking chewable iron with Vitamin C. Started on spironolactone and notes some fatigue. Has been doing intermittent fasting and has lost 20 lbs. Start eating at 11 am and stop eating at 7 pm. Patient denies symptoms of heartburn, dysphagia, nausea, vomiting, change in appetite or weight.? Denies recent change in bowel habits, constipation, diarrhea, black stools or rectal bleeding. EGD findngs and bx results reviewed with the patient She lost 10 lbs on higher dose of thyroid medications, regained 10 lbs when thyroid medication dose was reduced. Patient denies major cardiac or pulmonary problems, loud snoring or sleep apnea Has motion sickness and gets a lot of vomiting after anesthesia - Denies problems after EGD with propofol anesthesia at [facility] [place]. Denies being on chronic anticoagulation. Has been taking chewable iron once daily since 10/2020 Patient denies known family history of colon cancer or other GI malignancies. Dad has had colon polyps in his 50's. PAST EGD/COLONOSCOPY:? Last EGD and colonoscopy in 2011 at [place] - normal per patient ENDOSCOPIC STUDIES:?04/18/23 EGD SHOWED: Endoscopy Findings: STOMACH: Multiple gastric polyps - 4 larger polyps removed with a hot snare Plan: Patient has an appointment on 05/22/23 in the GI Clinic with Aaron Flowers M.D. BIOPSIES SHOWED: Stomach, polyps: Fundic gland and hyperplastic mucosal polyps with background mild chronic inactive inflammation; no Helicobacter organisms seen 03/25/22 EGD SHOWED:ESOPHAGUS: GE junction at 33 cms. ? Esophagitis with multiple 2-3 cms long linear erosions from 30 to 33 cms. STOMACH: Multiple 1 to 3 cms gastric polyps.? Two larger polyps were removed with a hot snare and retrieved with a Jamison net. Plan:? Repeat EGD in 6 months with GA BIOPSIES SHOWED: A.? Gastric antrum, biopsy:? Gastric antral mucosa with mild reactive changes and minimal chronic inactive gastritis; negative for H pylori, intestinal metaplasia and dysplasia.? B.? Gastric polyps:? Fundic gland polyps with focal reactive changes, and active inflammation with erosion; negative for H pylori, intestinal metaplasia and dysplasia. 05/21/21 EGD AND COLON SHOWED:STOMACH: Multiple 1 to 3 cms gastric polyps.? Larger polyps with ulcerations. Six large polyps were removed with a hot snare and retrieved with a Jamison net. Some bleeding noted from polypectomy site - treated with cautery using the snare tip. Colonoscopy Findings:? Two medium sized polyps removed Moderate diverticulosis seen in the left colon Small hemorrhoids on retroflexed exam. Plan:? Repeat Colonoscopy interval based on path results - in 3 years if polyps are adenomatous and 10 years if polyps are hyperplastic FOR[facility]LY [facility] Medical History Menopause Postsurgical hypothyroidism Adrenal cortical adenoma of left adrenal gland Lump of skin of back Hyperparathyroidism Iron deficiency anemia Vitamin D deficiency Multinodular thyroid Benign essential hypertension Goiter Fundic gland polyps of stomach, benign Morbid obesity with BMI of 45.0-49.9, adult Anemia GERD (gastroesophageal reflux disease) HTN (hypertension) Surgical History History of esophagogastroduodenoscopy (EGD) History of thyroidectomy (~07/11/21) Hx of endoscopy History of colonoscopy History of cholecystectomy Hx of breast reduction, elective History of hysterectomy (~2008) Family History Father FH: colon polyps Family hx of prostate cancer Mother Hx of diabetes insipidus Family history of high blood pressure Maternal Grandmother Breast cancer Family/Other Breast cancer Social History Household Members: Family and Children Household Members Other:: lives with mom and nephew Housing: Apartment Are you a primary cattle care worker to a significant other at home: No Do you presently have visiting nurse or other home services: No Alcohol intake: never Patient Tobacco Use Status: Never used Tobacco e-Cigarette/Vaping Use: Never Used Second Hand Smoke Exposure: No service: No Current occupational status: employed Current occupation: [employer] Cognitive needs: No Hearing needs: No Vision needs: Yes Female Reproductive History Menstrual Age of Menarche: 14 Review of Systems Const All systems reviewed & are unremarkable except as noted in HPI and below Physical Exam Vital Signs: BMI result Body Mass Index 49.2 Const General: healthy appearing and no acute distress Nutritional Appearance: obese Orientation/consciousness: patient oriented x3 Limitations: no limitations HEENT Head: Yes normal to inspection Ears: hearing grossly normal bilaterally Eyes Sclerae: sclerae normal Pupils: Equal, round and reactive pupils present Neck Neck: Yes normal visual inspection Chest Chest palpation & inspection: normal inspection of the chest Resp Effort & Inspection: normal respiratory effort Auscultation: clear to auscultation bilaterally Cardio Palpation: normal PMI Rate: regular rate Rhythm: regular rhythm Heart sounds: S1 normal heart sound present, S2 normal heart sound present and no murmurs GI Palpation (GI): Soft to palpation, nontender and No hepatosplenomegaly present Auscultation: normal bowel sounds Rectal Exam - Female: deferred Skin General skin exam: no rashes or lesions noted Neuro General: patient oriented x3, gait normal and moves all extremities Cranial nerves: Yes Equal, round and reactive pupils present Psych Appearance: grossly normal Mental Status: mental status grossly normal Assessment & Plan Assessment & Plan (1) Gastritis: Code(s): K29.70 - Gastritis, unspecified, without bleeding Category: Medical Qualifiers: Gastritis type: unspecified gastritis Chronicity: unspecified Gastritis bleeding: with bleeding Qualified Code(s): K29.71 - Gastritis, unspecified, with bleeding (2) Fundic gland polyps of stomach, benign: Comment: Polyps were Hyperplastic by histology. Code(s): D13.1 - Benign neoplasm of stomach Category: Medical (3) Iron deficiency anemia: Code(s): D50.9 - Iron deficiency anemia, unspecified Category: Medical Qualifiers: Iron deficiency anemia type: unspecified iron deficiency Qualified Code(s): D50.9 - Iron deficiency anemia, unspecified (4) Colon cancer screening: Comment: 04/2021 Two medium sized polyps removed during colonoscopy Moderate diverticulosis seen in the left colon Small hemorrhoids on retroflexed exam. Plan:? Repeat Colonoscopy interval based on path results - in 3 years (due 04/2024) Code(s): Z12.11 - Encounter for screening for malignant neoplasm of colon Category: Medical (5) History of colon polyps: Comment: 04/2021 Two medium sized polyps removed during colonoscopy Moderate diverticulosis seen in the left colon Small hemorrhoids on retroflexed exam. Plan: Repeat Colonoscopy interval based on path results - in 3 years (due 04/2024) 05/21/24 Colonoscopy Findings: One small polyp was removed Repeat colon in 5 years (Due 04/2029) Code(s): Z86.010 - Personal history of colon polyps Category: Medical (6) GERD (gastroesophageal reflux disease): Code(s): K21.9 - Gastro-esophageal reflux disease without esophagitis Category: Medical Plan 54 year old female with hypertension, thyroid disease (MNG) followed in GI for multiple large hyperplastic gastric polyps. Pt is status post cholecystectomy and thyroid surgery for enlarged thyroid with nodules. She was seen in the ED on 06/03/2020 for upper GI bleed. EGD by DR Roblero showed several large polyps and some were actively bleeding. She had a repeat endoscopy on 08/15/[address] Jarquin and 6 large gastric polyps were removed with no complications. 05/21/21 Repeat EGD was performed and?multiple 1 to 3 cms gastric polyps.? Larger polyps with ulcerations. Six large polyps were removed with a hot snare and retrieved with a Jamison net. Pt was advised to decrease Omeprazole to 20 mg at bedtime and to take a 2nd dose prn during the day. If GERD symptoms remain well controlled, can consider switching to famotidine twice daily in the future 03/2023 repeat EGD was performed and results as noted above EMILIA has resolved. 05/21/24 EGD (FU of gastric polyps) and colon (FU of adenomatous colon polyps) showed: Colonoscopy Findings: One small polyp was removed Moderate to severe diverticulosis seen in the left colon Small hemorrhoids on retroflexed exam. Endoscopy Findings: ESOPHAGUS: Medium sized hiatal hernia. STOMACH: Seven polyps were removed from the stomach Plan: Repeat EGD (FU of gastric polyps) in 3 years and Colonoscopy in 5 years due to a history of adenomatous colon polyps (Pt needs GA due to morbid obesity with obstructive sleep apnea) BIOPSIES SHOWED: A. Stomach, body, polyps: Hyperplastic mucosal polyps with background moderate chronic inactive inflammation; no Helicobacter organisms seen. B. Stomach, fundus, polyps: Hyperplastic and fundic gland polyps with background moderate chronic active erosive inflammation; no Helicobacter organisms seen Letter sent to the patient with biopsy results and pt placed on EGD and colon recall list 12/02/24 Taking Semaglutide since Aug, 2024 (Dose to be increased next week) and has lost 20 lbs in 4 months Noted some nausea after starting Semaglutide which has resolved. FU in 6 months Coding Level of Care Code Est Pt Level 3 (29653) Diagnoses Gastritis with hemorrhage, unspecified chronicity, unspecified gastritis type K29.71 Gastritis type: unspecified gastritis Chronicity: unspecified Gastritis bleeding: with bleeding Fundic gland polyps of stomach, benign D13.1 Iron deficiency anemia, unspecified iron deficiency anemia type D50.9 Iron deficiency anemia type: unspecified iron deficiency Colon cancer screening Z12.11 History of colon polyps Z86.010 GERD (gastroesophageal reflux disease) K21.9 Time Spent (min) 17
[2024-12-02 08:33] VITALS: BP 138/78; PULSE 90; O2SAT 96; BMI 49.2
== END 2024-12-02 08:56 | disposition home or self-care (01) ==
LOC: HO.HGI 08:20
PROVIDERS: PCP Internal Medicine; Visit Provider Internal Medicine Gastroenterology
DX: K29.71 Gastritis, unspecified, with bleeding (principal); Z87.19 Personal history of other diseases of the digestive system; D50.9 Iron deficiency anemia, unspecified; Z86.0100 Personal history of colon polyps, unspecified; K21.9 Gastro-esophageal reflux disease without esophagitis
CPT/HCPCS: 99213

== ENCOUNTER → 2024-12-02 08:19 | Outpatient (BNVA) | payer OTHER, SELFPAY | PROVIDERS: PCP Internal Medicine; Visit Provider Internal Medicine Gastroenterology ==

== ENCOUNTER 2024-12-28 12:00 | Outpatient (AMB) | payer OTHER, SELFPAY ==
[2024-12-28 13:28] VITALS: BP 132/80; PULSE 80; TEMP 36.7; O2SAT 100
--- NOTE | 2024-12-28 13:28 | MHC.OFFWIV ---
Intake Vital Signs 12/28/24 13:28 Height 5 ft 7 in BP 132/80 Blood Pressure Location Lt brachial Position Sitting Pulse 80 Pulse Source Pulse Oximeter Temp 98.0 F Temp Source Oral Pulse Oximetry (%) 100 Oxygen Delivery Method Room Air Intake Visit Reasons: EP-pain rt side abd, nausea Patient Tobacco Use Status: Never used Tobacco Allergies potassium Allergy (Intermediate, Verified 12/28/24 13:28) Palpitations Do you need a note to return to daycare/school/sports/work: No HPI HPI Comments History of Present Illness Details This is a 54-year-old female with a past medical history of hypertension, hypothyroidism, cholecystectomy and obesity currently maintained on Wegovy presenting for evaluation of right-sided abdominal pain and nausea that started last night. Patient states that her symptoms were significantly worse last night and are more dull and intermittent ache today. Patient had diarrhea this morning which has resolved but she currently feels somewhat nauseous. She denies having any fevers, chills, vomiting, dysuria, urinary frequency, dark or bloody stools. Patient has not yet eaten today. [facility] Medical History Menopause Postsurgical hypothyroidism Adrenal cortical adenoma of left adrenal gland Lump of skin of back Hyperparathyroidism Iron deficiency anemia Vitamin D deficiency Multinodular thyroid Benign essential hypertension Goiter Fundic gland polyps of stomach, benign Morbid obesity with BMI of 45.0-49.9, adult Anemia GERD (gastroesophageal reflux disease) HTN (hypertension) Surgical History History of esophagogastroduodenoscopy (EGD) History of thyroidectomy (~07/11/21) Hx of endoscopy History of colonoscopy History of cholecystectomy Hx of breast reduction, elective History of hysterectomy (~2008) Family History Father FH: colon polyps Family hx of prostate cancer Mother Hx of diabetes insipidus Family history of high blood pressure Maternal Grandmother Breast cancer Family/Other Breast cancer Social History Household Members: Family and Children Household Members Other:: lives with mom and nephew Housing: Apartment Are you a primary home care aide to a significant other at home: No Do you presently have visiting nurse or other home services: No Alcohol intake: never Patient Tobacco Use Status: Never used Tobacco e-Cigarette/Vaping Use: Never Used Second Hand Smoke Exposure: No service: No Current occupational status: employed 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 Cognitive needs: No Hearing needs: No Vision needs: Yes Female Reproductive History Menstrual Age of Menarche: 14 Review of Systems Const All systems reviewed & are unremarkable except as noted in HPI and below Denies chills, Denies fatigue and Denies fever(s) Eyes Reports no additional complaints ENT Reports as per HPI Card Reports no additional complaints Resp Reports no additional complaints GI Reports abdominal pain, Denies belching, Denies constipation, Denies excessive flatus, Denies nausea and Denies vomiting Reports no additional complaints Musc Reports no additional complaints Skin/Breast Reports system reviewed and no additional complaints, except as documented Neuro Reports no additional complaints Psych Reports no additional complaints Endo Reports no additional complaints and Denies fatigue Joao/Lymph Reports no additional complaints Aller/Immun Reports no additional complaints Physical Exam Const General: cooperative, healthy appearing, comfortable, no acute distress, well developed, alert, awake and Physically active; No acute distress Nutritional Appearance: obese Orientation/consciousness: patient oriented x3 Limitations: no limitations Resp Effort & Inspection: normal respiratory effort, able to speak in complete sentences and not tachypneic Auscultation: clear to auscultation bilaterally Cardio Rate: regular rate Rhythm: regular rhythm GI Palpation (GI): Soft to palpation, Tenderness to palpation present (GI) in the RLQ; not periumbilically, not suprapubicly, with no rebound tenderness and Rovsing's sign negative, no guarding and not rigid Auscultation: normal bowel sounds General: Yes bladder normal to palpation and Yes no CVA tenderness Bimanual exam- vagina & uterus: bladder normal to palpation Back/Spine/Pelvis Back: no CVA tenderness Neuro General: patient oriented x3 Psych Appearance: grossly normal Mental Status: mental status grossly normal Insight: Good insight present (Psych) Judgement: Good judgement present (Psych) Assessment & Plan Assessment & Plan (1) Right sided abdominal pain: Comment: Differential diagnosis includes side effect of Wegovy, ovarian cysts, appendicitis and diverticulitis. Patient denies having any urinary symptoms. Patient's examination is not acute at this time. Patient is reassured and will go to the emergency department for any worsening symptoms over the next 48 hours. Code(s): R10.9 - Unspecified abdominal pain Plan: No further intervention warranted at this time however the patient is encouraged to go to the emergency department for any worsening abdominal pain. Patient is in agreement with this plan of care. Coding Level of Care Code Est Pt Level 3 (07380) Diagnoses Right sided abdominal pain R10.9 Time Spent (min) 20
== END 2024-12-28 14:04 | disposition home or self-care (01) ==
PROVIDERS: PCP Internal Medicine; Visit Provider Physician Assistant
DX: R10.9 Unspecified abdominal pain (principal)

== ENCOUNTER → 2024-12-28 12:00 | Outpatient (BNVA) | payer OTHER, SELFPAY | PROVIDERS: PCP Internal Medicine; Visit Provider Physician Assistant ==

== ENCOUNTER 2025-01-13 15:04 | Outpatient (AMB) | payer OTHER, SELFPAY ==
[2025-01-13 15:05] VITALS: BP 124/72; PULSE 94; O2SAT 97; BMI 49.0
--- NOTE | 2025-01-13 15:05 | A.OFFVIS_ITS ---
Vital Signs 01/13/25 15:05 Height 5 ft 7 in Weight 313 lb 0.902 oz BMI 49.0 BP 124/72 Blood Pressure Location Lt brachial Position Sitting Pulse 94 Pulse Source Pulse Oximeter Pulse Oximetry (%) 97 Oxygen Delivery Method Room Air Intake Visit Reasons: Other specified disorders of adrenal gland Intake Note: Patient is present today for adrenal gland disorder follow up visit. Allergies potassium Allergy (Intermediate, Verified 01/13/25 15:08) Palpitations Medication List - Last Reconciled 01/13/25 by Bobby Hoover MD atenolol 25 mg PO DAILY 90 days cholecalciferol (vitamin D3) (Vitamin D3) 25 mcg PO DAILY ferrous sulfate (FeroSul) 325 mg PO DAILY hydrochlorothiazide 25 mg PO QAM 90 days levothyroxine 175 mcg PO DAILY 90 days omeprazole 20 mg PO DAILY 90 days semaglutide (weight loss) 1.7 mg (0.5313 mL) subcut QWEEK 4 weeks HPI Comments Details: 54 YO F an incidentally noted 1.7 cm L adrenal nodule with hyperaldosteronism.. 2. Adrenal Nodule: She had a CT of the lumbar spine which incidentally noted a 1.7 cm L adrenal n odule measuring 25 HU post-contrast. She underwent an adrenal protocol CT of the abdomen 06/11/2021. This revealed a 1.6 cm L adrenal nodule, measuring -10.7 HU precontrast. Washout characteristi cs were <60% absolue, and 40% relative. She denies any episodes of spells with flushing, diaphoresis and headache. She does report hypertension that is suboptimally controlled on 2 agents (atenolol and HCTZ). She underwent a full biochemical evaluation which revealed mild elevation of 24 hour urine normetanephrine and catecholamines. She also was found to have a suppressed renin with an armando of 5, but her potassium was only 3.5 at the time. She underwent a 1 mg overnight DSST which was WNL, and ruled out audelia's disease. Potassium was repleted and repeat workup with Potassium >4 revealed no evidence of hyperaldosteronism. Renin was low, but armando was only 2. She had an adverse reaction to the potassium supplements with flushing, severe hypertension and headaches. This was attempted with potassium supplementation on 2 occasions with similar results. We then discontinued potassium supplements and advised she get potassium to goal through diet with bananas instead. She continued with poor control of HTN on 3 agents, with high suspicion for hyperaldosteronism given suppressed PRA so workup was repeated after eating 4 bananas per day. Repeat labs 09/14/2022 with Potassium 4.4, PRA 0.28 and Aldosterone 7. She then underwent an oral sodium loading test. Results confirmed adequate sodium intake with her 24 hour urine sodium >200. Aldosterone did not suppress and remained at 6, which confirms hyperaldosteronism. She also underwent a 1 mg overnight DSST which was WNL ruling out hypercortisolism. She presents today to review these results. Of note, she had a anaphylactic type reaction to oral potassium replacement on [address] Abdomen and Pelvis: 07/01/2022 FINDINGS: LUNG BASES: The lung bases are clear. Heart size is normal. There is a [id number] size hiatal hernia with perihernial fat herniation.? LIVER, GALLBLADDER, AND BILIARY TREE: The liver is diffusely attenuated but normal size and contour. No focal lesion or intrahepatic ductal dilatation is seen. The gallbladder has been removed. PANCREAS: The pancreas appears unremarkable.? SPLEEN: The spleen is unremarkable. There is a small accessory splenule.? ADRENAL GLANDS AND KIDNEYS: The right adrenal gland is normal. There is a left adrenal lesion measuring 1.5 x 1.3 cm. On precontrast exam it measures 3.3 Hounsfield units. Postcontrast it measures 39 Hounsfield units. Delayed imaging measures 23 Hounsfield units. Absolute washout measures 44.8 percent and the relative washout is 41 percent, consistent with an adenoma. Both kidneys are normal size, shape and position. There is contrast opacifying bilateral kidney pelvises without distention. BOWEL LOOPS: Bowel gas pattern is nonspecific.? LYMPH NODES: Normal. VASCULAR: Unremarkable. Labs: Laboratory Tests 02/22/23 02/22/23 02/22/23 07:15 10:13 10:13 Sodium 142 Potassium 3.9 Creatinine 0.77 Estimated GFR > 60 Aldosterone 6 Ur 24 Hour Volume 2700 Ur Creatinine 24 Hour 1.8 Ur Sodium 24 Hour 351.0 H Stopped sprinolacone cecause of side effects of fatigue and muscle aches The patient is a 54-year-old female presenting with management concerns related to Hypertension and an existing Adrenal Nodule. Hypertension has been effectively managed using atenolol and hydrochlorothiazide, keeping her blood pressure stable. She denies any associated symptoms such as episodes of sweating, headaches, or palpitations. No changes in weight or other signs suggesting hyperaldosteronism are reported. The adrenal nodule's potential aldosterone secretion has been acknowledged, though current indications and patient preference are against pursuing surgical options without further definitive workup, which would involve specialized testing not immediately accessible. The nodule is perceived as benign, with no immediate complications or active symptoms requiring intervention. Patient preference is to maintain current medication management given the controlled status of her symptoms. FORMERLY [facility], [facility] Medical History Menopause Postsurgical hypothyroidism Adrenal cortical adenoma of left adrenal gland Lump of skin of back Hyperparathyroidism Iron deficiency anemia Vitamin D deficiency Multinodular thyroid Benign essential hypertension Goiter Fundic gland polyps of stomach, benign Morbid obesity with BMI of 45.0-49.9, adult Anemia GERD (gastroesophageal reflux disease) HTN (hypertension) Surgical History History of esophagogastroduodenoscopy (EGD) History of thyroidectomy (~07/11/21) Hx of endoscopy History of colonoscopy History of cholecystectomy Hx of breast reduction, elective History of hysterectomy (~2008) Family History Father FH: colon polyps Family hx of prostate cancer Mother Hx of diabetes insipidus Family history of high blood pressure Maternal Grandmother Breast cancer Family/Other Breast cancer Social History Household Members: Family and Children Household Members Other:: lives with mom and nephew Housing: Apartment Are you a primary manager medicare marketing to a significant other at home: No Do you presently have visiting nurse or other home services: No Alcohol intake: never Patient Tobacco Use Status: Never used Tobacco e-Cigarette/Vaping Use: Never Used Second Hand Smoke Exposure: No service: No Current occupational status: employed Current occupation: [email or web address] Cognitive needs: No Hearing needs: No Vision needs: Yes Female Reproductive History Menstrual Age of Menarche: 14 Assessment & Plan Assessment & Plan (1) Adrenal nodule: Code(s): E27.8 - Other specified disorders of adrenal gland Category: Medical Plan: This is a 53-year-old female with a history of left adrenal adenoma with benign characteristics found to be ??aldosterone producing. Patient was treated with spironolactone. Now off spironolactone Plan is to discuss potential treatments including medical treatment with spironolactone or eplerenone versus further workup for localization which would be performed at adrenal Center at [facility]. However, after conversation with the patient she tells me that blood pressure is very well controlled on 2 agents at home and she really does not want to go to [facility] for further workup. Therefore at this point, the patient returned to her primary care provider and returned back to endocrinology as needed. No further imaging or workup is necessary for the adrenal adenoma at this point 2. Adrenal Nodule Addressed in discussions as possibly aldosterone-producing; however, it shows no active symptoms warranting immediate surgical intervention. Further evaluation contingent on symptom development and potential specialized testing at centers offering comprehensive assessments. We reviewed potential causes and implications of the adrenal nodule's hormonal activity, particularly its possible impact on blood pressure. The patient understands that while the nodule is currently managed conservatively due to symptom stability, alternative management strategies could involve advanced diagnostic assessment or surgical options. I emphasized vigilance for any changes in symptoms such as hypertension exacerbation, headaches, or sweating, which could indicate changes in the nodule's behavior. The patient prefers to continue the current management approach with atenolol and hydrochlorothiazide, noting they provide satisfactory blood pressure control. We agreed that should symptoms develop or changes in blood pressure occur, reassessment would be necessary. We discussed necessary follow-up visits and monitoring strategies, ensuring clarity on when to pursue further interventions. - Continue taking atenolol and hydrochlorothiazide as prescribed. - Monitor your blood pressure regularly. - Report any new symptoms like persistent headaches, increased sweating, or uncontrolled blood pressure. - Follow up with your primary care physician as needed. - Return for reassessment if new issues develop. The patient had an opportunity to ask questions regarding treatment plan. The patient expressed understanding and agreement with the above treatment plan. Patient was informed and verbally consented to the use of an ambient scribe for clinic note documentation during this visit. Coding Level of Care Code Est Pt Level 3 (74742) Diagnoses Adrenal nodule E27.8
== END 2025-01-13 15:26 | disposition home or self-care (01) ==
LOC: HO.ENCR 15:04
PROVIDERS: PCP Internal Medicine; Visit Provider Internal Medicine Endocrinology, Diabetes & Metabolism
DX: E27.8 Other specified disorders of adrenal gland (principal)
CPT/HCPCS: 99213

== ENCOUNTER 2025-03-12 10:39 | Outpatient (REF) | payer OTHER, SELFPAY ==
[2025-03-12 11:26] LABS: Hemoglobin A1C 121.2536 umol/L; Total Hemoglobin (HGBA1C) 3187.4033 umol/L
[2025-03-12 11:32] LABS: Appearance Urine Clear; Glucose Urine UA Negative (Negative); PH 6.0 (5.0-9.0); Specific Gravity - Urine 1.020 (1.005-1.025); UMIC TRIGGER UACC YES
[2025-03-12 11:54] LABS: Alanine Aminotransferase 19 U/L (0-31); Albumin Level 4.4 g/dL (3.5-5.0); Alkaline Phosphatase 124 U/L (39-117); Anion Gap 13 (12-20); Aspartate Amino Transferase 21 U/L (5-31); Blood Urea Nitrogen 18 mg/dL (9-16); Calcium 9.1 mg/dL (8.4-10.2); Carbon Dioxide 27 mmol/L (22-29); Chloride 105 mmol/L (96-108); Cholesterol 157 mg/dL (<200); Estimated Glomerular Filt Rate > 60; HDL Cholesterol 44 mg/dL (>40); Potassium 3.8 mmol/L (3.3-5.1); Sodium 141 mmol/L (135-145); Total Protein 7.8 g/dL (6.5-8.0); Triglycerides 105 mg/dL (<150)
[2025-03-12 12:08] LABS: Free T4 (Free Thyroxine) 1.32 ng/dL (0.71-1.85); Thyroid Stimulating Hormone 0.49 uIU/mL (0.32-4.0)
== END 2025-03-12 10:40 | disposition home or self-care (01) ==
LOC: HO.LAB 10:39
PROVIDERS: PCP Internal Medicine; Visit Provider Internal Medicine
DX: E78.00 Pure hypercholesterolemia, unspecified (principal); E03.9 Hypothyroidism, unspecified; R73.01 Impaired fasting glucose; R30.0 Dysuria
CPT/HCPCS: 36415; 80053; 80061; 81001; 83036; 84439; 84443

== ENCOUNTER 2025-03-22 14:45 | Outpatient (AMB) | payer OTHER, SELFPAY ==
[2025-03-22 14:49] VITALS: BP 126/82; PULSE 90; O2SAT 96; BMI 46.8
--- NOTE | 2025-03-22 14:49 | MHC.PC.OV ---
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: No Accompanied by: Self / Same As Patient Allergies potassium Allergy (Intermediate, Verified 03/22/25 15:12) Palpitations Medication List - Last Reconciled 03/22/25 by Dae Simpson MD atenolol 25 mg PO DAILY 90 days cholecalciferol (vitamin D3) (Vitamin D3) 25 mcg PO DAILY ferrous sulfate (FeroSul) 325 mg PO DAILY hydrochlorothiazide 25 mg PO QAM 90 days levothyroxine 175 mcg PO DAILY 90 days omeprazole 20 mg PO DAILY 90 days semaglutide (weight loss) 1.7 mg (0.5313 mL) subcut QWEEK 4 weeks Tobacco use date assessed: 03/22/25 Dental Screening Dental Screen Date: 03/22/25 Did you have a dental visit in the last 12 months?: Yes Did you have a dental problem in the last 6 months where you did not have access to dental care?: No Was dental information given to patient?: Patient has dentist HPI 4 Months f/u HPI Details Patient comes in today for her follow-up visit States that she feels okay She denies any headaches or dizziness Denies any chest pains, no shortness of breath No nausea/vomiting, no abdominal pain No change in bowel habits noted She had her follow-up labs done about a week ago - to discuss her results She has also been able to lose a lot of weight since she started on her GLP-1 injection [facility] Medical History Menopause Postsurgical hypothyroidism Adrenal cortical adenoma of left adrenal gland Lump of skin of back Hyperparathyroidism Iron deficiency anemia Vitamin D deficiency Multinodular thyroid Benign essential hypertension Goiter Fundic gland polyps of stomach, benign Morbid obesity with BMI of 45.0-49.9, adult Anemia GERD (gastroesophageal reflux disease) HTN (hypertension) Surgical History History of esophagogastroduodenoscopy (EGD) History of thyroidectomy (~07/11/21) Hx of endoscopy History of colonoscopy History of cholecystectomy Hx of breast reduction, elective History of hysterectomy (~2008) Family History Father FH: colon polyps Family hx of prostate cancer Mother Hx of diabetes insipidus Family history of high blood pressure Maternal Grandmother Breast cancer Family/Other Breast cancer Social History Household Members: Family and Children Household Members Other:: lives with mom and nephew Housing: Apartment Are you a primary career technical education instructor to a significant other at home: No Do you presently have visiting nurse or other home services: No Alcohol intake: never Patient Tobacco Use Status: Never used Tobacco e-Cigarette/Vaping Use: Never Used Second Hand Smoke Exposure: No service: No Current occupational status: employed Current occupation: [employer] Cognitive needs: No Hearing needs: No Vision needs: Yes Female Reproductive History Menstrual Age of Menarche: 14 Questionnaire PHQ-9 Over the last 2 weeks, how often have you been bothered by any of the following problems? 1. Little interest or pleasure in doing things: not at all 2. Feeling down, depressed, or hopeless: not at all 3. Trouble falling or staying asleep, or sleeping too much: not at all 4. Feeling tired or having little energy: not at all 5. Poor appetite or overeating: not at all 6. Feeling bad about yourself - or that you are a failure or have let yourself or your family down: not at all 7. Trouble concentrating on things, such as reading the newspaper or watching television: not at all 8. Moving or speaking so slowly that other people could have noticed. Or the opposite - being so fidgety or restless that you have been moving around a lot more than usual: not at all 9. Thoughts that you would be better off or of hurting yourself in some way: not at all Total score: 0 Depression Screening Interpretation: Negative Depression Screening Done: Yes 45827 - PHQ-9 Billing: Yes Source: Developed by Drs. Bobby Barahona, Roxann Boyle, Tyler Romero and colleagues, with an educational terrell from [employer]. Thrive Questionnaire Date Thrive assessed: 03/22/25 I am a: Patient What is your living situation today?: I have a steady place to live Within the past 12 months, did the food you bought not last and you didn't have the money to get more?: Never true Within the past 12 months, did you worry whether your food would run out before you got money to buy more?: Never true Do you have trouble paying for medicines?: No Do you have trouble getting transportation to medical appointments?: No Do you have trouble paying your heating and electricity bill?: No Do you have trouble taking care of your child, family member or friend?: No Do you have trouble with day-to-day activities such as bathing, preparing meals, shopping, managing finances, etc.?: No Are you currently unemployed and looking for a job?: No Are you interested in more education?: No Please select the resources that you would like help with: None Currently or been in a relationship where the following occur: No concerns reported THRIVE Score: 0 AUDIT C Alcohol Use Questionnaire (AUDIT-C) 1. How often do you have a drink containing alcohol?: Monthly or less 2. How many drinks containing alcohol do you have on a typical day when you are drinking?: 1 or 2 3. How often do you have six or more drinks on one occasion?: Never Total Score: 1 Score Reviewed/Action Taken: Yes JUDAH-7 AMB Questionnaire JUDAH-7 Date JUDAH - 7 assessed: 03/22/25 Feeling nervous, anxious, or on edge: 0 = Not at all Not being able to stop or control worryin = Not at all Worrying too much about different things: 0 = Not at all Trouble relaxin = Not at all Being so restless that it is hard to sit still: 0 = Not at all Becoming easily annoyed or irritable: 0 = Not at all Feeling afraid as if something awful might happen: 0 = Not at all Total JUDAH-7 score (0-4 normal; 5-9 mild; 10-14 moderate; 15-21 severe): 0 Source: Developed by Drs. Bobby Barahona, Roxann Boyle, Tyler Romero and colleagues, with an educational terrell from [employer]. Review of Systems Const Denies chills, Denies fatigue, Denies fever(s) and Denies headache(s) ENT Denies dysphagia, Denies dizziness, Denies otalgia, Denies headache(s), Denies neck pain, Denies odynophagia and Denies sore throat Card Denies chest pain, Denies palpitations and Denies dyspnea Resp Denies chest congestion, Denies cough and Denies dyspnea GI Denies abdominal pain, Denies constipation, Denies dysphagia, Denies heartburn, Denies diarrhea, Denies nausea, Denies odynophagia and Denies vomiting Denies difficulty voiding, Denies nocturia, Denies dysuria and Denies urinary urgency Musc Denies back pain and Denies neck pain Skin/Breast Denies rash Neuro Denies dizziness and Denies headache(s) Endo Denies fatigue and Denies palpitations Physical exam (Primary Care) Vital Signs: Last Vital Signs Pulse 90 03/22/25 14:49 BP 126/82 03/22/25 14:49 Pulse Ox 96 03/22/25 14:49 Oxygen Delivery Method Room Air 03/22/25 14:49 BMI result Body Mass Index 46.8 Tobacco/Smoking Status: Tobacco use Status Tobacco use date assessed 03/22/25 03/22/25 14:54 Patient Tobacco Use Status Never used Tobacco 03/22/25 14:54 e-Cigarette/Vaping Use Never Used 03/22/25 14:54 PHQ-9: PHQ-9 Score PHQ-9: Total score 0 03/22/25 15:16 Depression Screening Interpretation: Negative Thrive Assessment: Date of Thrive Assessment Date Thrive assessed 03/22/25 03/22/25 14:54 Currently or been in a relationship where the following occur: No concerns reported Const General: no acute distress and alert HENMT Ears: TM's normal bilaterally and EAC's normal Throat: Yes posterior oropharynx normal and Yes tonsils normal (no TP congestion) Neck Neck: Yes supple and No lymphadenopathy Thyroid: Thyroid normal Resp Auscultation: clear to auscultation bilaterally, no rales and no wheezes Cardio Rate: regular rate Rhythm: regular rhythm Heart sounds: no murmurs GI Palpation (GI): Soft to palpation and nontender Auscultation: normal bowel sounds General: Yes no CVA tenderness Back/Spine/Pelvis Back: no CVA tenderness Thoracic/Lumbar Spine: No lumbar spinal tenderness Skin Rashes: no rashes Extrem General: Yes no clubbing, cyanosis or edema Results Reviewed Results Reviewed: Laboratory Tests 08/14/24 03/12/25 03/12/25 10:52 10:43 10:46 Sodium 141 Potassium 3.8 Creatinine 0.66 Estimated GFR > 60 Fasting Glucose 91 Hemoglobin A1c % 5.9 5.6 Calcium 9.1 AST 21 ALT 19 Triglycerides 105 Cholesterol 157 LDL Cholesterol, Calc 92 HDL Cholesterol 44 TSH 0.49 Free T4 1.32 Ur Specific [place] 1.020 Urine Protein Negative Urine Glucose (UA) Negative Urine Blood Small (1+) H Urine Nitrite Negative Ur Leukocyte Esterase Trace H Coding Level of Care Code Est Pt Level 4 (86935) Diagnoses Benign essential hypertension I10 Multinodular thyroid E04.2 Postsurgical hypothyroidism E89.0 Iron deficiency anemia, unspecified iron deficiency anemia type D50.9 Iron deficiency anemia type: unspecified iron deficiency Vitamin D deficiency E55.9 Impaired fasting glucose R73.01 Gastritis with hemorrhage, unspecified chronicity, unspecified gastritis type K29.71 Chronicity: unspecified Gastritis bleeding: with bleeding Gastritis type: unspecified gastritis Adrenal cortical adenoma of left adrenal gland D35.02 Stasis edema of both lower extremities I87.303 Morbid obesity with BMI of 45.0-49.9, adult E66.01; Z68.42 Additional Codes PHQ-9 - 48964 - PHQ-9 Billing: Yes ([id number]) Assessment & Plan Assessment & Plan (1) Benign essential hypertension: Code(s): I10 - Essential (primary) hypertension Category: Medical Plan: Reinforced low sodium diet - goal is systolic BP of at least 120 to 130 mm or less Continue Atenolol 25 mg QD and HCTZ 25 mg Q AM Patient is reminded to continue monitoring her blood pressure regularly (2) Multinodular thyroid: Comment: S/P total thyroidectomy by Dr. Dukes on 07/11/2021 due to compressive neck symptoms Code(s): E04.2 - Nontoxic multinodular goiter Category: Medical Plan: S/P total thyroidectomy in 06/2021; pathology came out benign She will require lifelong thyroid hormone replacement therapy (3) Postsurgical hypothyroidism: Code(s): E89.0 - Postprocedural hypothyroidism Category: Medical Plan: Results of her labs done a week ago reviewed and discussed with patient - her TFTs have remained normal on her recent lab Continue Levothyroxine 175 mcg QD Will recheck her TFTs in 4 months for follow up (4) Iron deficiency anemia: Code(s): D50.9 - Iron deficiency anemia, unspecified Category: Medical Qualifiers: Iron deficiency anemia type: unspecified iron deficiency Qualified Code(s): D50.9 - Iron deficiency anemia, unspecified Plan: Her H/H were normal/unchanged at 12.0/39.5 when last checked a few months ago in October 2024 Continue Ferrous Sulfate 325 mg QD Will continue to monitor her CBC regularly (5) Vitamin D deficiency: Code(s): E55.9 - Vitamin D deficiency, unspecified Category: Medical Plan: Continue Vitamin D3 1000 units QD (6) Impaired fasting glucose: Code(s): R73.01 - Impaired fasting glucose Category: Medical Plan: Her HgbA1c was at 5.6% on her labs done a week ago (was previously at 5.9% back in July 2024) Reinforced low calorie/low carb diet/exercise as tolerated Will recheck her FBS and HgbA1c in 4 months for follow up (7) Gastritis: Code(s): K29.70 - Gastritis, unspecified, without bleeding Category: Medical Qualifiers: Chronicity: unspecified Gastritis bleeding: with bleeding Gastritis type: unspecified gastritis Qualified Code(s): K29.71 - Gastritis, unspecified, with bleeding Plan: S/P EGD with Dr. Flowers in 04/2024 and she was recommended again for repeat EGD in 3 years (2026) Dietary restrictions reinforced Continue Omeprazole 40 mg QD Follow-up with GI as scheduled (8) Adrenal cortical adenoma of left adrenal gland: Comment: 1.6 cm left adrenal nodule Code(s): D35.02 - Benign neoplasm of left adrenal gland Category: Medical Plan: Repeat abdominal CT done in June 2022 revealed (+) left adrenal benign adenoma, measuring 1.6 cm, which is approximately the same size as seen on previous study on 06/14/2021. The rest of the abdominal findings are unremarkable Patient has been worked up and evaluated by endocrinology and was advised that her adrenal adenoma is most likely benign although she was also evaluated for possible hyperaldosteronism She was advised on potential medical Tx with Spironolactone or Eplerenone versus referral to the adrenal center at [facility] for further work up but patient declined as she feels that her blood pressure has been well-controlled so far Follow up with endocrinology as scheduled (9) Stasis edema of both lower extremities: Code(s): I87.303 - Chronic venous hypertension (idiopathic) without complications of bilateral lower extremity Category: Medical Plan: This is most likely due to venous stasis Patient is reminded again to keep her legs elevated as often as she can throughout the day to help minimize her swelling and that wearing compressions stockings and losing weight can also help (10) Morbid obesity with BMI of 45.0-49.9, adult: 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 Panel Fast 4 Months E78.00 - Pure hypercholesterolemia, unspecified TSH reflex Free T4 4 Months E78.00 - Pure hypercholesterolemia, unspecified UA CC w/rflx Micro + Cult 4 Months R30.0 - Dysuria Microalbumin, Random (w Creat) 4 Months E11.9 - Type 2 diabetes mellitus without complications Lipid Panel 4 Months E78.00 - Pure hypercholesterolemia, unspecified Complete Blood Count Auto Diff 4 Months D64.9 - Anemia, unspecified Vitamin B12 and Folate 4 Months E53.8 - Deficiency of other specified B group vitamins Vitamin D 25-OH Total 4 Months E55.9 - Vitamin D deficiency, unspecified
== END 2025-03-22 15:21 | disposition home or self-care (01) ==
LOC: HO.HMCH 14:46
PROVIDERS: PCP Internal Medicine; Visit Provider Internal Medicine
DX: I10 Essential (primary) hypertension (principal); E04.2 Nontoxic multinodular goiter; E66.01 Morbid (severe) obesity due to excess calories; Z68.42 Body mass index [BMI] 45.0-49.9, adult; E89.0 Postprocedural hypothyroidism; D50.9 Iron deficiency anemia, unspecified; E55.9 Vitamin D deficiency, unspecified; R73.01 Impaired fasting glucose; K29.71 Gastritis, unspecified, with bleeding; D35.02 Benign neoplasm of left adrenal gland; I87.303 Chronic venous hypertension (idiopathic) without complications of bilateral lower extremity

== ENCOUNTER → 2025-03-22 14:45 | Outpatient (BNVA) | payer OTHER, SELFPAY | PROVIDERS: PCP Internal Medicine; Visit Provider Internal Medicine | DX: I10 Essential (primary) hypertension (principal); E04.2 Nontoxic multinodular goiter; E89.0 Postprocedural hypothyroidism; D50.9 Iron deficiency anemia, unspecified; E55.9 Vitamin D deficiency, unspecified; R73.01 Impaired fasting glucose; K29.71 Gastritis, unspecified, with bleeding; D35.02 Benign neoplasm of left adrenal gland; I87.303 Chronic venous hypertension (idiopathic) without complications of bilateral lower extremity; E66.01 Morbid (severe) obesity due to excess calories; Z68.42 Body mass index [BMI] 45.0-49.9, adult; Z79.899 Other long term (current) drug therapy; Z13.31 Encounter for screening for depression; Z13.39 Encounter for screening examination for other mental health and behavioral disorders | CPT/HCPCS: 96127 ==

== ENCOUNTER 2025-04-05 07:45 | Outpatient (AMB) | payer OTHER, SELFPAY ==
--- NOTE | 2025-04-05 08:04 | A.OFFVIS_ITS ---
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 Currently not sexually active. Denies any vaginal dryness or irritation. STI testing offered; she declines. Attempting to eat a healthy diet with calcium and vitamin D and stays active with exercise-walks. History of hysterectomy due to heavy menstrual bleeding and fibroids. Last mammogram; 2024. Colonoscopy is UTD. FH breast cancer. [facility] Medical History Menopause Postsurgical hypothyroidism Adrenal cortical adenoma of left adrenal gland Lump of skin of back Hyperparathyroidism Iron deficiency anemia Vitamin D deficiency Multinodular thyroid Benign essential hypertension Goiter Fundic gland polyps of stomach, benign Morbid obesity with BMI of 45.0-49.9, adult Anemia GERD (gastroesophageal reflux disease) HTN (hypertension) Surgical History History of esophagogastroduodenoscopy (EGD) History of thyroidectomy (~07/11/21) Hx of endoscopy History of colonoscopy History of cholecystectomy Hx of breast reduction, elective History of hysterectomy (~2008) Family History Father FH: colon polyps Family hx of prostate cancer Mother Hx of diabetes insipidus Family history of high blood pressure Maternal Grandmother Breast cancer Family/Other Breast cancer Social History Household Members: Family and Children Household Members Other:: lives with mom and nephew Housing: Apartment Are you a primary child care to a significant other at home: No Do you presently have visiting nurse or other home services: No Alcohol intake: never Patient Tobacco Use Status: Never used Tobacco e-Cigarette/Vaping Use: Never Used Second Hand Smoke Exposure: No service: No Current occupational status: employed 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 Cognitive needs: No Hearing needs: No Vision needs: Yes Female Reproductive History Menstrual Age of Menarche: 14 control method: none Total pregnancies: 0 Date of Mammogram: 10/01/24 (bi rad 2) Date of last Bone Density Screenin10/01/24 Review of Systems Const All systems reviewed & are unremarkable except as noted in HPI and below Reports as per HPI Eyes Reports no additional complaints ENT Reports no additional complaints Card Reports no additional complaints Resp Reports no additional complaints GI Reports as per HPI and Reports no additional complaints Reports as per HPI Musc Reports no additional complaints Skin/Breast Reports as per HPI Neuro Reports no additional complaints Psych Reports no additional complaints Endo Reports no additional complaints Joao/Lymph Reports no additional complaints Aller/Immun Reports no additional complaints Physical Exam Const General: cooperative, healthy appearing, no acute distress, well developed and alert Orientation/consciousness: patient oriented x3 HEENT Head: Yes normal to inspection Eyes General: appearance normal, both eyes and all related structures Neck Neck: Yes normal visual inspection Chest Other: bilateral breast reduction scarring Chest palpation & inspection: normal inspection of the chest and other (no puckering, dimpling, peau de orange, retraction, discharge, masses) Breast/axilla inspection: normal inspection of the breasts Breast/axilla palpation: normal palpation of the breasts Resp Effort & Inspection: normal respiratory effort GI Inspection: Yes normal to inspection and Yes scar Palpation (GI): Soft to palpation Rectal Exam - Female: deferred General: Yes bladder normal to palpation External Female Exam: normal external appearance and normal appearance of the urethra Speculum Exam - Vagina: normal appearance of the vagina, normal palpation, normal vaginal discharge and vagina atrophic Speculum Exam - Cervix: Cervix absent (Vaginal cuff no or nodules) Bimanual exam- vagina & uterus: normal bimanual exam, normal palpation, bladder normal to palpation and uterus absent Bimanual Exam- Adnexa, other: no masses Skin General skin exam: no rashes or lesions noted Rashes: no rashes Neuro General: patient oriented x3 Cognition (Neuro): normal cognition Extrem General: Yes normal to inspection Psych Attitude: cooperative Thought process: Normal thought process present Assessment & Plan Assessment & Plan (1) Encounter for well woman exam with routine gynecological exam: Code(s): Z01.419 - Encounter for gynecological examination (general) (routine) without abnormal findings Category: Medical Plan Discussed: Current recommendations for pap smears per ASCCP guidelines. Breast awareness, periodic self breast exams and yearly mammogram. Maintain a healthy lifestyle, well balanced diet including Calcium 1,200 mg and Vitamin D 600 IU daily, and routine exercise. Patient verbalizes understanding and agrees to the plan of care. She was given opportunity to ask questions and all questions were answered to the best of my ability. 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 This note is constructed using voice recognition software. While every effort has been made to ensure accuracy, assistant mechanic errors may have been included. Coding Level of Care Code Est Pt Prev Care 40-64y(75525) Diagnoses Encounter for well woman exam with routine gynecological exam Z01.419
[2025-04-05 08:09] VITALS: BP 124/76; BMI 47.6
== END 2025-04-05 09:02 | disposition home or self-care (01) ==
LOC: HO.HWS 07:46
PROVIDERS: PCP Internal Medicine; Visit Provider Advanced Practice Midwife
DX: Z01.419 Encounter for gynecological examination (general) (routine) without abnormal findings (principal)
CPT/HCPCS: 99396; 99459

== ENCOUNTER 2025-06-02 07:52 | Outpatient (AMB) | payer OTHER, SELFPAY ==
--- NOTE | 2025-06-02 08:05 | MHC.OFFVIS ---
Vital Signs 06/02/25 08:09 06/02/25 08:37 Height 5 ft 7 in Weight 304 lb BMI 47.6 BP 170/71 H 144/70 H Blood Pressure Location Lt brachial Lt brachial Position Sitting Sitting Pulse 87 Pulse Oximetry (%) 98 Oxygen Delivery Method Room Air Intake Visit Reasons: 6 mo f/u Intake Note: Patient 6 month follow up for multiple large hyperplastic gastric polyps. 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 Pt was seen by Dr Roblero in 05/2020 during hospitalization at [facility] [place] TODAY'S VISIT: Patient denies any GI issues. Wt loss of 20 lbs over the past 4 months Denies heartburn, abd pain or recent change in bowel habits. Continuing to loose wt on Semaglutide. PAST VISITS: Trying to loose weight - plans to discuss medical wt loss with PCP on her next visit Taking Semaglutide since Aug, 2024 (Dose to be increased next week) and slowly working on excercise Noted some nausea after starting Semaglutide which has resolved. Planning to join the gym. EGD results reviewed with the patient. Taking Omeprazole 20 mg once daily and denies GERD symptoms Taking chewable iron with Vitamin C. Started on spironolactone and notes some fatigue. Has been doing intermittent fasting and has lost 20 lbs. Start eating at 11 am and stop eating at 7 pm. Patient denies symptoms of heartburn, dysphagia, nausea, vomiting, change in appetite or weight.? Denies recent change in bowel habits, constipation, diarrhea, black stools or rectal bleeding. EGD findngs and bx results reviewed with the patient She lost 10 lbs on higher dose of thyroid medications, regained 10 lbs when thyroid medication dose was reduced. Patient denies major cardiac or pulmonary problems, loud snoring or sleep apnea Has motion sickness and gets a lot of vomiting after anesthesia - Denies problems after EGD with propofol anesthesia at [facility] [place] [place]. Denies being on chronic anticoagulation. Has been taking chewable iron once daily since 10/2020 Patient denies known family history of colon cancer or other GI malignancies. Dad has had colon polyps in his 50's. PAST EGD/COLONOSCOPY:? Last EGD and colonoscopy in 2011 at [facility] - normal per patient ENDOSCOPIC STUDIES:?04/18/23 EGD SHOWED: Endoscopy Findings: STOMACH: Multiple gastric polyps - 4 larger polyps removed with a hot snare Plan: Patient has an appointment on 05/22/23 in the GI Clinic with Aaron Flowers M.D. BIOPSIES SHOWED: Stomach, polyps: Fundic gland and hyperplastic mucosal polyps with background mild chronic inactive inflammation; no Helicobacter organisms seen 03/25/22 EGD SHOWED:ESOPHAGUS: GE junction at 33 cms. ? Esophagitis with multiple 2-3 cms long linear erosions from 30 to 33 cms. STOMACH: Multiple 1 to 3 cms gastric polyps.? Two larger polyps were removed with a hot snare and retrieved with a Jamison net. Plan:? Repeat EGD in 6 months with GA BIOPSIES SHOWED: A.? Gastric antrum, biopsy:? Gastric antral mucosa with mild reactive changes and minimal chronic inactive gastritis; negative for H pylori, intestinal metaplasia and dysplasia.? B.? Gastric polyps:? Fundic gland polyps with focal reactive changes, and active inflammation with erosion; negative for H pylori, intestinal metaplasia and dysplasia. 05/21/21 EGD AND COLON SHOWED:STOMACH: Multiple 1 to 3 cms gastric polyps.? Larger polyps with ulcerations. Six large polyps were removed with a hot snare and retrieved with a Jamison net. Some bleeding noted from polypectomy site - treated with cautery using the snare tip. Colonoscopy Findings:? Two medium sized polyps removed Moderate diverticulosis seen in the left colon Small hemorrhoids on retroflexed exam. Plan:? Repeat Colonoscopy interval based on path results - in 3 years if polyps are adenomatous and 10 years if polyps are hyperplastic [facility] Medical History Menopause Postsurgical hypothyroidism Adrenal cortical adenoma of left adrenal gland Lump of skin of back Hyperparathyroidism Iron deficiency anemia Vitamin D deficiency Multinodular thyroid Benign essential hypertension Goiter Fundic gland polyps of stomach, benign Morbid obesity with BMI of 45.0-49.9, adult Anemia GERD (gastroesophageal reflux disease) HTN (hypertension) Surgical History History of esophagogastroduodenoscopy (EGD) History of thyroidectomy (~07/11/21) Hx of endoscopy History of colonoscopy History of cholecystectomy Hx of breast reduction, elective History of hysterectomy (~2008) Family History Father FH: colon polyps Family hx of prostate cancer Mother Hx of diabetes insipidus Family history of high blood pressure Maternal Grandmother Breast cancer Family/Other Breast cancer Social History Household Members: Family and Children Household Members Other:: lives with mom and nephew Housing: Apartment Are you a primary nurse healthcare manager to a significant other at home: No Do you presently have visiting nurse or other home services: No Alcohol intake: never Patient Tobacco Use Status: Never used Tobacco e-Cigarette/Vaping Use: Never Used Second Hand Smoke Exposure: No service: No Current occupational status: employed 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 Cognitive needs: No Hearing needs: No Vision needs: Yes Female Reproductive History Menstrual Age of Menarche: 14 Review of Systems Const All systems reviewed & are unremarkable except as noted in HPI and below Physical Exam Vital Signs: Last Vital Signs Pulse 87 06/02/25 08:09 BP 170/71 H 06/02/25 08:09 Pulse Ox 98 06/02/25 08:09 Oxygen Delivery Method Room Air 06/02/25 08:09 BMI result Body Mass Index 47.6 Const General: healthy appearing and no acute distress Nutritional Appearance: obese Orientation/consciousness: patient oriented x3 Limitations: no limitations HEENT Head: Yes normal to inspection Ears: hearing grossly normal bilaterally Eyes Sclerae: sclerae normal Pupils: Equal, round and reactive pupils present Neck Neck: Yes normal visual inspection Chest Chest palpation & inspection: normal inspection of the chest Resp Effort & Inspection: normal respiratory effort Auscultation: clear to auscultation bilaterally Cardio Palpation: normal PMI Rate: regular rate Rhythm: regular rhythm Heart sounds: S1 normal heart sound present, S2 normal heart sound present and no murmurs GI Palpation (GI): Soft to palpation, nontender and No hepatosplenomegaly present Auscultation: normal bowel sounds Rectal Exam - Female: deferred Skin General skin exam: no rashes or lesions noted Neuro General: patient oriented x3, gait normal and moves all extremities Cranial nerves: Yes Equal, round and reactive pupils present Psych Appearance: grossly normal Mental Status: mental status grossly normal Assessment & Plan Assessment & Plan (1) GERD (gastroesophageal reflux disease): Code(s): K21.9 - Gastro-esophageal reflux disease without esophagitis Category: Medical (2) History of cholecystectomy: Code(s): Z90.49 - Acquired absence of other specified parts of digestive tract Category: Surgical (3) History of colon polyps: Comment: 04/2021 Two medium sized polyps removed during colonoscopy Moderate diverticulosis seen in the left colon Small hemorrhoids on retroflexed exam. Plan: Repeat Colonoscopy interval based on path results - in 3 years (due 04/2024) 05/21/24 Colonoscopy Findings: One small polyp was removed Repeat colon in 5 years (Due 04/2029) Code(s): Z86.010 - Personal history of colon polyps Category: Medical (4) Right sided abdominal pain: Comment: Differential diagnosis includes side effect of Wegovy, ovarian cysts, appendicitis and diverticulitis. Patient denies having any urinary symptoms. Patient's examination is not acute at this time. Patient is reassured and will go to the emergency department for any worsening symptoms over the next 48 hours. Code(s): R10.9 - Unspecified abdominal pain Category: Medical (5) Fundic gland polyps of stomach, benign: Comment: Polyps were Hyperplastic by histology. Code(s): D13.1 - Benign neoplasm of stomach Category: Medical (6) Elevated alkaline phosphatase level: Code(s): R74.8 - Abnormal levels of other serum enzymes Category: Medical Plan 54 year old female with hypertension, thyroid disease (MNG) followed in GI for multiple large hyperplastic gastric polyps. Pt is status post cholecystectomy and thyroid surgery for enlarged thyroid with nodules. She was seen in the ED on 06/03/2020 for upper GI bleed. EGD by DR Roblero showed several large polyps and some were actively bleeding. She had a repeat endoscopy on 08/15/[address] Jarquin and 6 large gastric polyps were removed with no complications. 05/21/21 Repeat EGD was performed and?multiple 1 to 3 cms gastric polyps.? Larger polyps with ulcerations. Six large polyps were removed with a hot snare and retrieved with a Jamison net. Pt was advised to decrease Omeprazole to 20 mg at bedtime and to take a 2nd dose prn during the day. If GERD symptoms remain well controlled, can consider switching to famotidine twice daily in the future 03/2023 repeat EGD was performed and results as noted above EMILIA has resolved. 05/21/24 EGD (FU of gastric polyps) and colon (FU of adenomatous colon polyps) showed: Colonoscopy Findings: One small polyp was removed Moderate to severe diverticulosis seen in the left colon Small hemorrhoids on retroflexed exam. Endoscopy Findings: ESOPHAGUS: Medium sized hiatal hernia. STOMACH: Seven polyps were removed from the stomach Plan: Repeat EGD (FU of gastric polyps) in 3 years and Colonoscopy in 5 years due to a history of adenomatous colon polyps (Pt needs GA due to morbid obesity with obstructive sleep apnea) BIOPSIES SHOWED: A. Stomach, body, polyps: Hyperplastic mucosal polyps with background moderate chronic inactive inflammation; no Helicobacter organisms seen. B. Stomach, fundus, polyps: Hyperplastic and fundic gland polyps with background moderate chronic active erosive inflammation; no Helicobacter organisms seen Letter sent to the patient with biopsy results and pt placed on EGD and colon recall list 12/02/24 Taking Semaglutide since Aug, 2024 (Dose to be increased next week) and has lost 20 lbs in 4 months Noted some nausea after starting Semaglutide which has resolved. 06/02/25 Chronic mild elevation of AlkP (remaining LFTs normal). Status post cholecystectomy. Past abd CT scan showed: LIVER, GALLBLADDER, AND BILIARY TREE: The liver is diffusely attenuated but normal size and contour. No focal lesion or intrahepatic ductal dilatation is seen. The gallbladder has been removed. FU in 6 months Orders: Orders Alkaline Phosphatase Isoenzyme Today R74.8 - Abnormal levels of other serum enzymes Gamma Glutamyl Transpeptidase Today R74.8 - Abnormal levels of other serum enzymes Mitochondrial Antibody Today R74.8 - Abnormal levels of other serum enzymes Coding Level of Care Code Est Pt Level 3 (56205) Diagnoses GERD (gastroesophageal reflux disease) K21.9 History of cholecystectomy Z90.49 History of colon polyps Z86.010 Right sided abdominal pain R10.9 Fundic gland polyps of stomach, benign D13.1 Elevated alkaline phosphatase level R74.8 Time Spent (min) 18
[2025-06-02 08:09] VITALS: BP 170/71; PULSE 87; O2SAT 98; BMI 47.6
[2025-06-02 08:37] VITALS: BP 144/70
== END 2025-06-02 08:31 | disposition home or self-care (01) ==
LOC: HO.HGI 07:53
PROVIDERS: PCP Internal Medicine; Visit Provider Internal Medicine Gastroenterology
DX: K21.9 Gastro-esophageal reflux disease without esophagitis (principal); Z90.49 Acquired absence of other specified parts of digestive tract; Z86.0100 Personal history of colon polyps, unspecified; R10.9 Unspecified abdominal pain; D13.1 Benign neoplasm of stomach; R74.8 Abnormal levels of other serum enzymes
CPT/HCPCS: 99213

== ENCOUNTER 2025-08-19 12:02 | Outpatient (REF) | payer OTHER, SELFPAY ==
[2025-08-19 12:18] LABS: MANUAL DIFF FLAG NO
[2025-08-19 12:50] LABS: Hematocrit 43.7 % (37.0-47.0); Hemoglobin 13.3 g/dl (12.0-16.0); Imm Gran Abs Auto 0.06 X10*3/uL (0.00-0.03); Imm Gran Pct Auto 0.9 % (0.0-0.4); Lymphocytes Absolute Auto 1.3 X10*3/uL (1.2-4.9); Mean Corpuscular HGB Conc 30.4 g/dl (31.0-35.0); Mean Corpuscular Hemoglobin 23.8 pg (27.0-33.0); Mean Corpuscular Volume 78.2 fL (80.0-98.0); NRBC Abs Auto 0.000 X10*3/uL (0.0-0.012); NRBC Pct Auto 0.0 /100WBC (0.0-0.2); Platelet Count 271 X10*3/uL (160-400); Red Blood Count 5.59 X10*6/uL (4.20-5.50); White Blood Count 6.9 X10*3/uL (4.8-10.8)
[2025-08-19 13:02] LABS: Appearance Urine Clear; Glucose Urine UA Negative (Negative); PH 6.5 (5.0-9.0); Specific Gravity - Urine 1.025 (1.005-1.025); UMIC TRIGGER UACC YES
[2025-08-19 13:15] LABS: UACC Culture Trigger YES
[2025-08-19 13:27] LABS: Microalbum/Creatinine Ratio Ur 7.9 ug/mg cr (<30)
[2025-08-19 13:32] LABS: Alanine Aminotransferase 25 U/L (0-31); Albumin Level 4.5 g/dL (3.5-5.0); Alkaline Phosphatase 112 U/L (39-117); Anion Gap 12 (12-20); Aspartate Amino Transferase 29 U/L (5-31); Blood Urea Nitrogen 12 mg/dL (9-16); Calcium 9.4 mg/dL (8.4-10.2); Carbon Dioxide 30 mmol/L (22-29); Chloride 103 mmol/L (96-108); Cholesterol 147 mg/dL (<200); Estimated Glomerular Filt Rate > 60; HDL Cholesterol 48 mg/dL (>40); Potassium 3.7 mmol/L (3.3-5.1); Sodium 141 mmol/L (135-145); Total Protein 7.9 g/dL (6.5-8.0); Triglycerides 77 mg/dL (<150)
[2025-08-19 13:48] LABS: Folate 10.8 ng/mL (> or = 4.0); Vitamin B12 447 pg/mL (200-900)
== END 2025-08-19 12:03 | disposition home or self-care (01) ==
LOC: HO.LAB 12:02
PROVIDERS: PCP Internal Medicine; Visit Provider Internal Medicine
DX: E11.9 Type 2 diabetes mellitus without complications (principal); E78.00 Pure hypercholesterolemia, unspecified; D64.9 Anemia, unspecified; E53.8 Deficiency of other specified B group vitamins; E55.9 Vitamin D deficiency, unspecified
CPT/HCPCS: 36415; 80053; 80061; 81001; 81003; 82043; 82306; 82570; 82607; 82746; 83036; 84443; 85025; 87086

== ENCOUNTER 2025-08-22 09:29 | Outpatient (AMB) | payer OTHER, SELFPAY ==
[2025-08-22 09:33] VITALS: BP 130/82; PULSE 80; O2SAT 94; BMI 46.8
--- NOTE | 2025-08-22 09:33 | MHC.PC.OV ---
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 Accompanied by: Self / Same As Patient Allergies potassium Allergy (Intermediate, Verified 08/22/25 10:06) Palpitations Medication List - Last Reconciled 08/22/25 by Dae Simpson MD atenolol 25 mg PO DAILY 90 days cholecalciferol (vitamin D3) (Vitamin D3) 25 mcg PO DAILY ferrous sulfate (FeroSul) 325 mg PO DAILY hydrochlorothiazide 25 mg PO QAM 90 days levothyroxine 175 mcg PO DAILY 90 days omeprazole 20 mg PO DAILY 90 days semaglutide (weight loss) 2.4 mg (0.75 mL) subcut QWEEK 4 weeks Tobacco use date assessed: 08/22/25 Dental Screening Dental Screen Date: 08/22/25 Did you have a dental visit in the last 12 months?: Yes Did you have a dental problem in the last 6 months where you did not have access to dental care?: No Was dental information given to patient?: Patient has dentist HPI ANNUAL HPI Details Patient comes in today for her annual physical examination States that she came down with some cough/cold symptoms a few days ago on but notes that her symptoms are starting to clear up gradually States that she feels okay and denies any fever, sore throat or SOB She denies any headaches or dizziness Denies any chest pains No nausea/vomiting, no abdominal pain No change in bowel habits noted She denies any acute urinary symptoms She had her follow up labs done a few days ago - to discuss her results She had her screening colonoscopy last done in 04/2024 and is recommended to have repeat colonoscopy in 5 years (2028) Her annual mammogram and BMD were both done earlier this year in 09/2024 and she had her yearly gynecology exam done at the [facility] a few months ago in 03/2025 [facility] Medical History Menopause Postsurgical hypothyroidism Adrenal cortical adenoma of left adrenal gland Lump of skin of back Hyperparathyroidism Iron deficiency anemia Vitamin D deficiency Multinodular thyroid Benign essential hypertension Goiter Fundic gland polyps of stomach, benign Morbid obesity with BMI of 45.0-49.9, adult Anemia GERD (gastroesophageal reflux disease) HTN (hypertension) Surgical History History of esophagogastroduodenoscopy (EGD) History of thyroidectomy (~07/11/21) Hx of endoscopy History of colonoscopy History of cholecystectomy Hx of breast reduction, elective History of hysterectomy (~2008) Family History Father FH: colon polyps Family hx of prostate cancer Mother Hx of diabetes insipidus Family history of high blood pressure Maternal Grandmother Breast cancer Family/Other Breast cancer Social History Household Members: Family and Children Household Members Other:: lives with mom and nephew Housing: Apartment Are you a primary child care associate teacher to a significant other at home: No Do you presently have visiting nurse or other home services: No Alcohol intake: never Patient Tobacco Use Status: Never used Tobacco e-Cigarette/Vaping Use: Never Used Second Hand Smoke Exposure: No service: No Current occupational status: employed Current occupation: [employer] Cognitive needs: No Hearing needs: No Vision needs: Yes Female Reproductive History Menstrual Age of Menarche: 14 Questionnaire PHQ-9 Over the last 2 weeks, how often have you been bothered by any of the following problems? 1. Little interest or pleasure in doing things: not at all 2. Feeling down, depressed, or hopeless: not at all 3. Trouble falling or staying asleep, or sleeping too much: not at all 4. Feeling tired or having little energy: not at all 5. Poor appetite or overeating: not at all 6. Feeling bad about yourself - or that you are a failure or have let yourself or your family down: not at all 7. Trouble concentrating on things, such as reading the newspaper or watching television: not at all 8. Moving or speaking so slowly that other people could have noticed. Or the opposite - being so fidgety or restless that you have been moving around a lot more than usual: not at all 9. Thoughts that you would be better off or of hurting yourself in some way: not at all Total score: 0 Depression Screening Interpretation: Negative Depression Screening Done: Yes 34436 - PHQ-9 Billing: Yes Source: Developed by Drs. Bobby Barahona, Roxann Boyle, Tyler Romero and colleagues, with an educational terrell from [employer]. Thrive Questionnaire Date Thrive assessed: 08/22/25 I am a: Patient What is your living situation today?: I have a steady place to live Within the past 12 months, did the food you bought not last and you didn't have the money to get more?: Never true Within the past 12 months, did you worry whether your food would run out before you got money to buy more?: Never true Do you have trouble paying for medicines?: No Do you have trouble getting transportation to medical appointments?: No Do you have trouble paying your heating and electricity bill?: No Do you have trouble taking care of your child, family member or friend?: No Do you have trouble with day-to-day activities such as bathing, preparing meals, shopping, managing finances, etc.?: No Are you currently unemployed and looking for a job?: No Are you interested in more education?: No Currently or been in a relationship where the following occur: No concerns reported THRIVE Score: 0 AUDIT C Alcohol Use Questionnaire (AUDIT-C) 1. How often do you have a drink containing alcohol?: Monthly or less 2. How many drinks containing alcohol do you have on a typical day when you are drinking?: 1 or 2 3. How often do you have six or more drinks on one occasion?: Never Total Score: 1 Score Reviewed/Action Taken: Yes JUDAH-7 AMB Questionnaire JUDAH-7 Date JUDAH - 7 assessed: 08/22/25 Feeling nervous, anxious, or on edge: 0 = Not at all Not being able to stop or control worryin = Not at all Worrying too much about different things: 0 = Not at all Trouble relaxin = Not at all Being so restless that it is hard to sit still: 0 = Not at all Becoming easily annoyed or irritable: 0 = Not at all Feeling afraid as if something awful might happen: 0 = Not at all Total JUDAH-7 score (0-4 normal; 5-9 mild; 10-14 moderate; 15-21 severe): 0 Source: Developed by Drs. Bobby Barahona, Roxann Boyle, Tyler Romero and colleagues, with an educational terrell from [employer]. Review of Systems Const Denies chills, Denies fatigue, Denies fever(s), Denies headache(s) and Denies malaise Eyes Denies blurry vision, Denies change in vision, Denies irritation and Denies itchy eyes ENT Denies dysphagia, Denies dizziness, Denies otalgia, Denies headache(s), Reports nasal congestion, Denies neck pain, Denies odynophagia, Denies sinus pain and Denies sore throat Card Denies chest pain, Denies rapid heart rate, Denies irregular heart rhythm, Denies palpitations and Denies dyspnea Resp Reports chest congestion (mild - improving), Reports cough (on and off, coughs up minimal clear to whitish phlegm at times), Denies dyspnea and Denies wheezing GI Denies abdominal pain, Denies bloating, Denies constipation, Denies dysphagia, Denies heartburn, Denies diarrhea, Denies nausea, Denies odynophagia and Denies vomiting Denies hematuria, Denies urinary frequency, Denies dysuria, Denies urinary incontinence and Denies urinary urgency Musc Denies back pain, Denies arthralgias, Denies joint swelling, Denies muscle weakness and Denies neck pain Skin/Breast Denies breast pain, Denies breast mass, Denies change in pigmentation, Denies lesions, Denies rash and Denies unusual bruising Neuro Denies dizziness, Denies headache(s) and Denies paresthesias Psych Denies anxiety and Denies depression Endo Denies fatigue and Denies palpitations Joao/Lymph Denies easy bruising Aller/Immun Denies itchy eyes and Denies wheezing Physical exam (Primary Care) Vital Signs: Last Vital Signs Pulse 80 08/22/25 09:33 BP 130/82 08/22/25 09:33 Pulse Ox 94 08/22/25 09:33 Oxygen Delivery Method Room Air 08/22/25 09:33 BMI result Body Mass Index 46.8 Tobacco/Smoking Status: Tobacco use Status Tobacco use date assessed 08/22/25 08/22/25 09:39 Patient Tobacco Use Status Never used Tobacco 08/22/25 09:39 e-Cigarette/Vaping Use Never Used 08/22/25 09:39 PHQ-9: PHQ-9 Score PHQ-9: Total score 0 08/22/25 12:15 Depression Screening Interpretation: Negative Thrive Assessment: Date of Thrive Assessment Date Thrive assessed 08/22/25 08/22/25 09:39 Currently or been in a relationship where the following occur: No concerns reported Const General: no acute distress, alert and awake Orientation/consciousness: patient oriented x3 HENMT Head: Yes normocephalic and Yes atraumatic Ears: external ears normal, TM's normal bilaterally and EAC's normal General nose exam: No nasal discharge present Face and sinus: Yes normal facial exam and Yes sinuses nontender Teeth and gingiva: dentition normal Throat: Yes posterior oropharynx normal and Yes tonsils normal (no TP congestion) Eyes Eyelids: Yes eyelids normal Conjunctivae: conjunctivae normal Pupils: Equal, round and reactive pupils present EOM: EOMs intact bilaterally Neck Neck: Yes no lymphadenopathy and Yes supple Thyroid: Thyroid normal Resp Auscultation: clear to auscultation bilaterally, no rales and no wheezes Cardio Rate: regular rate Rhythm: regular rhythm Heart sounds: no murmurs GI Palpation (GI): Soft to palpation, nontender and No hepatosplenomegaly present Auscultation: normal bowel sounds General: Yes no CVA tenderness Back/Spine/Pelvis Back: no CVA tenderness Thoracic/Lumbar Spine: thoracic and lumbar spine normal to inspection Skin Lesions: no lesions Rashes: no rashes Neuro General: patient oriented x3, moves all extremities, no focal motor deficits and CN's II-XI intact bilaterally Cranial nerves: Yes Equal, round and reactive pupils present Cognition (Neuro): normal cognition Gait exam (Neuro): Normal gait present Extrem General: Yes no clubbing, cyanosis or edema Results Reviewed Results Reviewed: Laboratory Tests 08/19/25 08/19/25 12:10 12:16 WBC 6.9 Hgb 13.3 Hct 43.7 Plt Count 271 Sodium 141 Potassium 3.7 Creatinine 0.81 Estimated GFR > 60 Fasting Glucose 91 Hemoglobin A1c % 5.6 Calcium 9.4 AST 29 ALT 25 Triglycerides 77 Cholesterol 147 LDL Cholesterol, Calc 84 HDL Cholesterol 48 Vitamin B12 447 25-OH Vitamin D Total 36.5 TSH 1.04 Ur Specific [place] 1.025 Urine Protein 30 (1+) H Urine Glucose (UA) Negative Urine Blood Moderate (2+) H Urine Nitrite Negative Ur Leukocyte Esterase Small (1+) H Microalb/Creat Ratio 7.9 Coding Level of Care Code Est Pt Prev Care 40-64y(88424) Diagnoses Annual physical exam Z00.00 Benign essential hypertension I10 Multinodular thyroid E04.2 Postsurgical hypothyroidism E89.0 Iron deficiency anemia, unspecified iron deficiency anemia type D50.9 Iron deficiency anemia type: unspecified iron deficiency Vitamin D deficiency E55.9 Impaired fasting glucose R73.01 Gastritis with hemorrhage, unspecified chronicity, unspecified gastritis type K29.71 Chronicity: unspecified Gastritis bleeding: with bleeding Gastritis type: unspecified gastritis Adrenal cortical adenoma of left adrenal gland D35.02 Stasis edema of both lower extremities I87.303 Morbid obesity with BMI of 45.0-49.9, adult E66.01; Z68.42 Additional Codes PHQ-9 - 19675 - PHQ-9 Billing: Yes ([id number]) Assessment & Plan Assessment & Plan (1) Annual physical exam: Code(s): Z00.00 - Encounter for general adult medical examination without abnormal findings Category: Medical Plan: Results of her labs done a few days ago reviewed and discussed with patient She is currently up-to-date on all of her cancer screenings - she had her screening colonoscopy last done in 04/2024 and is recommended to have repeat colonoscopy in 5 years (2028) Her annual mammogram and BMD were both recently done in 09/2024 and she had her yearly gynecology exam done at the [facility] a few months ago in 03/2025 (2) Benign essential hypertension: Code(s): I10 - Essential (primary) hypertension Category: Medical Plan: Reinforced low sodium diet - goal is systolic BP of at least 120 to 130 mm or less Continue Atenolol 25 mg QD and HCTZ 25 mg Q AM Patient is reminded to continue monitoring her blood pressure regularly (3) Multinodular thyroid: Comment: S/P total thyroidectomy by Dr. Dukes on 07/11/2021 due to compressive neck symptoms Code(s): E04.2 - Nontoxic multinodular goiter Category: Medical Plan: S/P total thyroidectomy in 06/2021; pathology came out benign She will require lifelong thyroid hormone replacement therapy (4) Postsurgical hypothyroidism: Code(s): E89.0 - Postprocedural hypothyroidism Category: Medical Plan: Results of her labs done a few days ago reviewed and discussed with patient - her TFTs have remained normal on her recent labs Continue Levothyroxine 175 mcg QD Will recheck her TFTs in 4 months for follow up (5) Iron deficiency anemia: Code(s): D50.9 - Iron deficiency anemia, unspecified Category: Medical Qualifiers: Iron deficiency anemia type: unspecified iron deficiency Qualified Code(s): D50.9 - Iron deficiency anemia, unspecified Plan: Corrected - her H/H were normal at 13.3/43.7 on her recent labs Continue Ferrous Sulfate 325 mg QD Will continue to monitor her CBC regularly (6) Vitamin D deficiency: Code(s): E55.9 - Vitamin D deficiency, unspecified Category: Medical Plan: Continue Vitamin D3 1000 units QD (7) Impaired fasting glucose: Code(s): R73.01 - Impaired fasting glucose Category: Medical Plan: Her HgbA1c remained normal at 5.6% on her recent labs (was previously at 5.9% back in July 2024) Reinforced low calorie/low carb diet/exercise as tolerated Will recheck her FBS and HgbA1c in 4 months for follow up (8) Gastritis: Code(s): K29.70 - Gastritis, unspecified, without bleeding Category: Medical Qualifiers: Chronicity: unspecified Gastritis bleeding: with bleeding Gastritis type: unspecified gastritis Qualified Code(s): K29.71 - Gastritis, unspecified, with bleeding Plan: S/P EGD with Dr. Flowers in 04/2024 and she was recommended again for repeat EGD in 3 years (2026) Dietary restrictions reinforced Continue Omeprazole 40 mg QD Follow-up with GI as scheduled (9) Adrenal cortical adenoma of left adrenal gland: Comment: 1.6 cm left adrenal nodule Code(s): D35.02 - Benign neoplasm of left adrenal gland Category: Medical Plan: Repeat abdominal CT done in June 2022 revealed (+) left adrenal benign adenoma, measuring 1.6 cm, which is approximately the same size as seen on previous study on 06/14/2021. The rest of the abdominal findings are unremarkable Patient has been worked up and evaluated by endocrinology and was advised that her adrenal adenoma is most likely benign although she was also evaluated for possible hyperaldosteronism She was advised on potential medical Tx with Spironolactone or Eplerenone versus referral to the adrenal center at [facility] for further work up but patient declined as she feels that her blood pressure has been well-controlled so far Follow up with endocrinology as scheduled (10) Stasis edema of both lower extremities: Code(s): I87.303 - Chronic venous hypertension (idiopathic) without complications of bilateral lower extremity Category: Medical Plan: This is most likely due to venous stasis Patient is reminded again to keep her legs elevated as often as she can throughout the day to help minimize her swelling and that wearing compressions stockings and losing weight can also help (11) Morbid obesity with BMI of 45.0-49.9, adult: Comment: Present care home Code(s): E66.01 - Morbid (severe) obesity due to excess calories; Z68.42 - Body mass index [BMI] 45.0-49.9, adult Category: Medical Plan: Reinforced diet/exercise as tolerated/lose weight Her weight loss seems to have plateaued lately although she has lost a few more pounds since her last visit Continue Semaglutide 1.7 mg SQ once a week Plan Follow up in 4 months Orders: Orders Lipid Panel 4 Months E78.00 - Pure hypercholesterolemia, unspecified Free T4 (Free Thyroxine) 4 Months E03.9 - Hypothyroidism, unspecified Thyroid Stimulating Hormone 4 Months E03.9 - Hypothyroidism, unspecified Complete Blood Count Auto Diff 4 Months D64.9 - Anemia, unspecified Comprehensive [place]. Panel Fast 4 Months E78.00 - Pure hypercholesterolemia, unspecified UA CC w/rflx Micro + Cult 4 Months R30.0 - Dysuria Vitamin D 25-OH Total 4 Months E55.9 - Vitamin D deficiency, unspecified
== END 2025-08-22 10:18 | disposition home or self-care (01) ==
LOC: HO.HMCH 09:30
PROVIDERS: PCP Internal Medicine; Visit Provider Internal Medicine
DX: Z00.00 Encounter for general adult medical examination without abnormal findings (principal); E66.01 Morbid (severe) obesity due to excess calories; Z68.42 Body mass index [BMI] 45.0-49.9, adult; I10 Essential (primary) hypertension; E04.2 Nontoxic multinodular goiter; E89.0 Postprocedural hypothyroidism; D50.9 Iron deficiency anemia, unspecified; E55.9 Vitamin D deficiency, unspecified; R73.01 Impaired fasting glucose; K29.71 Gastritis, unspecified, with bleeding

== ENCOUNTER → 2025-08-22 09:29 | Outpatient (BNVA) | payer OTHER, SELFPAY | PROVIDERS: PCP Internal Medicine; Visit Provider Internal Medicine | DX: Z00.00 Encounter for general adult medical examination without abnormal findings (principal); I10 Essential (primary) hypertension; E04.2 Nontoxic multinodular goiter; E89.0 Postprocedural hypothyroidism; D50.9 Iron deficiency anemia, unspecified; E55.9 Vitamin D deficiency, unspecified; R73.01 Impaired fasting glucose; K29.71 Gastritis, unspecified, with bleeding; D35.02 Benign neoplasm of left adrenal gland; I87.303 Chronic venous hypertension (idiopathic) without complications of bilateral lower extremity; E66.01 Morbid (severe) obesity due to excess calories; Z68.42 Body mass index [BMI] 45.0-49.9, adult | CPT/HCPCS: 96127 ==